=== PATIENT | male | born 1955 | race Caucasian/White ===

== ENCOUNTER 2017-08-14 12:23 | Inpatient (IN) ==
--- NOTE | 2017-08-14 12:34 | Emergency Department Note ---
Disposition Clinical Impression: Rhabdomyolysis, Elevated troponin I level, Altered mental state Disposition: Admitted As Inpatient Condition: Serious General Adult HPI - General Stated complaint: AMS Time Seen by Provider: 08/14/17 12:25 - Related Data Home Medications Medication Instructions Recorded Confirmed Nitroglycerin 0.4 mg SL Q5M PRN 09/03/16 08/14/17 Albuterol Sulfate [Proventil Hfa] 1 - 2 puff IH Q6H PRN 08/14/17 08/14/17 Amlodipine Besylate 10 mg PO DAILY 08/14/17 08/14/17 Cyclobenzaprine HCl 10 mg PO HS 08/14/17 08/14/17 Gabapentin [Neurontin] 600 mg PO TID 08/14/17 08/14/17 Isosorbide MONOnitrate (24 HR) 60 mg PO DAILY 08/14/17 08/14/17 [Imdur] Lisinopril/Hydrochlorothiazide 1 tab PO DAILY 08/14/17 08/14/17 [Zestoretic 20-12.5 mg Tablet] Metoprolol XL (24 HR) Succ [Toprol 100 mg PO DAILY 08/14/17 08/14/17 Xl] Oxybutynin Chloride [Ditropan Xl] 5 mg PO BID 08/14/17 08/14/17 Tamsulosin [Flomax] 0.4 mg PO DAILY 08/14/17 08/14/17 Previous Rx's Medication Instructions Recorded Atorvastatin [Lipitor] 80 mg PO HS #30 tablet 07/23/15 Clopidogrel [Plavix] 75 mg PO DAILY #30 tablet 07/23/15 Allergies Allergy/AdvReac Type Severity Reaction Status Date / Time No Known Allergies Allergy Verified 09/03/16 07:59 Past Medical History - Past Medical History Medical history: Reports: non-contributory, arthritis, coronary artery disease, diabetes, hyperlipidemia, hypertension, myocardial infarction, TIA Surgical history: Reports: no surgical history Psychiatric history: Reports: no psych history - Social History Smoking Status: Current every day smoker Smokeless Tobacco Status: No Alcohol use: Reports: occasionally Drug use: Reports: none Course Vital Signs Temperature 98.2 F 08/14/17 12:48 Pulse Rate 79 08/14/17 12:48 Respiratory Rate 18 08/14/17 12:48 Blood Pressure 149/80 08/14/17 12:48 O2 Sat by Pulse Oximetry 79 02/03/18 12:48 Temperature 98.2 F 08/14/17 12:48 Pulse Rate 79 08/14/17 12:48 Respiratory Rate 18 08/14/17 15:15 Blood Pressure 113/68 08/14/17 15:15 O2 Sat by Pulse Oximetry 79 08/14/17 12:48 Oxygen Delivery Oxygen Delivery Room Air Medical Decision Making - Lab Data Result diagrams: 08/14/17 13:09 08/14/17 13:09 Lab Results 08/14/17 08/14/17 08/14/17 Range/Units 12:37 13:09 13:09 WBC 13.0 H (4.3-11.1) K/mcL RBC 4.74 (4.19-5.50) M/mcL Hgb 13.6 (12.9-16.9) g/dL Hct 42.4 (37.5-50.1) % MCV 89.5 (83.0-100.0) fL MCH 28.7 (28.0-33.3) pg MCHC 32.1 (31.6-35.5) g/dL RDW 13.4 (11.5-14.5) % Plt Count 197 (140-400) K/mcL MPV 9.7 (9.4-12.4) fL Immature Gran % 0.4 (0-4) % Seg Neutrophils % 85.9 % Lymphocytes % 7.1 % Monocytes % 6.4 % Eosinophils % 0.1 % Basophils % 0.1 % Neutrophils # 11.2 H (1.6-8.9) K/mcL Lymphocytes # 0.9 (0.6-4.6) K/mcL Monocytes # 0.8 (0.0-1.3) K/mcL Eosinophils # 0.0 (0.0-0.6) K/mcL Basophils # 0.0 (0.0-0.2) K/mcL PT 11.1 (9.4-12.1) Seconds INR 1.0 APTT 27.1 (26.0-36.0) Seconds Sodium (136-145) mEq/L Potassium (3.5-5.1) mEq/L Chloride (98-107) mEq/L Carbon Dioxide (23-29) mEq/L BUN (8-23) mg/dL Creatinine (0.70-1.30) mg/dL Est GFR ( Amer) (> 60) Est GFR (Non-Af Amer) (> 60) BUN/Creatinine Ratio (6-26) Glucose (70-105) mg/dL POC Glucose 155 H (58-89) Calculated Osmolality (280-300) Calcium (8.6-10.3) mg/dL Total Bilirubin (0.3-1.0) mg/dL Direct Bilirubin (0.0-0.2) mg/dL Indirect Bilirubin (0.0-1.2) mg/dL AST (13-39) Units/L ALT (7-52) Units/L Alkaline Phosphatase (34-104) Units/L Ammonia (16-53) mcmol/L Creatine Kinase (30-223) Units/L Troponin I (< 0.04) ng/mL Serum Total Protein (6.4-8.9) g/dL Albumin (3.5-5.7) g/dL Globulin (2.4-3.5) g/dL Albumin/Globulin Ratio (1.1-2.2) TSH (0.340-5.600) mcIU/mL Urine Color (Yellow) Urine Clarity (Clear) Urine pH (5.0-8.0) pH Units Ur Specific [place] (1.010-1.025) Urine Protein (Neg-Trace) mg/dL Urine Glucose (UA) (Normal) mg/dL Urine Ketones (Negative) mg/dL Urine Blood (Negative) Urine Nitrite (Negative) Urine Bilirubin (Negative) Urine Urobilinogen (Normal) mg/dL Ur Leukocyte Esterase (Negative) Urine Microscopic RBC (0-3) per hpf Urine Microscopic WBC (0-3) per hpf Ur Squamous Epith Cells (None-Few) per lpf Amorphous Sediment (Few) Urine Bacteria (None-Few) per hpf Ur Culture Indicated? (NO) Urine Opiates Screen (Vudzgu=081) ng/mL Ur Barbiturates Screen (Aomggw=961) ng/mL Ur Phencyclidine Scrn (Cutoff=25) ng/mL Ur Amphetamines Screen (Olbwap=2788) ng/mL U Benzodiazepines Scrn (Rscflp=101) ng/mL Urine Cocaine Screen (Cutoff= 300) ng/mL U Marijuana (THC) Screen (Cutoff = 50) ng/mL Ethyl Alcohol (0-10) mg/dL 08/14/17 08/14/17 08/14/17 Range/Units 13:09 13:09 13:09 WBC (4.3-11.1) K/mcL RBC (4.19-5.50) M/mcL Hgb (12.9-16.9) g/dL Hct (37.5-50.1) % MCV (83.0-100.0) fL MCH (28.0-33.3) pg MCHC (31.6-35.5) g/dL RDW (11.5-14.5) % Plt Count (140-400) K/mcL MPV (9.4-12.4) fL Immature Gran % (0-4) % Seg Neutrophils % % Lymphocytes % % Monocytes % % Eosinophils % % Basophils % % Neutrophils # (1.6-8.9) K/mcL Lymphocytes # (0.6-4.6) K/mcL Monocytes # (0.0-1.3) K/mcL Eosinophils # (0.0-0.6) K/mcL Basophils # (0.0-0.2) K/mcL PT (9.4-12.1) Seconds INR APTT (26.0-36.0) Seconds Sodium 133 L (136-145) mEq/L Potassium 4.4 (3.5-5.1) mEq/L Chloride 98 (98-107) mEq/L Carbon Dioxide 26 (23-29) mEq/L BUN 30 H (8-23) mg/dL Creatinine 2.50 H (0.70-1.30) mg/dL Est GFR ( Amer) 32 L (> 60) Est GFR (Non-Af Amer) 26 L (> 60) BUN/Creatinine Ratio 12 (6-26) Glucose 112 H (70-105) mg/dL POC Glucose (58-89) Calculated Osmolality 283 (280-300) Calcium 9.0 (8.6-10.3) mg/dL Total Bilirubin 0.8 (0.3-1.0) mg/dL Direct Bilirubin 0.1 (0.0-0.2) mg/dL Indirect Bilirubin 0.7 (0.0-1.2) mg/dL AST 43 H (13-39) Units/L ALT 17 (7-52) Units/L Alkaline Phosphatase 48 (34-104) Units/L Ammonia 42 (16-53) mcmol/L Creatine Kinase 6238 H (30-223) Units/L Troponin I 0.09 H* (< 0.04) ng/mL Serum Total Protein 6.4 (6.4-8.9) g/dL Albumin 4.0 (3.5-5.7) g/dL Globulin 2.4 (2.4-3.5) g/dL Albumin/Globulin Ratio 1.7 (1.1-2.2) TSH 1.836 (0.340-5.600) mcIU/mL Urine Color (Yellow) Urine Clarity (Clear) Urine pH (5.0-8.0) pH Units Ur Specific [place] (1.010-1.025) Urine Protein (Neg-Trace) mg/dL Urine Glucose (UA) (Normal) mg/dL Urine Ketones (Negative) mg/dL Urine Blood (Negative) Urine Nitrite (Negative) Urine Bilirubin (Negative) Urine Urobilinogen (Normal) mg/dL Ur Leukocyte Esterase (Negative) Urine Microscopic RBC (0-3) per hpf Urine Microscopic WBC (0-3) per hpf Ur Squamous Epith Cells (None-Few) per lpf Amorphous Sediment (Few) Urine Bacteria (None-Few) per hpf Ur Culture Indicated? (NO) Urine Opiates Screen (Lgvbgm=363) ng/mL Ur Barbiturates Screen (Fonrri=399) ng/mL Ur Phencyclidine Scrn (Cutoff=25) ng/mL Ur Amphetamines Screen (Svmeqx=6526) ng/mL U Benzodiazepines Scrn (Rfazug=909) ng/mL Urine Cocaine Screen (Cutoff= 300) ng/mL U Marijuana (THC) Screen (Cutoff = 50) ng/mL Ethyl Alcohol < 10 (0-10) mg/dL 08/14/17 08/14/17 Range/Units 14:05 14:06 WBC (4.3-11.1) K/mcL RBC (4.19-5.50) M/mcL Hgb (12.9-16.9) g/dL Hct (37.5-50.1) % MCV (83.0-100.0) fL MCH (28.0-33.3) pg MCHC (31.6-35.5) g/dL RDW (11.5-14.5) % Plt Count (140-400) K/mcL MPV (9.4-12.4) fL Immature Gran % (0-4) % Seg Neutrophils % % Lymphocytes % % Monocytes % % Eosinophils % % Basophils % % Neutrophils # (1.6-8.9) K/mcL Lymphocytes # (0.6-4.6) K/mcL Monocytes # (0.0-1.3) K/mcL Eosinophils # (0.0-0.6) K/mcL Basophils # (0.0-0.2) K/mcL PT (9.4-12.1) Seconds INR APTT (26.0-36.0) Seconds Sodium (136-145) mEq/L Potassium (3.5-5.1) mEq/L Chloride (98-107) mEq/L Carbon Dioxide (23-29) mEq/L BUN (8-23) mg/dL Creatinine (0.70-1.30) mg/dL Est GFR ( Amer) (> 60) Est GFR (Non-Af Amer) (> 60) BUN/Creatinine Ratio (6-26) Glucose (70-105) mg/dL POC Glucose (58-89) Calculated Osmolality (280-300) Calcium (8.6-10.3) mg/dL Total Bilirubin (0.3-1.0) mg/dL Direct Bilirubin (0.0-0.2) mg/dL Indirect Bilirubin (0.0-1.2) mg/dL AST (13-39) Units/L ALT (7-52) Units/L Alkaline Phosphatase (34-104) Units/L Ammonia (16-53) mcmol/L Creatine Kinase (30-223) Units/L Troponin I (< 0.04) ng/mL Serum Total Protein (6.4-8.9) g/dL Albumin (3.5-5.7) g/dL Globulin (2.4-3.5) g/dL Albumin/Globulin Ratio (1.1-2.2) TSH (0.340-5.600) mcIU/mL Urine Color Yellow (Yellow) Urine Clarity Turbid A (Clear) Urine pH 5.0 (5.0-8.0) pH Units Ur Specific [place] > 1.030 H (1.010-1.025) Urine Protein 100 H (Neg-Trace) mg/dL Urine Glucose (UA) 250 H (Normal) mg/dL Urine Ketones Negative (Negative) mg/dL Urine Blood Large H (Negative) Urine Nitrite Negative (Negative) Urine Bilirubin Negative (Negative) Urine Urobilinogen Normal (Normal) mg/dL Ur Leukocyte Esterase Negative (Negative) Urine Microscopic RBC 0-3 (0-3) per hpf Urine Microscopic WBC 3-5 H (0-3) per hpf Ur Squamous Epith Cells Many H (None-Few) per lpf Amorphous Sediment Moderate H (Few) Urine Bacteria Many H (None-Few) per hpf Ur Culture Indicated? NO (NO) Urine Opiates Screen Positive H (Wmunve=530) ng/mL Ur Barbiturates Screen Negative (Ssxxbp=997) ng/mL Ur Phencyclidine Scrn Negative (Cutoff=25) ng/mL Ur Amphetamines Screen Negative (Kphxov=3832) ng/mL U Benzodiazepines Scrn Negative (Fwnnxm=019) ng/mL Urine Cocaine Screen Negative (Cutoff= 300) ng/mL U Marijuana (THC) Screen Positive H (Cutoff = 50) ng/mL Ethyl Alcohol (0-10) mg/dL Critical Care Time Critical Care Time: Yes Total Critical Care Time: 30 Attestation: The high probability of a clinically significant, sudden or life threatening deterioration of the [] system(s) required my full and direct attention, intervention and personal management. The aggregate critical care time was [] minutes. This time is in addition to time spent performing reported procedures but includes the following: [] Data Review and interpretation [] Patient assessment and monitoring of vital signs [] Documentation [] Medication orders and management Attestation Statement - Attestation Attestation: I examined this patient and my medical decision-making was reviewed with the Resident Physician. I agree with the documented findings, disposition and treatment plan as described except to the extent set forth below. [id number] time provided Patient arrives in the care of his family with increased somnolence. He is alert at the time of my initial exam. I evaluated this patient and discussed the plan of care with the resident physician Dr. Chao
[2017-08-14] MEDS ORDERED: 0.9 % Sodium Chloride 1,000 ML IVC ONE ×2 (12:36→14:42)
[2017-08-14 13:19] LABS: Basophils % 0.1 %; Eosinophils % 0.1 %; Hematocrit 42.4 % (37.5-50.1); Hemoglobin 13.6 g/dL (12.9-16.9); Immature Granulocytes % 0.4 % (0-4); Lymphocytes # 0.9 K/mcL (0.6-4.6); Lymphocytes % 7.1 %; Mean Corpuscular HGB Conc 32.1 g/dL (31.6-35.5); Mean Corpuscular Hemoglobin 28.7 pg (28.0-33.3); Mean Corpuscular Volume 89.5 fL (83.0-100.0); Mean Platelet Volume 9.7 fL (9.4-12.4); Monocytes # 0.8 K/mcL (0.0-1.3); Monocytes % 6.4 %; Neutrophils # 11.2 K/mcL (1.6-8.9); Platelet Count 197 K/mcL (140-400); Red Blood Count 4.74 M/mcL (4.19-5.50); Red Cell Distribution Width 13.4 % (11.5-14.5); Segmented Neutrophils % 85.9 %
[2017-08-14 13:33] LABS: Prothrombin Time 11.1 Seconds (9.4-12.1)
[2017-08-14 13:36] LABS: Activated Partial Thrombo Time 27.1 Seconds (26.0-36.0)
[2017-08-14 13:42] LABS: Ethanol < 10 mg/dL (0-10)
[2017-08-14] MEDS ORDERED: Aspirin 81 MG TAB.CHEW PO ONE (13:47)
--- NOTE | 2017-08-14 14:14 | Emergency Department Note ---
Disposition Clinical Impression: Elevated troponin I level Rhabdomyolysis Qualifiers: Rhabdomyolysis type: non-traumatic Qualified Code(s): M62.82 - Rhabdomyolysis Altered mental state Qualifiers: Altered mental status type: unspecified Qualified Code(s): R41.82 - Altered mental status, unspecified Disposition: Admitted As Inpatient Condition: Serious Referrals: John Pritchard MD [Primary Care Provider] - Forms: ED Satisfaction Letter Time of Disposition: 14:56 General Adult HPI - General Chief complaint: ED Neuro Symptoms/Deficit Stated complaint: AMS Time Seen by Provider: 08/14/17 12:25 Source: patient Limitations: no limitations Nursing Notes Reviewed: Yes Vital Signs Reviewed: Yes - History of Present Illness HPI Narrative: 62-year-old male history of htn, hyperlipidemia, CAD status post stents, presents complaining of altered mental status, his states that she woke him up at 9:30, and that he was sitting in the chair difficult to arouse when he woke up he seemed pale and clammy, patient denies any chest pain or any weakness, he denies shortness of breath or abdominal pain. Patient has no complaints at this time essentially, he appears very confused mostly history is obtained from his is at bedside. They say he does have a history of TIA no history of stroke is also had multiple recurrent pneumonias. His high blood pressure high cholesterol and takes isosorbide did not take his medication today. Onset (ago): hour(s) Location: head Pain Severity: moderate Pain Scale: 4 Quality: aching Improves with: nothing Worsens with: nothing Associated symptoms: Denies: confusion, chest pain, cough, diaphoresis, headaches, loss of appetite, nausea/vomiting - Related Data Home Medications Medication Instructions Recorded Confirmed Nitroglycerin 0.4 mg SL Q5M PRN 09/03/16 09/03/16 Previous Rx's Medication Instructions Recorded Aspirin 81 mg PO DAILY #30 tab.chew 07/23/15 Atorvastatin [Lipitor] 80 mg PO HS #30 tablet 07/23/15 Clopidogrel [Plavix] 75 mg PO DAILY #30 tablet 07/23/15 Isosorbide MONOnitrate (24 HR) 30 mg PO DAILY #30 tab.er.24h 07/23/15 [Imdur] Lisinopril [Zestril] 10 mg PO DAILY #30 tablet 07/23/15 Metoprolol XL (24 HR) Succ [Toprol 50 mg PO DAILY #30 tab.er.24h 07/23/15 Xl] Allergies Allergy/AdvReac Type Severity Reaction Status Date / Time No Known Allergies Allergy Verified 09/03/16 07:59 All systems ED: reviewed and negative except as stated. Review of Systems: As Per HPI Constitutional: Reports: weakness. Denies: fever, chills Eyes: Denies: eye pain ENT ED: Denies: ear pain Cardiovascular: Denies: chest pain Respiratory: Denies: cough Gastrointestinal: Denies: abdominal pain, nausea Genitourinary: Denies: urgency Musculoskeletal: Denies: back pain Integumentary: Denies: rash, abrasion Neurological: Reports: as per HPI, headache. Denies: weakness, numbness Psychiatric: Denies: anxiety Past Medical History - Past Medical History Attestation: Yes The following information was validated with the patient. Source: patient Medical history: Reports: non-contributory, arthritis, coronary artery disease, diabetes, hyperlipidemia, hypertension, myocardial infarction, TIA Surgical history: Reports: no surgical history Psychiatric history: Reports: no psych history - Social History Smoking Status: Current every day smoker Smokeless Tobacco Status: No Alcohol use: Reports: occasionally Drug use: Reports: none Physical Exam - General Limitations: no limitations General appearance: alert, in no apparent distress - Head Head exam: atraumatic - Eye Eye exam: Present: normal appearance - ENT ENT exam: normal exam, normal oropharynx - Neck Neck exam: Present: normal inspection, full ROM - Chest Chest inspection: Present: normal inspection - Respiratory Respiratory exam: Present: normal lung sounds bilaterally, respiratory distress - Cardiovascular Cardiovascular exam: Present: regular rate - Abdominal Exam Abdominal exam: Present: Non-Tender - Neurological Exam Neurological exam: Present: alert, CN II-XII intact. Absent: oriented X3 - Expanded Neurological Exam Patient oriented to: Present: person. Absent: place, time Motor strength - LUE: 5/5 Motor strength - RUE: 5/5 Motor strength - LLE: 5/5 Motor strength - RLE: 5/5 Coma Scale Eye Opening: Spontaneous Coma Scale Motor Response: Obeys Commands Coma Scale Verbal Response: Confused Coma Scale Total: 14 Course Course Narrative: 62-year-old with altered mental status, CT had basic lab work including troponin EKG CBC tox screen BMP troponin is EKG shows left ventricular hypertrophy with no acute ischemic changes from previous, DC is on the differential as well as stroke versus hypoglycemia although his Accu-Chek is 150 he did get better after getting some orange juice earlier today. - Reevaluation(s) Reevaluation #1: Evaluated the patient, he did have a fall at the bedside, weight on his buttocks as he was trying to sit and bedside commode and his urinal, he did not hit his head, this is witnessed by family members and staff they got back up to AP view of his pelvis was negative for acute fracture, patient's labwork was [place] for a troponin of 0.09, I did order him some aspirin after reviewing his CAT scan that showed no evidence ICH, his creatinine kinase is greater than 6000 , his creatinine is 2.5 with a GFR less than 30, he appears to have acute renal failure with rhabdomyolysis, positive for subjective his Ultram L state and at this time no indication for heparinization even though he does have elevated troponin, is not clearly presents in an semis the patient is shortness breath or chest pain plan will be for fluid rehydration admission the hospitalist, I did speak with Dr. Escalona his admission, I repeated an EKG that showed no acute ischemic changes however he does have inverted T waves and signs of LVH and his precordial lateral leads these are similar to previous EKGs from year ago. Time: 14:56 Vital Signs Temperature 98.2 F 08/14/17 12:48 Pulse Rate 79 08/14/17 12:48 Respiratory Rate 18 08/14/17 12:48 Blood Pressure 149/80 08/14/17 12:48 O2 Sat by Pulse Oximetry 79 08/14/17 12:48 Temperature 98.2 F 08/14/17 12:48 Pulse Rate 79 08/14/17 12:48 Respiratory Rate 18 08/14/17 12:48 Blood Pressure 149/80 08/14/17 12:48 O2 Sat by Pulse Oximetry 79 08/14/17 12:48 Oxygen Delivery Oxygen Delivery Room Air Medical Decision Making - Medical Records Medical records reviewed: Yes I reviewed the patient's medical records. - Lab Data Lab results reviewed: Yes I reviewed the patient's lab results. Result diagrams: 08/14/17 13:09 08/14/17 13:09 Lab Results 08/14/17 08/14/17 08/14/17 Range/Units 12:37 13:09 13:09 WBC 13.0 H (4.3-11.1) K/mcL RBC 4.74 (4.19-5.50) M/mcL Hgb 13.6 (12.9-16.9) g/dL Hct 42.4 (37.5-50.1) % MCV 89.5 (83.0-100.0) fL MCH 28.7 (28.0-33.3) pg MCHC 32.1 (31.6-35.5) g/dL RDW 13.4 (11.5-14.5) % Plt Count 197 (140-400) K/mcL MPV 9.7 (9.4-12.4) fL Immature Gran % 0.4 (0-4) % Seg Neutrophils % 85.9 % Lymphocytes % 7.1 % Monocytes % 6.4 % Eosinophils % 0.1 % Basophils % 0.1 % Neutrophils # 11.2 H (1.6-8.9) K/mcL Lymphocytes # 0.9 (0.6-4.6) K/mcL Monocytes # 0.8 (0.0-1.3) K/mcL Eosinophils # 0.0 (0.0-0.6) K/mcL Basophils # 0.0 (0.0-0.2) K/mcL PT 11.1 (9.4-12.1) Seconds INR 1.0 APTT 27.1 (26.0-36.0) Seconds Sodium (136-145) mEq/L Potassium (3.5-5.1) mEq/L Chloride (98-107) mEq/L Carbon Dioxide (23-29) mEq/L BUN (8-23) mg/dL Creatinine (0.70-1.30) mg/dL Est GFR ( Amer) (> 60) Est GFR (Non-Af Amer) (> 60) BUN/Creatinine Ratio (6-26) Glucose (70-105) mg/dL POC Glucose 155 H (58-89) Calculated Osmolality (280-300) Calcium (8.6-10.3) mg/dL Total Bilirubin (0.3-1.0) mg/dL Direct Bilirubin (0.0-0.2) mg/dL Indirect Bilirubin (0.0-1.2) mg/dL AST (13-39) Units/L ALT (7-52) Units/L Alkaline Phosphatase (34-104) Units/L Ammonia (16-53) mcmol/L Creatine Kinase (30-223) Units/L Troponin I (< 0.04) ng/mL Serum Total Protein (6.4-8.9) g/dL Albumin (3.5-5.7) g/dL Globulin (2.4-3.5) g/dL Albumin/Globulin Ratio (1.1-2.2) TSH (0.340-5.600) mcIU/mL Urine Color (Yellow) Urine Clarity (Clear) Urine pH (5.0-8.0) pH Units Ur Specific [place] (1.010-1.025) Urine Protein (Neg-Trace) mg/dL Urine Glucose (UA) (Normal) mg/dL Urine Ketones (Negative) mg/dL Urine Blood (Negative) Urine Nitrite (Negative) Urine Bilirubin (Negative) Urine Urobilinogen (Normal) mg/dL Ur Leukocyte Esterase (Negative) Urine Opiates Screen (Fqmlki=222) ng/mL Ur Barbiturates Screen (Eoganv=015) ng/mL Ur Phencyclidine Scrn (Cutoff=25) ng/mL Ur Amphetamines Screen (Filque=4874) ng/mL U Benzodiazepines Scrn (Iqwbif=368) ng/mL Urine Cocaine Screen (Cutoff= 300) ng/mL U Marijuana (THC) Screen (Cutoff = 50) ng/mL Ethyl Alcohol (0-10) mg/dL 08/14/17 08/14/17 08/14/17 Range/Units 13:09 13:09 13:09 WBC (4.3-11.1) K/mcL RBC (4.19-5.50) M/mcL Hgb (12.9-16.9) g/dL Hct (37.5-50.1) % MCV (83.0-100.0) fL MCH (28.0-33.3) pg MCHC (31.6-35.5) g/dL RDW (11.5-14.5) % Plt Count (140-400) K/mcL MPV (9.4-12.4) fL Immature Gran % (0-4) % Seg Neutrophils % % Lymphocytes % % Monocytes % % Eosinophils % % Basophils % % Neutrophils # (1.6-8.9) K/mcL Lymphocytes # (0.6-4.6) K/mcL Monocytes # (0.0-1.3) K/mcL Eosinophils # (0.0-0.6) K/mcL Basophils # (0.0-0.2) K/mcL PT (9.4-12.1) Seconds INR APTT (26.0-36.0) Seconds Sodium 133 L (136-145) mEq/L Potassium 4.4 (3.5-5.1) mEq/L Chloride 98 (98-107) mEq/L Carbon Dioxide 26 (23-29) mEq/L BUN 30 H (8-23) mg/dL Creatinine 2.50 H (0.70-1.30) mg/dL Est GFR ( Amer) 32 L (> 60) Est GFR (Non-Af Amer) 26 L (> 60) BUN/Creatinine Ratio 12 (6-26) Glucose 112 H (70-105) mg/dL POC Glucose (58-89) Calculated Osmolality 283 (280-300) Calcium 9.0 (8.6-10.3) mg/dL Total Bilirubin 0.8 (0.3-1.0) mg/dL Direct Bilirubin 0.1 (0.0-0.2) mg/dL Indirect Bilirubin 0.7 (0.0-1.2) mg/dL AST 43 H (13-39) Units/L ALT 17 (7-52) Units/L Alkaline Phosphatase 48 (34-104) Units/L Ammonia 42 (16-53) mcmol/L Creatine Kinase 6238 H (30-223) Units/L Troponin I 0.09 H* (< 0.04) ng/mL Serum Total Protein 6.4 (6.4-8.9) g/dL Albumin 4.0 (3.5-5.7) g/dL Globulin 2.4 (2.4-3.5) g/dL Albumin/Globulin Ratio 1.7 (1.1-2.2) TSH 1.836 (0.340-5.600) mcIU/mL Urine Color (Yellow) Urine Clarity (Clear) Urine pH (5.0-8.0) pH Units Ur Specific [place] (1.010-1.025) Urine Protein (Neg-Trace) mg/dL Urine Glucose (UA) (Normal) mg/dL Urine Ketones (Negative) mg/dL Urine Blood (Negative) Urine Nitrite (Negative) Urine Bilirubin (Negative) Urine Urobilinogen (Normal) mg/dL Ur Leukocyte Esterase (Negative) Urine Opiates Screen (Zsopnw=508) ng/mL Ur Barbiturates Screen (Ukfeyw=465) ng/mL Ur Phencyclidine Scrn (Cutoff=25) ng/mL Ur Amphetamines Screen (Zygpyj=8115) ng/mL U Benzodiazepines Scrn (Tsjloh=392) ng/mL Urine Cocaine Screen (Cutoff= 300) ng/mL U Marijuana (THC) Screen (Cutoff = 50) ng/mL Ethyl Alcohol < 10 (0-10) mg/dL 08/14/17 08/14/17 Range/Units 14:05 14:06 WBC (4.3-11.1) K/mcL RBC (4.19-5.50) M/mcL Hgb (12.9-16.9) g/dL Hct (37.5-50.1) % MCV (83.0-100.0) fL MCH (28.0-33.3) pg MCHC (31.6-35.5) g/dL RDW (11.5-14.5) % Plt Count (140-400) K/mcL MPV (9.4-12.4) fL Immature Gran % (0-4) % Seg Neutrophils % % Lymphocytes % % Monocytes % % Eosinophils % % Basophils % % Neutrophils # (1.6-8.9) K/mcL Lymphocytes # (0.6-4.6) K/mcL Monocytes # (0.0-1.3) K/mcL Eosinophils # (0.0-0.6) K/mcL Basophils # (0.0-0.2) K/mcL PT (9.4-12.1) Seconds INR APTT (26.0-36.0) Seconds Sodium (136-145) mEq/L Potassium (3.5-5.1) mEq/L Chloride (98-107) mEq/L Carbon Dioxide (23-29) mEq/L BUN (8-23) mg/dL Creatinine (0.70-1.30) mg/dL Est GFR ( Amer) (> 60) Est GFR (Non-Af Amer) (> 60) BUN/Creatinine Ratio (6-26) Glucose (70-105) mg/dL POC Glucose (58-89) Calculated Osmolality (280-300) Calcium (8.6-10.3) mg/dL Total Bilirubin (0.3-1.0) mg/dL Direct Bilirubin (0.0-0.2) mg/dL Indirect Bilirubin (0.0-1.2) mg/dL AST (13-39) Units/L ALT (7-52) Units/L Alkaline Phosphatase (34-104) Units/L Ammonia (16-53) mcmol/L Creatine Kinase (30-223) Units/L Troponin I (< 0.04) ng/mL Serum Total Protein (6.4-8.9) g/dL Albumin (3.5-5.7) g/dL Globulin (2.4-3.5) g/dL Albumin/Globulin Ratio (1.1-2.2) TSH (0.340-5.600) mcIU/mL Urine Color Yellow (Yellow) Urine Clarity Turbid A (Clear) Urine pH 5.0 (5.0-8.0) pH Units Ur Specific [place] > 1.030 H (1.010-1.025) Urine Protein 100 H (Neg-Trace) mg/dL Urine Glucose (UA) 250 H (Normal) mg/dL Urine Ketones Negative (Negative) mg/dL Urine Blood Large H (Negative) Urine Nitrite Negative (Negative) Urine Bilirubin Negative (Negative) Urine Urobilinogen Normal (Normal) mg/dL Ur Leukocyte Esterase Negative (Negative) Urine Opiates Screen Positive H (Nzmnoh=516) ng/mL Ur Barbiturates Screen Negative (Bgtchv=789) ng/mL Ur Phencyclidine Scrn Negative (Cutoff=25) ng/mL Ur Amphetamines Screen Negative (Mainso=9472) ng/mL U Benzodiazepines Scrn Negative (Uqsdce=916) ng/mL Urine Cocaine Screen Negative (Cutoff= 300) ng/mL U Marijuana (THC) Screen Positive H (Cutoff = 50) ng/mL Ethyl Alcohol (0-10) mg/dL - Radiology Data Radiology results reviewed: Yes I reviewed the patient's radiology results. Chest X-Ray 08/14/17 12:36 IMPRESSION: 1. Cardiomegaly. 2. Calcific atherosclerosis aorta. 3. Chronic pulmonary findings. No acute infiltrate. D/ / John Maloney / John Maloney Interpreting Provider: John Maloney Head CT 08/14/17 12:36 IMPRESSION: Chronic appearing parenchymal changes felt to be on the basis of microvascular ischemia and prior infarction. No cerebral edema is identified; however, if there are focal deficits an MRI should be considered. D/ / 08/14/2017 13:31:09 Aris uHston / bcarter Interpreting Provider: Aris Huston Pelvis X-Ray 08/14/17 12:53 IMPRESSION: No acute radiographic findings. D/ / Pankaj Cunningham MD / Pankaj Cunningham MD Interpreting Provider: Pankaj Cunningham MD - EKG Data EKG #1 EKG attestation: Yes I reviewed and interpreted this EKG. EKG shows normal: sinus rhythm Rate: normal Rhythm: NSR (79 bpm [place] 176 QRS 101 QTC 446 no acute asemic changes, LVH with inverted T waves in V4 V5 and V6 seen on previous EKG in May 2016) [place]/QRS: normal Voltage: c/w LVH (Repeat EKG at 1435 showed ventricular rate 60 APF 140 QRS 101 QTc 457 acute ischemic changes and inverted T waves in V3 through V6 consistent with LVH similar previous) Interpretation: no acute changes, nonspecific ST-T wave changes, other
[2017-08-14 14:23] LABS: Bilirubin,Urine Negative (Negative); Blood,Urine Large (Negative); Clarity,Urine Turbid (Clear); Color,Urine Yellow (Yellow); Glucose,Urine (UA) 250 mg/dL (Normal); Ketones,Urine Negative (Negative); Leukocyte Esterase,Urine Negative (Negative); Nitrite,Urine Negative (Negative); Protein,Urine 100 mg/dL (Neg-Trace); Specific Gravity,Urine > 1.030 (1.010-1.025); Urobilinogen,Urine Normal (Normal)
[2017-08-14 14:25] LABS: RBC,Urine 0-3 per hpf (0-3); Squamous Epithelial Cell,Urine Many per lpf (None-Few)
[2017-08-14 14:31] LABS: Amphetamine Screen,Urine Negative ng/mL (Cutoff=1000); Barbiturate Screen,Urine Negative ng/mL (Cutoff=200); Benzodiazepines Screen,Urine Negative ng/mL (Cutoff=200); Cannabinoid Screen,Urine Positive ng/mL (Cutoff = 50); Cocaine Screen,Urine Negative ng/mL (Cutoff= 300); Opiate Screen,Urine Positive ng/mL (Cutoff=300); Phencyclidine Screen,Urine Negative ng/mL (Cutoff=25)
[2017-08-14 14:38] LABS: Alanine Aminotransferase 17 Units/L (7-52); Albumin/Globulin Ratio 1.7 (1.1-2.2); Alkaline Phosphatase 48 Units/L (34-104); Aspartate Amino Transferase 43 Units/L (13-39); BUN/Creatinine Ratio 12 (6-26); Bilirubin,Direct 0.1 mg/dL (0.0-0.2); Bilirubin,Indirect 0.7 mg/dL (0.0-1.2); Bilirubin,Total 0.8 mg/dL (0.3-1.0); Blood Urea Nitrogen 30 mg/dL (8-23); Carbon Dioxide 26 mEq/L (23-29); Chloride 98 mEq/L (98-107); Globulin 2.4 g/dL (2.4-3.5); Glucose 112 mg/dL (70-105); Osmolality,Calculated 283 (280-300); Potassium 4.4 mEq/L (3.5-5.1); Sodium 133 mEq/L (136-145); Total Protein 6.4 g/dL (6.4-8.9); eGFR For African Americans 32 (> 60); eGFR For Non-African Americans 26 (> 60)
[2017-08-14 14:39] LABS: Creatine Kinase 6238 Units/L (30-223); Thyroid Stimulating Hormone 1.836 mcIU/mL (0.340-5.600)
[2017-08-14 14:57] LABS: Amorphous Sediment,Urine Moderate (Few)
[2017-08-14 14:59] LABS: Bacteria,Urine Many per hpf (None-Few)
[2017-08-14] MEDS ORDERED: Naloxone 0.4 MG/ML INJ IVP PRN (15:14)
[2017-08-14] MEDS ORDERED: 0.9 % Sodium Chloride 1,000 ML IVC SCH (15:15)
[2017-08-14] MEDS ORDERED: Nitroglycerin 0.4 MG TAB.SUBL SL PRN (15:16)
--- NOTE | 2017-08-14 15:32 | Internal Med History&Physical ---
Date of Encounter: 08/14/17 Time of Encounter: 15:03 Assessment and Plan (1) Altered mental state Current visit: Yes Status: Acute Of unclear etiology Tox screen positive for Opiates and marijuana will hold all sedative agents at this time (hold patient's home dose of Gabapentin, Cyclobenzaprine) no infectious etiology contributing to acute mental status change CT head findings consistent with prior history of CVA no focal neurological deficits noted will continue to closely monitor Qualifiers: Altered mental status type: unspecified Qualified Code(s): R41.82 - Altered mental status, unspecified (2) Acute renal failure Current visit: Yes Status: Acute Likely secondary to Rhabdomyolysis will continue IV fluids will closely monitor for signs of volume overload given history of mild LV diastolic dysfunction nephrology consultation requested with Dr. Kam will hold home dose of Lisinopril/HCTZ at this time continue to closely monitor Qualifiers: Acute renal failure type: unspecified Qualified Code(s): N17.9 - Acute kidney failure, unspecified (3) Rhabdomyolysis Current visit: Yes Status: Acute of unclear etiology pt reports of having a fall at home, however states he was able to get right back up without any difficulties will continue IV fluids at this time and continue to closely monitor CK level Qualifiers: Rhabdomyolysis type: non-traumatic Qualified Code(s): M62.82 - Rhabdomyolysis (4) Elevated troponin I level Current visit: Yes Status: Acute unlikely ACS given current renal impairment likely demand ischemia hx of CAD s/p [facility] in Jul 2016 no chest pain reported at this time will continue to monitor serial TNI (5) CHF (congestive heart failure) Current visit: Yes Status: Chronic no signs of CHF decompensation continue home meds will closely monitor for signs of volume overload Qualifiers: Congestive heart failure type: diastolic Congestive heart failure chronicity: chronic Qualified Code(s): I50.32 - Chronic diastolic (congestive ) heart failure (6) CAD (coronary artery disease) Current visit: No Status: Chronic no signs of angina present continue ASA,Plavix, Statin, BB Qualifiers: Coronary Disease-Associated Artery/Lesion type: unspecified vessel or lesion type [place] vs. transplanted heart: unspecified whether [place] or transplanted heart Associated angina: angina presence unspecified Qualified Code(s): I25.10 - Atherosclerotic heart disease of [place] coronary artery without angina pectoris (7) HTN (hypertension) Current visit: No Status: Chronic BP within acceptable range despite holding antihypertensives will continue to closely monitor holding Lisinopril/HCTZ given renal impairment, pt reports of not taking this medication prior to his hospitalization Qualifiers: Hypertension type: essential hypertension Qualified Code(s): I10 - Essential (primary) hypertension (8) DVT prophylaxis Current visit: No Status: Acute Heparin SQ Internal Medicine - H&P: HPI Chief complaint: change in mental status Admitted From: Home Plans for Post Hospital Care: Home History of present illness: Mr. Colby is a 62 year old male with PMH of CAD, CHF, HTN, tobacco abuse who is brought to the ER by his for evaluation of acute change in mental status. Patient is currently AAO x 2 (self, and place) and states he had a mechanical fall in his living room a couple of days back, landing on his back, denies any head trauma, or LOC. He states he had smoked marijuana yesterday and reports of using marijuana frequently and is an everyday smoker. He is able to communicate appropriately but is not able to recall the preceding events to his hospitalization.. I am unable to get in touch with his , due to which information is obtained from the medical records. Pt denies any discomfort at this time. Upon further evaluation in the ER, he was found to have elevated CK with Acute renal failure for which he is being admitted to hospitalist service. Pt had a fall in the ER, as he was trying to sit on the bedside commode. He accidentally fell on the ground. No head trauma was reported. Pt denies any pain or discomfort Past Med Surg Social Fam HX - Past Medical History Medical history: non-contributory, arthritis, coronary artery disease, hyperlipidemia, hypertension, myocardial infarction, TIA Psychiatric history: no psych history - Past Surgical History Surgical History: no surgical history - Social History Smoking Status: Current every day smoker Smokeless Tobacco Status: No Alcohol use: occasionally Drug use: none - Family History Mother Adopted: No Family Member Ethnicity: Non- Living Status: Still Living Hx Family Cardiac Disorders: No Hx Family Respiratory Disorders: No Hx Family Cancer: Yes Hx Family GI Disorders: No Hx Family Endocrine Disorder: No Hx Family Neuromuscular Disorders: No Hx Family Neurologic Disorders: No Hx Family HEENT Disorders: No Hx Family Autoimmune Disorders: No Internal Medicine - H&P: Meds Atorvastatin [Lipitor] 80 mg PO HS #30 tablet 07/23/15 [Rx] Clopidogrel [Plavix] 75 mg PO DAILY #30 tablet 07/23/15 [Rx] Nitroglycerin 0.4 mg SL Q5M PRN 09/03/16 [History] Albuterol Sulfate [Proventil Hfa] 1 - 2 puff IH Q6H PRN 08/14/17 [History] Amlodipine Besylate 10 mg PO DAILY 08/14/17 [History] Cyclobenzaprine HCl 10 mg PO HS 08/14/17 [History] Gabapentin [Neurontin] 600 mg PO TID 08/14/17 [History] Isosorbide MONOnitrate (24 HR) [Imdur] 60 mg PO DAILY 08/14/17 [History] Lisinopril/Hydrochlorothiazide [Zestoretic 20-12.5 mg Tablet] 1 tab PO DAILY 09/26 [History] Metoprolol XL (24 HR) Succ [Toprol Xl] 100 mg PO DAILY 08/14/17 [History] Oxybutynin Chloride [Ditropan Xl] 5 mg PO BID 08/14/17 [History] Tamsulosin [Flomax] 0.4 mg PO DAILY 08/14/17 [History] 3 Allergy/AdvReac Type Severity Reaction Status Date / Time No Known Allergies Allergy Verified 09/03/16 07:59 All Systems PM: A 10-system review of systems was performed and is negative for pertinent findings except as documented above in the HPI. - Constitutional Constitutional: as per HPI - Constitutional Vitals: Temp Pulse Resp BP Pulse Ox 98.2 F 79 18 113/68 79 08/14/17 12:48 08/14/17 12:48 08/14/17 15:15 08/14/17 15:15 08/14/17 12:48 General appearance: Present: disheveled, A&O X 2, no acute distress, obese - Head Head exam: Present: atraumatic, normocephalic - Eye Eye exam: Present: conjuntiva pink, sclera anicteric - Respiratory Respiratory exam: Present: CTAB. Absent: respiratory distress, wheezes - Cardiovascular Cardiovascular exam: Present: RRR, +S1, +S2. Absent: diastolic murmur, gallop, rubs, systolic murmur - GI/Abdominal GI/Abdominal exam: Present: normal bowel sounds, soft, no peritoneal signs. Absent: distended, tenderness - Extremities Exam Extremities exam: Present: warm, radial pulses palpable and symmetrical. Absent : calf tenderness, pedal edema - Neurological Exam Neurological exam: Present: alert, oriented X3 - Psychiatric Psychiatric exam: Present: normal affect, normal mood Internal Med - H&P Results - Labs CBC & Chem 7: 08/14/17 13:09 08/14/17 13:09
[2017-08-14] MEDS: 0.9 % Sodium Chloride 1,000 ML IVC SCH (16:21)
[2017-08-14] MEDS ORDERED: *HR* Heparin 5,000 UNIT/ML VIAL SQ SCH (18:00)
[2017-08-14] MEDS ORDERED: *HR* Heparin 5,000 UNIT/ML VIAL IVP PRN ×2 (20:19)
[2017-08-14] MEDS ORDERED: *HR* Heparin 5,000 UNIT/ML VIAL IVP ONE (20:19)
[2017-08-14 21:01] LABS: Hematocrit 40.6 % (37.5-50.1); Hemoglobin 13.1 g/dL (12.9-16.9); Mean Corpuscular HGB Conc 32.3 g/dL (31.6-35.5); Mean Corpuscular Hemoglobin 28.6 pg (28.0-33.3); Mean Corpuscular Volume 88.6 fL (83.0-100.0); Platelet Count 174 K/mcL (140-400); Red Blood Count 4.58 M/mcL (4.19-5.50); Red Cell Distribution Width 13.6 % (11.5-14.5)
[2017-08-14] MEDS: Heparin 25,000 UNIT/500 ML D5W 25,000 UNIT/500 ML BAG IVC SCH (21:02)
[2017-08-15 03:33] LABS: Basophils % 0.3 %; Eosinophils # 0.1 K/mcL (0.0-0.6); Eosinophils % 1.4 %; Hematocrit 42.6 % (37.5-50.1); Hemoglobin 13.7 g/dL (12.9-16.9); Immature Granulocytes % 0.4 % (0-4); Lymphocytes # 2.4 K/mcL (0.6-4.6); Lymphocytes % 24.3 %; Mean Corpuscular HGB Conc 32.2 g/dL (31.6-35.5); Mean Corpuscular Hemoglobin 28.7 pg (28.0-33.3); Mean Corpuscular Volume 89.1 fL (83.0-100.0); Mean Platelet Volume 9.9 fL (9.4-12.4); Monocytes # 0.7 K/mcL (0.0-1.3); Neutrophils # 6.6 K/mcL (1.6-8.9); Platelet Count 170 K/mcL (140-400); Red Blood Count 4.78 M/mcL (4.19-5.50); Red Cell Distribution Width 13.5 % (11.5-14.5); Segmented Neutrophils % 66.6 %
[2017-08-15 03:53] LABS: Hemoglobin A1C 5.8 %
[2017-08-15 03:54] LABS: Calcium 8.7 mg/dL (8.6-10.3); Chol/HDL Ratio 3.4 (0-4.9); Magnesium 2.3 mg/dL (1.6-2.6); Phosphorous 4.5 mg/dL (2.7-4.5); Potassium 3.9 mEq/L (3.5-5.1)
[2017-08-15] MEDS: Metoprolol XL (24 HR) Succ 50 MG TAB.ER.24H PO SCH (09:21)
[2017-08-15] MEDS: amLODIPine 5 MG TABLET PO SCH (09:21)
[2017-08-15] MEDS: Isosorbide MONOnitrate (24 HR) 60 MG TAB.ER.24H PO SCH (09:21)
--- NOTE | 2017-08-15 11:18 | Nephrology Consult Note ---
Date of Encounter: 08/15/17 Time of Encounter: 11:13 Assessment and Plan (1) Acute renal failure Current Visit: Yes Status: Acute MARIO that seems to be prerenal azotemia. Renal function improving with hydration. Will repeat urinalysis secondary to hematuria. Avoid nephrotoxins. Adjust medications for renal function. Baseline eGFR >60. Qualifiers: Acute renal failure type: unspecified Qualified Code(s): N17.9 - Acute kidney failure, unspecified (2) Altered mental state Current Visit: Yes Status: Acute Qualifiers: Altered mental status type: unspecified Qualified Code(s): R41.82 - Altered mental status, unspecified (3) Rhabdomyolysis Current Visit: Yes Status: Acute Rising CPK likely from his fall and possibly patient was lying down longer than he recalls. Continue hydration. Add bicarbonate to the fluid. Follow CPK. Discussed with Dr. Perez. Qualifiers: Rhabdomyolysis type: non-traumatic Qualified Code(s): M62.82 - Rhabdomyolysis (4) Elevated troponin I level Current Visit: Yes Status: Acute Per primary team. Cardiology consulted. (5) HTN (hypertension) Current Visit: No Status: Chronic Blood pressure controlled. Adjust medications as needed. Qualifiers: Qualified Code(s): I10 - Essential (primary) hypertension History of Present Illness - Reason for Consult Consult date: 08/15/17 Acute Kidney Injury - Chief Complaint MARIO - History of Present Illness Mr. Colby is a 62 yo man with a history of CAD who presents for the evaluation of altered mental status. The history is from review of the chart as the patient is a poor historian. He presented with altered mental status and what sounds like a mechanical fall. He does not recall the details that led to him being in the hospital. He has no new complaints. He specifically denies muscle aches or pains. He has a cough he states is not productive. He denies dysuria or hematuria. Past Med Surg Social Fam HX - Past Medical History Medical history: non-contributory, arthritis, coronary artery disease, hyperlipidemia, hypertension, myocardial infarction, TIA Psychiatric history: no psych history - Past Surgical History Surgical History: no surgical history - Social History Smoking Status: Current every day smoker Smokeless Tobacco Status: No Alcohol use: occasionally Drug use: none - Family History Father Living Status: Hx Family Cardiac Disorders: Yes Mother Adopted: No Family Member Ethnicity: Non- Living Status: Still Living Hx Family Cardiac Disorders: No Hx Family Respiratory Disorders: No Hx Family Cancer: Yes Hx Family GI Disorders: No Hx Family Endocrine Disorder: No Hx Family Neuromuscular Disorders: No Hx Family Neurologic Disorders: No Hx Family HEENT Disorders: No Hx Family Autoimmune Disorders: No Medications and Allergies Atorvastatin [Lipitor] 80 mg PO HS #30 tablet 07/23/15 [Rx] Clopidogrel [Plavix] 75 mg PO DAILY #30 tablet 07/23/15 [Rx] Nitroglycerin 0.4 mg SL Q5M PRN 09/03/16 [History] Albuterol Sulfate [Proventil Hfa] 1 - 2 puff IH Q6H PRN 08/14/17 [History] Amlodipine Besylate 10 mg PO DAILY 08/14/17 [History] Cyclobenzaprine HCl 10 mg PO HS 08/14/17 [History] Gabapentin [Neurontin] 600 mg PO TID 08/14/17 [History] Isosorbide MONOnitrate (24 HR) [Imdur] 60 mg PO DAILY 08/14/17 [History] Lisinopril/Hydrochlorothiazide [Zestoretic 20-12.5 mg Tablet] 1 tab PO DAILY 09/26 [History] Metoprolol XL (24 HR) Succ [Toprol Xl] 100 mg PO DAILY 08/14/17 [History] Oxybutynin Chloride [Ditropan Xl] 5 mg PO BID 08/14/17 [History] Tamsulosin [Flomax] 0.4 mg PO DAILY 08/14/17 [History] 3 Allergy/AdvReac Type Severity Reaction Status Date / Time No Known Allergies Allergy Verified 09/03/16 07:59 Review of Systems All Systems: reviewed and no additional remarkable complaints except as stated ( as documented in HPI.) Exam - Vital Signs Vital signs: Initial Vital Signs Temp Pulse Resp BP Pulse Ox 98.2 F 79 18 149/80 79 08/14/17 12:48 08/14/17 12:48 08/14/17 12:48 08/14/17 12:48 08/14/17 12:48 Vital Signs - Last 8 Hours Temp Pulse Resp BP Pulse Ox 08/15/17 10:49 97.7 F 68 12 138/70 93 08/15/17 07:39 98.1 F 79 14 113/77 98 08/15/17 05:00 97.7 F 63 18 113/77 98 Intake and Output 08/14/17 08/15/17 08/15/17 23:59 07:59 15:59 Intake Total 270 / 270 240 / 240 Output Total 300 / 300 300 / 300 200 / 200 Balance -300 / -300 -30 / -30 40 / 40 Intake: IV Fluids 150 / 150 Heparin 25,000 UNIT/500 ML D5W 150 / 150 25,000 unit In 500 ml @ 12 UNIT /KG/HR 20.208 mls/hr IVC .Q24H LYLA Rx#:[id number] Oral 120 / 120 240 / 240 Output: Urine 300 / 300 300 / 300 200 / 200 Other: Meal Breakfast Percent of Meal Consumed 100% # Voids 4 # Urine Diapers 1 Weight 89.2 kg Blood Glucose* 148 109 111 Patient Weight 08/15/17 23:59 Weight 89.2 kg - General Appearance General appearance: well-developed, well-nourished EENT: ATNC Neck: supple Respiratory: clear Cardiology: no edema, regular rate, regular rhythm Gastrointestinal: normoactive bowel sounds, no tenderness Integumentary: warm and dry Additional Comments: Alert Musculoskeletal: no cyanosis Psychiatric: mood/affect appropriate Results - Lab Results 08/15/17 03:20 08/15/17 03:20 Most recent lab results Calcium 8.7 mg/dL (8.6-10.3) 08/15/17 03:20 Phosphorus 4.5 mg/dL (2.7-4.5) 08/15/17 03:20 Magnesium 2.3 mg/dL (1.6-2.6) 08/15/17 03:20 Consult Discharge Plan - Plan Referrals: John Pritchard MD [Primary Care Provider] -
--- NOTE | 2017-08-15 11:35 | Internal Med Progress Note ---
Date of Encounter: 08/15/17 Time of Encounter: 11:20 - Assessment and plan (1) Altered mental state Current Visit: Yes Status: Acute Assessment and plan: Of unclear etiology likely secondary to polysubstance use (tox screen positive for marijuana and opiates) mental status back to baseline counseling provided against daily marijuana use, however patient refuses to quit and states he has been using marijuana all his life without any discomfort. Qualifiers: Altered mental status type: unspecified Qualified Code(s): R41.82 - Altered mental status, unspecified (2) Acute renal failure Current Visit: Yes Status: Acute Assessment and plan: Renal function improved from previous day Will d/c NS and start 1.5amp bicarb in 0.45NS at 150cc/hr nephrology evaluation appreciated noted to have worsening of CK due to which bicarb infusion is added will continue to closely monitor Qualifiers: Acute renal failure type: unspecified Qualified Code(s): N17.9 - Acute kidney failure, unspecified (3) Rhabdomyolysis Current Visit: Yes Status: Acute Assessment and plan: plan as above Qualifiers: Rhabdomyolysis type: non-traumatic Qualified Code(s): M62.82 - Rhabdomyolysis (4) Elevated troponin I level Current Visit: Yes Status: Acute Assessment and plan: noted to have worsening of TNI likely demand ischemia in the setting of acute renal failure pt has history of CAD clinically asymptomatic at this time will obtain 2D Echo started on heparin gtt overnight cardiology evaluation requested continue ASA, Plavix, statin, BB (5) CHF (congestive heart failure) Current Visit: Yes Status: Chronic Assessment and plan: no signs of acute decompensation continue home meds will closely monitor for signs of volume overload Qualifiers: Congestive heart failure type: diastolic Congestive heart failure chronicity: chronic Qualified Code(s): I50.32 - Chronic diastolic (congestive ) heart failure (6) CAD (coronary artery disease) Current Visit: No Status: Chronic Assessment and plan: no signs of angina present continue ASA, Plavix, Statin, BB Qualifiers: Coronary Disease-Associated Artery/Lesion type: unspecified vessel or lesion type [place] vs. transplanted heart: unspecified whether [place] or transplanted heart Associated angina: angina presence unspecified Qualified Code(s): I25.10 - Atherosclerotic heart disease of [place] coronary artery without angina pectoris (7) HTN (hypertension) Current Visit: No Status: Chronic Assessment and plan: BP within acceptable range despite holding lisinopril/hctz will continue to monitor Qualifiers: Hypertension type: essential hypertension Qualified Code(s): I10 - Essential (primary) hypertension (8) DVT prophylaxis Current Visit: No Status: Acute Assessment and plan: on heparin gtt - Subjective Interval history: Patient seen and examined at bedside. Mental status improved from previous day. Denies any discomfort and reports of having a fall prior to his hospitalization. Still does not recall the preceding events that prompted his visit to the hospital. Noted to have elevated TNI however pt has history of CAD, s/p LHC in Aug 2016 which reported moderate triple vessel disease. Pt's troponin elevation consistent with his prior readings. he is clinically asymptomatic and denies any chest discomfort. Pt started on heparin gtt overnight due to the TNI leak. Cardiology evaluation requested. - Constitutional Vitals: Temp Pulse Resp BP Pulse Ox 97.7 F 68 12 138/70 93 08/15/17 10:49 08/15/17 10:49 08/15/17 10:49 08/15/17 10:49 08/15/17 10:49 General appearance: Present: disheveled, A&O X 3, no acute distress, obese - Head Head exam: Present: atraumatic - Eye Eye exam: Present: conjuntiva pink, sclera anicteric - Respiratory Respiratory exam: Present: CTAB. Absent: accessory muscle use, rales, rhonchi, wheezes - Cardiovascular Cardiovascular exam: Present: RRR, +S1, +S2. Absent: diastolic murmur, gallop, rubs, systolic murmur - GI/Abdominal GI/Abdominal exam: Present: normal bowel sounds, soft, no peritoneal signs. Absent: distended, tenderness - Extremities Exam Extremities exam: Present: warm, radial pulses palpable and symmetrical. Absent : calf tenderness, cyanotic, pedal edema - Neurological Exam Neurological exam: Present: alert, oriented X3 - Psychiatric Psychiatric exam: Present: normal affect, normal mood Internal Medicine: Result - Labs CBC & Chem 7: 08/15/17 03:20 08/15/17 03:20 Labs: Short CBC 08/14/17 08/15/17 Range/Units 20:48 03:20 WBC 10.9 9.9 (4.3-11.1) K/mcL Hgb 13.1 13.7 (12.9-16.9) g/dL Hct 40.6 42.6 (37.5-50.1) % Plt Count 174 170 (140-400) K/mcL Neutrophils # 6.6 (1.6-8.9) K/mcL BMP 08/15/17 03:20 Sodium 136 Potassium 3.9 Chloride 103 Carbon Dioxide 28 BUN 31 H Creatinine 1.83 H Glucose 121 H Calcium 8.7 Cardiac Enzymes 08/14/17 08/15/17 Range/Units 19:16 00:59 Troponin I 0.19 H* 0.21 H* (< 0.04) ng/mL - ABG Interpretation ABG results: PT/INR, D-dimer PT 11.0 Seconds (9.4-12.1) 08/14/17 20:48 Consult Discharge Plan - Plan Referrals: John Pritchard MD [Primary Care Provider] -
[2017-08-15] MEDS: Sodium Bicarbonate 75 MEQ in 0.45 % Sodium Chloride 1,000 ML IVC SCH (17:34)
[2017-08-15 21:13] LABS: Bilirubin,Urine Negative (Negative); Blood,Urine Small (Negative); Clarity,Urine Clear (Clear); Color,Urine Yellow (Yellow); Glucose,Urine (UA) 250 mg/dL (Normal); Ketones,Urine Negative (Negative); Leukocyte Esterase,Urine Negative (Negative); Nitrite,Urine Negative (Negative); Protein,Urine Negative (Neg-Trace); Urobilinogen,Urine Normal (Normal)
[2017-08-15 21:15] LABS: Bacteria,Urine None Seen per hpf (None-Few); Hyaline Casts,Urine None Seen per lpf (None-Few); RBC,Urine 0-3 per hpf (0-3); Squamous Epithelial Cell,Urine Moderate per lpf (None-Few); WBC,Urine 0-3 per hpf (0-3)
[2017-08-15 21:21] LABS: Protein/Creatinine Ratio,Urine 0.16 mg/mg (0.00-0.20); Sodium, Urine 111.5 mEq/L
[2017-08-16] MEDS: Sodium Bicarbonate 75 MEQ in 0.45 % Sodium Chloride 1,000 ML IVC SCH ×4 (03:11→21:08)
[2017-08-16 03:54] LABS: Basophils # 0.1 K/mcL (0.0-0.2); Basophils % 0.8 %; Eosinophils # 0.1 K/mcL (0.0-0.6); Eosinophils % 1.7 %; Hematocrit 40.2 % (37.5-50.1); Hemoglobin 13.3 g/dL (12.9-16.9); Immature Granulocytes % 0.3 % (0-4); Lymphocytes # 2.4 K/mcL (0.6-4.6); Lymphocytes % 31.4 %; Mean Corpuscular HGB Conc 33.1 g/dL (31.6-35.5); Mean Corpuscular Hemoglobin 28.4 pg (28.0-33.3); Mean Corpuscular Volume 85.9 fL (83.0-100.0); Mean Platelet Volume 10.6 fL (9.4-12.4); Monocytes # 0.6 K/mcL (0.0-1.3); Monocytes % 7.7 %; Neutrophils # 4.5 K/mcL (1.6-8.9); Platelet Count 182 K/mcL (140-400); Red Blood Count 4.68 M/mcL (4.19-5.50); Red Cell Distribution Width 13.4 % (11.5-14.5); Segmented Neutrophils % 58.1 %
[2017-08-16 04:40] LABS: BUN/Creatinine Ratio 20 (6-26); Blood Urea Nitrogen 21 mg/dL (8-23); Carbon Dioxide 31 mEq/L (23-29); Chloride 102 mEq/L (98-107); Glucose 110 mg/dL (70-105); Magnesium 1.9 mg/dL (1.6-2.6); Osmolality,Calculated 290 (280-300); Phosphorous 2.5 mg/dL (2.7-4.5); Potassium 3.8 mEq/L (3.5-5.1); Sodium 138 mEq/L (136-145); eGFR For African Americans > 60 (> 60); eGFR For Non-African Americans > 60 (> 60)
[2017-08-16 05:07] LABS: Creatine Kinase 7971 Units/L (30-223)
[2017-08-16] MEDS: Metoprolol XL (24 HR) Succ 50 MG TAB.ER.24H PO SCH (09:06)
[2017-08-16] MEDS: amLODIPine 5 MG TABLET PO SCH (09:06)
[2017-08-16] MEDS: Isosorbide MONOnitrate (24 HR) 60 MG TAB.ER.24H PO SCH (09:06)
[2017-08-16] MEDS: Aspirin 81 MG TAB.CHEW PO SCH (09:07)
--- NOTE | 2017-08-16 10:04 | Internal Med Progress Note ---
Date of Encounter: 08/16/17 Time of Encounter: 09:16 - Assessment and plan (1) Altered mental state Current Visit: Yes Status: Resolved Assessment and plan: Of unclear etiology likely secondary to polysubstance use (tox screen positive for marijuana and opiates) mental status back to baseline counseling provided against daily marijuana use, however patient refuses to quit and states he has been using marijuana all his life without any discomfort. Pt is an every day smoker (tobacco abuse) smoking cessation counseling provided pt refused nicotine supplementation therapy Qualifiers: Altered mental status type: unspecified Qualified Code(s): R41.82 - Altered mental status, unspecified (2) Acute renal failure Current Visit: Yes Status: Resolved Assessment and plan: Renal function back to baseline CK level gradually decreasing will continue Bicarb infusion nephrology evaluation appreciated will continue to closely monitor Qualifiers: Acute renal failure type: unspecified Qualified Code(s): N17.9 - Acute kidney failure, unspecified (3) Rhabdomyolysis Current Visit: Yes Status: Acute Assessment and plan: plan as above Qualifiers: Rhabdomyolysis type: non-traumatic Qualified Code(s): M62.82 - Rhabdomyolysis (4) Elevated troponin I level Current Visit: Yes Status: Acute Assessment and plan: noted to have worsening of TNI likely demand ischemia in the setting of acute renal failure pt has history of CAD clinically asymptomatic at this time 2D Echo noted heparin gtt, will d/c as per cardiology evaluation cardiology evaluation requested continue ASA, Plavix, statin, BB (5) CHF (congestive heart failure) Current Visit: Yes Status: Chronic Assessment and plan: no signs of acute decompensation continue home meds will closely monitor for signs of volume overload Qualifiers: Congestive heart failure type: diastolic Congestive heart failure chronicity: chronic Qualified Code(s): I50.32 - Chronic diastolic (congestive ) heart failure (6) CAD (coronary artery disease) Current Visit: No Status: Chronic Assessment and plan: no signs of angina present continue ASA, Plavix, Statin, BB Qualifiers: Coronary Disease-Associated Artery/Lesion type: unspecified vessel or lesion type [place] vs. transplanted heart: unspecified whether [place] or transplanted heart Associated angina: angina presence unspecified Qualified Code(s): I25.10 - Atherosclerotic heart disease of [place] coronary artery without angina pectoris (7) HTN (hypertension) Current Visit: No Status: Chronic Assessment and plan: BP within acceptable range despite holding lisinopril/hctz will continue to monitor Qualifiers: Hypertension type: essential hypertension Qualified Code(s): I10 - Essential (primary) hypertension (8) DVT prophylaxis Current Visit: No Status: Acute Assessment and plan: on heparin gtt - Subjective Interval history: Patient seen and examined at bedside. Resting in bed and denies any discomfort. No overnight issues reported. CK levels gradually trending down, renal function back to baseline. Awaiting cardiology follow up. - Constitutional Vitals: Temp Pulse Resp BP Pulse Ox 97.8 F 81 16 138/82 94 08/16/17 07:28 08/16/17 07:28 08/16/17 07:28 08/16/17 07:28 08/16/17 07:28 General appearance: Present: disheveled, A&O X 3, no acute distress, obese - Head Head exam: Present: atraumatic, normocephalic - Eye Eye exam: Present: conjuntiva pink, sclera anicteric - Respiratory Respiratory exam: Present: CTAB. Absent: respiratory distress, wheezes - Cardiovascular Cardiovascular exam: Present: RRR, +S1, +S2. Absent: diastolic murmur, gallop, rubs, systolic murmur - GI/Abdominal GI/Abdominal exam: Present: normal bowel sounds, soft, no peritoneal signs. Absent: distended, tenderness - Extremities Exam Extremities exam: Present: warm, radial pulses palpable and symmetrical. Absent : calf tenderness - Neurological Exam Neurological exam: Present: alert, oriented X3 - Psychiatric Psychiatric exam: Present: normal affect, normal mood Internal Medicine: Result - Labs CBC & Chem 7: 08/16/17 02:37 08/16/17 02:37 Labs: Short CBC 08/16/17 Range/Units 02:37 WBC 7.7 (4.3-11.1) K/mcL Hgb 13.3 (12.9-16.9) g/dL Hct 40.2 (37.5-50.1) % Plt Count 182 (140-400) K/mcL Neutrophils # 4.5 (1.6-8.9) K/mcL BMP 08/16/17 02:37 Sodium 138 Potassium 3.8 Chloride 102 Carbon Dioxide 31 H BUN 21 Creatinine 1.03 Glucose 110 H Calcium 9.0 Urine 08/15/17 Range/Units 20:53 Urine Color Yellow (Yellow) Urine Clarity Clear (Clear) Urine pH 6.0 (5.0-8.0) pH Units Ur Specific [place] 1.020 (1.010-1.025) Urine Protein Negative (Neg-Trace) mg/dL Urine Glucose (UA) 250 H (Normal) mg/dL - ABG Interpretation ABG results: PT/INR, D-dimer PT 11.0 Seconds (9.4-12.1) 08/14/17 20:48 - Impressions Impressions Echocardiogram 08/15/17 11:26 Impressions: LVEF 55%. LV size and wall thickness not well obtained. Visually, there is increased LV wall thickness. Diastolic dysfunction with elevated filling pressures. Normal right ventricular structure and function. Mild tricuspid regurgitation. No pulmonary hypertension. Left Ventricular Wall Motion: Rest Echo Findings The mid anterior septal, mid inferior lateral, basal anterior septal and basal inferior lateral garrett were not visualized. All other wall segments showed normal motion. Findings: Study Quality * Technically challenging - not all windows are well visualized. ECG Findings * Normal sinus rhythm. Left Ventricle * LVEF 55%. * LV size and wall thickness not well obtained. Visually, there is increased LV wall thickness. * Diastolic dysfunction with elevated filling pressures. Right Ventricle * Normal right ventricular structure and function. Left Atrium * Normal left atrial size. Right Atrium * Normal right atrial size. Interatrial Septum * No evidence of PFO by color Doppler. Aortic Valve * Aortic valve not well visualized. * No aortic regurgitation. * No aortic stenosis. Mitral Valve * No mitral stenosis. * Normal mitral valve structure. * Mild mitral annular calcification * Trace mitral regurgitation. Tricuspid Valve * Normal tricuspid valve structure. * Estimated RA pressure is 3 mmHg. * Estimated RVSP is 30 mmHg. * No pulmonary hypertension. * Mild tricuspid regurgitation. Pulmonic Valve * No pulmonic regurgitation. * No pulmonic stenosis. * Pulmonic valve is not well visualized. Pulmonary Artery * Pulmonary artery not well visualized. Aorta * Not well visualized. Pericardium * There is no pericardial effusion present. IVC * The IVC is not well evaluated. Consult Discharge Plan - Plan Referrals: John Pritchard MD [Primary Care Provider] -
--- NOTE | 2017-08-16 10:14 | Cardiology Consult Note ---
Date of Encounter: 08/16/17 Time of Encounter: 09:00 Assessment and Plan (1) Elevated troponin Current Visit: Yes Status: Acute Troponin 0.09, 0.19, 0.21 in the setting of MARIO (SCr 2.5) and Rhabdomyolsis ( peak LL=[id number]), likely secondary to demand ischemia. Doubt ACS. Patient denies chest pain/discomfort, no significant ECG changes. Known hx of CAD, continue CV medications. Cardiac rehab not warranted. Follow-up in the outpatient setting as scheduled. No further cardiac testing warranted. (2) Rhabdomyolysis Current Visit: Yes Status: Acute Mgmt per primary team. Kidney function improving with IVF. Qualifiers: Rhabdomyolysis type: non-traumatic Qualified Code(s): M62.82 - Rhabdomyolysis (3) Altered mental state Current Visit: Yes Status: Acute Qualifiers: Altered mental status type: unspecified Qualified Code(s): R41.82 - Altered mental status, unspecified Discussion w patient/family: The assessment and plan as outlined above was discussed with the patient and/or family members who expressed understanding and agreement. All questions were answered. Thank you for involving us in the care of your patient. Please call with any questions. The patient was discussed and reviewed with Dr. Stubbs; changes to be made accordingly. History of Present Illness Consult date: 08/16/17 Requesting physician: Vania Perez Consult reason: Elevated troponin Chief complaint: AMS History of present illness: Mr. Colby is a 62 year old male with PMHx significant for HTN, CAD who presented to the ED with AMS per spouse report. Upon exam today, patient states he "just passed out" on recliner for most of the evening and all night. The next day, his brought him to the ED for altered mental status. [place] [id number], MARIO upon presentation. Cardiology consulted for elevated troponin. Prior CV testing: TTE 08/15/17: LVEF 55% LHC 09/03/16: moderate 3vCAD, FFR 0.89 mLCx, 0.83 OM2, non-dominant RCA 85% prox-mid RCA. Med mgmt recommended. Past Med Surg Social Fam HX - Past Medical History Attestation: Yes The following information was validated with the patient. Source: patient Medical history: non-contributory, arthritis, coronary artery disease, hyperlipidemia, hypertension, myocardial infarction, TIA Psychiatric history: no psych history - Past Surgical History Surgical History: no surgical history - Social History Smoking Status: Current every day smoker Smokeless Tobacco Status: No Alcohol use: occasionally Drug use: none - Family History Father Living Status: Hx Family Cardiac Disorders: Yes Mother Adopted: No Family Member Ethnicity: Non- Living Status: Still Living Hx Family Cardiac Disorders: No Hx Family Respiratory Disorders: No Hx Family Cancer: Yes Hx Family GI Disorders: No Hx Family Endocrine Disorder: No Hx Family Neuromuscular Disorders: No Hx Family Neurologic Disorders: No Hx Family HEENT Disorders: No Hx Family Autoimmune Disorders: No Medications and Allergies Atorvastatin [Lipitor] 80 mg PO HS #30 tablet 07/23/15 [Rx] Clopidogrel [Plavix] 75 mg PO DAILY #30 tablet 07/23/15 [Rx] Nitroglycerin 0.4 mg SL Q5M PRN 09/03/16 [History] Albuterol Sulfate [Proventil Hfa] 1 - 2 puff IH Q6H PRN 08/14/17 [History] Amlodipine Besylate 10 mg PO DAILY 08/14/17 [History] Cyclobenzaprine HCl 10 mg PO HS 08/14/17 [History] Gabapentin [Neurontin] 600 mg PO TID 08/14/17 [History] Isosorbide MONOnitrate (24 HR) [Imdur] 60 mg PO DAILY 08/14/17 [History] Lisinopril/Hydrochlorothiazide [Zestoretic 20-12.5 mg Tablet] 1 tab PO DAILY 09/26 [History] Metoprolol XL (24 HR) Succ [Toprol Xl] 100 mg PO DAILY 08/14/17 [History] Oxybutynin Chloride [Ditropan Xl] 5 mg PO BID 08/14/17 [History] Tamsulosin [Flomax] 0.4 mg PO DAILY 08/14/17 [History] 3 Allergy/AdvReac Type Severity Reaction Status Date / Time No Known Allergies Allergy Verified 09/03/16 07:59 All Systems Review: A 10-system review of systems was performed and is negative for pertinent findings except as documented above in the HPI. - Cardiovascular Cardiovascular: as per HPI Physical Examination Vital Signs, Last 4 Hours Temp Pulse Resp BP Pulse Ox 08/16/17 07:28 97.8 F 81 16 138/82 94 General: Conversant, No Apparent Distress HEENT: Atraumatic, Normocephaly, Mucus Membranes Moist Neck: No JVD, Normal carotid pulses Cardiac: Reg Rate and Rhythm, Normal S1 and S2, No Murmur Lungs: Normal Breath Sounds, No Wheeze, Rales, Rhonchi Neuro: Alert and responsive, No focal deficits noted Abdomen: Soft, Non-Tender Skin: No rashes noted on visualized skin Musculoskeletal: No Chest Wall Tenderness Extremities: No Clubbing, No Cyanosis, No Edema, Normal Pulses Results 08/16/17 02:37 08/16/17 02:37 Lab Results 08/15/17 08/15/17 08/16/17 12:30 19:33 02:37 WBC 7.7 Hgb 13.3 Hct 40.2 Plt Count 182 APTT 29.6 D 27.6 Sodium Potassium Chloride Carbon Dioxide BUN Creatinine Glucose Calcium Magnesium 08/16/17 08/16/17 02:37 04:06 WBC Hgb Hct Plt Count APTT 58.0 H D Sodium 138 Potassium 3.8 Chloride 102 Carbon Dioxide 31 H BUN 21 Creatinine 1.03 Glucose 110 H Calcium 9.0 Magnesium 1.9 Active Medications Albuterol Sulfate (Albuterol Inhaler) 1 puff IH Q6H PRN PRN Reason: Shortness Of Breath Stop: 02/13/18 15:17 Amlodipine Besylate (Norvasc) 10 mg PO DAILY [facility] Stop: 02/14/18 09:01 Last Admin: 08/16/17 09:06 Dose: 10 mg Aspirin (Aspirin) 81 mg PO DAILY [facility] Stop: 02/15/18 09:01 Last Admin: 08/16/17 09:07 Dose: 81 mg Atorvastatin Calcium (Lipitor) 80 mg PO HS [facility] Stop: 02/13/18 21:01 Last Admin: 08/15/17 19:58 Dose: 80 mg Clopidogrel Bisulfate (Plavix) 75 mg PO DAILY [facility] Stop: 02/13/18 15:31 Last Admin: 08/16/17 09:06 Dose: 75 mg Heparin Sodium (Porcine) (Heparin) 5,000 unit SQ Q12HCO [facility] Stop: 02/15/18 18:01 Sodium Bicarbonate 75 meq/ (Sodium Chloride) 1,075 mls @ 150 mls/hr IVC .Q7H10M [facility] Stop: 02/14/18 11:31 Last Admin: 08/16/17 05:11 Dose: Not Given Isosorbide Mononitrate (Imdur) 60 mg PO DAILY [facility] Stop: 02/14/18 09:01 Last Admin: 08/16/17 09:06 Dose: 60 mg Metoprolol Succinate (Toprol Xl) 100 mg PO DAILY [facility] Stop: 02/14/18 09:01 Last Admin: 08/16/17 09:06 Dose: 100 mg Naloxone HCl (Narcan) 0.4 mg IVP Q2MIN PRN PRN Reason: SEE COMMENTS Stop: 02/13/18 15:15 Nitroglycerin (Nitroglycerin) 0.4 mg SL Q5M PRN PRN Reason: Chest Pain Stop: 02/13/18 15:17 Oxybutynin Chloride (Ditropan) 5 mg PO BID [facility] Stop: 02/13/18 21:01 Last Admin: 08/16/17 09:06 Dose: 5 mg Tamsulosin HCl (Flomax) 0.4 mg PO DAILY [facility] PRN Reason: Protocol Stop: 02/14/18 09:01 Last Admin: 08/16/17 09:06 Dose: 0.4 mg - Imaging and Cardiology Echo: report reviewed Cardiac cath: report reviewed Other Results: 12 hour tele: avg HR=78. No significant event noted. - EKG Interpretation EKG results cardiology: personally reviewed Consult Discharge Plan - Plan Referrals: John Pritchard MD [Primary Care Provider] -
[2017-08-16] MEDS: Lisinopril-HCTZ 20-12.5mg TABLET PO SCH (17:55)
[2017-08-16] MEDS: *HR* Heparin 5,000 UNIT/ML VIAL SQ SCH (17:55)
[2017-08-16] MEDS: Heparin 25,000 UNIT/500 ML D5W 25,000 UNIT/500 ML BAG IVC SCH (19:11)
[2017-08-16] MEDS: 0.9 % Sodium Chloride 1,000 ML IVC SCH ×2 (19:12→20:04)
[2017-08-17 04:23] LABS: Basophils # 0.1 K/mcL (0.0-0.2); Basophils % 0.7 %; Eosinophils # 0.2 K/mcL (0.0-0.6); Eosinophils % 2.9 %; Hemoglobin 14.4 g/dL (12.9-16.9); Immature Granulocytes % 0.1 % (0-4); Lymphocytes # 2.3 K/mcL (0.6-4.6); Lymphocytes % 33.9 %; Mean Corpuscular HGB Conc 34.3 g/dL (31.6-35.5); Mean Corpuscular Volume 84.7 fL (83.0-100.0); Mean Platelet Volume 10.7 fL (9.4-12.4); Monocytes # 0.5 K/mcL (0.0-1.3); Monocytes % 7.2 %; Neutrophils # 3.8 K/mcL (1.6-8.9); Platelet Count 204 K/mcL (140-400); Red Blood Count 4.96 M/mcL (4.19-5.50); Red Cell Distribution Width 13.2 % (11.5-14.5); Segmented Neutrophils % 55.2 %
[2017-08-17 05:56] LABS: BUN/Creatinine Ratio 18 (6-26); Blood Urea Nitrogen 15 mg/dL (8-23); Calcium 9.3 mg/dL (8.6-10.3); Carbon Dioxide 30 mEq/L (23-29); Chloride 102 mEq/L (98-107); Creatine Kinase 4664 Units/L (30-223); Glucose 96 mg/dL (70-105); Magnesium 1.7 mg/dL (1.6-2.6); Osmolality,Calculated 285 (280-300); Phosphorous 3.5 mg/dL (2.7-4.5); Potassium 3.7 mEq/L (3.5-5.1); Sodium 137 mEq/L (136-145); eGFR For African Americans > 60 (> 60); eGFR For Non-African Americans > 60 (> 60)
[2017-08-17] MEDS: *HR* Heparin 5,000 UNIT/ML VIAL SQ SCH (06:18)
[2017-08-17] MEDS: amLODIPine 5 MG TABLET PO SCH (08:58)
[2017-08-17] MEDS: Isosorbide MONOnitrate (24 HR) 60 MG TAB.ER.24H PO SCH (08:58)
[2017-08-17] MEDS: Aspirin 81 MG TAB.CHEW PO SCH (08:58)
[2017-08-17] MEDS: Lisinopril-HCTZ 20-12.5mg TABLET PO SCH (08:59)
[2017-08-17] MEDS: Metoprolol XL (24 HR) Succ 50 MG TAB.ER.24H PO SCH (08:59)
--- NOTE | 2017-08-17 11:03 | Discharge Summary ---
Date of Encounter: 08/17/17 Time of Encounter: 10:35 - Discharge Diagnosis (1) Altered mental state Priority: Primary Status: Resolved Qualifiers: Altered mental status type: unspecified Qualified Code(s): R41.82 - Altered mental status, unspecified (2) Acute renal failure Priority: Primary Status: Resolved Qualifiers: Acute renal failure type: unspecified Qualified Code(s): N17.9 - Acute kidney failure, unspecified (3) Rhabdomyolysis Priority: Primary Status: Acute Qualifiers: Rhabdomyolysis type: non-traumatic Qualified Code(s): M62.82 - Rhabdomyolysis (4) Elevated troponin I level Priority: Secondary Status: Chronic (5) CHF (congestive heart failure) Priority: Secondary Status: Chronic Qualifiers: Congestive heart failure type: diastolic Congestive heart failure chronicity: chronic Qualified Code(s): I50.32 - Chronic diastolic (congestive ) heart failure (6) CAD (coronary artery disease) Priority: Secondary Status: Chronic Qualifiers: Coronary Disease-Associated Artery/Lesion type: unspecified vessel or lesion type [place] vs. transplanted heart: unspecified whether [place] or transplanted heart Associated angina: angina presence unspecified Qualified Code(s): I25.10 - Atherosclerotic heart disease of [place] coronary artery without angina pectoris (7) HTN (hypertension) Priority: Secondary Status: Chronic Qualifiers: Hypertension type: essential hypertension Qualified Code(s): I10 - Essential (primary) hypertension (8) DVT prophylaxis Priority: Secondary Status: Acute - Discharge Medications Home Medications: Atorvastatin [Lipitor] 80 mg PO HS #30 tablet 07/23/15 [Rx] Clopidogrel [Plavix] 75 mg PO DAILY #30 tablet 07/23/15 [Rx] Nitroglycerin 0.4 mg SL Q5M PRN 09/03/16 [History] Albuterol Sulfate [Proventil Hfa] 1 - 2 puff IH Q6H PRN 08/14/17 [History] Amlodipine Besylate 10 mg PO DAILY 08/14/17 [History] Cyclobenzaprine HCl 10 mg PO HS 08/14/17 [History] Gabapentin [Neurontin] 600 mg PO TID 08/14/17 [History] Isosorbide MONOnitrate (24 HR) [Imdur] 60 mg PO DAILY 08/14/17 [History] Lisinopril/Hydrochlorothiazide [Zestoretic 20-12.5 mg Tablet] 1 tab PO DAILY 09/26 [History] Metoprolol XL (24 HR) Succ [Toprol Xl] 100 mg PO DAILY 08/14/17 [History] Oxybutynin Chloride [Ditropan Xl] 5 mg PO BID 08/14/17 [History] Tamsulosin [Flomax] 0.4 mg PO DAILY 08/14/17 [History] Allergies/Adverse Reactions: 3 Allergy/AdvReac Type Severity Reaction Status Date / Time No Known Allergies Allergy Verified 09/03/16 07:59 Procedures/tests Complete & Pending: Procedures Performed prior 72 hours Category Date Time Status US retroperitoneal comp [US] Routine Exams 08/16/17 10:00 Completed EV echocardiogram Stat Y 08/15/17 11:26 Completed Date of admission: 08/14/17 15:26 Primary care physician: John Pritchard MD Consults: 08/15/17 11:14 Consult to Cardiology [CONS] Routine Comment: Consulting Provider: Cardiology Marline Reason for Consult: elevated trop Call Completed: No 08/16/17 15:05 Consult to Occupational Therapy [CONS] Routine Comment: Evaluate, develop and implement POC Reason for Consult: Weakness; fall at home Consult to Physical Therapy [CONS] Routine Comment: Evaluate, develop and implement POC Reason for Consult: Weakness; Fall at home 08/16/17 15:35 Consult to Retail Department Supervisor [CONS] Routine Reason for SW Consult: Substance abuse (postivie for opiates and marijuana) Discharging clinician: Vania Perez Anticipated date of discharge: 08/17/17 - Patient Status Disposition: Home, Self-Care Condition: Good Functional capacity at discharge: independent ambulation Overall status at discharge: patient is back to baseline - Ambulatory Orders Ambulatory Orders: Basic Metabolic Panel [CHEM] Time Frame: 1 Week, Facility: [facility], Location: Lab Creatine Kinase [CHEM] Time Frame: 1 Week, Facility: [facility], Location: Lab - Discharge Instructions Instructions: Heart Failure (DC), Acute Kidney Injury (DC), Chronic Hypertension (DC) Follow Up With: John Pritchard MD [Primary Care Provider] - 08/23/17 11:30 am Juan Stubbs MD [Partnered Physician] - 08/24/17 1:30 pm Additional Instructions: Please follow up with your primary care physician within five days after your discharge from the hospital. Please follow up with cardiology within one to two weeks after your discharge from the hospital. Please obtain prescribed lab work prior to your follow up with your primary care physician. Resume all your home medications as prescribed by your primary care physician Please increase your fluid intake (2L of water) daily until your follow up with your primary care physician. - Diet and Activity Activity: resume usual activities as tolerated Diet: low fat, low cholesterol, low salt diet Hospital course: Mr. Colby is a 62 year old male with PMH of CAD, CHF, HTN, tobacco abuse who was admitted for acute mental status change, acute renal failure, and rhabdomyolysis. Pt was noted to have positive tox screen for marijuana and opiates which likely contributed to his mental status change. He reported of having a fall prior to his hospitalization which contributed to the rhabdomyolyis causing acute renal injury. Pt was started on IV fluids and nephrology consultation was requested. Pt was started on bicarb infusion given worsening CK to which patient responded appropriately. He was also noted to have elevated TNI and cardiology evaluated the patient. No further cardiac work up was recommended given mild tni leak in the setting of acute renal failure and rhabdomyolysis. Pt's renal function and mental status returned to baseline. He is medically stable for discharge with outpatient follow up with PCP. - Time Spent with Patient Total time spent providing and/or coordinating discharge services: Less than 30 minutes - Constitutional Vitals: Temp Pulse Resp BP Pulse Ox 97.7 F 77 16 164/96 95 08/17/17 08:22 08/17/17 08:22 08/17/17 08:22 08/17/17 08:22 08/17/17 08:22 General appearance: Present: disheveled, A&O X 3, no acute distress, obese - Head Head exam: Present: atraumatic, normocephalic - Eye Eye exam: Present: conjuntiva pink, sclera anicteric - Respiratory Respiratory exam: Present: CTAB. Absent: accessory muscle use, rales, rhonchi, wheezes - Cardiovascular Cardiovascular exam: Present: RRR, +S1, +S2. Absent: diastolic murmur, gallop, rubs, systolic murmur - GI/Abdominal GI/Abdominal exam: Present: normal bowel sounds, soft, no peritoneal signs. Absent: distended, tenderness - Extremities Exam Extremities exam: Present: warm, radial pulses palpable and symmetrical. Absent : calf tenderness, pedal edema - Neurological Exam Neurological exam: Present: alert, oriented X3
--- NOTE | 2017-08-17 11:09 | Nephrology Progress Note ---
Date of Encounter: 08/17/17 Time of Encounter: 11:08 - Assessment and Plan (1) Acute renal failure Current Visit: Yes Status: Resolved Scr/GFR WNL Patient to f/u with PCP Nephrology signing off case. Thank you Qualifiers: Acute renal failure type: unspecified Qualified Code(s): N17.9 - Acute kidney failure, unspecified (2) Rhabdomyolysis Current Visit: Yes Status: Acute per primary team Qualifiers: Rhabdomyolysis type: non-traumatic Qualified Code(s): M62.82 - Rhabdomyolysis Subjective Principal diagnosis: MARIO, AMS, Rhabdomyolysis Interval history: Patient seen and examined. Sitting on edge of bed, states he thinks he is being discharged today Objective - Vital Signs Vital signs: Vital Signs Temp Pulse Resp BP Pulse Ox 08/17/17 08:22 97.7 F 77 16 164/96 95 08/17/17 05:41 98.6 F 60 19 153/67 94 08/17/17 05:40 98.6 F 60 19 153/67 94 08/16/17 18:33 99.0 F 68 16 172/91 92 08/16/17 15:39 97.4 F L 70 16 161/99 97 08/16/17 11:38 97.4 F L 72 16 144/78 94 Intake and Output 08/16/17 08/17/17 08/17/17 23:59 07:59 15:59 Intake Total 0 / 0 0 / 0 480 / 480 Output Total 0 / 0 0 / 0 0 / 0 Balance 0 / 0 0 / 0 480 / 480 Intake: Oral 0 / 0 0 / 0 480 / 480 Output: Urine 0 / 0 0 / 0 0 / 0 Other: Meal Breakfast Percent of Meal Consumed 100% - General Appearance General appearance: Present: well-developed, well-nourished EENT: Present: ATNC, mucous membranes moist, hearing intact, vision intact Neck: Present: supple Respiratory: Present: clear Cardiology: Present: no edema, regular rate, regular rhythm Gastrointestinal: Present: no tenderness, no guarding Integumentary: Present: warm and dry Psychiatric: Present: mood/affect appropriate, cooperative - Lab 08/17/17 03:05 08/17/17 03:05 Most recent lab results Calcium 9.3 mg/dL (8.6-10.3) 08/17/17 03:05 Phosphorus 3.5 mg/dL (2.7-4.5) 08/17/17 03:05 Magnesium 1.7 mg/dL (1.6-2.6) 08/17/17 03:05 Urine Creatinine 63 mg/dL 08/15/17 20:53 Urine Sodium 111.5 mEq/L 08/15/17 20:53 Urine Total Protein 10 mg/dL 08/15/17 20:53 Consult Discharge Plan - Plan Instructions: Heart Failure (DC), Acute Kidney Injury (DC), Chronic Hypertension (DC) Additional Instructions: Please follow up with your primary care physician within five days after your discharge from the hospital. Please follow up with cardiology within one to two weeks after your discharge from the hospital. Please obtain prescribed lab work prior to your follow up with your primary care physician. Resume all your home medications as prescribed by your primary care physician Please increase your fluid intake (2L of water) daily until your follow up with your primary care physician. Referrals: John Pritchard MD [Primary Care Provider] - 08/23/17 11:30 am Juan Stubbs MD [Partnered Physician] - 08/24/17 1:30 pm
[2017-08-17 11:31] VITALS: BP 150/85
--- NOTE | 2017-08-17 19:31 | Electrocardiograph Report ---
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
--- NOTE | 2017-08-17 19:41 | Electrocardiograph Report ---
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
== END 2017-08-17 13:02 | disposition home or self-care (01) | DRG 683 ==
LOC: EMEROO 12:23 → 2NENU 12:23
PROVIDERS: ADMIT Internal Medicine; ATTEND Internal Medicine

== ENCOUNTER 2018-02-10 15:16 | Inpatient (IN) ==
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
[2018-02-10 15:51] LABS: Basophils # 0.1 K/mcL (0.0-0.2); Basophils % 0.4 %; Eosinophils # 0.1 K/mcL (0.0-0.6); Eosinophils % 1.1 %; Hematocrit 50.3 % (37.5-50.1); Hemoglobin 17.4 g/dL (12.9-16.9); Immature Granulocytes % 0.3 % (0-4); Lymphocytes # 1.6 K/mcL (0.6-4.6); Lymphocytes % 12.4 %; Mean Corpuscular HGB Conc 34.6 g/dL (31.6-35.5); Mean Corpuscular Hemoglobin 30.3 pg (28.0-33.3); Mean Corpuscular Volume 87.6 fL (83.0-100.0); Mean Platelet Volume 10.2 fL (9.4-12.4); Monocytes # 0.6 K/mcL (0.0-1.3); Monocytes % 4.8 %; Neutrophils # 10.6 K/mcL (1.6-8.9); Platelet Count 255 K/mcL (140-400); Red Blood Count 5.74 M/mcL (4.19-5.50); Red Cell Distribution Width 12.7 % (11.5-14.5)
[2018-02-10 16:13] LABS: Alanine Aminotransferase 13 Units/L (7-52); Albumin 4.6 g/dL (3.5-5.7); Albumin/Globulin Ratio 1.7 (1.1-2.2); Alkaline Phosphatase 68 Units/L (34-104); Aspartate Amino Transferase 21 Units/L (13-39); BUN/Creatinine Ratio 13 (6-26); Bilirubin,Direct 0.1 mg/dL (0.0-0.2); Bilirubin,Indirect 0.4 mg/dL (0.0-1.2); Bilirubin,Total 0.5 mg/dL (0.3-1.0); Blood Urea Nitrogen 14 mg/dL (8-23); Calcium 9.8 mg/dL (8.6-10.3); Carbon Dioxide 27 mEq/L (23-29); Chloride 102 mEq/L (98-107); Ethanol < 10 mg/dL (Less than 10); Globulin 2.7 g/dL (2.4-3.5); Glucose 152 mg/dL (70-105); Osmolality,Calculated 285 (280-300); Potassium 3.7 mEq/L (3.5-5.1); Sodium 136 mEq/L (136-145); Total Protein 7.3 g/dL (6.4-8.9); eGFR For Non-African Americans > 60 (> 60)
[2018-02-10] MEDS ORDERED: *HR* Heparin 5,000 UNIT/ML VIAL IVP PRN (16:19)
[2018-02-10] MEDS ORDERED: Aspirin 81 MG TAB.CHEW PO ONE (16:20)
[2018-02-10 16:29] LABS: Bilirubin,Urine Negative (Negative); Blood,Urine Trace (Negative); Clarity,Urine Cloudy (Clear); Color,Urine Yellow (Yellow); Glucose,Urine (UA) 250 mg/dL (Normal); Ketones,Urine Negative (Negative); Leukocyte Esterase,Urine Negative (Negative); Nitrite,Urine Negative (Negative); Protein,Urine >=300 mg/dL (Neg-Trace); Specific Gravity,Urine 1.012 (1.010-1.025); Urobilinogen,Urine Normal (Normal)
[2018-02-10 16:31] LABS: Bacteria,Urine None Seen per hpf (None-Few); RBC,Urine 0-3 per hpf (0-3); Squamous Epithelial Cell,Urine Many per lpf (None-Few); WBC,Urine 15-30 per hpf (0-3)
[2018-02-10 16:40] LABS: Heparin anti-factor XA UFH 0.04 IU/mL (0.30-0.70); INR 1.1; Prothrombin Time 12.1 Seconds (9.4-12.1)
[2018-02-10 16:55] LABS: Amphetamine Screen,Urine Negative ng/mL (Cutoff=1000); Barbiturate Screen,Urine Negative ng/mL (Cutoff=200); Benzodiazepines Screen,Urine Negative ng/mL (Cutoff=200); Cannabinoid Screen,Urine Negative ng/mL (Cutoff = 50); Cocaine Screen,Urine Negative ng/mL (Cutoff= 300); Opiate Screen,Urine Positive ng/mL (Cutoff=300); Phencyclidine Screen,Urine Negative ng/mL (Cutoff=25)
[2018-02-10 17:00] LABS: Activated Partial Thrombo Time 31.9 Seconds (26.0-36.0)
[2018-02-10] MEDS: *HR* Heparin 5,000 UNIT/ML VIAL IVP ONE ×2 (17:14→17:27)
[2018-02-10] MEDS: Heparin 25,000 UNIT/500 ML D5W 25,000 UNIT/500 ML BAG IVC SCH ×2 (17:17→17:27)
[2018-02-10] MEDS ORDERED: Lisinopril-HCTZ 20-12.5mg TABLET PO SCH (20:45)
[2018-02-10] MEDS ORDERED: traMADol 50 MG TABLET PO PRN (21:29)
[2018-02-10] MEDS ORDERED: Naloxone 0.4 MG/ML INJ IVP PRN (21:29)
[2018-02-10] MEDS ORDERED: Acetaminophen 325 MG TABLET PO PRN (21:29)
[2018-02-10] MEDS ORDERED: 0.9 % Sodium Chloride 1,000 ML IVC SCH (21:30)
[2018-02-10] MEDS ORDERED: Nitroglycerin 0.4 MG TAB.SUBL SL PRN (21:31)
--- NOTE | 2018-02-10 21:33 | Internal Med History&Physical ---
<Dion Randhawa - Last Filed: 02/10/18 22:08> Date of Encounter: 02/10/18 Time of Encounter: 21:33 Internal Medicine - H&P: HPI Chief complaint: lightheaded Admitted From: Emergency Dept Plans for Post Hospital Care: Home History of present illness: Mr. Colby is a 62 year old male with past medical history of CAD with stents placed in August, hyperlipidemia, TIA, diabetes who presented to the emergency department with a complaint of lightheadedness starting this morning. Patient states that he was driving when he began to feel sudden onset lightheadedness that has been constant ever since. He has experienced this in the past when he had a previous TIA and states it is also similar to when he received his stents back in August. He denies any associated symptoms of nausea, vomiting, weakness, new onset numbness or tingling but he does admit to residual deficits in his right upper extremity. Denies any recent illness, chest pain, shortness of breath outside at baseline, changes to bowel movements. No exacerbating or relieving factors including movement, rising from a seated position. He states his appetite has been good the last couple days and he has been eating and drinking well. In the emergency department, vital signs are significant for a pulse of 110 and a blood pressure 185/105. He is tolerating 94% oxygen on 2 L. Laboratory results were significant for a mild hemoconcentration with H/H of 17.4/50.3, WBC of 13.1. Troponin was also elevated at 0.40 with a baseline level appearing to be around 0.1-0.2. EKG was obtained and showed ST depressions in V2 V4 after which a right-sided EKG was obtained and showed no ST elevations. T -wave inversions were also noted however these were also present on previous EKG in August. CT head was also obtained and showed no acute process. Chest x-ray showed no acute process. He was started on heparin drip and will be admitted for further evaluation. Past medical history as above Denies past surgical history except for orthopedic Social history significant for current one half pack per day smoker since teenager, denies alcohol use, denies drug use. Former marijuana use Family history: Patient denies Previous cardiac workup includes - echocardiogram on 08/15/17 showing ejection fraction of 55%, cardiomyopathy, diastolic dysfunction with elevated filling pressures, increased left ventricular wall thickness. - Left heart catheterization on 09/03/16 shows moderate 3 vessel coronary artery disease with ejection fraction 65% - Pharmacologic stress test on 08/28/16 was nondiagnostic due to baseline ST changes, gated EF of 36% as well as a small mild intensely fixed perfusion Defect in the inferior segments. Past Med Surg Social Fam HX - Past Medical History Medical history: non-contributory, arthritis, coronary artery disease, hyperlipidemia, hypertension, myocardial infarction, TIA Psychiatric history: no psych history - Past Surgical History Surgical History: no surgical history Additional surgical history: stents, LEFT ANKLE SURGERY, - Social History Smoking Status: Current every day smoker Smokeless Tobacco Status: No Alcohol use: occasionally Drug use: none - Family History Father Living Status: Hx Family Cardiac Disorders: Yes Mother Adopted: No Family Member Ethnicity: Non- Living Status: Still Living Hx Family Cardiac Disorders: No Hx Family Respiratory Disorders: No Hx Family Cancer: Yes Hx Family GI Disorders: No Hx Family Endocrine Disorder: No Hx Family Neuromuscular Disorders: No Hx Family Neurologic Disorders: No Hx Family HEENT Disorders: No Hx Family Autoimmune Disorders: No Internal Medicine - H&P: Meds Atorvastatin [Lipitor] 80 mg PO HS #30 tablet 07/23/15 [Rx] Clopidogrel [Plavix] 75 mg PO DAILY #30 tablet 07/23/15 [Rx] Nitroglycerin 0.4 mg SL Q5M PRN 09/03/16 [History] Albuterol Sulfate [Proventil Hfa] 1 - 2 puff IH Q6H PRN 08/14/17 [History] Gabapentin [Neurontin] 600 mg PO TID 08/14/17 [History] Isosorbide MONOnitrate (24 HR) [Imdur] 60 mg PO DAILY 08/14/17 [History] Lisinopril/Hydrochlorothiazide [Zestoretic 20-12.5 mg Tablet] 1 tab PO DAILY 09/26 [History] Oxybutynin Chloride [Ditropan Xl] 5 mg PO BID 08/14/17 [History] Tamsulosin [Flomax] 0.4 mg PO DAILY 08/14/17 [History] 3 Allergy/AdvReac Type Severity Reaction Status Date / Time No Known Allergies Allergy Verified 02/10/18 17:37 All Systems PM: A 10-system review of systems was performed and is negative for pertinent findings except as documented above in the HPI. - Constitutional Constitutional: no chills, no fatigue, no fever(s), no lethargy, no weakness - EENT Eyes: no blurry vision - Cardiovascular Cardiovascular ROS IM: dyspnea on exertion, lightheadedness, no chest pain, no diaphoresis, no dyspnea, no edema, no palpitations, no syncope - Respiratory Respiratory: dyspnea on exertion, no cough, no dyspnea - Gastrointestinal Gastrointestinal: no abdominal pain, no constipation, no diarrhea, no hematemesis, no hematochezia, no loose stools, no nausea, no vomiting - Genitourinary Genitourinary ROS male: no dysuria - Musculoskeletal Musculoskeletal ROS IM: numbness (baseline. ), no tingling - Neurological Neurological ROS: headache(s), numbness (baseline), no abnormal gait, no abnormal speech, no confusion, no disequilibrium, no dizziness, no memory loss, no paresthesias, no tingling, no vertigo - Constitutional Vitals: Temp Pulse Resp BP Pulse Ox 97.4 F L 97 16 187/115 92 02/10/18 15:28 02/10/18 20:18 02/10/18 20:19 02/10/18 20:19 02/10/18 20:18 Exam: Gen.: Vitals noted. No acute distress. AAOx3. Resting comfortably in bed HEENT: PERRL/EOMI, oropharynx clear, Normocephalic, atraumatic, MMM Cardiac: RRR, no murmur, +S1/S2 Pulmonary: Diffuse wheezes present, equal chest expansion. Abdomen: soft, nontender, BS noted, no guarding, no rebound. Mildly distended MSK: ROM intact, no joint swelling noted. Muscle strength 5/5 diffusely Extremities: no BLE edema, nontender calf, no cyanosis. Clubbing present Neuro: A&Ox3, moves all extremities, cranial nerves II through XII intact grossly, reports decreased sensation in right upper extremity consistent with baseline Psych: Appropriate mood and behavior Internal Med - H&P Results - Labs CBC & Chem 7: 02/10/18 15:40 02/10/18 15:40 - Assessment and plan (1) Lightheadedness Current Visit: Yes Status: Acute Assessment and plan: - Patient reports lightheadedness since this morning which has been constant and unchanged - Possible etiologies include cardiac given elevated troponin of 0.[address] depressions in precordial leads - Also reports feeling similar with previous stroke however CT head performed emergency department is negative. No neurologic signs or symptoms - Alternatively, also consider dehydration as patient is noticeably hemoconcentrated and may be vasovagal - Troponin elevated at 0.40, baseline 0.1-0.2. EKG changes as previously - Heparin gtt started in ED - Vitals show elevated BP at 185/105, patient reports not having his medications this evening. - Previous Echo in 08/15/2017 shows EF 55% with diastolic dysfunciton and elevated filling pressures. Hx of abnormal stress Plan - Repeat echocardiogram - Continue heparin gtt, start ASA 81mg, statin, BB - Lipid panel in AM - Gentle IV fluids - Repeat EKG this evening. - Trend troponins - Continue home BP meds and start BB - Will consult cardiology, appreciate recommendations (2) NSTEMI (non-ST elevated myocardial infarction) Current Visit: Yes Status: Suspected Assessment and plan: - Suspected NSTEMI as above for lightheadedness (3) CAD (coronary artery disease) Current Visit: Yes Status: Chronic Assessment and plan: - History of CAD with reported stents placed in august per patient, however catheterization notes states only moderate three vessel disease - On plavix for TIA, will start ASA and statin - As above for NSTEMI Qualifiers: Coronary Disease-Associated Artery/Lesion type: [place] artery [place] vs. transplanted heart: [place] heart Associated angina: without angina Qualified Code(s): I25.10 - Atherosclerotic heart disease of [place] coronary artery without angina pectoris (4) HTN (hypertension) Current Visit: Yes Status: Chronic Assessment and plan: BP elevated on admission at 185/105 pt reports not taking medications today Will resume home antihypertensive start metoprolol 25 mg BID tomorrow, single dose of 5 mg IV tonight Qualifiers: Hypertension type: essential hypertension Qualified Code(s): I10 - Essential (primary) hypertension (5) HLD (hyperlipidemia) Current Visit: Yes Status: Chronic Assessment and plan: start statin, lipid panel in AM Qualifiers: Hyperlipidemia type: unspecified Qualified Code(s): E78.5 - Hyperlipidemia , unspecified (6) Diabetes mellitus Current Visit: Yes Status: Chronic Assessment and plan: Patient reports DM2 with moderately well controlled BS in high 100s denies hypoglycemic events in recent events BS of 152 on presentation Will start SSI, a1c in AM Qualifiers: Diabetes mellitus type: type 2 Diabetes mellitus lobsterman insulin use: without lobsterman use Diabetes mellitus complication status: with unspecified complications Qualified Code(s): E11.8 - Type 2 diabetes mellitus with unspecified complications (7) Elevated troponin I level Current Visit: Yes Status: Chronic Assessment and plan: as above for NSTEMI (8) Tobacco abuse Current Visit: Yes Status: Chronic Assessment and plan: Patient does unfortunately continue to smoke one half pack per day. We did discuss the potential harms of continuing to smoke and encouraged him to quit. He states that he is not interested at this time. We will give nicotine patch (9) DVT prophylaxis Current Visit: Yes Status: Acute Assessment and plan: on heparin gtt for suspected NSTEMI as above - Time Spent With Patient Total time spent is greater than 50% in coordination of care (as documented) at patient's floor/unit and/or counseling patient: <Rosalinda Skaggs - Last Filed: 02/10/18 23:12> Date of Encounter: 02/10/18 Internal Medicine - H&P: HPI History of present illness: Mr. Colby is a 62 year old male All Systems PM: A 10-system review of systems was performed and is negative for pertinent findings except as documented above in the HPI. - Constitutional Vitals: Temp Pulse Resp BP Pulse Ox 97.8 F 92 18 180/113 92 02/10/18 22:30 02/10/18 22:30 02/10/18 22:30 02/10/18 22:30 02/10/18 22:30 Internal Med - H&P Results - Labs CBC & Chem 7: 02/10/18 15:40 02/10/18 15:40 - Attending Attestation Patient was seen and examined by me. He is a 62-year-old gentleman with a history remarkable for coronary artery disease and cerebrovascular disease who presents with the complaint of feeling fatigued and unwell while driving almost passing out and feeling lightheaded for which reason EMS was called on his behalf by the police. On exam he is in no acute distress, vitals remarkable for uncontrolled hypertension work remarkable for troponin of 0.4. It is noted that he has previously always had positive troponins although this is a little bit higher than his usual. EKG is concerning for some ischemic changes which in comparison to previous studies appears unchanged. Given the acute incident and the slight elevation in troponin and EKG as well as his prior medical history it would be prudent to keep him on telemetry for ongoing observation, trend his troponins and check a repeat echocardiogram as well as obtain cardiology consultation for further evaluation. Of note in spite of his medical history he continues to smoke half a pack of cigarettes a day and he was counseled extensively on this. We will start beta blockade today to control his heart rate in the setting of possible ischemic demand. Oral antihypertensives can be resumed. We will maintain aspirin and heparin for anticoagulation in the interim as we continue to observe the trend of his troponins and monitor his clinical status. Repeat EKGs indicated. Rest of management per resident's note. - Time Spent With Patient Total time spent is greater than 50% in coordination of care (as documented) at patient's floor/unit and/or counseling patient:
[2018-02-10] MEDS ORDERED: D5% in Water 1,000 ML IVC PRN (21:35)
[2018-02-10] MEDS ORDERED: *HR* Dextrose 50 % in Water (Syg) 50 ML SYRINGE IVP PRN (21:35)
[2018-02-10] MEDS ORDERED: Dextrose Gel 15 GM/37.5 ML TUBE PO PRN ×2 (21:35)
[2018-02-10] MEDS ORDERED: Albuterol 2.5 MG/3 ML NEBULIZER IH PRN (21:41)
[2018-02-10] MEDS ORDERED: *HR* Metoprolol 5 MG/5 ML VIAL IVP ONE ×2 (21:43→22:01)
[2018-02-11] MEDS: *HR* Heparin 5,000 UNIT/ML VIAL IVP PRN ×2 (00:58→10:01)
--- NOTE | 2018-02-11 01:22 | Event Note ---
Date of Encounter: 02/11/18 Time of Encounter: 01:22 I received critical report that the patients troponin level has increased to 20 , from 0.4. The patient was seen and examined in bed. He is lying in bed watching TV and has no complaints of chest pain or dyspnea. He is not diaphoretic. No recurrences of lightheadedness. His vital signs are remarkable for elevated BP. His repeat EKG continues to show ST-segment depressions and T- wave inversions in the lateral leads. We have 3 here during admission and 1 from August to compare with. Veterinary Technician on-call Dr Batres was contacted and informed of the situation who recommended continuation of heparin drip, ensuring he remains pain free and will be evaluated in the morning.
[2018-02-11 07:32] LABS: Estimated Average Glucose 140 mg/dl; Hemoglobin A1C 6.5 %
[2018-02-11 07:33] LABS: Basophils % 0.4 %; Eosinophils # 0.3 K/mcL (0.0-0.6); Eosinophils % 2.9 %; Hematocrit 46.8 % (37.5-50.1); Hemoglobin 15.7 g/dL (12.9-16.9); Immature Granulocytes % 0.2 % (0-4); Lymphocytes # 2.7 K/mcL (0.6-4.6); Lymphocytes % 29.6 %; Mean Corpuscular HGB Conc 33.5 g/dL (31.6-35.5); Mean Corpuscular Volume 89.3 fL (83.0-100.0); Mean Platelet Volume 11.1 fL (9.4-12.4); Monocytes # 0.8 K/mcL (0.0-1.3); Neutrophils # 5.3 K/mcL (1.6-8.9); Platelet Count 223 K/mcL (140-400); Red Blood Count 5.24 M/mcL (4.19-5.50); Red Cell Distribution Width 12.6 % (11.5-14.5); Segmented Neutrophils % 57.9 %
[2018-02-11 07:51] LABS: BUN/Creatinine Ratio 16 (6-26); Blood Urea Nitrogen 16 mg/dL (8-23); Calcium 9.2 mg/dL (8.6-10.3); Carbon Dioxide 26 mEq/L (23-29); Chloride 103 mEq/L (98-107); Chol/HDL Ratio 3.3 (0-4.9); Cholesterol 143 mg/dL (< 200); Glucose 114 mg/dL (70-105); HDL Cholesterol 44 mg/dL (40-59); LDL Cholesterol,Calculated 67 mg/dL (0-99); Magnesium 1.8 mg/dL (1.6-2.6); Osmolality,Calculated 284 (280-300); Potassium 3.7 mEq/L (3.5-5.1); Sodium 136 mEq/L (136-145); Triglycerides 159 mg/dL (< 150); eGFR For Non-African Americans > 60 (> 60)
--- NOTE | 2018-02-11 08:35 | Pre-Sedation Evaluation ---
Pre-sedation evaluation - Pre-sedation checklist Date of procedure: 02/11/18 Procedure: LEFT HEART CATH Recent Vitals: Last Vital Signs Temp 97.9 F 02/11/18 06:59 Pulse 80 02/11/18 06:59 Resp 18 02/11/18 06:59 BP 156/80 02/11/18 06:59 Pulse Ox 94 02/11/18 06:59 H&P (including ROS) documented in medical record: Yes Previous reaction to sedatives/anesthetics: No Dietary Status: NPO after Midnight Dentition: No loose teeth or bridges ASA Classification *see protocol: CLASS II-Mild systemic disease Plan of Care: Pt appropriate candidate for procedure/moderate/conscious sedation , Risks/benefits of procedure/sedation discussed w/ patient/family Cardiac Registry (Cardio Only) - Functional Capacity Functional Capacity: >=4 METS with symptoms - Clincal Frailty Scale Clinical Frailty Scale: Managing Well
[2018-02-11] MEDS: Lisinopril-HCTZ 20-12.5mg TABLET PO SCH (08:52)
[2018-02-11] MEDS: Gabapentin 300 MG CAPSULE PO SCH ×3 (08:52→20:34)
[2018-02-11] MEDS: Insulin LISPRO 300 UNITS/3 ML VIAL SQ SCH ×3 (08:52→16:46)
[2018-02-11] MEDS: Isosorbide MONOnitrate (24 HR) 30 MG TAB.ER.24H PO SCH (08:52)
[2018-02-11] MEDS: Nicotine 7 MG PATCH.TD24 TD SCH (08:53)
--- NOTE | 2018-02-11 08:59 | Cardiology Consult Note ---
<DreWeston José Miguel - Last Filed: 02/11/18 08:49> Date of Encounter: 02/11/18 Time of Encounter: 08:15 Assessment and Plan (1) NSTEMI (non-ST elevated myocardial infarction) Current Visit: Yes Status: Acute Pt presented yesterday with c/o lightheadedness -he pulled over because he couldn't continue driving - had constant lightheadedness but denies passing out, spinning surroundings, ringing in the head, numbness/tingling, chest pain or SOB. -he notes some blurry vision associated with the lightheadedness but that has since resolved -he states that this was similar to the symptoms he experienced when he had a TIA -the patient denies any pain associated with the lightheadedness, he denies any head trauma -the patient states that he "doesn't really remember the event" and that the coppersmith apprentice told him that when the pt was pulled over that the pt "didn't really know who he was or where he was" -the pt denies a hx of seizures At baseline the pt's EKG has T wave inversion -EKG 1 showed T wave inversion and ST depression (ischemia vs left heart strain ) and LVH -EKG 2 showed T wave inversion and ST depression (ischemia vs left heart strain ) and LVH; no ST elevation -troponins were ordered and trended 0.4 ----> 20.71 ----> 14.57 -the patient was started on a heparin drip as per protocol -CT head was normal, CXR showed no acute cardiopulmonary process Previous cardiac workup is as follows: -echocardiogram on 08/15/17 showing ejection fraction of 55%, cardiomyopathy, diastolic dysfunction with elevated filling pressures, increased left ventricular wall thickness. -Left heart catheterization on 09/03/16 shows moderate 3 vessel coronary artery disease with ejection fraction 65% -Pharmacologic stress test on 08/28/16 was nondiagnostic due to baseline ST changes, gated EF of 36% as well as a small mild intensely fixed perfusion Defect in the inferior segments. Plan: -currently on Heparin drip as per ACS protocol -Nitroglycerin 0.4mg PO q5min prn chest pain -Acetominophen 650mg PO q6hr prn pain -Home meds - Plavix 75mg PO, Metroprolol 25mg PO BID, Lipitor 80mg PO daily --- > continue home meds -add ASA 81mg PO daily starting today -ECHO pending -carotid US pending -currently NPO -pt has a NATASHA score of 5, type 1 (demand ischemia) vs type 2 heart (coronary aa atherosclerosis plaque rupture) disease -spoke with Dr Stubbs for [facility], attending agrees that pt would benefit from early intervention (2) Lightheadedness Current Visit: Yes Status: Resolved Has resolved. -most likely secondary to ACS -see plan as per above (3) CAD (coronary artery disease) Current Visit: No Status: Chronic Pt has a PMH of CAD -multiple risk factors, including DM/HTN/HDL/obesity -early family hx of early heart disease, father had DC in his 40's Plan: -plan as per above -continue Lopressor, Lipitor, Plavix -add aspirin -continue heparin drip as per protocol -continue Nitroglycerin 0.4mg SL q5min prn pain -[facility] today with Dr. Stubbs Qualifiers: Coronary Disease-Associated Artery/Lesion type: [place] artery [place] vs. transplanted heart: [place] heart Associated angina: without angina Qualified Code(s): I25.10 - Atherosclerotic heart disease of [place] coronary artery without angina pectoris (4) HTN (hypertension) Current Visit: No Status: Chronic Pt has a hx of HTN -poorly controlled -pt is noncompliant -on Lopressor 25mg BID and Lisinopril/HCTZ 25mg PO BID last VS reading has BP of 156/80; BP max was in ER at 191/105 Plan: -continue home meds Qualifiers: Hypertension type: essential hypertension Qualified Code(s): I10 - Essential (primary) hypertension (5) HLD (hyperlipidemia) Current Visit: No Status: Chronic Pt has a hx of HDL -on Lipitor 80mg PO daily Plan: -continue Lipitor -encourage heart healthy low fat, low cholesterol diet Qualifiers: Hyperlipidemia type: unspecified Qualified Code(s): E78.5 - Hyperlipidemia , unspecified (6) Tobacco abuse Current Visit: No Status: Chronic Encourage cessation. -Pt endorses smoking 1 PPD for >45yrs Plan -currently on NRT -Nicotine patches as per primary -may consider Burpriopion Discussion w patient/family: The assessment and plan as outlined above was discussed with the patient and/or family members who expressed understanding and agreement. All questions were answered. Thank you for involving us in the care of your patient. Please call with any questions. History of Present Illness Consult date: 02/10/18 Requesting physician: Rosalinda Skaggs Consult reason: Elevated troponin, ST depression, lightheadedness Chief complaint: "lightheadedness" History of present illness: Mr. Colby is a 62 year old male with a PMH of CAD s/p stents in August with Dr. Stubbs, HTN, HDL, TIA, DM. He presented to the ER yesterday with c/o lightheadedness that started yesterday. He states he was driving and had to tub puller because he didn't think he could keep driving. He said it was constant lightheadedness but denies passing out, spinning surroundings, ringing in the head, numbness/tingling, chest pain or SOB. -he notes some blurry vision associated with the lightheadedness but that has since resolved -he states that this was similar to the symptoms he experienced when he had a TIA -the patient denies any pain associated with the lightheadedness, he denies any head trauma -the patient states that he "doesn't really remember the event" and that the coppersmith apprentice told him that when the pt was pulled over that the pt "didn't really know who he was or where he was" -the pt denies a hx of seizures Currently the patient states he has no chest pain, SOB, or palpiltations. He denies any swelling in the extremities, N/V/D. The pt is able to lay flat when he is in bed and denies needing extra pillows. -while in the emergency room yesterday he had a pulse max of 110 and a BP max of 191/105 -he had a WBC count of 13.1. Hemoglobin 17.4, Hct 50.3 most likely 2* to hemoconcentration At baseline the pt's EKG has T wave inversion -EKG 1 showed T wave inversion and ST depression (ischemia vs left heart strain ) and LVH -EKG 2 showed T wave inversion and ST depression (ischemia vs left heart strain ) and LVH; no ST elevation -troponins were ordered and trended 0.4 ----> 20.71 ----> 14.57 -the patient was started on a heparin drip as per protocol -CT head was normal, CXR showed no acute cardiopulmonary process Previous cardiac workup is as follows: -echocardiogram on 08/15/17 showing ejection fraction of 55%, cardiomyopathy, diastolic dysfunction with elevated filling pressures, increased left ventricular wall thickness. -Left heart catheterization on 09/03/16 shows moderate 3 vessel coronary artery disease with ejection fraction 65% -Pharmacologic stress test on 08/28/16 was nondiagnostic due to baseline ST changes, gated EF of 36% as well as a small mild intensely fixed perfusion Defect in the inferior segments. Fluids - none Electrolytes - all within normal limits Nutrition - currently NPO DVT prophylaxis - on heparin GI prophylaxis - currently NPO Past Med Surg Social Fam HX - Past Medical History Medical history: non-contributory, arthritis, coronary artery disease, hyperlipidemia, hypertension, myocardial infarction, TIA Psychiatric history: no psych history - Past Surgical History Surgical History: no surgical history Additional surgical history: stents, LEFT ANKLE SURGERY, - Social History Smoking Status: Current every day smoker Smokeless Tobacco Status: No Alcohol use: occasionally Drug use: none - Family History Father History Unknown: Yes Living Status: Hx Family Cardiac Disorders: Yes Mother History Unknown: Yes Adopted: No Family Member Ethnicity: Non- Living Status: Still Living Hx Family Cardiac Disorders: No Hx Family Respiratory Disorders: No Hx Family Cancer: Yes Hx Family GI Disorders: No Hx Family Endocrine Disorder: No Hx Family Neuromuscular Disorders: No Hx Family Neurologic Disorders: No Hx Family HEENT Disorders: No Hx Family Autoimmune Disorders: No Medications and Allergies Atorvastatin [Lipitor] 80 mg PO HS #30 tablet 07/23/15 [Rx] Clopidogrel [Plavix] 75 mg PO DAILY #30 tablet 07/23/15 [Rx] Nitroglycerin 0.4 mg SL Q5M PRN 09/03/16 [History] Albuterol Sulfate [Proventil Hfa] 1 - 2 puff IH Q6H PRN 08/14/17 [History] Gabapentin [Neurontin] 600 mg PO TID 08/14/17 [History] Isosorbide MONOnitrate (24 HR) [Imdur] 60 mg PO DAILY 08/14/17 [History] Lisinopril/Hydrochlorothiazide [Zestoretic 20-12.5 mg Tablet] 1 tab PO DAILY 09/26 [History] Oxybutynin Chloride [Ditropan Xl] 5 mg PO BID 08/14/17 [History] Tamsulosin [Flomax] 0.4 mg PO DAILY 08/14/17 [History] 3 Allergy/AdvReac Type Severity Reaction Status Date / Time No Known Allergies Allergy Verified 02/10/18 17:37 All Systems Review: The remainder of the systems were reviewed and are negative - Constitutional Constitutional: no chills, no fatigue, no fever(s) - EENT Eyes: blurred vision - Cardiovascular Cardiovascular: no chest pain with exertion, no leg edema, no orthopnea, no palpitations, no paroxysmal nocturnal dyspnea - Respiratory Respiratory: no cough, no dyspnea, no wheezing - Gastrointestinal Gastrointestinal: no abdominal pain - Genitourinary Genitourinary: no dysuria, no hematuria - Musculoskeletal Musculoskeletal: no muscle weakness - Neurological Neurological: focal weakness, no numbness, no tingling Physical Examination Vital Signs, Last 4 Hours Temp Pulse Resp BP Pulse Ox 02/11/18 06:59 97.9 F 80 18 156/80 94 General: Conversant, No Apparent Distress HEENT: Atraumatic Neck: No JVD Cardiac: Reg Rate and Rhythm, Normal S1 and S2, No Murmur Lungs: Normal Breath Sounds, No Wheeze, Rales, Rhonchi Neuro: Alert and responsive Abdomen: Soft, Non-Tender Skin: No rashes noted on visualized skin Musculoskeletal: No Chest Wall Tenderness Results 02/11/18 06:26 02/11/18 06:26 Lab Results 02/11/18 02/11/18 02/11/18 06:26 06:26 06:26 WBC 9.1 Hgb 15.7 D Hct 46.8 Plt Count 223 Sodium 136 Potassium 3.7 Chloride 103 Carbon Dioxide 26 BUN 16 Creatinine 0.98 Glucose 114 H Calcium 9.2 Magnesium 1.8 Troponin I 14.57 H* Consult Discharge Plan - Plan Referrals: John Pritchard MD [Primary Care Provider] - <Luigi Chappell - Last Filed: 02/11/18 10:13> Date of Encounter: 02/11/18 - Attending Attestation I examined this patient and my medical decision-making was reviewed with the Resident Physician. I agree with the documented findings, disposition and treatment plan as described except to the extent set forth below. Found confused along the road. Pt. does not recollect the event, denies chest pain. Found to have elevated troponin and EKG changes. Would recommend left heart cath due to NSTEMI, he agrees. Assessment and Plan Discussion w patient/family: The assessment and plan as outlined above was discussed with the patient and/or family members who expressed understanding and agreement. All questions were answered. Thank you for involving us in the care of your patient. Please call with any questions. History of Present Illness History of present illness: Mr. Colby is a 62 year old male All Systems Review: The remainder of the systems were reviewed and are negative Physical Examination Vital Signs, Last 4 Hours Temp Pulse Resp BP Pulse Ox 02/11/18 06:59 97.9 F 80 18 156/80 94 Results 02/11/18 06:26 02/11/18 06:26 Lab Results 02/11/18 02/11/18 02/11/18 06:26 06:26 06:26 WBC 9.1 Hgb 15.7 D Hct 46.8 Plt Count 223 Sodium 136 Potassium 3.7 Chloride 103 Carbon Dioxide 26 BUN 16 Creatinine 0.98 Glucose 114 H Calcium 9.2 Magnesium 1.8 Troponin I 14.57 H*
[2018-02-11] MEDS: Aspirin 81 MG TAB.CHEW PO SCH (09:59)
--- NOTE | 2018-02-11 10:20 | Internal Med Progress Note ---
Hospitalist Progress Note - Encounter Date of Encounter: 02/11/18 Time of Encounter: 10:19 - Subjective Interval History: 62-year-old male with tobacco abuse and known coronary artery disease with prior WAS admitted and being managed for an STEMI. Patient seen and examined at the bedside with no chest pain or shortness of breath. He reports diaphoresis and lightheadedness have resolved. Peak troponin was 20. He's currently on heparin infusion and awaiting cardiology review at my time of evaluation. - Exam Vitals: Temp Pulse Resp BP Pulse Ox 97.9 F 80 18 156/80 94 02/11/18 06:59 02/11/18 06:59 02/11/18 06:59 02/11/18 06:59 02/11/18 06:59 Exam: Vitals: VSS General: Laying comfortably in bed not in any form of distress. Skin: Warm and supple. No rash. HEENT: Moist oral mucosa, not pale and anicteric Neck: Normal inspection Chest: Clear to auscultation bilaterally Heart: Normal S1 & S2; regular rate and rhythm No rubs or murmurs. No JVD Abdomen: Soft and nontender. Bowel sounds present in all quadrants. Extremities: No edema. Neurological: Ambulatory, normal gait, no focal deficits. - Assessment and Plan (1) NSTEMI (non-ST elevated myocardial infarction) Current Visit: Yes Status: Acute Assessment and Plan: Patient presented with lightheadedness and diaphoresis. Associated EKG changes inferolateral leads Peak trop 20 No active chest pain Continue heaprin drip Continue ASA, Plavix, BB, Lisinopril, Imdur, prn nitro Follow ECHO, Follow carotid USS Cardio eval (2) CAD (coronary artery disease) Current Visit: Yes Status: Chronic Assessment and Plan: As above (3) HTN (hypertension) Current Visit: Yes Status: Chronic Assessment and Plan: continue current meds (4) HLD (hyperlipidemia) Current Visit: Yes Status: Chronic Assessment and Plan: Lipid panel noted, continue statin (5) DVT prophylaxis Current Visit: Yes Status: Acute Assessment and Plan: on heparin gtt for NSTEMI (6) Diabetes mellitus Current Visit: Yes Status: Chronic Assessment and Plan: Controlled, A1C 6.5 Continue current regimen (7) Lightheadedness Current Visit: Yes Status: Resolved Assessment and Plan: Due to NSTEMI, mgt as in NSTEMI (8) Tobacco abuse Current Visit: Yes Status: Chronic Assessment and Plan: Encouraged cessation - Time Spent with Patient Total time spent is greater than 50% in coordination of care (as documented) at patient's floor/unit and/or counseling patient: Plan of Care Discussed with: patient Internal Medicine: Result - Labs CBC & Chem 7: 02/11/18 06:26 02/11/18 06:26 Labs: Short CBC 02/11/18 Range/Units 06:26 WBC 9.1 (4.3-11.1) K/mcL Hgb 15.7 D (12.9-16.9) g/dL Hct 46.8 (37.5-50.1) % Plt Count 223 (140-400) K/mcL Neutrophils # 5.3 (1.6-8.9) K/mcL BMP 02/11/18 06:26 Sodium 136 Potassium 3.7 Chloride 103 Carbon Dioxide 26 BUN 16 Creatinine 0.98 Glucose 114 H Calcium 9.2 Cardiac Enzymes 02/11/18 Range/Units 06:26 Troponin I 14.57 H* (< 0.04) ng/mL - ABG Interpretation ABG results: PT/INR, D-dimer PT 12.1 Seconds (9.4-12.1) 02/10/18 15:40 Consult Discharge Plan - Plan Referrals: John Pritchard MD [Primary Care Provider] - (2) CAD (coronary artery disease) Qualifiers: Coronary Disease-Associated Artery/Lesion type: [place] artery [place] vs. transplanted heart: [place] heart Associated angina: without angina Qualified Code(s): I25.10 - Atherosclerotic heart disease of [place] coronary artery without angina pectoris (3) HTN (hypertension) Qualifiers: Hypertension type: essential hypertension Qualified Code(s): I10 - Essential (primary) hypertension (4) HLD (hyperlipidemia) Qualifiers: Hyperlipidemia type: unspecified Qualified Code(s): E78.5 - Hyperlipidemia, unspecified (6) Diabetes mellitus Qualifiers: Diabetes mellitus type: type 2 Diabetes mellitus detention insulin use: without assistant terminal manager use Diabetes mellitus complication status: with unspecified complications Qualified Code(s): E11.8 - Type 2 diabetes mellitus with unspecified complications
[2018-02-11] MEDS ORDERED: Heparin 1,000 UNITS/500 mL 500 ML ONE (12:23)
[2018-02-11] MEDS ORDERED: ISOVUE-370 200 ML INFUS..BTL IV ONE (12:23)
[2018-02-11] MEDS ORDERED: 0.9 % Sodium Chloride 1,000 ML ONE ×2 (12:23→12:33)
[2018-02-11] MEDS ORDERED: *HR* Heparin 10,000 UNIT/10 ML VIAL ONE (12:23)
[2018-02-11] MEDS ORDERED: Nitroglycerin 1,000 MCG/10 ML VIAL IV ONE (12:24)
[2018-02-11] MEDS ORDERED: Verapamil 5 MG/2 ML VIAL ONE (12:32)
--- NOTE | 2018-02-11 12:44 | Electrocardiograph Report ---
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
--- NOTE | 2018-02-11 12:44 | Electrocardiograph Report ---
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
--- NOTE | 2018-02-11 12:50 | Electrocardiograph Report ---
[address] [place], [place] [address] Test Date: 2018-02-11 Pat Name: Melvin Colby Department: 112 Room: 2A43 Gender: M Review Manager: : 1955 Requested By: Efren Skaggs Order Number: [id number] Reading MD: Juan Stubbs Measurements Intervals [place] Rate: 89 P: 60 [place]: 152 QRS: 39 QRSD: 101 T: 204 QT: 384 QTc: 430 Interpretive Statements SINUS RHYTHM LEFT ATRIAL ENLARGEMENT Left ventricular hypertrophy WITH STRAIN Electronically Signed On 02-11-2018 12:47:55 EDT by Juan Stubbs
[2018-02-11] MEDS ORDERED: *HR* FentaNYL (PF) 100 MCG/2 ML VIAL ONE (12:59)
[2018-02-11] MEDS ORDERED: *HR* Midazolam HCl 2 MG/2 ML VIAL ONE (12:59)
--- NOTE | 2018-02-11 13:58 | Invasive Diagnostic Lab Proc ---
Name: CaseMelvin Date of Study: 02/11/2018 Date: 1955 Ht: 66.1in Medical Record#: [id number] Age: 62 Wt: 200.18lb Gender: Male BSA: 2. Order #: [id number] BMI: 32.17 Physicians Procedure Physician: Juan Stubbs MD, [facility] Referring MD: Referring MD: Staff Name Position Time In KarenMich najera RN Scrub 12:59 PM Aline Sainz RT (R) Monitor 12:59 PM Summer Roberts RT (R) Scrub 12:59 PM Indications Indication Non-Stemi Procedures Performed Procedure L HRT ARTERY/VENTRICLE ANGIO PRQ CARD CHAPARRO STENT W/ANGIO 1 VSL Pre-Procedure Checklist Informed consent is complete signed and on chart. H&P is on chart. ID band is on and ID verified with patient. Patient NPO for procedure The procedure was described for the patient and questions were answered. ECG is on chart. Plan of Care Patient will tolerate the procedure without complications. Adequate level of comfort will be maintained. Hemodynamics will remain stable Patient will recover from procedure without complications. Respiratory function will be maintained. Cardiac rhythm will remain stable. Patient temperature will be maintained. Patient and/or family have verbalized understanding of the procedure. Patient Education Chief Complaint/Reason for Test: Cardiac Cath Developmental Category: Adult (18-64 years) Developmentally Appropriate for Age: Yes Learning Barriers: None Education Needs: Procedure Education Method: Verbal Information Taught: Cardiac Cath Educational Evaluation: Able to repeat information Intravenous Access Time IV Size Location DC'd Fluid/Drip Rate Units RN 0.9NaCl Allergies No Known Allergies Vital Signs Time BP (mmHg) HR (bpm) O2 Sat. RR (bpm) LOC 01:01 PM / % 5 = Fully awake and oriented or at pre-proc level 12:57 PM 161 / 88 69 96 % 15 01:01 PM 158 / 83 67 96 % 18 01:07 PM 128 / 75 81 90 % 20 01:11 PM 145 / 66 64 96 % 26 01:16 PM 130 / 66 73 93 % 15 01:21 PM 121 / 60 70 95 % 14 01:26 PM 132 / 67 72 94 % 15 01:31 PM 130 / 67 71 93 % 21 Procedural Medications Time Medication Dose Units Method Given By 01:00 PM Oxygen 2 L/min nasal cannula Aline Sainz RT (R) 01:01 PM Versed 2 mg Intravenous Mich Jones RN 01:01 PM Fentanyl 50 mcg Intravenous Mich Jones RN 01:10 PM Lidocaine 2% 0.5 ml Subcutaneous Juan Stubbs MD, [facility] 01:12 PM Heparin 4000 units Nitroglycerin 200 mcg Verapamil 2.5 mg Intraarterial Juan Stubbs MD, [facility] 01:30 PM Nitroglycerin 200 mcg Intracoronary Juan Stubbs MD 01:43 PM Plavix 300 mg Orally Mich Jones RN ASA Classification: CLASS II- Mild systemic disease (i.e. well-controlled diabetes, hypertension, asthma, cigarette smoking) Jennifer Score Preprocedure Postprocedure Activity 2- Moves 4 extremities sustained head lift Activity Circulation 2- SBP +/= 20 points of pre-anesthetic level Circulation Consciousness 2- Awake and alert oriented x 3 Consciousness O2 Saturation 2- Able to maintain O2 satruation of 92% on room air O2 Saturation Respiratory 2- Able to deep breathe and cough well Respiratory Total Score 10 Total Score Contrast Agent: Isovue Diagnostic Contrast: 139 ml Total Contrast: 139 ml Fluoro Dose: 41 mGy Activated Clotting Time Time Seconds to Clot 01:25 PM 303 Procedure Log Time Note Enter By 12:55 PM CathStat 12:55 PM Vitals capture started with the following parameters, Patient=Adult, Interval=5 min, Initial Iayfmxlm=260 mmHg, Deflation Rate=3 mmHg, Cuff placed on Right Arm 12:57 PM HR=69 bpm, CBLG=992/88 mmhg, SpO2=96.0 %, Resp=15 B/min, EtCO2=31 mmHg, Comment=NSR 12:59 PM Case Start 12:59 PM Pt arrived to labor exped[employer] 1 at 12:59 [place] 12:59 PM Mich Jones RN Position: Scrub Time in: 12:59 [place] 12:59 PM Aline Sainz RT (R) Position: Monitor Time in: 12:59 [place] 01:00 PM Summer Roberts RT (R) Position: Scrub Time in: 12:59 [place] 01:00 PM Patient charges- Angio tray pack, Navilyst 3mm J, Pulse Oximetry and ACIST tubing and transducer [place] 01:00 PM IV Supplies used: J loop Angio Cath. dspellman 01:00 PM Physician arrived 13:00 PM Meet and lisa completed PM Sign in performed according to hospital policy. Procedure start 13:00 PM ASA Class CLASS II- Mild systemic disease (i.e. well-controlled diabetes, hypertension, asthma, cigarette smoking) PM Hair removed from procedure site in procedure lab using clippers. Right wrist, right groin prepped with Chloraprep by Aline Sainz RT (R), then patient was draped. Skin intact. PM Time: 13:00 Oxygen on at 2 L/min per nasal cannula by Aline Sainz RT (R) PM Time: : Versed 2 mg Intravenous Given by Mich Jones RN PM Time: 13: Fentanyl 50 mcg Intravenous Given by Mich Jones RN PM Time: 13:01 Patient comfortable and pain free: Yes Time: 13:LOC: 5 = Fully awake and oriented or at pre-proc level PM Clinical Presentation: Non-STEMI : PM HR=67 bpm, SJXZ=312/83 mmhg, SpO2=96.0 %, Resp=18 B/min, EtCO2=37 mmHg, Comment=NSR :07 PM HR=81 bpm, JYZT=978/75 mmhg, SpO2=90.0 %, Resp=20 B/min, EtCO2=27 mmHg, Comment=NSR :08 PM Recorded ECG: HR=70 Condition=Condition 1 :08 PM Pressure channel 1 zeroed. 01:10 PM Time out performed according to hospital policy Time: 13:10 0.5 ml Lidocaine 2% to right radial Subcutaneous Given by Juan Stubbs MD, [facility] :11 PM HR=64 bpm, TBHF=163/66 mmhg, SpO2=96.0 %, Resp=26 B/min, EtCO2=37 mmHg, Comment=NSR 01:12 PM Access obtained by percutaneous puncture. 6Fr 10cm Terumo Warbranch sheath placed in right Radial artery. [id number] dspellman 01:12 PM Time: 13:12 Patient given 4,000 units Heparin, 200 mcg Nitroglycerin, and 2.5 mg Verapamil Intraarterial by Juan Stubbs MD, [facility]. This is given to reduce risk of vessel spasm and thrombosis. dspellman 01:13 PM 5Fr TIG catheter inserted over the wire [facility] dspellman 01:13 PM 0.035 260cm Navilyst 3mmJ wire [id number] dspellman 01:14 PM LCA angiography performed in multiple views. dspellman 01:16 PM HR=73 bpm, YAJE=557/66 mmhg, SpO2=93.0 %, Resp=15 B/min, EtCO2=28 mmHg, Comment=NSR 01:17 PM Catheter removed dspellman 01:17 PM Lesion found in Proximal LAD. Pre Stenosis: 50 Pre NATASHA Flow: 3: Complete and Brisk Flow/Perfusion dspellman 01:18 PM Lesion found in Proximal Circumflex. Pre Stenosis: 60 Pre NATASHA Flow: 3: Complete and Brisk Flow/Perfusion dspellman 01:18 PM Lesion found in 1st Marginal. Pre Stenosis: 90 Pre NATASHA Flow: 3: Complete and Brisk Flow/Perfusion dspellman 01:18 PM Lesion found in Mid RCA. Pre Stenosis: 85 Pre NATASHA Flow: 3: Complete and Brisk Flow/Perfusion dspellman 01:19 PM Coronary Dominance: Left dspellman 01:19 PM 5Fr Pigtail catheter inserted over the wire [facility] dspellman 01:19 PM Catheter selectively placed in left ventricle dspellman 01:19 PM Pressure channel 1 zero failed. 01:19 PM Pressure channel 1 zero failed. 01:20 PM Pressure channel 1 zero failed. 01:20 PM Pressure channel 1 zeroed. 01:20 PM Recorded Pressure: LV, HR=79, Condition=Condition 1 (Left Ventricle) LV 121/13/18 01:20 PM Recorded Pressure: LV, Ao, HR=69, Condition=Condition 1 (Left Ventricle) LV 136/21/43, (Aorta) Ao 117/56/88 01:21 PM Bolus angiogram of left Ventricle complete: 10 ml/sec for a total of 25 mls dspellman 01:21 PM Catheter removed dspellman 01:21 PM PCI Status Urgent dspellman 01:21 PM HR=70 bpm, AZJR=458/60 mmhg, SpO2=95.0 %, Resp=14 B/min, EtCO2=32 mmHg, Comment=NSR 01:22 PM PCI lesion in 1st Marginal. dspellman :22 PM 6Fr RBL 3.5 Convey guide catheter was used to cannulate the PCI vessel successfully. reused? No dspellman :22 PM .014 [place] 190cm guide wire across target lesion- successful. reused? No dspellman :22 PM ACT drawn dspellman :24 PM Recorded Pressure: Ao, HR=72, Condition=Condition 1 (Aorta) Ao 117/80/96 01:25 PM Recorded Pressure: Ao, HR=68, Condition=Condition 1 (Aorta) Ao 125/81/99 01:25 PM 2.0 mm x 15 mm Emerge Monorail balloon across target lesion- successful. reused? No dspellman : PM At 13:25 the ACT was 303 seconds. dspellman : PM Balloon inflated @ 8 bert for 16 seconds dspellman : PM HR=72 bpm, GIGU=094/67 mmhg, SpO2=94.0 %, Resp=15 B/min, EtCO2=41 mmHg, Comment=NSR 01:27 PM Balloon catheter removed intact. dspellman :27 PM Recorded Pressure: Ao, HR=75, Condition=Condition 1 (Aorta) Ao 128/86/104 01:28 PM 2.25mm x 20mm Synergy drug-eluting stent across target lesion- successful Lot #[id number] dspellman :29 PM Stent deployed @ 11 bert for 15 seconds dspellman :31 PM Time: 13:30 Nitroglycerin 200 mcg Intracoronary Given by Juan Stubbs MD dspellman :31 PM HR=71 bpm, DHRR=095/67 mmhg, SpO2=93.0 %, Resp=21 B/min 01:33 PM Lesion found in Left PDA. Pre Stenosis: 50 Pre NATASHA Flow: 3: Complete and Brisk Flow/Perfusion dspellman :33 PM Lesion found in Distal LAD. Pre Stenosis: 60 Pre NATASHA Flow: 3: Complete and Brisk Flow/Perfusion dspellman :33 PM Stent delivery system removed intact. dspellman :33 PM Guide wire removed intact. dspellman :33 PM Guide catheter removed intact. dspellman :33 PM Procedure completed at 13:33 02/11/2018 dspellman 01:35 PM Did you address NATASHA flow and Dominance? Yes dspellman 01:35 PM Sign out completed: Radiation Dose 596.5 mGy, 40.92 Gy/cm2 Fluoro Time: 4.3 Isovue 370 - 200ml contrast 139 ml given by Juan Stubbs MD, [facility]. Complications: NoneCardiac Rehab Consult needed: YesConfirmed administered medications: Yes ell 01:35 PM Isovue 370 - 200ml,1 Bottle(s) used. dspell 01:36 PM Arterial sheath pulled, Vasc Band closure device used and was Successful S/N. dspell 01:36 PM 10 ml air in Vasc Band. dspell 01:36 PM Estimated Blood Loss: less than 20cc dspell 01:36 PM Post ECG NSR dspell 01:36 PM [ Start or Stop Vital ] 01:36 PM Post Blood Pressure 130/67 dspellman 01:37 PM 13:36 Post Pulses Rt Radial 2+ dspellman 01:37 PM Information taught Cardiac Cath, PCI, and Vasc Band dspellman 01:38 PM Education needs Procedure, Plan of Care, and Responsibilities of Patient in Care dspell 01:39 PM Learning barriers :None dspellman 01:40 PM Education Methods Verbal dspellman 01:40 PM Education evaluation Able to repeat information dspellman 01:40 PM Site status No bleeding/hematoma - Rt Wrist as reported by Summer Roberts RT (R) at 13:40 dspellman 01:40 PM Report given to [place] Pt taken to 2A Room #43. 13:40 dspellman 01:40 PM Delay to floor No dspellman 01:40 PM Patient out of room: 13:40 dspellman 01:41 PM Family placed in no family available. dspellman 01:41 PM Complications: None dspellman 01:43 PM Time: 13:43 Plavix 300 mg Orally Given by Mich Jones RN dspellnicola Complications Complication None None Hemodynamics Pressures Site Systolic/A Wave Diastolic/V Wave Mean LV 121 13 18 LV 136 21 43 AO 117 56 88 AO 117 80 96 AO 125 81 99 AO 128 86 104 Post Procedure Information Blood Pressure: 130/67 mmHg Rhythm: NSR Post procedural instructions were given Closure Device Time Device Success/Fail 02/11/2018 1:41:00 PM MynxGrip Successful Site Checks Time Location Status Staff Sheath In? Note 01:40 PM Rt Wrist No bleeding/hematoma Summer Roberts RT (R) Pulses Time Site Pre-Procedure Post-Procedure Note 1:36:00 PM Rt Radial 2+ 2+ Updated by RT Akin (R) on 02/11/2018 1:50:07 PM Aline Sainz RT electronically signed on 02/11/2018 1:53:18 PM with status of Final
[2018-02-11] MEDS ORDERED: Insulin LISPRO 300 UNITS/3 ML VIAL SQ SCH (21:00)
[2018-02-12 04:51] LABS: Basophils % 0.5 %; Eosinophils # 0.3 K/mcL (0.0-0.6); Eosinophils % 3.6 %; Hematocrit 44.9 % (37.5-50.1); Hemoglobin 14.9 g/dL (12.9-16.9); Immature Granulocytes % 0.2 % (0-4); Lymphocytes # 2.5 K/mcL (0.6-4.6); Lymphocytes % 29.6 %; Mean Corpuscular HGB Conc 33.2 g/dL (31.6-35.5); Mean Corpuscular Hemoglobin 29.3 pg (28.0-33.3); Mean Corpuscular Volume 88.2 fL (83.0-100.0); Mean Platelet Volume 10.2 fL (9.4-12.4); Monocytes # 0.6 K/mcL (0.0-1.3); Monocytes % 6.7 %; Platelet Count 232 K/mcL (140-400); Red Blood Count 5.09 M/mcL (4.19-5.50); Segmented Neutrophils % 59.4 %
[2018-02-12 05:05] LABS: BUN/Creatinine Ratio 15 (6-26); Blood Urea Nitrogen 19 mg/dL (8-23); Calcium 9.5 mg/dL (8.6-10.3); Carbon Dioxide 29 mEq/L (23-29); Chloride 100 mEq/L (98-107); Glucose 107 mg/dL (70-105); Osmolality,Calculated 281 (280-300); Potassium 4.4 mEq/L (3.5-5.1); Sodium 134 mEq/L (136-145); eGFR For Non-African Americans 58 (> 60)
[2018-02-12 07:09] VITALS: BP 166/91
[2018-02-12] MEDS: Insulin LISPRO 300 UNITS/3 ML VIAL SQ SCH (07:29)
[2018-02-12] MEDS: Gabapentin 300 MG CAPSULE PO SCH (08:41)
[2018-02-12] MEDS: Isosorbide MONOnitrate (24 HR) 30 MG TAB.ER.24H PO SCH (08:41)
[2018-02-12] MEDS: Lisinopril-HCTZ 20-12.5mg TABLET PO SCH (08:41)
[2018-02-12] MEDS: Aspirin 81 MG TAB.CHEW PO SCH (08:42)
[2018-02-12] MEDS: Nicotine 7 MG PATCH.TD24 TD SCH (08:42)
--- NOTE | 2018-02-12 11:21 | Cardiology Progress Note ---
Date of Encounter: 02/12/18 Time of Encounter: 11:19 Assessment and Plan (1) NSTEMI (non-ST elevated myocardial infarction) Current Visit: Yes Status: Acute Presented with atypical symptms. Troponin up to 20.71 At baseline the pt's EKG has T wave inversion -EKG showed T wave inversion and ST depression (ischemia vs left heart strain) and LVH Previous cardiac workup is as follows: -echocardiogram on 08/15/17 showing ejection fraction of 55%, cardiomyopathy, diastolic dysfunction with elevated filling pressures, increased left ventricular wall thickness. -Left heart catheterization on 09/03/16 shows moderate 3 vessel coronary artery disease with ejection fraction 65% -Pharmacologic stress test on 08/28/16 was nondiagnostic due to baseline ST changes, gated EF of 36% as well as a small mild intensely fixed perfusion Defect in the inferior segments. S/p LHC with PCI to the OM 02/11/18. TTE shows EF 50% no significant valvular disease. There was no complication from the procedure. Denies recurrent chest pain. No complications from right radial access site. Importance of DAPT with asa and plavix uninterrupted for minimum of one year discussed and he voiced understanding. Continue statin and BB. Activity restrictions reviewed as stated above. Cardiac rehab ordered. Cardiology will sign off. Out-pt f/u will be coordinated by [facility]. (2) CAD (coronary artery disease) Current Visit: Yes Status: Chronic H/o CAD s/p PCI. Continue medical management as described above. Qualifiers: Coronary Disease-Associated Artery/Lesion type: [place] artery [place] vs. transplanted heart: [place] heart Associated angina: without angina Qualified Code(s): I25.10 - Atherosclerotic heart disease of [place] coronary artery without angina pectoris (3) HTN (hypertension) Current Visit: Yes Status: Chronic Poorly controlled HTN. Add lisinopril. Continue lopressor. Low sodium diet. Qualifiers: Hypertension type: essential hypertension Qualified Code(s): I10 - Essential (primary) hypertension Discussion w patient/family: The assessment and plan as outlined above was discussed with the patient and/or family members who expressed understanding and agreement. All questions were answered. Thank you for involving us in the care of your patient. Please call with any questions. Subjective Principal diagnosis: NSTEMI Interval history: Mr. Colby is s/p PCI. Denies chest pain or SOB. Ambulating in hallways on my encounter. Oriented x3 but appears mildly confused. Activity restrictions reviewed. States that he cannot follow them because he has to much work to do. He was strongly recommended to follow restrictions. Objective General: Conversant, No Apparent Distress HEENT: Atraumatic, Normocephaly, Mucus Membranes Moist Neck: No JVD, Normal carotid pulses Cardiac: Reg Rate and Rhythm, Normal S1 and S2, No Murmur Lungs: Normal Breath Sounds, No Wheeze, Rales, Rhonchi Neuro: Alert and responsive, No focal deficits noted Abdomen: Soft, Non-Tender Skin: No rashes noted on visualized skin Musculoskeletal: No Chest Wall Tenderness Extremities: No Clubbing, No Cyanosis, No Edema, Normal Pulses, Other (Right radial access site without hematoma. ) Results 02/12/18 04:22 02/12/18 04:22 Lab Results 02/12/18 02/12/18 04:22 04:22 WBC 8.4 Hgb 14.9 Hct 44.9 Plt Count 232 Sodium 134 L Potassium 4.4 Chloride 100 Carbon Dioxide 29 BUN 19 Creatinine 1.27 Glucose 107 H Calcium 9.5 - Imaging and Cardiology Echo: report reviewed Cardiac cath: report reviewed - EKG Interpretation EKG results cardiology: personally reviewed Consult Discharge Plan - Plan Instructions: Myocardial Infarction (DC), Heart Failure (DC) Referrals: John Pritchard MD [Primary Care Provider] -
--- NOTE | 2018-02-12 11:24 | Discharge Summary ---
- NOTES TO OUTPATIENT PROVIDER Notes to Outpatient Provider: Admitted for NSTEMI, s/p LHC with PCi. Compliance with dual antiplatelet therapy reinforced and tobacco cessation reinforced. Follow-up with primary care physician and cardiology. Patient prescribed ASA and BB, other home medication were continued Orders not resulted at time of discharge: Pending orders 02/11/18 12:37 CL Cardiac Catheterization [CL] Routine Date of Encounter: 02/12/18 Time of Encounter: 11:24 - Discharge Diagnosis (1) NSTEMI (non-ST elevated myocardial infarction) Priority: Primary Status: Acute (2) CAD (coronary artery disease) Priority: Secondary Status: Chronic Qualifiers: Coronary Disease-Associated Artery/Lesion type: [place] artery [place] vs. transplanted heart: [place] heart Associated angina: without angina Qualified Code(s): I25.10 - Atherosclerotic heart disease of [place] coronary artery without angina pectoris (3) HTN (hypertension) Priority: Secondary Status: Chronic Qualifiers: Hypertension type: essential hypertension Qualified Code(s): I10 - Essential (primary) hypertension (4) HLD (hyperlipidemia) Priority: Secondary Status: Chronic Qualifiers: Hyperlipidemia type: unspecified Qualified Code(s): E78.5 - Hyperlipidemia , unspecified (5) DVT prophylaxis Priority: Primary Status: Acute (6) Diabetes mellitus Priority: Secondary Status: Chronic Qualifiers: Diabetes mellitus type: type 2 Diabetes mellitus [employer] insulin use: without senior living use Diabetes mellitus complication status: with unspecified complications Qualified Code(s): E11.8 - Type 2 diabetes mellitus with unspecified complications (7) Lightheadedness Priority: Primary Status: Resolved (8) Tobacco abuse Priority: Secondary Status: Chronic Hospital course: Mr. Colby is a 62 year old male with tobacco abuse, CAD, HTN, Diet-controlled DM, HLD, who presented with lightheadedness and was found to have NSTEMI with peak troponi of [address] segment depression and TWI. He was chest pain free and had no other symptoms Lightheadedness resolved promptly with some IVF hydration CBC, Chem unremarkable, Lipids uncontrolled, A1C 6.5 ECHO was unremarkable, Carotid USS with non-stenotic plaques. He was started on heparin drip, ASA, Plavix, BB, and his home meds Cardiology was consulted and performed a LHC with placement of PCI to the OM 02/11. TTE shows EF 50% no significant valvular disease. There was no complication from the procedure He was seen this mrn at the nursing station, dressed and ready to go home Educated about addition of ASA and BB to his home meds, educated about compliance with DAPT an follow up with Cardio and PCP. 3 mins spent on tobacco cessation counselling Discharge discussed with: patient, nurse Time spent discussing smoking cessation with patient: 3 to 10 minutes - Time Spent with Patient Total time spent providing and/or coordinating discharge services: Less than 30 minutes - Discharge Medications Prescriptions: Aspirin Enteric Coated [Aspirin EC] 81 mg PO DAILY #30 tablet. Metoprolol [Lopressor] 25 mg PO BID #60 tablet Home Medications: Atorvastatin [Lipitor] 80 mg PO HS #30 tablet 07/23/15 [Rx] Clopidogrel [Plavix] 75 mg PO DAILY #30 tablet 07/23/15 [Rx] Nitroglycerin 0.4 mg SL Q5M PRN 09/03/16 [History] Albuterol Sulfate [Proventil Hfa] 1 - 2 puff IH Q6H PRN 08/14/17 [History] Gabapentin [Neurontin] 600 mg PO TID 08/14/17 [History] Isosorbide MONOnitrate (24 HR) [Imdur] 60 mg PO DAILY 08/14/17 [History] Lisinopril/Hydrochlorothiazide [Zestoretic 20-12.5 mg Tablet] 1 tab PO DAILY 09/26 [History] Oxybutynin Chloride [Ditropan Xl] 5 mg PO BID 08/14/17 [History] Tamsulosin [Flomax] 0.4 mg PO DAILY 08/14/17 [History] Aspirin Enteric Coated [Aspirin EC] 81 mg PO DAILY #30 tablet. 02/12/18 [Rx] Metoprolol [Lopressor] 25 mg PO BID #60 tablet 02/12/18 [Rx] Allergies/Adverse Reactions: 3 Allergy/AdvReac Type Severity Reaction Status Date / Time No Known Allergies Allergy Verified 02/10/18 17:37 Date of admission: 02/11/18 02:20 Primary care physician: John Pritchard MD Discharging clinician: Zain Cormier Anticipated date of discharge: 02/12/18 - Constitutional Vitals: Temp Pulse Resp BP Pulse Ox 97.5 F L 74 18 166/91 95 02/12/18 07:08 02/12/18 07:08 02/12/18 07:08 02/12/18 07:08 02/12/18 07:08 Vitals: VSS General:Ambulatory around the nursing station Skin: Warm and supple. No rash. HEENT: Moist oral mucosa, not pale and anicteric Neck: Normal inspection Chest: Clear to auscultation bilaterally Heart: Normal S1 & S2; regular rate and rhythm No rubs or murmurs. No JVD Abdomen: Soft and nontender. Bowel sounds present in all quadrants. Extremities: No edema. Neurological: Ambulatory, normal gait, no focal deficits. - Patient Status Disposition: Home, Self-Care Condition: Good Functional capacity at discharge: independent ambulation Overall status at discharge: patient is back to baseline - Discharge Instructions Instructions: Myocardial Infarction (DC), Heart Failure (DC) Follow Up With: John Pritchard MD [Primary Care Provider] - - Diet and Activity Activity: resume usual activities as tolerated Diet: diabetic diet, low fat, low cholesterol, low salt diet
== END 2018-02-12 11:27 | disposition home or self-care (01) | DRG 247 ==
LOC: EMEROO 15:16 → 2ANU 15:16 → SUATTDRO 02-11 02:20
PROVIDERS: ADMIT Internal Medicine; ATTEND Internal Medicine

== ENCOUNTER 2018-03-29 09:58 | Inpatient (IN) ==
[2018-03-29 10:20] LABS: Bilirubin,Urine Negative (Negative); Blood,Urine Negative (Negative); Clarity,Urine Clear (Clear); Color,Urine Yellow (Yellow); Glucose,Urine (UA) Normal (Normal); Ketones,Urine Negative (Negative); Leukocyte Esterase,Urine Negative (Negative); Nitrite,Urine Negative (Negative); Protein,Urine Negative (Neg-Trace); Specific Gravity,Urine 1.012 (1.010-1.025); Urobilinogen,Urine Normal (Normal)
[2018-03-29] MEDS ORDERED: Ipratropium/Albuterol Neb 3 ML IH ONE (10:26)
[2018-03-29] MEDS ORDERED: methylPREDNISolone 125 MG/2 ML VIAL IVP ONE (10:26)
--- NOTE | 2018-03-29 10:31 | Emergency Department Note ---
Disposition Clinical Impression: Non-STEMI (non-ST elevated myocardial infarction) Disposition: Admitted As Inpatient Condition: Good Forms: ED Satisfaction Letter General Adult HPI - General Chief complaint: ED Weakness Stated complaint: Weakness Time Seen by Provider: 03/29/18 10:02 Source: patient, EMS Mode of arrival: EMS Limitations: no limitations Nursing Notes Reviewed: Yes Vital Signs Reviewed: Yes - History of Present Illness HPI Narrative: Patient brought in by EMS from home for family's concern for increased weakness , confusion, falls. Family is not at bedside and EMS states that family will is not planning on coming to the emergency department. Last time patient had similar symptoms he was "septic". Elevated kidney and liver enzymes. Patient required antibiotics. Patient denies all complaints at this time. Patient will receive further workup in regards to possible sepsis source as well as CT of his head secondary to falls, antiplatelet therapy, confusion and slurred speech. On further reevaluation of the patient. It does appear that he has had stents were recently placed. He is not complaining of any specific chest pain but he is complaining of a generalized weakness. Patient states that he feels like his legs give out from under him. Patient states that he falls to the ground on his knees. Patient states he has been able to walk since. Has no focal tenderness or no abrasions and no obvious trauma to his knees. He states that he does not believe he has hit his head however she does have slurred speech that worsens depending on how long talk with the patient. He will still receive the head CT that was originally ordered. Patient has a history of COPD and is not on oxygen. He has diffuse wheezing throughout. Worse in the anterior lung rudd. He has inhalers at home but says he only uses them when he needs them. He has not been using them recently worse since his stents have been placed. A VBG and a BMP have been ordered. He does have EKG changes consistent with ST depressions throughout the precordial leads and further T- wave inversions. The only new T-wave inversions in V3. There is no significant pitting edema to the lower extremities. Patient has not had any fevers or chills. - Related Data Home Medications Medication Instructions Recorded Confirmed Nitroglycerin 0.4 mg SL Q5M PRN 09/03/16 02/10/18 Albuterol Sulfate [Proventil Hfa] 1 - 2 puff IH Q6H PRN 08/14/17 02/10/18 Gabapentin [Neurontin] 600 mg PO TID 08/14/17 02/10/18 Isosorbide MONOnitrate (24 HR) 60 mg PO DAILY 08/14/17 02/10/18 [Imdur] Lisinopril/Hydrochlorothiazide 1 tab PO DAILY 08/14/17 02/10/18 [Zestoretic 20-12.5 mg Tablet] Oxybutynin Chloride [Ditropan Xl] 5 mg PO BID 08/14/17 02/10/18 Tamsulosin [Flomax] 0.4 mg PO DAILY 08/14/17 02/10/18 Previous Rx's Medication Instructions Recorded Atorvastatin [Lipitor] 80 mg PO HS #30 tablet 07/23/15 Clopidogrel [Plavix] 75 mg PO DAILY #30 tablet 07/23/15 Aspirin Enteric Coated [Aspirin EC] 81 mg PO DAILY #30 tablet. 02/12/18 Metoprolol [Lopressor] 25 mg PO BID #60 tablet 02/12/18 Allergies Allergy/AdvReac Type Severity Reaction Status Date / Time No Known Allergies Allergy Verified 02/10/18 17:37 Review of Systems: CONSTITUTIONAL: Generalized weakness and fatigue No weight loss, fever HEENT: Eyes: No visual changes. Ears, Nose, Throat: No hearing loss, difficulty talking or unable to swallow. SKIN: No rash or itching. CARDIOVASCULAR: No chest pain, chest pressure or chest discomfort. No palpitations or edema. RESPIRATORY: No shortness of breath, cough or sputum. GASTROINTESTINAL: No anorexia, nausea, vomiting or diarrhea. No abdominal pain or blood. GENITOURINARY: No burning on urination or hematuria. NEUROLOGICAL: Confusion and frequent falls, generalized weakness No headache, dizziness, syncope, paralysis, ataxia, numbness or tingling in the extremities. No change in bowel or bladder control. MUSCULOSKELETAL: No muscle pain, back pain, joint pain or stiffness. Past Medical History - Past Medical History Medical history: Reports: non-contributory, arthritis, coronary artery disease, hyperlipidemia, hypertension, myocardial infarction, TIA Surgical history: Reports: no surgical history Psychiatric history: Reports: no psych history - Social History Smoking Status: Current every day smoker Smokeless Tobacco Status: No Alcohol use: Reports: occasionally Drug use: Reports: none Physical Exam General: Patient appears mildly sleepy and does have slurring of speech depending on the length of the conversation Head: Normocephalic Atraumatic Eyes: PERRL, EOMI ENT: Airway patent, no stridor Neck: supple, no meningismus Chest: Diffuse wheezing throughout worse in the anterior lung rudd. Cardiac: Regular rate and rhythm, no murmurs, rubs or gallops Abdomen: soft, nontender, nondistended; no guarding, rebound, or tenderness to percussion Musculoskeletal: Calves symmetric, nontender, no significant edema Skin: No rash, normal skin tone Neuro: Alert and Oriented to person, place, and time; No focal deficit, CN 2-12 symmetric and intact Course - Reevaluation(s) Reevaluation #1: 3 do nebs and 125 of IV Solu-Medrol ordered. Reevaluation #2: Notified of abnormal troponin. Patient did have elevated troponin when he left the hospital proximally a month ago. He does have some depressions throughout the precordial leads as well as new T-wave inversion in V3. I did discuss with the patient his medications and he states that he does not take his medications every day. He states that he is unsure how often he takes his aspirin and Plavix but he states that he takes too many pills to take them all every day Previous an STEMI Presented with syncope and collapse. No chest pain An STEMI with troponin of 20. Left heart catheter with PCI of the OM on 02/11/18. . - Consultations Consultation #1: Discussed with cardiology. Will place patient on heparin drip. They have been consulted from the emergency department. Consultation #2: Discussed with hospitalist. Patient accepted for admission. Vital Signs Temperature 98.2 F 03/29/18 10:15 Pulse Rate 65 03/29/18 10:15 Respiratory Rate 18 03/29/18 10:15 Blood Pressure 129/83 03/29/18 10:15 O2 Sat by Pulse Oximetry 98 03/29/18 10:15 Temperature 98.2 F 03/29/18 10:15 Pulse Rate 68 03/29/18 13:06 Respiratory Rate 18 03/29/18 13:06 Blood Pressure 131/63 03/29/18 13:06 O2 Sat by Pulse Oximetry 97 03/29/18 13:06 Oxygen Delivery Oxygen Delivery Room Air Medical Decision Making - Medical Records Medical records reviewed: Yes I reviewed the patient's medical records. - Lab Data Lab results reviewed: Yes I reviewed the patient's lab results. Result diagrams: 03/29/18 10:56 03/29/18 10:56 Lab Results 03/29/18 03/29/18 03/29/18 Range/Units 10:12 10:56 10:56 WBC 6.2 (4.3-11.1) K/mcL RBC 4.94 (4.19-5.50) M/mcL Hgb 14.5 (12.9-16.9) g/dL Hct 43.9 (37.5-50.1) % MCV 88.9 (83.0-100.0) fL MCH 29.4 (28.0-33.3) pg MCHC 33.0 (31.6-35.5) g/dL RDW 12.6 (11.5-14.5) % Plt Count 209 (140-400) K/mcL MPV 10.1 (9.4-12.4) fL Immature Gran % 0.2 (0-4) % Seg Neutrophils % 54.2 % Lymphocytes % 31.0 % Monocytes % 6.3 % Eosinophils % 7.7 % Basophils % 0.6 % Neutrophils # 3.4 (1.6-8.9) K/mcL Lymphocytes # 1.9 (0.6-4.6) K/mcL Monocytes # 0.4 (0.0-1.3) K/mcL Eosinophils # 0.5 (0.0-0.6) K/mcL Basophils # 0.0 (0.0-0.2) K/mcL PT 11.6 (9.4-12.1) Seconds INR 1.0 Heparin Anti-Xa, Unfract (0.30-0.70) IU/mL VBG pH (7.32-7.42) pH Units VBG pCO2 (41-51) mmHg VBG pO2 (25-50) mmHg VBG HCO3 (21-27) mEq/L Sodium (136-145) mEq/L Potassium (3.5-5.1) mEq/L Chloride (98-107) mEq/L Carbon Dioxide (23-29) mEq/L BUN (8-23) mg/dL Creatinine (0.70-1.30) mg/dL Est GFR ( Amer) (> 60) Est GFR (Non-Af Amer) (> 60) BUN/Creatinine Ratio (6-26) Glucose (70-105) mg/dL Calculated Osmolality (280-300) Lactic Acid (0.5-2.2) mmol/L Calcium (8.6-10.3) mg/dL Magnesium (1.6-2.6) mg/dL Total Bilirubin (0.3-1.0) mg/dL Direct Bilirubin (0.0-0.2) mg/dL Indirect Bilirubin (0.0-1.2) mg/dL AST (13-39) Units/L ALT (7-52) Units/L Alkaline Phosphatase (34-104) Units/L Troponin I (< 0.04) ng/mL B-Natriuretic Peptide (Less than 100) pg/mL Serum Total Protein (6.4-8.9) g/dL Albumin (3.5-5.7) g/dL Globulin (2.4-3.5) g/dL Albumin/Globulin Ratio (1.1-2.2) Urine Color Yellow (Yellow) Urine Clarity Clear (Clear) Urine pH 6.0 (5.0-8.0) pH Units Ur Specific [place] 1.012 (1.010-1.025) Urine Protein Negative (Neg-Trace) mg/dL Urine Glucose (UA) Normal (Normal) mg/dL Urine Ketones Negative (Negative) mg/dL Urine Blood Negative (Negative) Urine Nitrite Negative (Negative) Urine Bilirubin Negative (Negative) Urine Urobilinogen Normal (Normal) mg/dL Ur Leukocyte Esterase Negative (Negative) Ur Culture Indicated? NO (NO) 03/29/18 03/29/18 03/29/18 Range/Units 10:56 10:56 10:56 WBC (4.3-11.1) K/mcL RBC (4.19-5.50) M/mcL Hgb (12.9-16.9) g/dL Hct (37.5-50.1) % MCV (83.0-100.0) fL MCH (28.0-33.3) pg MCHC (31.6-35.5) g/dL RDW (11.5-14.5) % Plt Count (140-400) K/mcL MPV (9.4-12.4) fL Immature Gran % (0-4) % Seg Neutrophils % % Lymphocytes % % Monocytes % % Eosinophils % % Basophils % % Neutrophils # (1.6-8.9) K/mcL Lymphocytes # (0.6-4.6) K/mcL Monocytes # (0.0-1.3) K/mcL Eosinophils # (0.0-0.6) K/mcL Basophils # (0.0-0.2) K/mcL PT (9.4-12.1) Seconds INR Heparin Anti-Xa, Unfract (0.30-0.70) IU/mL VBG pH (7.32-7.42) pH Units VBG pCO2 (41-51) mmHg VBG pO2 (25-50) mmHg VBG HCO3 (21-27) mEq/L Sodium 137 (136-145) mEq/L Potassium 4.0 (3.5-5.1) mEq/L Chloride 104 (98-107) mEq/L Carbon Dioxide 32 H (23-29) mEq/L BUN 18 (8-23) mg/dL Creatinine 0.91 (0.70-1.30) mg/dL Est GFR ( Amer) > 60 (> 60) Est GFR (Non-Af Amer) > 60 (> 60) BUN/Creatinine Ratio 20 (6-26) Glucose 120 H (70-105) mg/dL Calculated Osmolality 287 (280-300) Lactic Acid 1.2 (0.5-2.2) mmol/L Calcium 9.5 (8.6-10.3) mg/dL Magnesium 1.9 (1.6-2.6) mg/dL Total Bilirubin 0.5 (0.3-1.0) mg/dL Direct Bilirubin 0.1 (0.0-0.2) mg/dL Indirect Bilirubin 0.4 (0.0-1.2) mg/dL AST 13 (13-39) Units/L ALT 12 (7-52) Units/L Alkaline Phosphatase 65 (34-104) Units/L Troponin I 0.11 H* (< 0.04) ng/mL B-Natriuretic Peptide 287 H (Less than 100) pg/mL Serum Total Protein 6.8 (6.4-8.9) g/dL Albumin 4.1 (3.5-5.7) g/dL Globulin 2.7 (2.4-3.5) g/dL Albumin/Globulin Ratio 1.5 (1.1-2.2) Urine Color (Yellow) Urine Clarity (Clear) Urine pH (5.0-8.0) pH Units Ur Specific [place] (1.010-1.025) Urine Protein (Neg-Trace) mg/dL Urine Glucose (UA) (Normal) mg/dL Urine Ketones (Negative) mg/dL Urine Blood (Negative) Urine Nitrite (Negative) Urine Bilirubin (Negative) Urine Urobilinogen (Normal) mg/dL Ur Leukocyte Esterase (Negative) Ur Culture Indicated? (NO) 03/29/18 03/29/18 Range/Units 11:13 13:22 WBC (4.3-11.1) K/mcL RBC (4.19-5.50) M/mcL Hgb (12.9-16.9) g/dL Hct (37.5-50.1) % MCV (83.0-100.0) fL MCH (28.0-33.3) pg MCHC (31.6-35.5) g/dL RDW (11.5-14.5) % Plt Count (140-400) K/mcL MPV (9.4-12.4) fL Immature Gran % (0-4) % Seg Neutrophils % % Lymphocytes % % Monocytes % % Eosinophils % % Basophils % % Neutrophils # (1.6-8.9) K/mcL Lymphocytes # (0.6-4.6) K/mcL Monocytes # (0.0-1.3) K/mcL Eosinophils # (0.0-0.6) K/mcL Basophils # (0.0-0.2) K/mcL PT (9.4-12.1) Seconds INR Heparin Anti-Xa, Unfract 0.95 H (0.30-0.70) IU/mL VBG pH 7.29 L (7.32-7.42) pH Units VBG pCO2 66 H (41-51) mmHg VBG pO2 41 (25-50) mmHg VBG HCO3 31 H (21-27) mEq/L Sodium (136-145) mEq/L Potassium (3.5-5.1) mEq/L Chloride (98-107) mEq/L Carbon Dioxide (23-29) mEq/L BUN (8-23) mg/dL Creatinine (0.70-1.30) mg/dL Est GFR ( Amer) (> 60) Est GFR (Non-Af Amer) (> 60) BUN/Creatinine Ratio (6-26) Glucose (70-105) mg/dL Calculated Osmolality (280-300) Lactic Acid (0.5-2.2) mmol/L Calcium (8.6-10.3) mg/dL Magnesium (1.6-2.6) mg/dL Total Bilirubin (0.3-1.0) mg/dL Direct Bilirubin (0.0-0.2) mg/dL Indirect Bilirubin (0.0-1.2) mg/dL AST (13-39) Units/L ALT (7-52) Units/L Alkaline Phosphatase (34-104) Units/L Troponin I (< 0.04) ng/mL B-Natriuretic Peptide (Less than 100) pg/mL Serum Total Protein (6.4-8.9) g/dL Albumin (3.5-5.7) g/dL Globulin (2.4-3.5) g/dL Albumin/Globulin Ratio (1.1-2.2) Urine Color (Yellow) Urine Clarity (Clear) Urine pH (5.0-8.0) pH Units Ur Specific [place] (1.010-1.025) Urine Protein (Neg-Trace) mg/dL Urine Glucose (UA) (Normal) mg/dL Urine Ketones (Negative) mg/dL Urine Blood (Negative) Urine Nitrite (Negative) Urine Bilirubin (Negative) Urine Urobilinogen (Normal) mg/dL Ur Leukocyte Esterase (Negative) Ur Culture Indicated? (NO) - Radiology Data Radiology results reviewed: Yes I reviewed the patient's radiology results. - EKG Data EKG #1 EKG attestation: Yes I reviewed and interpreted this EKG. EKG results narrative: Patient's EKG shows sinus rhythm with heart of 70. MA 191. QRS 117. QTC 484. Patient has no significant ST elevations. Patient does have significant T- wave inversions throughout the precordial leads V3 through V6. Significant change in overall morphology as well as depth. Patient has mild depressions throughout the lateral leads including V3 through V6. Patient has T-wave inversions in 1 and aVL consistent with previous EKG of 02/11/18.
[2018-03-29 11:11] LABS: Basophils % 0.6 %; Eosinophils # 0.5 K/mcL (0.0-0.6); Eosinophils % 7.7 %; Hematocrit 43.9 % (37.5-50.1); Hemoglobin 14.5 g/dL (12.9-16.9); Immature Granulocytes % 0.2 % (0-4); Lymphocytes # 1.9 K/mcL (0.6-4.6); Mean Corpuscular Hemoglobin 29.4 pg (28.0-33.3); Mean Corpuscular Volume 88.9 fL (83.0-100.0); Mean Platelet Volume 10.1 fL (9.4-12.4); Monocytes # 0.4 K/mcL (0.0-1.3); Monocytes % 6.3 %; Neutrophils # 3.4 K/mcL (1.6-8.9); Platelet Count 209 K/mcL (140-400); Red Blood Count 4.94 M/mcL (4.19-5.50); Red Cell Distribution Width 12.6 % (11.5-14.5); Segmented Neutrophils % 54.2 %
[2018-03-29 11:16] LABS: VBG HCO3 31 mEq/L (21-27); VBG PCO2 66 mmHg (41-51); VBG PH 7.29 pH Units (7.32-7.42); VBG PO2 41 mmHg (25-50)
[2018-03-29 11:16] LABS: Prothrombin Time 11.6 Seconds (9.4-12.1)
[2018-03-29 11:36] LABS: Alanine Aminotransferase 12 Units/L (7-52); Albumin 4.1 g/dL (3.5-5.7); Albumin/Globulin Ratio 1.5 (1.1-2.2); Alkaline Phosphatase 65 Units/L (34-104); Aspartate Amino Transferase 13 Units/L (13-39); BUN/Creatinine Ratio 20 (6-26); Bilirubin,Direct 0.1 mg/dL (0.0-0.2); Bilirubin,Indirect 0.4 mg/dL (0.0-1.2); Bilirubin,Total 0.5 mg/dL (0.3-1.0); Blood Urea Nitrogen 18 mg/dL (8-23); Calcium 9.5 mg/dL (8.6-10.3); Carbon Dioxide 32 mEq/L (23-29); Chloride 104 mEq/L (98-107); Globulin 2.7 g/dL (2.4-3.5); Glucose 120 mg/dL (70-105); Magnesium 1.9 mg/dL (1.6-2.6); Osmolality,Calculated 287 (280-300); Sodium 137 mEq/L (136-145); Total Protein 6.8 g/dL (6.4-8.9); eGFR For Non-African Americans > 60 (> 60)
[2018-03-29 11:41] LABS: Troponin I 0.11 ng/mL (< 0.04)
[2018-03-29] MEDS ORDERED: *HR* Heparin 5,000 UNIT/ML VIAL IVP ONE (12:17)
[2018-03-29] MEDS ORDERED: *HR* Heparin 5,000 UNIT/ML VIAL IVP PRN ×2 (12:17)
[2018-03-29] MEDS: Heparin 25,000 UNIT/500 ML D5W 25,000 UNIT/500 ML BAG IVC SCH (13:01)
--- NOTE | 2018-03-29 13:05 | Electrocardiograph Report ---
[facility] Test Date: 2018-03-29 Pat Name: Melvin Colby Department: [id number] Room: Gender: M Briquetter Operator: : [id number] Requested By: [id number] Order Number: [id number] Reading MD: Bruce Alex Measurements Intervals [place] Rate: 70 P: 73 [place]: 191 QRS: 41 QRSD: 117 T: 166 QT: 448 QTc: 484 Interpretive Statements Sinus rhythm Incomplete left bundle branch block Probable LVH with secondary repol [email or web address] Borderline prolonged QT interval Electronically Signed On 03-29-2018 13:03:55 EDT by Bruce Alex
[2018-03-29] MEDS ORDERED: Aspirin 325 MG TABLET PO SCH (13:30)
[2018-03-29] MEDS ORDERED: Naloxone 0.4 MG/ML INJ IVP PRN (15:50)
[2018-03-29] MEDS ORDERED: Acetaminophen 325 MG TABLET PO PRN (15:50)
[2018-03-29] MEDS ORDERED: Nitroglycerin 0.4 MG TAB.SUBL SL PRN (15:50)
--- NOTE | 2018-03-29 15:50 | Internal Med History&Physical ---
Date of Encounter: 03/29/18 Time of Encounter: 15:48 Internal Medicine - H&P: HPI Chief complaint: Generalized weakness Admitted From: Emergency Dept Plans for Post Hospital Care: Home History of present illness: Mr. Colby is a 62 year old male patient with history of coronary artery disease status post recent PCI and drug-eluting stent, diabetes, hypertension who presented to the ER with complaints of generalized weakness since last night. He reports that he fell at home. Denies any head injury. He denies any chest pain or palpitations. No shortness of breath. No nausea or vomiting. Patient lives with his daughter and girlfriend. It is unclear if he has been compliant with history of antiplatelet therapy regimen. He states that the only medication he takes is lisinopril. He denies taking any medications for his diabetes. No fevers or chills reported. No cough. In the ER initially he was noted to have bilateral diffuse wheezing which improved after receiving bronchodilator nebs. Past Med Surg Social Fam HX - Past Medical History Attestation: Yes The following information was validated with the patient. Source: patient, old records reviewed Medical history: non-contributory, arthritis, coronary artery disease, hyperlipidemia, hypertension, myocardial infarction, TIA Psychiatric history: no psych history - Past Surgical History Surgical History: no surgical history Additional surgical history: stents, LEFT ANKLE SURGERY, - Social History Smoking Status: Current every day smoker Smokeless Tobacco Status: No Alcohol use: occasionally Drug use: none - Family History Father Living Status: Hx Family Cardiac Disorders: Yes Mother Adopted: No Family Member Ethnicity: Non- Living Status: Still Living Hx Family Cardiac Disorders: No Hx Family Respiratory Disorders: No Hx Family Cancer: Yes Hx Family GI Disorders: No Hx Family Endocrine Disorder: No Hx Family Neuromuscular Disorders: No Hx Family Neurologic Disorders: No Hx Family HEENT Disorders: No Hx Family Autoimmune Disorders: No Internal Medicine - H&P: Meds Clopidogrel [Plavix] 75 mg PO DAILY #30 tablet 07/23/15 [Rx] Nitroglycerin 0.4 mg SL Q5M PRN 09/03/16 [History] Albuterol Sulfate [Proventil Hfa] 2 puff IH Q4H PRN 08/14/17 [History] Gabapentin [Neurontin] 600 mg PO TID 08/14/17 [History] Lisinopril/Hydrochlorothiazide [Zestoretic 20-12.5 mg Tablet] 1 tab PO DAILY 09/26 [History] Tamsulosin [Flomax] 0.4 mg PO DAILY 08/14/17 [History] Aspirin Enteric Coated [Aspirin EC] 81 mg PO DAILY #30 tablet. 02/12/18 [Rx] Amlodipine Besylate 10 mg PO DAILY 03/29/18 [History] Atorvastatin Calcium [Lipitor] 80 mg PO HS 03/29/18 [History] Cyclobenzaprine [Flexeril] 10 mg PO HS 03/29/18 [History] Isosorbide MONOnitrate (24 HR) [Imdur] 60 mg PO DAILY 03/29/18 [History] Metoprolol Succinate [Toprol Xl] 100 mg PO DAILY 03/29/18 [History] Oxybutynin [Ditropan] 5 mg PO BID 03/29/18 [History] 3 Allergy/AdvReac Type Severity Reaction Status Date / Time No Known Allergies Allergy Verified 03/29/18 14:06 All Systems PM: A 10-system review of systems was performed and is negative for pertinent findings except as documented above in the HPI. - Constitutional Constitutional: weakness, no chills, no fever(s), no night sweats - Cardiovascular Cardiovascular ROS IM: no chest pain, no diaphoresis, no dyspnea, no lightheadedness, no palpitations, no syncope - Respiratory Respiratory: no cough, no dyspnea, no wheezing, no excessive phlegm production - Gastrointestinal Gastrointestinal: no abdominal pain, no diarrhea, no hematemesis, no hematochezia, no melena, no nausea, no vomiting - Musculoskeletal Musculoskeletal ROS IM: no numbness, no tingling - Integumentary Integumentary IM: no rash, no unusual bruising - Neurological Neurological ROS: no confusion, no convulsions, no focal weakness, no numbness, no tingling, no tremor(s) - Hematologic/Lymphatic Hematologic/Lymphatic: no easy bruising - Constitutional Vitals: Temp Pulse Resp BP Pulse Ox 98.2 F 68 18 131/63 97 03/29/18 10:15 03/29/18 13:06 03/29/18 13:06 03/29/18 13:06 03/29/18 13:06 General appearance: Present: cooperative, A&O X 3, pleasant, answers questions appropriately Exam: . - Neck Neck exam general surgery: Present: supple, trachea midline. Absent: lymphadenopathy - Respiratory Respiratory exam: Present: CTAB. Absent: accessory muscle use, rales, rhonchi, wheezes - Cardiovascular Cardiovascular exam: Present: RRR, +S1, +S2. Absent: diastolic murmur, gallop, rubs, systolic murmur - GI/Abdominal GI/Abdominal exam: Present: normal bowel sounds, soft, no peritoneal signs. Absent: distended, tenderness - Extremities Exam Extremities exam: Present: warm, radial pulses palpable and symmetrical. Absent : calf tenderness, cyanotic, pedal edema - Neurological Exam Neurological exam: Present: alert, oriented X3, no focal deficits. Absent: facial droop, speech deficit - Skin Skin exam: Present: dry, intact Internal Med - H&P Results - Labs CBC & Chem 7: 03/29/18 10:56 03/29/18 10:56 Labs: Short CBC 03/29/18 Range/Units 10:56 WBC 6.2 (4.3-11.1) K/mcL Hgb 14.5 (12.9-16.9) g/dL Hct 43.9 (37.5-50.1) % Plt Count 209 (140-400) K/mcL Neutrophils # 3.4 (1.6-8.9) K/mcL BMP 03/29/18 10:56 Sodium 137 Potassium 4.0 Chloride 104 Carbon Dioxide 32 H BUN 18 Creatinine 0.91 Glucose 120 H Calcium 9.5 Cardiac Enzymes 03/29/18 Range/Units 10:56 Troponin I 0.11 H* (< 0.04) ng/mL Liver Function 03/29/18 Range/Units 10:56 Total Bilirubin 0.5 (0.3-1.0) mg/dL Direct Bilirubin 0.1 (0.0-0.2) mg/dL AST 13 (13-39) Units/L ALT 12 (7-52) Units/L Alkaline Phosphatase 65 (34-104) Units/L Albumin 4.1 (3.5-5.7) g/dL Urine 03/29/18 Range/Units 10:12 Urine Color Yellow (Yellow) Urine Clarity Clear (Clear) Urine pH 6.0 (5.0-8.0) pH Units Ur Specific [place] 1.012 (1.010-1.025) Urine Protein Negative (Neg-Trace) mg/dL Urine Glucose (UA) Normal (Normal) mg/dL - ABG Interpretation ABG results: 03/29/18 11:13 VBG pH 7.29 L VBG pCO2 66 H VBG pO2 41 VBG HCO3 31 H - EKG Data -: EKG Interpreted by Myself EKG shows normal: sinus rhythm - EKG Data EKG comments: 03/29/18 16:33 With incomplete left bundle branch block. Possible ST depression in anterior leads. - Impressions ITS Impressions Chest X-Ray 03/29/18 10:04 IMPRESSION: No acute cardiopulmonary disease D/ / Dion Jang MD / Dion Jang MD Interpreting Provider: Dion Jang MD Head CT 03/29/18 10:06 IMPRESSION: No acute intracranial abnormality. No appreciable interval change compared with 02/10/2018 CT brain. Remote lacunar strokes are noted right and left caudate lobes and right and left thalamus. D/ / John Maloney / John Maloney Interpreting Provider: John Maloney - Assessment and plan (1) NSTEMI (non-ST elevated myocardial infarction) Current Visit: Yes Status: Suspected Assessment and plan: Patient presented with generalized weakness and troponin elevation. Cardiology consult. Started on IV heparin. We will follow cardiology recommendations. Patient had left heart catheterization in February of this year which showed stenosis of proximal OM 2 which was successfully stented with drug-eluting stent. Patient had moderate residual atherosclerotic coronary artery disease. He was discharged on aspirin and Plavix at that time. Compliance not reliable. Concern for restenosis or progression of CAD. Continue aspirin and Plavix. High risk for complications. (2) CAD (coronary artery disease) Current Visit: Yes Status: Chronic Assessment and plan: Continue aspirin, Plavix , statin and beta ibeth. Qualifiers: Coronary Disease-Associated Artery/Lesion type: cheesh[place] artery [place] vs. transplanted heart: cheesh-na heart Associated angina: without angina Qualified Code(s): I25.10 - Atherosclerotic heart disease of cheesh-na coronary artery without angina pectoris (3) Diabetes mellitus Current Visit: Yes Status: Chronic Assessment and plan: Will place patient on sliding scale insulin. Monitor blood sugars closely. Qualifiers: Diabetes mellitus type: type 2 Diabetes mellitus manager intermediate insulin use: without manager intermediate use Diabetes mellitus complication status: with circulatory complication Diabetes mellitus complication detail: with other circulatory complications Qualified Code(s): E11.59 - Type 2 diabetes mellitus with other circulatory complications (4) HTN (hypertension) Current Visit: Yes Status: Chronic Assessment and plan: Continue home medications including beta ibeth and Imdur. Monitor blood pressure. Qualifiers: Qualified Code(s): I10 - Essential (primary) hypertension (5) COPD (chronic obstructive pulmonary disease) Current Visit: Yes Status: Chronic Assessment and plan: Patient reported to have wheezing on initial arrival here. His lungs sound much better now. We will continue treatment for COPD with bronchodilators, steroids. Qualifiers: COPD type: COPD with acute exacerbation Qualified Code(s): J44.1 - Chronic obstructive pulmonary disease with (acute) exacerbation (6) DVT prophylaxis Current Visit: Yes Status: Acute Assessment and plan: Patient is on IV heparin. - Time Spent With Patient Total time spent is greater than 50% in coordination of care (as documented) at patient's floor/unit and/or counseling patient:
[2018-03-29] MEDS ORDERED: methylPREDNISolone 125 MG/2 ML VIAL IVP SCH (16:00)
[2018-03-29] MEDS ORDERED: Ipratropium/Albuterol Neb 3 ML ONE (16:16)
[2018-03-29] MEDS: Ipratropium/Albuterol Neb 3 ML IH SCH ×3 (16:18→23:50)
[2018-03-29] MEDS ORDERED: *HR* Dextrose 50 % in Water (Syg) 50 ML SYRINGE IVP PRN (17:08)
[2018-03-29] MEDS ORDERED: Dextrose Gel 15 GM/37.5 ML TUBE PO PRN ×2 (17:08)
[2018-03-29] MEDS ORDERED: D5% in Water 1,000 ML IVC PRN (17:08)
[2018-03-29] MEDS ORDERED: Insulin LISPRO 300 UNITS/3 ML VIAL SQ ONE ×2 (18:02→20:57)
[2018-03-29] MEDS: Gabapentin 300 MG CAPSULE PO SCH (21:05)
[2018-03-29] MEDS: Insulin LISPRO 300 UNITS/3 ML VIAL SQ SCH (21:14)
[2018-03-30 01:58] LABS: Basophils % 0.1 %; Hematocrit 40.1 % (37.5-50.1); Hemoglobin 13.6 g/dL (12.9-16.9); Immature Granulocytes % 0.5 % (0-4); Lymphocytes # 0.8 K/mcL (0.6-4.6); Lymphocytes % 7.6 %; Mean Corpuscular HGB Conc 33.9 g/dL (31.6-35.5); Mean Corpuscular Hemoglobin 28.6 pg (28.0-33.3); Mean Corpuscular Volume 84.4 fL (83.0-100.0); Mean Platelet Volume 10.3 fL (9.4-12.4); Monocytes # 0.1 K/mcL (0.0-1.3); Monocytes % 0.7 %; Platelet Count 222 K/mcL (140-400); Red Blood Count 4.75 M/mcL (4.19-5.50); Red Cell Distribution Width 12.6 % (11.5-14.5); Segmented Neutrophils % 91.1 %
[2018-03-30 02:11] LABS: BUN/Creatinine Ratio 19 (6-26); Blood Urea Nitrogen 21 mg/dL (8-23); Calcium 9.5 mg/dL (8.6-10.3); Carbon Dioxide 24 mEq/L (23-29); Chloride 103 mEq/L (98-107); Chol/HDL Ratio 2.8 (0-4.9); Cholesterol 136 mg/dL (< 200); Glucose 236 mg/dL (70-105); HDL Cholesterol 49 mg/dL (40-59); LDL Cholesterol,Calculated 73 mg/dL (0-99); Osmolality,Calculated 291 (280-300); Potassium 3.7 mEq/L (3.5-5.1); Sodium 135 mEq/L (136-145); Triglycerides 69 mg/dL (< 150); eGFR For Non-African Americans > 60 (> 60)
[2018-03-30] MEDS: Ipratropium/Albuterol Neb 3 ML IH SCH ×6 (03:46→22:58)
[2018-03-30] MEDS: Insulin LISPRO 300 UNITS/3 ML VIAL SQ SCH ×4 (08:25→20:33)
[2018-03-30] MEDS: Gabapentin 300 MG CAPSULE PO SCH ×3 (08:30→20:32)
[2018-03-30] MEDS: Aspirin Enteric Coated 81 MG Tablet PO SCH (08:30)
[2018-03-30] MEDS: Lisinopril-HCTZ 20-12.5mg TABLET PO SCH (08:30)
[2018-03-30] MEDS: Metoprolol XL (24 HR) Succ 50 MG TAB.ER.24H PO SCH (08:30)
[2018-03-30] MEDS: amLODIPine 5 MG TABLET PO SCH (08:30)
[2018-03-30] MEDS: predniSONE 20 MG TABLET PO SCH (08:34)
[2018-03-30] MEDS ORDERED: Isosorbide MONOnitrate (24 HR) 60 MG TAB.ER.24H PO SCH (09:00)
--- NOTE | 2018-03-30 11:56 | Cardiology Consult Note ---
<KamaljitYudy J - Last Filed: 03/30/18 12:03> Date of Encounter: 03/30/18 Time of Encounter: 08:30 Assessment and Plan (1) Fall Current Visit: Yes Status: Acute Per cardiology: -Reports fall while getting out of bed, ?orthostatic hypotension. -Denies LOC. -Reports has not been eating or drinking well. -Encouraged to stay well hydrated, change positions slowly. Qualifiers: Encounter type: initial encounter Qualified Code(s): W19.XXXA - Unspecified fall, initial encounter (2) Elevated troponin I level Current Visit: No Status: Acute Per cardiology: -Recent NSTEMI, s/p LHC and PCI. -Troponins 0.11, 0.1, 0.09, flat and adynamic. -Denies chest pain. -New T wave inversion noted in V3, otherwise similar appearing ECG from previous. -TTE 02/2018 with LVEF 50%, no segmental wall motion abnormalities noted. -On heparin drip, asa, plavix, BB, statin. Admitted to missing some doses of ASA , plavix. -Discussed and reviewed with , will plan for stress test in am. WIll hold imdur for stress. -Educated patient at length regarding dual anti-platelet therapy uninterrupted for at least one year, patient states understanding. (3) CAD (coronary artery disease) Current Visit: Yes Status: Chronic Per cardiology: -Known CAD s/o [facility] 02/2018 with 50% proximal LAD, 50-60% mid LAD, 60% distal LAD , 60% proximal circumflex, 90% OM1, 50% left PDA, 85% mid RCA non-dominant, unchanged from previous [facility]. -Admits to missing doses of asa, plavix. -Plan for stress in am. Qualifiers: Coronary Disease-Associated Artery/Lesion type: [place] artery [place] vs. transplanted heart: [place] heart Associated angina: without angina Qualified Code(s): I25.10 - Atherosclerotic heart disease of [place] coronary artery without angina pectoris Discussion w patient/family: The assessment and plan as outlined above was discussed with the patient who expressed understanding and agreement. All questions were answered. Thank you for involving us in the care of your patient. Please call with any questions. Discussed and reviewed with . History of Present Illness Consult date: 03/29/18 Requesting physician: Richard Mendez Consult reason: elevated troponin Chief complaint: weakness, fall History of present illness: Mr. Colby is a 62 year old male with a relevant past medical history of DM, HTN, CAD s/p recent PCI who presented to [facility] with complaints of weakness, fall. Patient reports was getting out of bed, when he stood up, he fell. Denies loss of consciousness. Patient denies chest pain. Denies shortness of breath. Reports fatigue. Patient does admit to missing some doses of asa, plavix. Patient is unsure how many doses he has missed. Past Med Surg Social Fam HX - Past Medical History Attestation: Yes The following information was validated with the patient. Source: patient, old records reviewed Medical history: non-contributory, arthritis, coronary artery disease, hyperlipidemia, hypertension, myocardial infarction, TIA Psychiatric history: no psych history - Past Surgical History Surgical History: no surgical history Additional surgical history: stents, LEFT ANKLE SURGERY, - Social History Smoking Status: Current every day smoker Smokeless Tobacco Status: No Alcohol use: occasionally Drug use: none - Family History Father Adopted: No Family Member Ethnicity: Non- Living Status: Hx Family Cardiac Disorders: Yes (Father) Hx Family Respiratory Disorders: No Hx Family Cancer: No Hx Family GI Disorders: Yes (Father) Hx Family Neuromuscular Disorders: No Mother Adopted: No Family Member Ethnicity: Non- Living Status: Still Living Hx Family Cardiac Disorders: No Hx Family Respiratory Disorders: No Hx Family Cancer: Yes Hx Family GI Disorders: No Hx Family Endocrine Disorder: No Hx Family Neuromuscular Disorders: No Hx Family Neurologic Disorders: No Hx Family HEENT Disorders: No Hx Family Autoimmune Disorders: No Medications and Allergies Clopidogrel [Plavix] 75 mg PO DAILY #30 tablet 07/23/15 [Rx] Nitroglycerin 0.4 mg SL Q5M PRN 09/03/16 [History] Albuterol Sulfate [Proventil Hfa] 2 puff IH Q4H PRN 08/14/17 [History] Gabapentin [Neurontin] 600 mg PO TID 08/14/17 [History] Lisinopril/Hydrochlorothiazide [Zestoretic 20-12.5 mg Tablet] 1 tab PO DAILY 09/26 [History] Tamsulosin [Flomax] 0.4 mg PO DAILY 08/14/17 [History] Aspirin Enteric Coated [Aspirin EC] 81 mg PO DAILY #30 tablet. 02/12/18 [Rx] Amlodipine Besylate 10 mg PO DAILY 03/29/18 [History] Atorvastatin Calcium [Lipitor] 80 mg PO HS 03/29/18 [History] Cyclobenzaprine [Flexeril] 10 mg PO HS 03/29/18 [History] Isosorbide MONOnitrate (24 HR) [Imdur] 60 mg PO DAILY 03/29/18 [History] Metoprolol Succinate [Toprol Xl] 100 mg PO DAILY 03/29/18 [History] Oxybutynin [Ditropan] 5 mg PO BID 03/29/18 [History] 3 Allergy/AdvReac Type Severity Reaction Status Date / Time No Known Allergies Allergy Verified 03/29/18 14:06 All Systems Review: The remainder of the systems were reviewed and are negative - Constitutional Constitutional: frequent falls, weakness - Cardiovascular Cardiovascular: as per HPI Physical Examination Vital Signs, Last 4 Hours Temp Pulse Resp BP Pulse Ox 03/30/18 11:09 16 91 03/30/18 11:05 97.9 F 74 15 109/69 93 General: Conversant, No Apparent Distress HEENT: Atraumatic, Normocephaly, Mucus Membranes Moist Neck: No JVD, Normal carotid pulses Cardiac: Reg Rate and Rhythm, Normal S1 and S2, No Murmur Lungs: Normal Breath Sounds, No Wheeze, Rales, Rhonchi Neuro: Alert and responsive, No focal deficits noted Abdomen: Soft, Non-Tender Skin: No rashes noted on visualized skin Musculoskeletal: No Chest Wall Tenderness Extremities: No Clubbing, No Cyanosis, No Edema, Normal Pulses Results 03/30/18 01:31 03/30/18 01:31 Lab Results Impressions Head CT 03/29/18 10:06 IMPRESSION: No acute intracranial abnormality. No appreciable interval change compared with 02/10/2018 CT brain. Remote lacunar strokes are noted right and left caudate lobes and right and left thalamus. D/ / oJhn Maloney / John Maloney Interpreting Provider: John Maloney Active Medications Acetaminophen (Tylenol) 650 mg PO Q6HR PRN PRN Reason: Mild Pain/Fever Stop: 09/28/18 15:51 Albuterol Sulfate (Albuterol Inhaler) 2 puff IH Q4H PRN PRN Reason: Shortness Of Breath Stop: 09/28/18 15:51 Albuterol/Ipratropium (Duoneb) 3 ml IH [id number] LYLA PRN Reason: Protocol Stop: 09/28/18 16:01 Last Admin: 03/30/18 11:09 Dose: 3 ml Amlodipine Besylate (Norvasc) 10 mg PO DAILY [facility] Stop: 09/29/18 09:01 Last Admin: 03/30/18 08:30 Dose: 10 mg Aspirin (Aspirin Ec) 81 mg PO DAILY [facility] Stop: 09/29/18 09:01 Last Admin: 03/30/18 08:30 Dose: 81 mg Atorvastatin Calcium (Lipitor) 80 mg PO HS [facility] Stop: 09/28/18 21:01 Last Admin: 03/29/18 21:06 Dose: 80 mg Clopidogrel Bisulfate (Plavix) 75 mg PO DAILY [facility] Stop: 09/29/18 09:01 Last Admin: 03/30/18 08:30 Dose: 75 mg Cyclobenzaprine HCl (Flexeril) 10 mg PO HS [facility] Stop: 09/28/18 21:01 Last Admin: 03/29/18 21:05 Dose: 10 mg Dextrose/Water (Dextrose 50% (Syg)) 25 ml IVP AD PRN PRN Reason: Hypoglycemia Stop: 09/28/18 17:09 Gabapentin (Neurontin) 600 mg PO TID [facility] Stop: 09/28/18 21:01 Last Admin: 03/30/18 08:30 Dose: 600 mg Glucagon (Glucagen) 1 mg IM ONCE PRN PRN Reason: Hypoglycemia Stop: 09/28/18 17:09 Glucose (Gluctose) 15 gm PO ONCE PRN PRN Reason: Hypoglycemia Stop: 09/28/18 17:09 Glucose (Gluctose) 30 gm PO ONCE PRN PRN Reason: Hypoglycemia Stop: 09/28/18 17:09 Lisinopril/HCTZ (Prinzide 20-12.5) 1 each PO DAILY [facility] Stop: 09/29/18 09:01 Last Admin: 03/30/18 08:30 Dose: 1 each Heparin Sodium (Porcine) (Heparin) 4,000 unit IVP Q6HR PRN PRN Reason: SEE COMMENTS Stop: 09/28/18 12:18 Heparin Sodium (Porcine) (Heparin) 2,000 unit IVP Q6H PRN PRN Reason: SEE COMMENTS Stop: 09/28/18 12:18 Heparin Sodium/Dextrose (Heparin 25,000 Unit/500 Ml D5w) 25,000 unit in 500 mls @ 20.344 mls/hr IVC .Q24H LYLA; 11.5 UNIT/KG/HR PRN Reason: Protocol Stop: 09/28/18 12:31 Last Titration: 03/30/18 02:33 Dose: 11.5 unit/kg/hr, 20.344 mls/hr Dextrose (Dextrose 5%) 1,000 mls @ 100 mls/hr IVC .Q10H PRN PRN Reason: HYPOGLYCEMIA Stop: 09/28/18 17:09 Insulin Human Lispro (Humalog) 0 units SQ HS [facility] PRN Reason: Protocol Stop: 09/28/18 21:01 Last Admin: 03/29/18 21:14 Dose: 4 units Insulin Human Lispro (Humalog) 0 units SQ TIDAC [facility]LA PRN Reason: Protocol Stop: 09/29/18 07:31 Last Admin: 03/30/18 11:32 Dose: Not Given Isosorbide Mononitrate (Imdur) 60 mg PO DAILY [facility] Stop: 09/29/18 09:01 Last Admin: 03/30/18 08:30 Dose: 60 mg Metoprolol Succinate (Toprol Xl) 100 mg PO DAILY [facility] Stop: 09/29/18 09:01 Last Admin: 03/30/18 08:30 Dose: 100 mg Naloxone HCl (Narcan) 0.4 mg IVP Q2MIN PRN PRN Reason: SEE COMMENTS Stop: 09/28/18 15:51 Nitroglycerin (Nitroglycerin) 0.4 mg SL Q5M PRN PRN Reason: Chest Pain Stop: 09/28/18 15:51 Oxybutynin Chloride (Ditropan) 5 mg PO BID [facility] PRN Reason: Protocol Stop: 09/28/18 21:01 Last Admin: 03/30/18 08:30 Dose: 5 mg Prednisone (Prednisone) 40 mg PO DAILY [facility] Stop: 09/29/18 09:01 Last Admin: 03/30/18 08:34 Dose: 40 mg Tamsulosin HCl (Flomax) 0.4 mg PO DAILY [facility] PRN Reason: Protocol Stop: 09/29/18 09:01 Last Admin: 03/30/18 08:30 Dose: 0.4 mg Laboratory Tests 03/29/18 03/29/18 03/29/18 10:56 16:51 22:12 Hgb Creatinine Troponin I 0.11 H* 0.10 H* 0.09 H* 03/30/18 03/30/18 01:31 01:31 Hgb 13.6 Creatinine 1.11 Troponin I - Imaging and Cardiology Chest Xray: report reviewed Stress Test: pending Echo: report reviewed Cardiac cath: report reviewed - EKG Interpretation EKG results cardiology: personally reviewed (ECG with SR, HR 70. Diffuse T wave inversions.), other (Telemetry reviewed with average HR previous 12 hours noted to be 85, SR. PVCS and PACs noted.) Consult Discharge Plan - Plan Referrals: John Pritchard MD [Primary Care Provider] - <Coral A - Last Filed: 03/30/18 17:40> Date of Encounter: 03/30/18 - Attending Attestation I interviewed and examined the patient independently at the bedside and agree with the cardiology [employer]'s documentation Assessment and Plan Discussion w patient/family: The assessment and plan as outlined above was discussed with the patient and/or family members who expressed understanding and agreement. All questions were answered. Thank you for involving us in the care of your patient. Please call with any questions. History of Present Illness History of present illness: Mr. Colby is a 62 year old male All Systems Review: The remainder of the systems were reviewed and are negative Physical Examination Vital Signs, Last 4 Hours Temp Pulse Resp BP Pulse Ox 03/30/18 15:52 16 95 03/30/18 15:43 97.9 F 70 15 111/64 94 Results 03/30/18 01:31 03/30/18 01:31 Lab Results 03/29/18 03/30/18 03/30/18 22:12 01:31 01:31 WBC 11.0 D Hgb 13.6 Hct 40.1 Plt Count 222 Sodium 135 L Potassium 3.7 Chloride 103 Carbon Dioxide 24 BUN 21 Creatinine 1.11 Glucose 236 H Calcium 9.5 Troponin I 0.09 H*
[2018-03-30] MEDS: Heparin 25,000 UNIT/500 ML D5W 25,000 UNIT/500 ML BAG IVC SCH (14:21)
--- NOTE | 2018-03-30 14:52 | Internal Med Progress Note ---
Hospitalist Progress Note - Encounter Date of Encounter: 03/30/18 Time of Encounter: 14:52 - Subjective Interval History: Patient feels somewhat better today. Denies any chest pain. No palpitations. No shortness of breath at this time. - Exam Vitals: Temp Pulse Resp BP Pulse Ox 97.9 F 74 16 109/69 91 03/30/18 11:05 03/30/18 11:05 03/30/18 11:09 03/30/18 11:05 03/30/18 11:09 Exam: General: Patient is alert, no acute distress, oriented x 3 Respiratory: Mild bilateral wheezing Cardiovascular: Regular rate and rhythm. s1 and s2 normal No clicks, rubs, gallops, or murmurs. No pedal edema Abdomen: Abdomen is soft, nontender. Bowel sounds are present Musculoskeletal: Spontaneously moving all extremities Skin: warm, dry, intact. Neuro: Alert oriented x 3 normal cranial nerves, no focal deficits - Assessment and Plan (1) NSTEMI (non-ST elevated myocardial infarction) Current Visit: Yes Status: Suspected Assessment and Plan: Patient has been evaluated by cardiology. Recommended stress test in the morning. On IV heparin. Troponins have trended down. Moderate risk for complications. (2) CAD (coronary artery disease) Current Visit: Yes Status: Chronic Assessment and Plan: Continue aspirin, Plavix, statin and beta ibeth. (3) Diabetes mellitus Current Visit: Yes Status: Chronic Assessment and Plan: Well-controlled. Continue current insulin regimen (4) HTN (hypertension) Current Visit: Yes Status: Chronic Assessment and Plan: Blood pressure is well controlled at this time. (5) COPD (chronic obstructive pulmonary disease) Current Visit: Yes Status: Chronic Assessment and Plan: Patient is doing better today. Will continue bronchodilators. Continue steroids. (6) DVT prophylaxis Current Visit: Yes Status: Acute Assessment and Plan: On IV heparin - Time Spent with Patient Total time spent is greater than 50% in coordination of care (as documented) at patient's floor/unit and/or counseling patient: Internal Medicine: Result - Labs CBC & Chem 7: 03/30/18 01:31 03/30/18 01:31 Labs: Short CBC 03/30/18 Range/Units 01:31 WBC 11.0 D (4.3-11.1) K/mcL Hgb 13.6 (12.9-16.9) g/dL Hct 40.1 (37.5-50.1) % Plt Count 222 (140-400) K/mcL Neutrophils # 10.0 H (1.6-8.9) K/mcL BMP 03/30/18 01:31 Sodium 135 L Potassium 3.7 Chloride 103 Carbon Dioxide 24 BUN 21 Creatinine 1.11 Glucose 236 H Calcium 9.5 Cardiac Enzymes 03/29/18 03/29/18 Range/Units 16:51 22:12 Troponin I 0.10 H* 0.09 H* (< 0.04) ng/mL - ABG Interpretation ABG results: PT/INR, D-dimer PT 11.6 Seconds (9.4-12.1) 03/29/18 10:56 Consult Discharge Plan - Plan Referrals: John Pritchard MD [Primary Care Provider] - (2) CAD (coronary artery disease) Qualifiers: Coronary Disease-Associated Artery/Lesion type: [place] artery [place] vs. transplanted heart: [place] heart Associated angina: without angina Qualified Code(s): I25.10 - Atherosclerotic heart disease of [place] coronary artery without angina pectoris (3) Diabetes mellitus Qualifiers: Diabetes mellitus type: type 2 Diabetes mellitus penitentiary insulin use: without road cleaner use Diabetes mellitus complication status: with circulatory complication Diabetes mellitus complication detail: with other circulatory complications Qualified Code(s): E11.59 - Type 2 diabetes mellitus with other circulatory complications (4) HTN (hypertension) Qualifiers: Hypertension type: essential hypertension Qualified Code(s): I10 - Essential (primary) hypertension (5) COPD (chronic obstructive pulmonary disease) Qualifiers: COPD type: COPD with acute exacerbation Qualified Code(s): J44.1 - Chronic obstructive pulmonary disease with (acute) exacerbation
[2018-03-31] MEDS: Ipratropium/Albuterol Neb 3 ML IH SCH ×6 (03:40→23:19)
[2018-03-31] MEDS ORDERED: Regadenoson 0.4 MG/5 ML SYRINGE IVP ONE (05:50)
--- NOTE | 2018-03-31 10:29 | Cardiology Progress Note ---
Date of Encounter: 03/31/18 Time of Encounter: 10:30 Assessment and Plan (1) Elevated troponin I level Current Visit: No Status: Acute Per cardiology: -Recent NSTEMI, s/p LHC and PCI. -Troponins 0.11, 0.1, 0.09, flat and adynamic. -Denies chest pain. -New T wave inversion noted in V3, otherwise similar appearing ECG from previous. -TTE 02/2018 with LVEF 50%, no segmental wall motion abnormalities noted. -On heparin drip, asa, plavix, BB, statin. Admitted to missing some doses of ASA , plavix. Stress test results pending today. Currently chest pain-free. (2) CAD (coronary artery disease) Current Visit: Yes Status: Chronic Per cardiology: -Known CAD s/o [facility] 02/2018 with 50% proximal LAD, 50-60% mid LAD, 60% distal LAD , 60% proximal circumflex, 90% OM1, 50% left PDA, 85% mid RCA non-dominant, unchanged from previous [facility]. -Admits to missing doses of asa, plavix. Qualifiers: Coronary Disease-Associated Artery/Lesion type: [place] artery [place] vs. transplanted heart: [place] heart Associated angina: without angina Qualified Code(s): I25.10 - Atherosclerotic heart disease of [place] coronary artery without angina pectoris Discussion w patient/family: The assessment and plan as outlined above was discussed with the patient who expressed understanding and agreement. All questions were answered. Thank you for involving us in the care of your patient. Please call with any questions. Subjective Principal diagnosis: Elevated Trop Interval history: Patient denies any chest pain, shortness of breath, palpitations. Anxious about going home today. Objective Vital Signs, Last 4 Hours Temp Pulse Resp BP Pulse Ox 03/31/18 09:36 97.7 F 66 16 147/88 97 General: Conversant, No Apparent Distress HEENT: Atraumatic, Normocephaly, Mucus Membranes Moist Neck: No JVD, Normal carotid pulses Cardiac: Reg Rate and Rhythm, Normal S1 and S2, No Murmur Lungs: Normal Breath Sounds, No Wheeze, Rales, Rhonchi Neuro: Alert and responsive, No focal deficits noted Abdomen: Soft, Non-Tender Skin: No rashes noted on visualized skin Musculoskeletal: No Chest Wall Tenderness Extremities: No Clubbing, No Cyanosis, No Edema, Normal Pulses Results 03/30/18 01:31 03/30/18 01:31 Laboratory Tests 03/29/18 03/29/18 03/29/18 10:56 10:56 16:51 INR 1.0 Creatinine Est GFR (Non-Af Amer) Troponin I 0.11 H* 0.10 H* LDL Cholesterol, Calc 03/29/18 03/30/18 22:12 01:31 INR Creatinine 1.11 Est GFR (Non-Af Amer) > 60 Troponin I 0.09 H* LDL Cholesterol, Calc 73 ITS Impressions Chest X-Ray 03/29/18 10:04 IMPRESSION: No acute cardiopulmonary disease D/ / Dion Jang MD / Dion Jang MD Interpreting Provider: Dion Jang MD Head CT 03/29/18 10:06 IMPRESSION: No acute intracranial abnormality. No appreciable interval change compared with 02/10/2018 CT brain. Remote lacunar strokes are noted right and left caudate lobes and right and left thalamus. D/ / John Maloney / John Maloney Interpreting Provider: John Maloney Active Medications Acetaminophen (Tylenol) 650 mg PO Q6HR PRN PRN Reason: Mild Pain/Fever Stop: 09/28/18 15:51 Albuterol Sulfate (Albuterol Inhaler) 2 puff IH Q4H PRN PRN Reason: Shortness Of Breath Stop: 09/28/18 15:51 Albuterol/Ipratropium (Duoneb) 3 ml IH Q0GXARM [facility]LA PRN Reason: Protocol Stop: 09/28/18 16:01 Last Admin: 03/31/18 07:41 Dose: Not Given Amlodipine Besylate (Norvasc) 10 mg PO DAILY [facility] Stop: 09/29/18 09:01 Last Admin: 03/30/18 08:30 Dose: 10 mg Aspirin (Aspirin Ec) 81 mg PO DAILY [facility] Stop: 09/29/18 09:01 Last Admin: 03/30/18 08:30 Dose: 81 mg Atorvastatin Calcium (Lipitor) 80 mg PO HS [facility] Stop: 09/28/18 21:01 Last Admin: 03/30/18 20:32 Dose: 80 mg Clopidogrel Bisulfate (Plavix) 75 mg PO DAILY [facility] Stop: 09/29/18 09:01 Last Admin: 03/30/18 08:30 Dose: 75 mg Cyclobenzaprine HCl (Flexeril) 10 mg PO HS [facility] Stop: 09/28/18 21:01 Last Admin: 03/30/18 20:32 Dose: 10 mg Dextrose/Water (Dextrose 50% (Syg)) 25 ml IVP AD PRN PRN Reason: Hypoglycemia Stop: 09/28/18 17:09 Gabapentin (Neurontin) 600 mg PO TID [facility] Stop: 09/28/18 21:01 Last Admin: 03/30/18 20:32 Dose: 600 mg Glucagon (Glucagen) 1 mg IM ONCE PRN PRN Reason: Hypoglycemia Stop: 09/28/18 17:09 Glucose (Gluctose) 15 gm PO ONCE PRN PRN Reason: Hypoglycemia Stop: 09/28/18 17:09 Glucose (Gluctose) 30 gm PO ONCE PRN PRN Reason: Hypoglycemia Stop: 09/28/18 17:09 Lisinopril/HCTZ (Prinzide 20-12.5) 1 each PO DAILY [facility] Stop: 09/29/18 09:01 Last Admin: 03/30/18 08:30 Dose: 1 each Heparin Sodium (Porcine) (Heparin) 4,000 unit IVP Q6HR PRN PRN Reason: SEE COMMENTS Stop: 09/28/18 12:18 Heparin Sodium (Porcine) (Heparin) 2,000 unit IVP Q6H PRN PRN Reason: SEE COMMENTS Stop: 09/28/18 12:18 Heparin Sodium/Dextrose (Heparin 25,000 Unit/500 Ml D5w) 25,000 unit in 500 mls @ 20.344 mls/hr IVC .Q24H LYLA; 11.5 UNIT/KG/HR PRN Reason: Protocol Stop: 09/28/18 12:31 Last Admin: 03/30/18 14:21 Dose: 11.5 unit/kg/hr, 20.344 mls/hr Dextrose (Dextrose 5%) 1,000 mls @ 100 mls/hr IVC .Q10H PRN PRN Reason: HYPOGLYCEMIA Stop: 09/28/18 17:09 Insulin Human Lispro (Humalog) 0 units SQ HS [facility] PRN Reason: Protocol Stop: 09/28/18 21:01 Last Admin: 03/30/18 20:33 Dose: 2 units Insulin Human Lispro (Humalog) 0 units SQ TIDAC [facility] PRN Reason: Protocol Stop: 09/29/18 07:31 Last Admin: 03/30/18 17:19 Dose: 4 units Isosorbide Mononitrate (Imdur) 60 mg PO DAILY [facility] Stop: 09/29/18 09:01 Last Admin: 03/30/18 08:30 Dose: 60 mg Metoprolol Succinate (Toprol Xl) 100 mg PO DAILY [facility] Stop: 09/29/18 09:01 Last Admin: 03/30/18 08:30 Dose: 100 mg Naloxone HCl (Narcan) 0.4 mg IVP Q2MIN PRN PRN Reason: SEE COMMENTS Stop: 09/28/18 15:51 Nitroglycerin (Nitroglycerin) 0.4 mg SL Q5M PRN PRN Reason: Chest Pain Stop: 09/28/18 15:51 Oxybutynin Chloride (Ditropan) 5 mg PO BID [facility] PRN Reason: Protocol Stop: 09/28/18 21:01 Last Admin: 03/30/18 20:32 Dose: 5 mg Prednisone (Prednisone) 40 mg PO DAILY [facility] Stop: 09/29/18 09:01 Last Admin: 03/30/18 08:34 Dose: 40 mg Tamsulosin HCl (Flomax) 0.4 mg PO DAILY [facility] PRN Reason: Protocol Stop: 09/29/18 09:01 Last Admin: 03/30/18 08:30 Dose: 0.4 mg - Imaging and Cardiology Stress Test: pending Echo: report reviewed Cardiac cath: report reviewed Consult Discharge Plan - Plan Referrals: John Pritchard MD [Primary Care Provider] -
[2018-03-31] MEDS: Aspirin Enteric Coated 81 MG Tablet PO SCH (11:11)
[2018-03-31] MEDS: amLODIPine 5 MG TABLET PO SCH (11:12)
[2018-03-31] MEDS: Gabapentin 300 MG CAPSULE PO SCH ×3 (11:12→20:37)
--- NOTE | 2018-03-31 11:12 | Internal Med Progress Note ---
Hospitalist Progress Note - Encounter Date of Encounter: 03/31/18 Time of Encounter: 11:10 - Subjective Interval History: patient is sitting up in his chair. Denies any chest pain at this time. Underwent stress test this morning. No complications from procedure. Did not have chest pain during the procedure. Denies any shortness of breath. Does continue to complain of generalized weakness. - Exam Vitals: Temp Pulse Resp BP Pulse Ox 97.7 F 66 16 147/88 97 03/31/18 09:36 03/31/18 09:36 03/31/18 09:36 03/31/18 09:36 03/31/18 09:36 Exam: General: Patient is alert, no acute distress, oriented x 3 Respiratory: Normal breath sounds bilaterally Cardiovascular: Regular rate and rhythm. s1 and s2 normal No clicks, rubs, gallops, or murmurs. No pedal edema Abdomen: Abdomen is soft, nontender. Bowel sounds are present Musculoskeletal: Spontaneously moving all extremities Skin: warm, dry, intact. Neuro: Alert oriented x 3 normal cranial nerves, no focal deficits - Assessment and Plan (1) NSTEMI (non-ST elevated myocardial infarction) Current Visit: Yes Status: Suspected Assessment and Plan: Troponins have trended down. Patient has been on heparin for 48 hours. On IV heparin drip. Follow cardiology recommendations based on stress test results. (2) CAD (coronary artery disease) Current Visit: Yes Status: Chronic Assessment and Plan: Continue aspirin and Plavix and Lipitor (3) Diabetes mellitus Current Visit: Yes Status: Chronic Assessment and Plan: Blood sugar is 108 this morning. We will continue to monitor and adjust insulin regimen accordingly. (4) HTN (hypertension) Current Visit: Yes Status: Chronic Assessment and Plan: Blood pressure elevated this morning. Likely because he did not receive his beta ibeth due to stress test ordered. We will give medications now and monitor blood pressure. (5) COPD (chronic obstructive pulmonary disease) Current Visit: Yes Status: Chronic Assessment and Plan: Continue bronchodilators. Taper steroids. (6) DVT prophylaxis Current Visit: Yes Status: Acute Assessment and Plan: ON heparin at this time - Time Spent with Patient Total time spent is greater than 50% in coordination of care (as documented) at patient's floor/unit and/or counseling patient: Internal Medicine: Result - Labs CBC & Chem 7: 03/30/18 01:31 03/30/18 01:31 - ABG Interpretation ABG results: PT/INR, D-dimer PT 11.6 Seconds (9.4-12.1) 03/29/18 10:56 Consult Discharge Plan - Plan Referrals: John Pritchard MD [Primary Care Provider] - (2) CAD (coronary artery disease) Qualifiers: Coronary Disease-Associated Artery/Lesion type: [place] artery [place] vs. 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
[2018-03-31] MEDS: Metoprolol XL (24 HR) Succ 50 MG TAB.ER.24H PO SCH (11:13)
[2018-03-31] MEDS: Lisinopril-HCTZ 20-12.5mg TABLET PO SCH (11:13)
[2018-03-31] MEDS: predniSONE 20 MG TABLET PO SCH (11:13)
[2018-03-31] MEDS: Insulin LISPRO 300 UNITS/3 ML VIAL SQ SCH ×5 (11:17→22:01)
--- NOTE | 2018-03-31 11:39 | Event Note ---
Date of Encounter: 03/31/18 Time of Encounter: 11:40 - Cardiology Event Note Stress test results reviewed and discussed with Dr. Quan. Previous cath film reviewed with Dr. Stubbs, recs for [facility] to eval circ territory. Patient agreeable. Catheterization later today. Discussed with primary service.
--- NOTE | 2018-03-31 16:20 | Pre-Sedation Evaluation ---
Pre-sedation evaluation - Pre-sedation checklist Date of procedure: 03/31/18 Procedure: LEFT HEART CATHETERIZATION Recent Vitals: Last Vital Signs Temp 97.6 F 03/31/18 14:32 Pulse 77 03/31/18 14:32 Resp 14 03/31/18 14:32 BP 128/99 03/31/18 14:32 Pulse Ox 93 03/31/18 14:32 H&P (including ROS) documented in medical record: Yes Previous reaction to sedatives/anesthetics: No Dietary Status: NPO 6 hours prior to procedure Dentition: poor dentition ASA Classification *see protocol: CLASS II-Mild systemic disease Plan of Care: Pt appropriate candidate for procedure/moderate/conscious sedation , Risks/benefits of procedure/sedation discussed w/ patient/family Cardiac Registry (Cardio Only) - Functional Capacity Functional Capacity: >=4 METS with symptoms - Clincal Frailty Scale Clinical Frailty Scale: Managing Well
[2018-03-31] MEDS ORDERED: 0.9 % Sodium Chloride 1,000 ML ONE ×2 (16:33→16:45)
[2018-03-31] MEDS ORDERED: Verapamil 5 MG/2 ML VIAL ONE (16:33)
[2018-03-31] MEDS ORDERED: Nitroglycerin 1,000 MCG/10 ML VIAL IV ONE (16:33)
[2018-03-31] MEDS ORDERED: *HR* Heparin 10,000 UNIT/10 ML VIAL ONE (16:33)
[2018-03-31] MEDS ORDERED: Heparin 1,000 UNITS/500 mL 500 ML ONE (16:33)
[2018-03-31] MEDS ORDERED: ISOVUE-370 200 ML INFUS..BTL IV ONE (16:33)
[2018-03-31] MEDS ORDERED: *HR* Midazolam HCl 2 MG/2 ML VIAL ONE (16:44)
[2018-03-31] MEDS ORDERED: *HR* FentaNYL (PF) 100 MCG/2 ML VIAL ONE (16:45)
--- NOTE | 2018-03-31 17:32 | Invasive Diagnostic Lab Proc ---
Name: CaseMelvin Date of Study: 03/31/2018 Date: 1955 Ht: 66.1in Medical Record#: [id number] Age: 62 Wt: 182.98lb Gender: Male BSA: 1.93 Order #: [id number] BMI: 29.41 Physicians Procedure Physician: Juan Stubbs MD, [facility] Referring MD: Referring MD: Staff Name Position Time In [facility], Estella RT (R) Scrub 04:55 PM Mando Whiteside RN Book Trimmer 04:55 PM Estella Haynes RT (R) Monitor 04:55 PM Jenifer Barbosa RN 04:56 PM Mich Jones RN Book Trimmer 05:21 PM Indications Indication Non-Stemi Procedures Performed Procedure L HRT ARTERY/VENTRICLE ANGIO Pre-Procedure Checklist Informed consent is complete signed and on chart. H&P is on chart. ID band is on and ID verified with patient. Patient NPO for procedure The procedure was described for the patient and questions were answered. Blood Pressure: 145/75 ECG is on chart. Rhythm: NSR Plan of Care Patient will tolerate the procedure without complications. Adequate level of comfort will be maintained. Hemodynamics will remain stable Patient will recover from procedure without complications. Respiratory function will be maintained. Cardiac rhythm will remain stable. Patient temperature will be maintained. Patient and/or family have verbalized understanding of the procedure. Patient Education Chief Complaint/Reason for Test: Cardiac Cath Developmental Category: Adult (18-64 years) Developmentally Appropriate for Age: Yes Learning Barriers: None Education Needs: Procedure Education Method: Verbal Information Taught: Cardiac Cath Educational Evaluation: Able to repeat information Intravenous Access Time IV Size Location DC'd Fluid/Drip Rate Units RN 04:51 PM 20g 1 1/4" Patent On Arrival Rt Hand 0.9NaCl 25 ml/hr Mando Whiteside RN Allergies No Known Allergies Vital Signs Time BP (mmHg) HR (bpm) O2 Sat. RR (bpm) LOC 04:52 PM 145 / 75 72 96 % 14 5 = Fully awake and oriented or at pre-proc level 04:59 PM / % 5 = Fully awake and oriented or at pre-proc level 04:49 PM 171 / 83 68 96 % 16 04:54 PM 166 / 84 86 100 % 17 04:58 PM 164 / 89 73 97 % 19 05:03 PM 160 / 90 71 100 % 17 05:09 PM 162 / 87 76 99 % 16 05:14 PM 116 / 61 75 92 % 16 Procedural Medications Time Medication Dose Units Method Given By 04:58 PM Oxygen 2 L/min nasal cannula Mando Whiteside RN 04:58 PM Versed 2 mg Intravenous Mando Whiteside RN 04:58 PM Fentanyl 50 mcg Intravenous Mando Whiteside RN 05:00 PM Lidocaine 2% 0.5 ml Subcutaneous Juan Stubbs MD, FACC 05:03 PM Lidocaine 2% 5 ml Subcutaneous Juan Stubbs MD, [facility] ASA Classification: CLASS II- Mild systemic disease (i.e. well-controlled diabetes, hypertension, asthma, cigarette smoking) Jennifer Score Preprocedure Postprocedure Activity 2- Moves 4 extremities sustained head lift Activity 2- Moves 4 extremities sustained head lift Circulation 2- SBP +/= 20 points of pre-anesthetic level Circulation 2- SBP +/= 20 points of pre-anesthetic level Consciousness 2- Awake and alert oriented x 3 Consciousness 2- Awake and alert oriented x 3 O2 Saturation 2- Able to maintain O2 satruation of 92% on room air O2 Saturation 2- Able to maintain O2 satruation of 92% on room air Respiratory 2- Able to deep breathe and cough well Respiratory 2- Able to deep breathe and cough well Total Score 10 Total Score 10 Contrast Agent: Isovue Diagnostic Contrast: 58 ml Total Contrast: 58 ml Fluoro Dose: 2096 mGy Procedure Log Time Note Enter By 04:48 PM CathStat 04:48 PM Vitals capture started with the following parameters, Patient=Adult, Interval=5 min, Initial Pxdbjhxj=705 mmHg, Deflation Rate=5 mmHg, Cuff placed on Right Arm 04:49 PM HR=68 bpm, XCZE=332/83 mmhg, SpO2=96.0 %, Resp=16 B/min, EtCO2=35 mmHg, Comment=SR 04:54 PM HR=86 bpm, NNHN=463/84 mmhg, QrO2=264.0 %, Resp=17 B/min, EtCO2=36 mmHg, Comment=SR 04:55 PM Pt arrived to medical laboratory technical officer 2 at 16:55 tsites 04:55 PM Physician arrived 16:55 tsites 04:55 PM Meet and greet completed tsites 04:55 PM Sign in performed according to hospital policy. tsites 04:55 PM Procedure start 16:55 tsites 04:55 PM Estella Dodd RT (R) Position: Scrub Time in: 16:55 tsites 04:55 PM Mando Whiteside RN Position: Book Trimmer Time in: 16:55 tsites 04:55 PM Estella Haynes RT (R) Position: Monitor Time in: 16:55 tsites 04:56 PM Patient charges- Angio tray pack, Navilyst 3mm J, Pulse Oximetry and ACIST tubing and transducer tsites 04:56 PM Case Delayed No tsites 04:56 PM Hair removed from procedure site in procedure lab using clippers. Right wrist and Right groin prepped with Chloraprep by Jenifer Barbosa RN, then patient was draped. Skin intact. tsites 04:56 PM Jenifer Barbosa RN Position: Time in: 16:56 tsites 04:58 PM Recorded ECG: HR=74 Condition=Condition 1 04:58 PM ASA Class CLASS II- Mild systemic disease (i.e. well-controlled diabetes, hypertension, asthma, cigarette smoking) tsites 04:58 PM Time: 16:58 Oxygen on at 2 L/min per nasal cannula by Mando Whiteside RN tsites 04:58 PM Time: 16:58 Versed 2 mg Intravenous Given by Mando Whiteside RN tsites 04:58 PM Time: 16:58 Fentanyl 50 mcg Intravenous Given by Mando Whiteside RN tsites 04:58 PM HR=73 bpm, CETL=799/89 mmhg, SpO2=97.0 %, Resp=19 B/min, EtCO2=35 mmHg, Comment=SR 04:59 PM Time: 16:58 Patient comfortable and pain free: Yes tsites :59 PM Time: 16:59LOC: 5 = Fully awake and oriented or at pre-proc level tsites 04:59 PM Clinical Presentation: Non-STEMI tsites 04:59 PM Pressure channel 1 zero failed. 04:59 PM Pressure channel 1 zeroed. 05:00 PM Time out performed according to hospital policy tsites 05:00 PM Time: 17:00 0.5 ml Lidocaine 2% to right radial Subcutaneous Given by Juan Stubbs MD, [facility] tsites 05:03 PM Unsuccessful access attempt # 1 into the right Radial artery. Manual pressure applied to achieve hemostasis.. twilson 05:03 PM Time: 17:03 5 ml Lidocaine 2% to right groin Subcutaneous Given by Juan Stubbs MD, [facility] twilson 05:03 PM HR=71 bpm, WOFP=435/90 mmhg, HnJ1=408.0 %, Resp=17 B/min 05:04 PM Access obtained by percutaneous puncture. 6Fr 10cm Terumo Glidesheath sheath placed in right Femoral artery. [id number] twilson 05:05 PM 5Fr FL 4 catheter inserted over the wire DNC twilson 05:06 PM Wire removed twilson 05:06 PM LCA angiography performed in multiple views. twilson 05:06 PM Recorded Pressure: Ao, HR=73, Condition=Condition 1 (Aorta) Ao 136/90/111 05:06 PM Recorded Pressure: Ao, HR=67, Condition=Condition 1 (Aorta) Ao 130/81/103 05:07 PM Wire reinserted. twilson 05:07 PM Catheter removed twilson 05:07 PM 5Fr FR 4 catheter inserted over the wire DN twilson 05:08 PM Wire removed twilson 05:08 PM Coronary Dominance: Left twilson 05:09 PM Lesion found in Proximal RCA. Pre Stenosis: 85 Pre NATASHA Flow: twilson 05:09 PM HR=76 bpm, BQSH=328/87 mmhg, SpO2=99.0 %, Resp=16 B/min, Comment=SR 05:09 PM Right Coronary, Right Posterior Descending Arteries with Right Posterolateral and Acute Marginal branches with 85 % stenosis. If graft is supplying this area, 0 % stenosis twilson 05:09 PM Inflation device was opened. twilson 05:09 PM Wire reinserted. twilson 05:10 PM Patient stated he stopped taking his plavix last week due to "laziness". twilson 05:10 PM Recorded Pressure: LV, HR=79, Condition=Condition 1 (Left Ventricle) LV 149/16/32 05:11 PM Recorded Pressure: LV, Ao, HR=81, Condition=Condition 1 (Left Ventricle) LV 155/22/56, (Aorta) Ao 151/72/105 05:11 PM 5Fr Pigtail catheter inserted over the wire DN twilson 05:11 PM Catheter selectively placed in left ventricle twilson 05:11 PM Wire removed twilson 05:11 PM Bolus angiogram of left Ventricle complete: 10 ml/sec for a total of 30 mls twilson 05:11 PM Wire reinserted. twilson 05:11 PM Wire and catheter removed. twilson 05:12 PM Bolus angiogram of right Femoral complete: 4 ml/sec for a total of 7 mls twilson 05:12 PM Procedure completed at 17:12 03/31/2018 twilson 05:12 PM Did you address NATASHA flow and Dominance? Yes twilson 05:13 PM Sign out completed: Radiation Dose 177.96 mGy, 2095.96 cGy/cm2 Fluoro Time: 1.1 Isovue 370 - 200ml contrast 58 ml given by Juan Stubbs MD, [facility]. Complications: NoneCardiac Rehab Consult needed: NoConfirmed administered medications: Yes twilson 05:13 PM Isovue 370 - 200ml,1 Bottle(s) used. twilson 05:13 PM Arterial sheath pulled, Mynx closure device used and was Successful [id number] S/N. twilson 05:13 PM Estimated Blood Loss: minimal twilson 05:14 PM HR=75 bpm, VWEE=408/61 mmhg, SpO2=92.0 %, Resp=16 B/min 05:16 PM Site status No bleeding/hematoma - Rt Wrist as reported by Sites, Estella RT (R) at 17:16 twilson 05:16 PM Opsite applied twilson 05:16 PM No family present at this time. twilson 05:17 PM Post Blood Pressure 116/61 twilson 05:17 PM 17:17 Post Pulses Bilateral DP & PT 2+ twilson 05:17 PM 17:17 Post Pulses Bilateral radial 2+ twilson 05:17 PM Information taught Cardiac Cath and Mynx twilson 05:18 PM Education needs Procedure, Plan of Care, and Responsibilities of Patient in Care twilson 05:18 PM Learning barriers :None twilson 05:18 PM Education Methods Verbal twilson 05:18 PM Education evaluation Able to repeat information twilson 05:18 PM Site status No bleeding/hematoma - Rt Groin as reported by Sites, Estella RT (R) at 17:18 twilson 05:18 PM Opsite applied twilson 05:18 PM Delay to floor No twilson 05:18 PM Lesion found in Proximal Circumflex. Pre Stenosis: 70 Pre NATASHA Flow: twilson 05:19 PM Circumflex, Obtuse Marginal, Left Posterior Descending, and Left Posterolateral Coronary Arteries with 70 % stenosis. If graft is supplying this area, 0 % stenosis twilson 05:22 PM Report given to RN Pt taken to 2NE Room #17. 17:22 twilson 05:22 PM Patient out of room: 17:22 twilson Complications Complication None Hemodynamics Pressures Site Systolic/A Wave Diastolic/V Wave Mean AO 136 90 111 AO 130 81 103 LV 149 16 32 LV 155 22 56 AO 151 72 105 Post Procedure Information Blood Pressure: 116/61 mmHg Post procedural instructions were given Closure Device Time Device Success/Fail 03/31/2018 5:17:00 PM MynxGrip Successful Site Checks Time Location Status Staff Sheath In? Note 05:16 PM Rt Wrist No bleeding/hematoma Sites, Estella RT (R) 05:18 PM Rt Groin No bleeding/hematoma Sites, Estella RT (R) Pulses Time Site Pre-Procedure Post-Procedure Note 03/31/2018 4:52:00 PM Bilateral DP & PT 2+ 03/31/2018 4:52:00 PM Bilateral radial 2+ 5:17:00 PM Bilateral DP & PT 2+ 5:17:00 PM Bilateral radial 2+ Updated by Estella Dodd RT (R) on 03/31/2018 5:24:06 PM Estella Dodd RT electronically signed on 03/31/2018 5:25:09 PM with status of Final
[2018-03-31] MEDS ORDERED: Insulin DETEMIR 100 UNIT/ML X5UNITS SQ SCH (21:00)
[2018-04-01] MEDS: Ipratropium/Albuterol Neb 3 ML IH SCH ×3 (03:35→11:34)
[2018-04-01 07:40] VITALS: BP 158/92
[2018-04-01] MEDS: Insulin LISPRO 300 UNITS/3 ML VIAL SQ SCH ×2 (08:00→12:08)
--- NOTE | 2018-04-01 08:28 | Cardiology Progress Note ---
Date of Encounter: 04/01/18 Time of Encounter: 08:30 Assessment and Plan (1) Elevated troponin I level Current Visit: No Status: Acute Per cardiology: -Recent NSTEMI, s/p LHC and PCI. -Troponins 0.11, 0.1, 0.09, flat and adynamic. -Denies chest pain. -New T wave inversion noted in V3, otherwise similar appearing ECG from previous. -TTE 02/2018 with LVEF 50%, no segmental wall motion abnormalities noted. -On heparin drip, asa, plavix, BB, statin. Admitted to missing some doses of ASA , plavix. (2) CAD (coronary artery disease) Current Visit: Yes Status: Chronic Per cardiology: -Known CAD s/o C 02/2018 with 50% proximal LAD, 50-60% mid LAD, 60% distal LAD , 60% proximal circumflex, 90% OM1, 50% left PDA, 85% mid RCA non-dominant, unchanged from previous [facility]. -Admits to missing doses of asa, plavix. -Abnormal stress test yesterday. Underwent repeat left heart catheterization: Lesion Findings/Interventions * Left Main Coronary Artery The LMCA is angiographically free of \disease. * Left Anterior Descending The LAD has 50% proximal and mid stenosis. The 1st Diagonal is angiographically free of disease. * Circumflex There is a 70% stenosis in the Proximal Circumflex. 100% inferior subbranch of OM - previously stented (patient noncompliant with DAPT due to laziness? per patient) * Right Coronary Artery - nondominant There is a 85% stenosis in the Proximal RCA, same as last 2 [facility]. The RCA is small in size. Chest pain-free. Postprocedure education provided. Medication compliance reinforced. Cardiology will sign off, reconsult as needed, follow-up arranged. Qualifiers: Coronary Disease-Associated Artery/Lesion type: [place] artery [place] vs. transplanted heart: [place] heart Associated angina: without angina Qualified Code(s): I25.10 - Atherosclerotic heart disease of [place] coronary artery without angina pectoris Discussion w patient/family: The assessment and plan as outlined above was discussed with the patient who expressed understanding and agreement. All questions were answered. Thank you for involving us in the care of your patient. Please call with any questions. Subjective Principal diagnosis: Elevated Trop Interval history: Patient denies any chest pain, shortness of breath, palpitations. Denies any concerns from his right groin or right wrist site. Objective Vital Signs, Last 4 Hours Temp Pulse Resp BP Pulse Ox 04/01/18 07:48 16 94 04/01/18 07:37 98.1 F 66 17 158/92 92 04/01/18 05:05 97.7 F 64 17 154/66 99 18 04:50 97.7 F 64 16 154/66 99 General: Conversant, No Apparent Distress HEENT: Atraumatic, Normocephaly, Mucus Membranes Moist Neck: No JVD, Normal carotid pulses Cardiac: Reg Rate and Rhythm, Normal S1 and S2, No Murmur Lungs: Normal Breath Sounds, No Wheeze, Rales, Rhonchi Neuro: Alert and responsive, No focal deficits noted Abdomen: Soft, Non-Tender Skin: No rashes noted on visualized skin, Other (Right wrist site dry and intact , no hematoma, no bleeding, right radial pulse 2+ palpable, right site dry and intact, no hematoma, no bleeding, no ecchymosis, right PT and DP pulses 1+ palpable) Musculoskeletal: No Chest Wall Tenderness Extremities: No Clubbing, No Cyanosis, No Edema, Normal Pulses Results 03/30/18 01:31 03/30/18 01:31 Active Medications Acetaminophen (Tylenol) 650 mg PO Q6HR PRN PRN Reason: Mild Pain/Fever Stop: 09/28/18 15:51 Albuterol Sulfate (Albuterol Inhaler) 2 puff IH Q4H PRN PRN Reason: Shortness Of Breath Stop: 09/28/18 15:51 Albuterol/Ipratropium (Duoneb) 3 ml IH [id number] [facility] PRN Reason: Protocol Stop: 09/28/18 16:01 Last Admin: 04/01/18 07:48 Dose: 3 ml Amlodipine Besylate (Norvasc) 10 mg PO DAILY [facility] Stop: 09/29/18 09:01 Last Admin: 03/31/18 11:12 Dose: 10 mg Aspirin (Aspirin Ec) 81 mg PO DAILY [facility] Stop: 09/29/18 09:01 Last Admin: 03/31/18 11:11 Dose: 81 mg Atorvastatin Calcium (Lipitor) 80 mg PO HS [facility] Stop: 09/28/18 21:01 Last Admin: 03/31/18 20:37 Dose: 80 mg Clopidogrel Bisulfate (Plavix) 75 mg PO DAILY [facility] Stop: 09/29/18 09:01 Last Admin: 03/31/18 11:13 Dose: 75 mg Cyclobenzaprine HCl (Flexeril) 10 mg PO HS [facility] Stop: 09/28/18 21:01 Last Admin: 03/31/18 20:37 Dose: 10 mg Dextrose/Water (Dextrose 50% (Syg)) 25 ml IVP AD PRN PRN Reason: Hypoglycemia Stop: 09/28/18 17:09 Gabapentin (Neurontin) 600 mg PO TID [facility] Stop: 09/28/18 21:01 Last Admin: 03/31/18 20:37 Dose: 600 mg Glucagon (Glucagen) 1 mg IM ONCE PRN PRN Reason: Hypoglycemia Stop: 09/28/18 17:09 Glucose (Gluctose) 15 gm PO ONCE PRN PRN Reason: Hypoglycemia Stop: 09/28/18 17:09 Glucose (Gluctose) 30 gm PO ONCE PRN PRN Reason: Hypoglycemia Stop: 09/28/18 17:09 Lisinopril/HCTZ (Prinzide 20-12.5) 1 each PO DAILY [facility] Stop: 09/29/18 09:01 Last Admin: 03/31/18 11:13 Dose: 1 each Heparin Sodium (Porcine) (Heparin) 4,000 unit IVP Q6HR PRN PRN Reason: SEE COMMENTS Stop: 09/28/18 12:18 Heparin Sodium (Porcine) (Heparin) 2,000 unit IVP Q6H PRN PRN Reason: SEE COMMENTS Stop: 09/28/18 12:18 Dextrose (Dextrose 5%) 1,000 mls @ 100 mls/hr IVC .Q10H PRN PRN Reason: HYPOGLYCEMIA Stop: 09/28/18 17:09 Insulin Detemir (Levemir) 10 unit SQ HS [facility] Stop: 09/30/18 21:01 Last Admin: 03/31/18 21:24 Dose: 10 unit Insulin Human Lispro (Humalog) 0 units SQ HS [facility] PRN Reason: Protocol Stop: 09/28/18 21:01 Last Admin: 03/31/18 22:01 Dose: 3 units Insulin Human Lispro (Humalog) 0 units SQ TIDAC [facility] PRN Reason: Protocol Stop: 09/29/18 07:31 Last Admin: 03/31/18 17:46 Dose: 2 units Isosorbide Mononitrate (Imdur) 60 mg PO DAILY [facility] Stop: 09/29/18 09:01 Last Admin: 03/30/18 08:30 Dose: 60 mg Metoprolol Succinate (Toprol Xl) 100 mg PO DAILY [facility] Stop: 09/29/18 09:01 Last Admin: 03/31/18 11:13 Dose: 100 mg Naloxone HCl (Narcan) 0.4 mg IVP Q2MIN PRN PRN Reason: SEE COMMENTS Stop: 09/28/18 15:51 Nitroglycerin (Nitroglycerin) 0.4 mg SL Q5M PRN PRN Reason: Chest Pain Stop: 09/28/18 15:51 Oxybutynin Chloride (Ditropan) 5 mg PO BID [facility] PRN Reason: Protocol Stop: 09/28/18 21:01 Last Admin: 03/31/18 20:37 Dose: 5 mg Prednisone (Prednisone) 40 mg PO DAILY [facility] Stop: 09/29/18 09:01 Last Admin: 03/31/18 11:13 Dose: 40 mg Tamsulosin HCl (Flomax) 0.4 mg PO DAILY [facility] PRN Reason: Protocol Stop: 09/29/18 09:01 Last Admin: 03/31/18 11:12 Dose: 0.4 mg - Imaging and Cardiology Cardiac cath: report reviewed Consult Discharge Plan - Plan Additional Instructions: You have and appointment with [facility] WEDNESDAY ( @ 2:30pm) to begin outpatient physical therapy. Referrals: John Pritchard MD [Primary Care Provider] -
[2018-04-01] MEDS: amLODIPine 5 MG TABLET PO SCH (08:55)
[2018-04-01] MEDS: Lisinopril-HCTZ 20-12.5mg TABLET PO SCH (08:55)
[2018-04-01] MEDS: Metoprolol XL (24 HR) Succ 50 MG TAB.ER.24H PO SCH (08:55)
[2018-04-01] MEDS: predniSONE 20 MG TABLET PO SCH (08:55)
[2018-04-01] MEDS: Gabapentin 300 MG CAPSULE PO SCH ×2 (08:55→14:09)
[2018-04-01] MEDS: Aspirin Enteric Coated 81 MG Tablet PO SCH (08:55)
--- NOTE | 2018-04-01 10:35 | Discharge Summary ---
- NOTES TO OUTPATIENT PROVIDER Notes to Outpatient Provider: Patient hospitalized here with generalized weakness. Had troponin elevation and was treated for non-ST elevation PR with intravenous heparin. Cardiology was consulted and they recommended a cardiac stress test which was abnormal. Patient then underwent left heart catheterization which showed 70% stenosis in the proximal circumflex and had 100 % inferior subbranch of OM which was previously stented. Patient also had stable 85% stenosis of proximal RCA. Recommended medical management due to noncompliance with dual antiplatelet therapy regimen. He will follow up with cardiology after discharge and may have proximal circumflex stented if he shows compliance with dual antiplatelet therapy. He was recommended skilled rehabilitation placement but he refused and will be discharged home with outpatient physical therapy. Orders not resulted at time of discharge: Pending orders 03/31/18 06:00 NM ciaran perf SPECT multi [NM] Routine Date of Encounter: 04/01/18 Time of Encounter: 10:32 - Discharge Diagnosis (1) NSTEMI (non-ST elevated myocardial infarction) Priority: Primary Status: Acute (2) CAD (coronary artery disease) Priority: Secondary Status: Chronic Qualifiers: Coronary Disease-Associated Artery/Lesion type: [place] artery [place] vs. 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 home use Diabetes mellitus complication status: with circulatory complication Diabetes mellitus complication detail: with other circulatory complications Qualified Code(s): E11.59 - Type 2 diabetes mellitus with other circulatory complications (4) HTN (hypertension) Priority: Secondary Status: Chronic Qualifiers: Hypertension type: essential hypertension Qualified Code(s): I10 - Essential (primary) hypertension (5) COPD (chronic obstructive pulmonary disease) Priority: Secondary Status: Chronic Qualifiers: COPD type: COPD with acute exacerbation Qualified Code(s): J44.1 - Chronic obstructive pulmonary disease with (acute) exacerbation (6) DVT prophylaxis Priority: Secondary Status: Acute (7) Congestive heart failure (CHF) Priority: Secondary Status: Chronic Qualifiers: Heart failure type: diastolic Heart failure chronicity: chronic Qualified Code(s): I50.32 - Chronic diastolic (congestive) heart failure Hospital course: Mr. Case is a 62 year old male Patient with history of coronary artery disease with recent stents who was hospitalized here with generalized weakness. Had troponin elevation and was treated for non-ST elevation PR with intravenous heparin. Cardiology was consulted and they recommended a cardiac stress test which was abnormal. Patient then underwent left heart catheterization which showed 70% stenosis in the proximal circumflex and had 100% inferior subbranch of OM which was previously stented. Patient also had stable 85% stenosis of proximal RCA. Recommended medical management due to noncompliance with dual antiplatelet therapy regimen. He will follow up with cardiology after discharge and may have proximal circumflex stented if he shows compliance with dual antiplatelet therapy. He was recommended skilled rehabilitation placement but he refused and will be discharged home with outpatient physical therapy. Discharge discussed with: patient, nurse - Time Spent with Patient Total time spent providing and/or coordinating discharge services: Greater than 30 minutes (40 min) - Discharge Medications Prescriptions: predniSONE [PredniSONE] 10 mg PO DAILY 8 Days tablet Home Medications: Clopidogrel [Plavix] 75 mg PO DAILY #30 tablet 07/23/15 [Rx] Nitroglycerin 0.4 mg SL Q5M PRN 09/03/16 [History] Albuterol Sulfate [Proventil Hfa] 2 puff IH Q4H PRN 08/14/17 [History] Gabapentin [Neurontin] 600 mg PO TID 08/14/17 [History] Lisinopril/Hydrochlorothiazide [Zestoretic 20-12.5 mg Tablet] 1 tab PO DAILY 09/26 [History] Tamsulosin [Flomax] 0.4 mg PO DAILY 08/14/17 [History] Aspirin Enteric Coated [Aspirin EC] 81 mg PO DAILY #30 tablet. 02/12/18 [Rx] Amlodipine Besylate 10 mg PO DAILY 03/29/18 [History] Atorvastatin Calcium [Lipitor] 80 mg PO HS 03/29/18 [History] Cyclobenzaprine [Flexeril] 10 mg PO HS 03/29/18 [History] Isosorbide MONOnitrate (24 HR) [Imdur] 60 mg PO DAILY 03/29/18 [History] Metoprolol Succinate [Toprol Xl] 100 mg PO DAILY 03/29/18 [History] Oxybutynin [Ditropan] 5 mg PO BID 03/29/18 [History] predniSONE [PredniSONE] 10 mg PO DAILY 8 Days tablet 04/01/18 [Rx] Allergies/Adverse Reactions: 3 Allergy/AdvReac Type Severity Reaction Status Date / Time No Known Allergies Allergy Verified 03/29/18 14:06 Date of admission: 03/29/18 16:03 Primary care physician: John Pritchard MD Consults: 03/30/18 12:06 Consult to Cardiac Rehabilitation-Phase1 [CONS] Routine Comment: Reason for Consult: elevated troponin Call Completed: No 03/30/18 13:45 Consult to Physical Therapy [CONS] Routine Comment: Evaluate, develop and implement POC Reason for Consult: Weakness and fall at home Does patient have active BEDREST order?: No Is patient medically & hemodynamically stable?: Yes 03/31/18 08:56 Consult to Mobile Unit Assistant [CONS] Routine Reason for SW Consult: PT rec SNF; Jair knows Discharging clinician: Milton Denton Anticipated date of discharge: 04/01/18 - Constitutional Vitals: Temp Pulse Resp BP Pulse Ox 98.1 F 66 16 158/92 94 04/01/18 07:37 04/01/18 07:37 04/01/18 07:48 04/01/18 07:37 04/01/18 07:48 General appearance: Present: cooperative, A&O X 3, pleasant, answers questions appropriately Exam: General: Patient is alert, no acute distress, oriented x 3 Respiratory: Mild bilateral wheezing Cardiovascular: Regular rate and rhythm. s1 and s2 normal No clicks, rubs, gallops, or murmurs. No pedal edema Abdomen: Abdomen is soft, nontender. Bowel sounds are present Musculoskeletal: Spontaneously moving all extremities Skin: warm, dry, intact. Neuro: Alert oriented x 3 normal cranial nerves, no focal deficits - Patient Status Disposition: Home, Self-Care Condition: Good Functional capacity at discharge: independent ambulation Overall status at discharge: patient is back to baseline - Ambulatory Orders Ambulatory Orders: Consult to Physical Therapy [CONS] Time Frame: 2 Days, Facility: [facility], Location: Rehab Services - Discharge Instructions Instructions: Myocardial Infarction (DC), Diabetes Mellitus Type 2 in Adults ( DC), Chronic Obstructive Pulmonary Disease (DC), Chronic Hypertension (DC) Follow Up With: John Pritchard MD [Primary Care Provider] - 04/05/18 10:30 am Additional Instructions: You have and appointment with [facility] WEDNES[facility] ( @ 2:30pm) to begin outpatient physical therapy. - Diet and Activity Activity: increase activity as tolerated Diet: diabetic diet, low fat, low cholesterol, low salt diet
[2018-04-01] MEDS ORDERED: Isosorbide MONOnitrate (24 HR) 60 MG TAB.ER.24H PO SCH (13:30)
== END 2018-04-01 14:55 | disposition home or self-care (01) | DRG 281 ==
LOC: 2NENU 09:58 → EMEROOARM 09:58 → SUATTDRO 16:03 → 2NENU 16:12
PROVIDERS: ADMIT Internal Medicine; ATTEND Internal Medicine

== ENCOUNTER 2018-04-05 12:34 | Inpatient (IN) ==
[2018-04-05] MEDS ORDERED: 0.9 % Sodium Chloride 1,000 ML IVC ONE (12:50)
--- NOTE | 2018-04-05 13:09 | Emergency Department Note ---
Disposition Clinical Impression: Weakness, Elevated troponin, Acute electrocardiogram changes Disposition: Admitted As Inpatient Condition: Good Referrals: John Pritchard MD [Primary Care Provider] - Forms: ED Satisfaction Letter Time of Disposition: 15:08 General Adult HPI - General Chief complaint: ED Altered Mental Status Stated complaint: confusion, slurred speech Time Seen by Provider: 04/05/18 12:49 Source: EMS Limitations: altered mental status Nursing Notes Reviewed: Yes Vital Signs Reviewed: Yes - History of Present Illness HPI Narrative: No patient presenting to emergency by EMS for possible slurred speech. They picked the patient up at the primary care's office. Patient was recently admitted here to [facility] for an and STEMI. He did have a cardiac catheter. He ended up having a positive stress test after not being compliant with his Plavix aspirin regimen. Ended up receiving another cardiac catheter at that time. Did have a 100% occlusion distal to the stent. Patient denies any chest pain at this time. He does report some slurred speech and generalized weakness ever since the last catheterization. States this is been going on for several days. No new symptoms today. Has been having an increase in his falls recently. Denies striking his head. States that he "fell on his ass." Pain Scale: 0 - Related Data Home Medications Medication Instructions Recorded Confirmed Nitroglycerin 0.4 mg SL Q5M PRN 09/03/16 03/29/18 Albuterol Sulfate [Proventil Hfa] 2 puff IH Q4H PRN 08/14/17 03/29/18 Gabapentin [Neurontin] 600 mg PO TID 08/14/17 03/29/18 Lisinopril/Hydrochlorothiazide 1 tab PO DAILY 08/14/17 03/29/18 [Zestoretic 20-12.5 mg Tablet] Tamsulosin [Flomax] 0.4 mg PO DAILY 08/14/17 03/29/18 Amlodipine Besylate 10 mg PO DAILY 03/29/18 03/29/18 Atorvastatin Calcium [Lipitor] 80 mg PO HS 03/29/18 03/29/18 Cyclobenzaprine [Flexeril] 10 mg PO HS 03/29/18 03/29/18 Isosorbide MONOnitrate (24 HR) 60 mg PO DAILY 03/29/18 03/29/18 [Imdur] Metoprolol Succinate [Toprol Xl] 100 mg PO DAILY 03/29/18 03/29/18 Oxybutynin [Ditropan] 5 mg PO BID 03/29/18 03/29/18 Previous Rx's Medication Instructions Recorded Clopidogrel [Plavix] 75 mg PO DAILY #30 tablet 07/23/15 Aspirin Enteric Coated [Aspirin EC] 81 mg PO DAILY #30 tablet. 02/12/18 predniSONE [PredniSONE] 10 mg PO DAILY 8 Days tablet 04/01/18 Allergies Allergy/AdvReac Type Severity Reaction Status Date / Time No Known Allergies Allergy Verified 04/05/18 14:34 All systems ED: reviewed and negative except as stated. Review of Systems: As Per HPI Constitutional: Denies: fever, chills Cardiovascular: Denies: chest pain, syncope Respiratory: Denies: cough, dyspnea Gastrointestinal: Denies: abdominal pain, nausea, vomiting, diarrhea Genitourinary: Denies: urgency, dysuria, frequency, hematuria Musculoskeletal: Denies: back pain Neurological: Reports: weakness, abnormal gait (Falling frequently secondary to increase in weakness). Denies: headache Past Medical History - Past Medical History Attestation: Yes The following information was validated with the patient. Source: patient Medical history: Reports: non-contributory, arthritis, coronary artery disease, hyperlipidemia, hypertension, myocardial infarction, TIA Surgical history: Reports: no surgical history Psychiatric history: Reports: no psych history - Social History Smoking Status: Current every day smoker Smokeless Tobacco Status: No Alcohol use: Reports: occasionally Drug use: Reports: none Physical Exam - General Limitations: altered mental status General appearance: alert, in no apparent distress - Head Head exam: atraumatic, normocephalic, normal inspection - Eye Eye exam: Present: normal appearance, PERRL, EOMI. Absent: scleral icterus - ENT ENT exam: normal exam, normal oropharynx, mucous membranes moist - Neck Neck exam: Present: normal inspection, full ROM, trachea midline - Chest Chest inspection: Present: normal inspection, symmetric chest wall rise - Respiratory Respiratory exam: Present: normal lung sounds bilaterally. Absent: respiratory distress, accessory muscle use - Cardiovascular Cardiovascular exam: Present: regular rate, normal rhythm, normal heart sounds - Abdominal Exam Abdominal exam: Present: soft, Non-Tender. Absent: tenderness, distention, guarding, rebound, rigidity, organomegaly, Zafar's sign, Rovsing's sign, tenderness at McBurney's Point - Extremities Exam Extremities exam: Present: normal inspection, full ROM, normal capillary refill. Absent: tenderness, pedal edema - Back Exam Back exam: Present: normal inspection, full ROM. Absent: tenderness - Neurological Exam Neurological exam: Present: alert, oriented X3 - Psychiatric Psychiatric exam: Present: normal affect, normal mood - Skin Skin exam: Present: warm, dry, intact, normal color. Absent: rash Course Course Narrative: Male patient complaining of generalized weakness since his last stent as well as some slurred speech. Patient has no lateralizing deficits. Has an NIH of 0 on my exam. Mentating appropriately. On EKG he did have ST segment elevation in only lead 3. He also had some T-wave inversions in lead V45 and 6. A posterior EKG was done which still showed depressions and inversion in lead V 70 8V9. The patient is denying any chest pain. Lab work did show an elevated troponin at 0.08. We did discuss this patient with the inside sales advertising executive. He was agreeable with the EKG looks as it did prior however the ST elevation in lead 3 was new. We did discuss the elevated troponin which appears to be trending down from the previous time he was here. We will admit patient to the hospital at this time. He is agreeable with this. - Consultations Consultation #1: Dr Holly nurse called back. Dr Chappell is currently in the laboratory technical specialist. They are requesting the 12 lead to be faxed. We will attempt this at this time. Time: 13:18 Consultation #2: Dr Hickman Time: 15:14 Vital Signs Temperature 98.3 F 04/05/18 12:38 Pulse Rate 62 04/05/18 12:38 Respiratory Rate 20 04/05/18 12:38 Blood Pressure 110/73 04/05/18 12:38 O2 Sat by Pulse Oximetry 97 04/05/18 12:38 Temperature 98.3 F 04/05/18 12:38 Pulse Rate 61 04/05/18 14:04 Respiratory Rate 20 04/05/18 12:38 Blood Pressure 124/64 04/05/18 14:04 O2 Sat by Pulse Oximetry 97 04/05/18 12:38 Oxygen Delivery Oxygen Delivery Room Air Medical Decision Making - Medical Records Medical records reviewed: Yes I reviewed the patient's medical records. - Lab Data Lab results reviewed: Yes I reviewed the patient's lab results. Result diagrams: 04/05/18 13:26 04/05/18 13:26 Lab Results 04/05/18 04/05/18 04/05/18 Range/Units 13:05 13:05 13:26 WBC 11.5 H (4.3-11.1) K/mcL RBC 5.05 (4.19-5.50) M/mcL Hgb 15.1 D (12.9-16.9) g/dL Hct 43.7 (37.5-50.1) % MCV 86.5 (83.0-100.0) fL MCH 29.9 (28.0-33.3) pg MCHC 34.6 (31.6-35.5) g/dL RDW 13.1 (11.5-14.5) % Plt Count 252 (140-400) K/mcL MPV 10.1 (9.4-12.4) fL Immature Gran % 0.3 (0-4) % Seg Neutrophils % 76.6 % Lymphocytes % 17.0 % Monocytes % 3.7 % Eosinophils % 2.2 % Basophils % 0.2 % Neutrophils # 8.8 (1.6-8.9) K/mcL Lymphocytes # 2.0 (0.6-4.6) K/mcL Monocytes # 0.4 (0.0-1.3) K/mcL Eosinophils # 0.3 (0.0-0.6) K/mcL Basophils # 0.0 (0.0-0.2) K/mcL PT (9.4-12.1) Seconds INR APTT (26.0-36.0) Seconds Sodium (136-145) mEq/L Potassium (3.5-5.1) mEq/L Chloride (98-107) mEq/L Carbon Dioxide (23-29) mEq/L BUN (8-23) mg/dL Creatinine (0.70-1.30) mg/dL Est GFR ( Amer) (> 60) Est GFR (Non-Af Amer) (> 60) BUN/Creatinine Ratio (6-26) Glucose (70-105) mg/dL Calculated Osmolality (280-300) Calcium (8.6-10.3) mg/dL Total Bilirubin (0.3-1.0) mg/dL Direct Bilirubin (0.0-0.2) mg/dL Indirect Bilirubin (0.0-1.2) mg/dL AST (13-39) Units/L ALT (7-52) Units/L Alkaline Phosphatase (34-104) Units/L Ammonia (16-53) mcmol/L Creatine Kinase (30-223) Units/L Troponin I (< 0.04) ng/mL Serum Total Protein (6.4-8.9) g/dL Albumin (3.5-5.7) g/dL Globulin (2.4-3.5) g/dL Albumin/Globulin Ratio (1.1-2.2) TSH (0.340-5.600) mcIU/mL Urine Color Yellow (Yellow) Urine Clarity Clear (Clear) Urine pH 6.0 (5.0-8.0) pH Units Ur Specific [place] 1.019 (1.010-1.025) Urine Protein Negative (Neg-Trace) mg/dL Urine Glucose (UA) >=1000 H (Normal) mg/dL Urine Ketones Negative (Negative) mg/dL Urine Blood Negative (Negative) Urine Nitrite Negative (Negative) Urine Bilirubin Negative (Negative) Urine Urobilinogen Normal (Normal) mg/dL Ur Leukocyte Esterase Negative (Negative) Ur Culture Indicated? NO (NO) Urine Opiates Screen Negative (Nnzkya=160) ng/mL Ur Barbiturates Screen Negative (Rdsglb=134) ng/mL Ur Phencyclidine Scrn Negative (Cutoff=25) ng/mL Ur Amphetamines Screen Negative (Beixfe=5314) ng/mL U Benzodiazepines Scrn Negative (Ssvmkf=464) ng/mL Urine Cocaine Screen Negative (Cutoff= 300) ng/mL U Marijuana (THC) Screen Negative (Cutoff = 50) ng/mL Ur Drug Screen Interp See Below Ethyl Alcohol (Less than 10) mg/dL Blood Type Antibody Screen 04/05/18 04/05/18 04/05/18 Range/Units 13:26 13:26 13:26 WBC (4.3-11.1) K/mcL RBC (4.19-5.50) M/mcL Hgb (12.9-16.9) g/dL Hct (37.5-50.1) % MCV (83.0-100.0) fL MCH (28.0-33.3) pg MCHC (31.6-35.5) g/dL RDW (11.5-14.5) % Plt Count (140-400) K/mcL MPV (9.4-12.4) fL Immature Gran % (0-4) % Seg Neutrophils % % Lymphocytes % % Monocytes % % Eosinophils % % Basophils % % Neutrophils # (1.6-8.9) K/mcL Lymphocytes # (0.6-4.6) K/mcL Monocytes # (0.0-1.3) K/mcL Eosinophils # (0.0-0.6) K/mcL Basophils # (0.0-0.2) K/mcL PT 11.9 (9.4-12.1) Seconds INR 1.1 APTT 28.6 (26.0-36.0) Seconds Sodium 135 L (136-145) mEq/L Potassium 4.1 (3.5-5.1) mEq/L Chloride 96 L (98-107) mEq/L Carbon Dioxide 33 H (23-29) mEq/L BUN 23 (8-23) mg/dL Creatinine 1.18 (0.70-1.30) mg/dL Est GFR ( Amer) > 60 (> 60) Est GFR (Non-Af Amer) > 60 (> 60) BUN/Creatinine Ratio 19 (6-26) Glucose 186 H (70-105) mg/dL Calculated Osmolality 289 (280-300) Calcium 9.9 (8.6-10.3) mg/dL Total Bilirubin 0.6 (0.3-1.0) mg/dL Direct Bilirubin 0.2 (0.0-0.2) mg/dL Indirect Bilirubin 0.4 (0.0-1.2) mg/dL AST 12 L (13-39) Units/L ALT 14 (7-52) Units/L Alkaline Phosphatase 61 (34-104) Units/L Ammonia 28 (16-53) mcmol/L Creatine Kinase 55 (30-223) Units/L Troponin I 0.08 H* (< 0.04) ng/mL Serum Total Protein 6.6 (6.4-8.9) g/dL Albumin 4.0 (3.5-5.7) g/dL Globulin 2.6 (2.4-3.5) g/dL Albumin/Globulin Ratio 1.5 (1.1-2.2) TSH 1.835 (0.340-5.600) mcIU/mL Urine Color (Yellow) Urine Clarity (Clear) Urine pH (5.0-8.0) pH Units Ur Specific [place] (1.010-1.025) Urine Protein (Neg-Trace) mg/dL Urine Glucose (UA) (Normal) mg/dL Urine Ketones (Negative) mg/dL Urine Blood (Negative) Urine Nitrite (Negative) Urine Bilirubin (Negative) Urine Urobilinogen (Normal) mg/dL Ur Leukocyte Esterase (Negative) Ur Culture Indicated? (NO) Urine Opiates Screen (Zrjkwx=123) ng/mL Ur Barbiturates Screen (Zldmjn=873) ng/mL Ur Phencyclidine Scrn (Cutoff=25) ng/mL Ur Amphetamines Screen (Zqpzrc=5188) ng/mL U Benzodiazepines Scrn (Ptegok=295) ng/mL Urine Cocaine Screen (Cutoff= 300) ng/mL U Marijuana (THC) Screen (Cutoff = 50) ng/mL Ur Drug Screen Interp Ethyl Alcohol < 10 (Less than 10) mg/dL Blood Type Antibody Screen 04/05/18 Range/Units 13:26 WBC (4.3-11.1) K/mcL RBC (4.19-5.50) M/mcL Hgb (12.9-16.9) g/dL Hct (37.5-50.1) % MCV (83.0-100.0) fL MCH (28.0-33.3) pg MCHC (31.6-35.5) g/dL RDW (11.5-14.5) % Plt Count (140-400) K/mcL MPV (9.4-12.4) fL Immature Gran % (0-4) % Seg Neutrophils % % Lymphocytes % % Monocytes % % Eosinophils % % Basophils % % Neutrophils # (1.6-8.9) K/mcL Lymphocytes # (0.6-4.6) K/mcL Monocytes # (0.0-1.3) K/mcL Eosinophils # (0.0-0.6) K/mcL Basophils # (0.0-0.2) K/mcL PT (9.4-12.1) Seconds INR APTT (26.0-36.0) Seconds Sodium (136-145) mEq/L Potassium (3.5-5.1) mEq/L Chloride (98-107) mEq/L Carbon Dioxide (23-29) mEq/L BUN (8-23) mg/dL Creatinine (0.70-1.30) mg/dL Est GFR ( Amer) (> 60) Est GFR (Non-Af Amer) (> 60) BUN/Creatinine Ratio (6-26) Glucose (70-105) mg/dL Calculated Osmolality (280-300) Calcium (8.6-10.3) mg/dL Total Bilirubin (0.3-1.0) mg/dL Direct Bilirubin (0.0-0.2) mg/dL Indirect Bilirubin (0.0-1.2) mg/dL AST (13-39) Units/L ALT (7-52) Units/L Alkaline Phosphatase (34-104) Units/L Ammonia (16-53) mcmol/L Creatine Kinase (30-223) Units/L Troponin I (< 0.04) ng/mL Serum Total Protein (6.4-8.9) g/dL Albumin (3.5-5.7) g/dL Globulin (2.4-3.5) g/dL Albumin/Globulin Ratio (1.1-2.2) TSH (0.340-5.600) mcIU/mL Urine Color (Yellow) Urine Clarity (Clear) Urine pH (5.0-8.0) pH Units Ur Specific [place] (1.010-1.025) Urine Protein (Neg-Trace) mg/dL Urine Glucose (UA) (Normal) mg/dL Urine Ketones (Negative) mg/dL Urine Blood (Negative) Urine Nitrite (Negative) Urine Bilirubin (Negative) Urine Urobilinogen (Normal) mg/dL Ur Leukocyte Esterase (Negative) Ur Culture Indicated? (NO) Urine Opiates Screen (Cldaae=688) ng/mL Ur Barbiturates Screen (Fpaaex=581) ng/mL Ur Phencyclidine Scrn (Cutoff=25) ng/mL Ur Amphetamines Screen (Zklpla=3585) ng/mL U Benzodiazepines Scrn (Tadawc=393) ng/mL Urine Cocaine Screen (Cutoff= 300) ng/mL U Marijuana (THC) Screen (Cutoff = 50) ng/mL Ur Drug Screen Interp Ethyl Alcohol (Less than 10) mg/dL Blood Type A NEGATIVE Antibody Screen NEGATIVE - Radiology Data Radiology results reviewed: Yes I reviewed the patient's radiology results. Chest X-Ray 04/05/18 12:50 IMPRESSION: No significant change in the chest from recent prior imaging. Slight blunting of the collect costophrenic sulcus may represent a trace pleural effusion. D/ / Stefan Hensley MD / Stefan Hensley MD Interpreting Provider: Stefan Hensley MD Head CT 04/05/18 12:50 IMPRESSION: No acute intracranial abnormality. 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 Stable small old lacunar infarcts in the left central derrick, left head of caudate nucleus, bilateral basal ganglia and bilateral thalami Mild parenchymal volume loss. Moderate chronic microvascular disease. D/ / Haseeb Joseph MD / Haseeb Joseph MD Interpreting Provider: Haseeb Joseph MD - EKG Data EKG #1 EKG attestation: Yes I reviewed and interpreted this EKG. EKG results narrative: Normal sinus rhythm at a rate of 64. SD interval is 135. QRS duration is 110. QT is 423. QTC is 437. Patient does have T-wave inversions grossly throughout the EKG. These were on previous EKG. However he has a new ST elevation in lead only 3. We did do a posterior EKG which showed the same findings. He also has deep Q waves in lead 3. Previous EKG was 03/29/2018. This is EKG that did not show the ST elevation in lead 3 but did show the T- wave inversions and ST segment in leads V4 V5 and V6. NIH Stroke Scale - Level of Consciousness LOC: Alert - LOC Questions LOC Questions: Answers both correctly - LOC Commands LOC Commands: Performs both correctly - Best Gaze Best Gaze: Normal - Visual Visual: No visual loss - Facial Palsy Facial Palsy: Normal - Motor Arms Motor Arm-Left: No drift for 10 seconds Motor Arm-Right: No drift for 10 seconds - Motor Legs Motor Leg-Left: No drift for 5 seconds Motor Leg-Right: No drift for 5 seconds - Limb Ataxia Limb Ataxia: Absent of affected limb too weak to perform exam - Sensory Sensory: Normal - Best Language Best Language: No aphasia - Dysarthria Dysarthria: Normal - Extinction and Inattention Extinction and Inattention: Normal - NIHSS Total Score NIHSS Total Score: 0
[2018-04-05 13:20] LABS: Bilirubin,Urine Negative (Negative); Blood,Urine Negative (Negative); Clarity,Urine Clear (Clear); Color,Urine Yellow (Yellow); Glucose,Urine (UA) >=1000 mg/dL (Normal); Ketones,Urine Negative (Negative); Leukocyte Esterase,Urine Negative (Negative); Nitrite,Urine Negative (Negative); Protein,Urine Negative (Neg-Trace); Specific Gravity,Urine 1.019 (1.010-1.025); Urobilinogen,Urine Normal (Normal)
--- NOTE | 2018-04-05 13:27 | Emergency Department Note ---
Disposition Clinical Impression: Weakness Disposition: Admitted As Inpatient Referrals: John Pritchard MD [Primary Care Provider] - Forms: ED Satisfaction Letter General Adult HPI - General Chief complaint: ED Altered Mental Status Stated complaint: confusion, slurred speech Time Seen by Provider: 04/05/18 12:49 Source: EMS Limitations: altered mental status - History of Present Illness Pain Scale: 0 - Related Data Home Medications Medication Instructions Recorded Confirmed Nitroglycerin 0.4 mg SL Q5M PRN 09/03/16 04/05/18 Albuterol Sulfate [Proventil Hfa] 2 puff IH Q4H PRN 08/14/17 04/05/18 Gabapentin [Neurontin] 600 mg PO TID 08/14/17 04/05/18 Lisinopril/Hydrochlorothiazide 1 tab PO DAILY 08/14/17 04/05/18 [Zestoretic 20-12.5 mg Tablet] Tamsulosin [Flomax] 0.4 mg PO DAILY 08/14/17 04/05/18 Amlodipine Besylate 10 mg PO DAILY 03/29/18 04/05/18 Atorvastatin Calcium [Lipitor] 80 mg PO HS 03/29/18 04/05/18 Cyclobenzaprine [Flexeril] 10 mg PO HS 03/29/18 04/05/18 Isosorbide MONOnitrate (24 HR) 60 mg PO DAILY 03/29/18 04/05/18 [Imdur] Metoprolol Succinate [Toprol Xl] 100 mg PO DAILY 03/29/18 04/05/18 Oxybutynin [Ditropan] 5 mg PO BID 03/29/18 04/05/18 Previous Rx's Medication Instructions Recorded Clopidogrel [Plavix] 75 mg PO DAILY #30 tablet 07/23/15 Aspirin Enteric Coated [Aspirin EC] 81 mg PO DAILY #30 tablet. 02/12/18 predniSONE [PredniSONE] 10 mg PO DAILY 8 Days tablet 04/01/18 Allergies Allergy/AdvReac Type Severity Reaction Status Date / Time No Known Allergies Allergy Verified 04/05/18 14:34 Past Medical History - Past Medical History Medical history: Reports: non-contributory, arthritis, coronary artery disease, hyperlipidemia, hypertension, myocardial infarction, TIA Surgical history: Reports: no surgical history Psychiatric history: Reports: no psych history - Social History Smoking Status: Current every day smoker Smokeless Tobacco Status: No Alcohol use: Reports: occasionally Drug use: Reports: none Physical Exam - General Limitations: altered mental status General appearance: alert, in no apparent distress Course - Consultations Consultation #1: rediscussed case wiih Dr. Guerrero after the troponin results and because they are trending down and he is relatively confidant that this is not his primary cause for his syncope episodes and falls, and is more than happy to consult if hospitlait would like. Otherwise likely we will need to clearly from a neuro standpoint and will admit to medicine. Time: 14:45 Vital Signs Temperature 98.3 F 04/05/18 12:38 Pulse Rate 62 04/05/18 12:38 Respiratory Rate 20 04/05/18 12:38 Blood Pressure 110/73 04/05/18 12:38 O2 Sat by Pulse Oximetry 97 04/05/18 12:38 Temperature 98.3 F 04/05/18 12:38 Pulse Rate 61 04/05/18 14:04 Respiratory Rate 20 04/05/18 12:38 Blood Pressure 124/64 04/05/18 14:04 O2 Sat by Pulse Oximetry 97 04/05/18 12:38 Oxygen Delivery Oxygen Delivery Room Air Medical Decision Making - Lab Data Result diagrams: 04/05/18 13:26 04/05/18 13:26 Lab Results 04/05/18 04/05/18 04/05/18 Range/Units 13:05 13:05 13:26 WBC 11.5 H (4.3-11.1) K/mcL RBC 5.05 (4.19-5.50) M/mcL Hgb 15.1 D (12.9-16.9) g/dL Hct 43.7 (37.5-50.1) % MCV 86.5 (83.0-100.0) fL MCH 29.9 (28.0-33.3) pg MCHC 34.6 (31.6-35.5) g/dL RDW 13.1 (11.5-14.5) % Plt Count 252 (140-400) K/mcL MPV 10.1 (9.4-12.4) fL Immature Gran % 0.3 (0-4) % Seg Neutrophils % 76.6 % Lymphocytes % 17.0 % Monocytes % 3.7 % Eosinophils % 2.2 % Basophils % 0.2 % Neutrophils # 8.8 (1.6-8.9) K/mcL Lymphocytes # 2.0 (0.6-4.6) K/mcL Monocytes # 0.4 (0.0-1.3) K/mcL Eosinophils # 0.3 (0.0-0.6) K/mcL Basophils # 0.0 (0.0-0.2) K/mcL PT (9.4-12.1) Seconds INR APTT (26.0-36.0) Seconds Sodium (136-145) mEq/L Potassium (3.5-5.1) mEq/L Chloride (98-107) mEq/L Carbon Dioxide (23-29) mEq/L BUN (8-23) mg/dL Creatinine (0.70-1.30) mg/dL Est GFR ( Amer) (> 60) Est GFR (Non-Af Amer) (> 60) BUN/Creatinine Ratio (6-26) Glucose (70-105) mg/dL Calculated Osmolality (280-300) Calcium (8.6-10.3) mg/dL Total Bilirubin (0.3-1.0) mg/dL Direct Bilirubin (0.0-0.2) mg/dL Indirect Bilirubin (0.0-1.2) mg/dL AST (13-39) Units/L ALT (7-52) Units/L Alkaline Phosphatase (34-104) Units/L Ammonia (16-53) mcmol/L Creatine Kinase (30-223) Units/L Troponin I (< 0.04) ng/mL Serum Total Protein (6.4-8.9) g/dL Albumin (3.5-5.7) g/dL Globulin (2.4-3.5) g/dL Albumin/Globulin Ratio (1.1-2.2) TSH (0.340-5.600) mcIU/mL Urine Color Yellow (Yellow) Urine Clarity Clear (Clear) Urine pH 6.0 (5.0-8.0) pH Units Ur Specific Gipsy 1.019 (1.010-1.025) Urine Protein Negative (Neg-Trace) mg/dL Urine Glucose (UA) >=1000 H (Normal) mg/dL Urine Ketones Negative (Negative) mg/dL Urine Blood Negative (Negative) Urine Nitrite Negative (Negative) Urine Bilirubin Negative (Negative) Urine Urobilinogen Normal (Normal) mg/dL Ur Leukocyte Esterase Negative (Negative) Ur Culture Indicated? NO (NO) Urine Opiates Screen Negative (Zlxjci=239) ng/mL Ur Barbiturates Screen Negative (Dxdtay=874) ng/mL Ur Phencyclidine Scrn Negative (Cutoff=25) ng/mL Ur Amphetamines Screen Negative (Ouwrup=4220) ng/mL U Benzodiazepines Scrn Negative (Caxctp=246) ng/mL Urine Cocaine Screen Negative (Cutoff= 300) ng/mL U Marijuana (THC) Screen Negative (Cutoff = 50) ng/mL Ur Drug Screen Interp See Below Ethyl Alcohol (Less than 10) mg/dL Blood Type Antibody Screen 04/05/18 04/05/18 04/05/18 Range/Units 13:26 13:26 13:26 WBC (4.3-11.1) K/mcL RBC (4.19-5.50) M/mcL Hgb (12.9-16.9) g/dL Hct (37.5-50.1) % MCV (83.0-100.0) fL MCH (28.0-33.3) pg MCHC (31.6-35.5) g/dL RDW (11.5-14.5) % Plt Count (140-400) K/mcL MPV (9.4-12.4) fL Immature Gran % (0-4) % Seg Neutrophils % % Lymphocytes % % Monocytes % % Eosinophils % % Basophils % % Neutrophils # (1.6-8.9) K/mcL Lymphocytes # (0.6-4.6) K/mcL Monocytes # (0.0-1.3) K/mcL Eosinophils # (0.0-0.6) K/mcL Basophils # (0.0-0.2) K/mcL PT 11.9 (9.4-12.1) Seconds INR 1.1 APTT 28.6 (26.0-36.0) Seconds Sodium 135 L (136-145) mEq/L Potassium 4.1 (3.5-5.1) mEq/L Chloride 96 L (98-107) mEq/L Carbon Dioxide 33 H (23-29) mEq/L BUN 23 (8-23) mg/dL Creatinine 1.18 (0.70-1.30) mg/dL Est GFR ( Amer) > 60 (> 60) Est GFR (Non-Af Amer) > 60 (> 60) BUN/Creatinine Ratio 19 (6-26) Glucose 186 H (70-105) mg/dL Calculated Osmolality 289 (280-300) Calcium 9.9 (8.6-10.3) mg/dL Total Bilirubin 0.6 (0.3-1.0) mg/dL Direct Bilirubin 0.2 (0.0-0.2) mg/dL Indirect Bilirubin 0.4 (0.0-1.2) mg/dL AST 12 L (13-39) Units/L ALT 14 (7-52) Units/L Alkaline Phosphatase 61 (34-104) Units/L Ammonia 28 (16-53) mcmol/L Creatine Kinase 55 (30-223) Units/L Troponin I 0.08 H* (< 0.04) ng/mL Serum Total Protein 6.6 (6.4-8.9) g/dL Albumin 4.0 (3.5-5.7) g/dL Globulin 2.6 (2.4-3.5) g/dL Albumin/Globulin Ratio 1.5 (1.1-2.2) TSH 1.835 (0.340-5.600) mcIU/mL Urine Color (Yellow) Urine Clarity (Clear) Urine pH (5.0-8.0) pH Units Ur Specific Gipsy (1.010-1.025) Urine Protein (Neg-Trace) mg/dL Urine Glucose (UA) (Normal) mg/dL Urine Ketones (Negative) mg/dL Urine Blood (Negative) Urine Nitrite (Negative) Urine Bilirubin (Negative) Urine Urobilinogen (Normal) mg/dL Ur Leukocyte Esterase (Negative) Ur Culture Indicated? (NO) Urine Opiates Screen (Lzmjkz=878) ng/mL Ur Barbiturates Screen (Ftgoyv=276) ng/mL Ur Phencyclidine Scrn (Cutoff=25) ng/mL Ur Amphetamines Screen (Vwiuai=6988) ng/mL U Benzodiazepines Scrn (Jnzkfm=218) ng/mL Urine Cocaine Screen (Cutoff= 300) ng/mL U Marijuana (THC) Screen (Cutoff = 50) ng/mL Ur Drug Screen Interp Ethyl Alcohol < 10 (Less than 10) mg/dL Blood Type Antibody Screen 09/25/18 Range/Units 13:26 WBC (4.3-11.1) K/mcL RBC (4.19-5.50) M/mcL Hgb (12.9-16.9) g/dL Hct (37.5-50.1) % MCV (83.0-100.0) fL MCH (28.0-33.3) pg MCHC (31.6-35.5) g/dL RDW (11.5-14.5) % Plt Count (140-400) K/mcL MPV (9.4-12.4) fL Immature Gran % (0-4) % Seg Neutrophils % % Lymphocytes % % Monocytes % % Eosinophils % % Basophils % % Neutrophils # (1.6-8.9) K/mcL Lymphocytes # (0.6-4.6) K/mcL Monocytes # (0.0-1.3) K/mcL Eosinophils # (0.0-0.6) K/mcL Basophils # (0.0-0.2) K/mcL PT (9.4-12.1) Seconds INR APTT (26.0-36.0) Seconds Sodium (136-145) mEq/L Potassium (3.5-5.1) mEq/L Chloride (98-107) mEq/L Carbon Dioxide (23-29) mEq/L BUN (8-23) mg/dL Creatinine (0.70-1.30) mg/dL Est GFR ( Amer) (> 60) Est GFR (Non-Af Amer) (> 60) BUN/Creatinine Ratio (6-26) Glucose (70-105) mg/dL Calculated Osmolality (280-300) Calcium (8.6-10.3) mg/dL Total Bilirubin (0.3-1.0) mg/dL Direct Bilirubin (0.0-0.2) mg/dL Indirect Bilirubin (0.0-1.2) mg/dL AST (13-39) Units/L ALT (7-52) Units/L Alkaline Phosphatase (34-104) Units/L Ammonia (16-53) mcmol/L Creatine Kinase (30-223) Units/L Troponin I (< 0.04) ng/mL Serum Total Protein (6.4-8.9) g/dL Albumin (3.5-5.7) g/dL Globulin (2.4-3.5) g/dL Albumin/Globulin Ratio (1.1-2.2) TSH (0.340-5.600) mcIU/mL Urine Color (Yellow) Urine Clarity (Clear) Urine pH (5.0-8.0) pH Units Ur Specific Gipsy (1.010-1.025) Urine Protein (Neg-Trace) mg/dL Urine Glucose (UA) (Normal) mg/dL Urine Ketones (Negative) mg/dL Urine Blood (Negative) Urine Nitrite (Negative) Urine Bilirubin (Negative) Urine Urobilinogen (Normal) mg/dL Ur Leukocyte Esterase (Negative) Ur Culture Indicated? (NO) Urine Opiates Screen (Uastmj=028) ng/mL Ur Barbiturates Screen (Zzfzxe=315) ng/mL Ur Phencyclidine Scrn (Cutoff=25) ng/mL Ur Amphetamines Screen (Diwqpx=6017) ng/mL U Benzodiazepines Scrn (Wofqpt=324) ng/mL Urine Cocaine Screen (Cutoff= 300) ng/mL U Marijuana (THC) Screen (Cutoff = 50) ng/mL Ur Drug Screen Interp Ethyl Alcohol (Less than 10) mg/dL Blood Type A NEGATIVE Antibody Screen NEGATIVE Attestation Statement - Attestation Attestation: I examined this patient and my medical decision-making was reviewed with the Resident Physician. I agree with the documented findings, disposition and treatment plan as described except to the extent set forth below. 62 year old male presents to the ED with complaints of AMS and frequent falls with recent cardiac catherizatinon and stent placement about 2-3 days ago which required re-stenting. Jose states that he was being evlauted at his PCP and started feel increaslingly worse and had some slurred speech wich has been happening intermittently over the past 2-3 days since his catherizatino. Patient has some concerning EKG with ST elevation in lead 3 that is minor but changed from previois EKG and seems as though the deep t wave inversions were present in previous EKGs. 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 Jose is resting at beside and his neuro defecits have completely resolved. Jose will be admitted to medicine for weakness, AMS and a possible TIA r/o CVA workup. HCT is negative at this time and we will continue manage and admit ot medicine
[2018-04-05 13:29] LABS: Amphetamine Screen,Urine Negative ng/mL (Cutoff=1000); Barbiturate Screen,Urine Negative ng/mL (Cutoff=200); Benzodiazepines Screen,Urine Negative ng/mL (Cutoff=200); Cannabinoid Screen,Urine Negative ng/mL (Cutoff = 50); Cocaine Screen,Urine Negative ng/mL (Cutoff= 300); Opiate Screen,Urine Negative ng/mL (Cutoff=300); Phencyclidine Screen,Urine Negative ng/mL (Cutoff=25)
[2018-04-05 13:44] LABS: Basophils % 0.2 %; Eosinophils # 0.3 K/mcL (0.0-0.6); Eosinophils % 2.2 %; Hematocrit 43.7 % (37.5-50.1); Hemoglobin 15.1 g/dL (12.9-16.9); Immature Granulocytes % 0.3 % (0-4); Mean Corpuscular HGB Conc 34.6 g/dL (31.6-35.5); Mean Corpuscular Hemoglobin 29.9 pg (28.0-33.3); Mean Corpuscular Volume 86.5 fL (83.0-100.0); Mean Platelet Volume 10.1 fL (9.4-12.4); Monocytes # 0.4 K/mcL (0.0-1.3); Monocytes % 3.7 %; Neutrophils # 8.8 K/mcL (1.6-8.9); Platelet Count 252 K/mcL (140-400); Red Blood Count 5.05 M/mcL (4.19-5.50); Red Cell Distribution Width 13.1 % (11.5-14.5); Segmented Neutrophils % 76.6 %
[2018-04-05 13:49] LABS: INR 1.1; Prothrombin Time 11.9 Seconds (9.4-12.1)
[2018-04-05 13:52] LABS: Activated Partial Thrombo Time 28.6 Seconds (26.0-36.0)
[2018-04-05 14:06] LABS: Alanine Aminotransferase 14 Units/L (7-52); Albumin/Globulin Ratio 1.5 (1.1-2.2); Alkaline Phosphatase 61 Units/L (34-104); Aspartate Amino Transferase 12 Units/L (13-39); BUN/Creatinine Ratio 19 (6-26); Bilirubin,Direct 0.2 mg/dL (0.0-0.2); Bilirubin,Indirect 0.4 mg/dL (0.0-1.2); Bilirubin,Total 0.6 mg/dL (0.3-1.0); Blood Urea Nitrogen 23 mg/dL (8-23); Calcium 9.9 mg/dL (8.6-10.3); Carbon Dioxide 33 mEq/L (23-29); Chloride 96 mEq/L (98-107); Creatine Kinase 55 Units/L (30-223); Ethanol < 10 mg/dL (Less than 10); Globulin 2.6 g/dL (2.4-3.5); Glucose 186 mg/dL (70-105); Osmolality,Calculated 289 (280-300); Potassium 4.1 mEq/L (3.5-5.1); Sodium 135 mEq/L (136-145); Total Protein 6.6 g/dL (6.4-8.9); eGFR For Non-African Americans > 60 (> 60)
[2018-04-05 14:10] LABS: Troponin I 0.08 ng/mL (< 0.04)
[2018-04-05 14:17] LABS: Thyroid Stimulating Hormone 1.835 mcIU/mL (0.340-5.600)
[2018-04-05] MEDS ORDERED: Aspirin 325 MG TABLET PO ONE (14:31)
[2018-04-05] MEDS ORDERED: Naloxone 0.4 MG/ML INJ IVP PRN (16:12)
[2018-04-05] MEDS ORDERED: Acetaminophen 325 MG TABLET PO PRN (16:12)
[2018-04-05] MEDS ORDERED: Nitroglycerin 0.4 MG TAB.SUBL SL PRN (16:16)
--- NOTE | 2018-04-05 17:42 | Internal Med History&Physical ---
<Dion Randhawa - Last Filed: 04/05/18 17:34> Date of Encounter: 04/05/18 Time of Encounter: 04:30 Internal Medicine - H&P: HPI Chief complaint: weakness, slurred speech Admitted From: Emergency Dept Plans for Post Hospital Care: Home History of present illness: Mr. Colby is a 62 year old male with past medical history of CAD, hyperlipidemia , hypertension, TIA, diabetes who presented to emergency department with complaint of slurred speech and weakness 1 week. Notably patient is not a reliable historian and does seem to confuse timelines. Of note, he was recently admitted to this facility February [id number] and was evaluated for a NSTEMI undergoing cardiac catheterization with 1 drug-eluting stent placed to the obtuse marginal artery. Patient was again admitted on 03/29/18 for complaints of weakness and again underwent cardiac catheterization and was found to have a 100% stenosis of previously states that that artery. At that time he did admit to medication noncompliance of his aspirin and Plavix and medical management was pursued. Since that discharge, patient states he has been compliant with all his medications however he has not felt the same since that admission. He states that symptoms have been present since discharge and his lightheadedness is worsened with rising from a seated position. He also states that he has had some right lower extremity weakness however denies any symptoms of numbness, tingling, fevers, chills, chest pain, shortness of breath. He is not having any nausea, vomiting, changes in urination or bowel movements. He states he was at his primary care provider's office this afternoon and was told presented to the ER due to his symptoms of lightheadedness. He denies any vertigo. He was also told that he was slurring his speech for the last 2 days however he states that this symptom is now resolved as has his right lower extremity weakness. In the emergency room, vital signs were unremarkable. Laboratory results were significant for mild WBC elevation of 11.5, glucose of 186, baseline sodium of 135, elevated troponin of 0.08. Of note, his troponin on last admission peaked at 20. Urinary drug screen and urinalysis were both unremarkable except for glucosurea. Head CT was obtained on presentation showed no acute intracranial abnormality but did show tiny old infarctions in the left cerebellar hemisphere as well as stable old lacunar infarcts in the left central derrick, caudate nucleus , basal ganglia. Chest x-ray was also obtained and showed slight blunting of the costophrenic sulcus presenting trace pleural effusion, was unremarkable. EKG was also obtained which showed ST depressions in leads V4-V6 which were present upon last admission. He was also noted to have consistent ST elevation isolated in lead 3. Cardiology was consulted from the emergency department and stated that it is believed that his symptoms were not cardiac in nature and his mild troponin elevation is likely continuing to downtrend from previous admission, however they are agreeable to consult on this admission. Past medical history as above Past surgical history includes orthopedic Social history includes chronic one half pack per day smoker, denies alcohol use for the past 2 years, denies drug use Family history significant for high blood pressure Past Med Surg Social Fam HX - Past Medical History Medical history: non-contributory, arthritis, coronary artery disease, hyperlipidemia, hypertension, myocardial infarction, TIA Psychiatric history: no psych history - Past Surgical History Surgical History: no surgical history Additional surgical history: stents, LEFT ANKLE SURGERY, - Social History Smoking Status: Current every day smoker Smokeless Tobacco Status: No Alcohol use: occasionally Drug use: none - Family History Father Adopted: No Family Member Ethnicity: Non- Living Status: Hx Family Cardiac Disorders: Yes (Father) Hx Family Respiratory Disorders: No Hx Family Cancer: No Hx Family GI Disorders: Yes (Father) Hx Family Neuromuscular Disorders: No Mother Adopted: No Family Member Ethnicity: Non- Living Status: Still Living Hx Family Cardiac Disorders: No Hx Family Respiratory Disorders: No Hx Family Cancer: Yes Hx Family GI Disorders: No Hx Family Endocrine Disorder: No Hx Family Neuromuscular Disorders: No Hx Family Neurologic Disorders: No Hx Family HEENT Disorders: No Hx Family Autoimmune Disorders: No Internal Medicine - H&P: Meds Clopidogrel [Plavix] 75 mg PO DAILY #30 tablet 07/23/15 [Rx] Nitroglycerin 0.4 mg SL Q5M PRN 09/03/16 [History] Albuterol Sulfate [Proventil Hfa] 2 puff IH Q4H PRN 08/14/17 [History] Gabapentin [Neurontin] 600 mg PO TID 08/14/17 [History] Lisinopril/Hydrochlorothiazide [Zestoretic 20-12.5 mg Tablet] 1 tab PO DAILY 09/26 [History] Tamsulosin [Flomax] 0.4 mg PO DAILY 08/14/17 [History] Aspirin Enteric Coated [Aspirin EC] 81 mg PO DAILY #30 tablet. 02/12/18 [Rx] Amlodipine Besylate 10 mg PO DAILY 03/29/18 [History] Atorvastatin Calcium [Lipitor] 80 mg PO HS 03/29/18 [History] Cyclobenzaprine [Flexeril] 10 mg PO HS 03/29/18 [History] Isosorbide MONOnitrate (24 HR) [Imdur] 60 mg PO DAILY 03/29/18 [History] Metoprolol Succinate [Toprol Xl] 100 mg PO DAILY 03/29/18 [History] Oxybutynin [Ditropan] 5 mg PO BID 03/29/18 [History] predniSONE [PredniSONE] 10 mg PO DAILY 8 Days tablet 04/01/18 [Rx] 3 Allergy/AdvReac Type Severity Reaction Status Date / Time No Known Allergies Allergy Verified 04/05/18 14:34 All Systems PM: A 10-system review of systems was performed and is negative for pertinent findings except as documented above in the HPI. Review of systems: - Constitutional: Admits to weakness Denies fevers, chills, weight loss, generalized fatigue - EENT: Denies vision changes/blurriness, tinnitus, auditory changes, rhinorrhea , congestion, sore throat, odynaphagia - CVS: Denies chest pain, palpitations, HADDAD, orthopnea, edema, PND, - Pulm: Admits to cough, nonproductive. Denies SOB, sputum, hematemesis, wheezing - GI: Denies abdominal pain, anorexia, nausea, vomiting, diarrhea, constipation , melena - : Denies dysuria, increased frequency, urgency, hematuria, - Skin: Denies rashes, ulcers, color changes, - Neuro: Admits to slurred speech, right lower extremity weakness which have resolved. Denies MCCRARY, paresthesias, focal deficits, ataxia, - Constitutional Vitals: Temp Pulse Resp BP Pulse Ox 98.3 F 61 20 124/64 97 04/05/18 12:38 04/05/18 14:04 04/05/18 12:38 04/05/18 14:04 04/05/18 12:38 Exam: Gen.: Vitals noted. No acute distress. AAOx3. Resting comfortably in bed HEENT: PERRL/EOMI, oropharynx clear, Normocephalic, atraumatic, MMM Cardiac: RRR, no murmur, +S1/S2 Pulmonary: Mildly decreased breath sounds in bilateral bases, otherwise CTA bilaterally, no wheezes, rales or rhonchi, equal chest expansion Abdomen: soft, nontender, BS noted, no guarding, no rebound. MSK: ROM intact, no joint swelling noted. Muscle strength 5/5 throughout Extremities: no BLE edema, nontender calf, no cyanosis or clubbing Neuro: A&Ox3, moves all extremities, no focal deficits. Cranial nerves II through XII grossly intact Skin: Multiple telangectasias on his on back, mild rash on back of neck. Psych: Appropriate mood and behavior Internal Med - H&P Results - Labs CBC & Chem 7: 04/05/18 13:26 04/05/18 13:26 Labs: Short CBC 04/05/18 Range/Units 13:26 WBC 11.5 H (4.3-11.1) K/mcL Hgb 15.1 D (12.9-16.9) g/dL Hct 43.7 (37.5-50.1) % Plt Count 252 (140-400) K/mcL Neutrophils # 8.8 (1.6-8.9) K/mcL BMP 04/05/18 13:26 Sodium 135 L Potassium 4.1 Chloride 96 L Carbon Dioxide 33 H BUN 23 Creatinine 1.18 Glucose 186 H Calcium 9.9 Cardiac Enzymes 04/05/18 Range/Units 13:26 Troponin I 0.08 H* (< 0.04) ng/mL Liver Function 04/05/18 Range/Units 13:26 Total Bilirubin 0.6 (0.3-1.0) mg/dL Direct Bilirubin 0.2 (0.0-0.2) mg/dL AST 12 L (13-39) Units/L ALT 14 (7-52) Units/L Alkaline Phosphatase 61 (34-104) Units/L Albumin 4.0 (3.5-5.7) g/dL Urine 04/05/18 Range/Units 13:05 Urine Color Yellow (Yellow) Urine Clarity Clear (Clear) Urine pH 6.0 (5.0-8.0) pH Units Ur Specific [place] 1.019 (1.010-1.025) Urine Protein Negative (Neg-Trace) mg/dL Urine Glucose (UA) >=1000 H (Normal) mg/dL - Impressions ITS Impressions Chest X-Ray 04/05/18 12:50 IMPRESSION: No significant change in the chest from recent prior imaging. Slight blunting of the collect costophrenic sulcus may represent a trace pleural effusion. D/ / Stefan Hensley MD / Stefan Hensley MD Interpreting Provider: Stefan Hensley MD Head CT 04/05/18 12:50 IMPRESSION: No acute intracranial abnormality. 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 Stable small old lacunar infarcts in the left central derrick, left head of caudate nucleus, bilateral basal ganglia and bilateral thalami Mild parenchymal volume loss. Moderate chronic microvascular disease. D/ / Haseeb Joseph MD / Haseeb Joseph MD Interpreting Provider: Haseeb Joseph MD - Assessment and plan (1) Weakness Current Visit: Yes Status: Acute Assessment and plan: - Patient reports acute on chronic weakness present since discharge on last admission - Also admits to slurring of speech and right lower extremity focal weakness which is since resolved - He is out of the window for thrombolytics - CT head obtained emergency department was negative for acute infarct however did show small chronic microinfarcts - Suspect that this is possibly deconditioning versus less likely TIA versus dehydration in nature. Lower suspicion for cardiac etiology at this time however would appreciate further cardiology input given EKG changes and troponin elevation. - Patient was recommended to go to rehabilitation facility on discharge at last visit however he did refuse - Labs and imaging studies thus far unremarkable except for as below Plan - We will obtain MRI of the head to rule out TIA/CVA - Consult cardiology as below for possible cardiac etiology - We will consult physical and occupational therapy - Continue aspirin, Plavix, statin - Obtain orthostatic blood pressures (2) CAD (coronary artery disease) Current Visit: Yes Status: Chronic Assessment and plan: - History of significant coronary artery disease with most recent cardiac workup including left heart catheterization on 03/31/18 with findings of 100% occluded obtuse marginal artery. At that time it was decided that medical management would be pursued. Ejection fraction noted to be 50%. Recommendations at that time including medical management, risk factor modification, it was also noted that if he can demonstrate medical compliance, return for PCI of left proximal circumflex artery. Patient reports compliance however previously noted less than 2 weeks ago he was noncompliant - Troponin mildly elevated at 0.08 with previous readings as high as 20 - Cardiology was consult emergency department and believes that this is not likely related to his symptoms - EKG changes noted in history of present illness - Of note, patient is experiencing no chest pain or shortness of breath - He also did have a recent echocardiogram, carotid ultrasound within the last month which were both unremarkable, we will not repeat at this time Plan - Continue home aspirin, statin, Plavix, beta ibeth - Trend troponins - Consult to cardiology has been placed, appreciate recommendations - Suspect that etiology of symptoms is more likely neurologic in nature, will rule out as above. Qualifiers: Coronary Disease-Associated Artery/Lesion type: [place] artery [place] vs. transplanted heart: [place] heart Associated angina: without angina Qualified Code(s): I25.10 - Atherosclerotic heart disease of [place] coronary artery without angina pectoris (3) HTN (hypertension) Current Visit: Yes Status: Chronic Assessment and plan: Well-controlled at this time with most recent reading of 124/64 We will continue home medications Qualifiers: Hypertension type: essential hypertension Qualified Code(s): I10 - Essential (primary) hypertension (4) HLD (hyperlipidemia) Current Visit: Yes Status: Chronic Assessment and plan: Continue home statin, high intensity Qualifiers: Hyperlipidemia type: unspecified Qualified Code(s): E78.5 - Hyperlipidemia , unspecified (5) Diabetes mellitus Current Visit: Yes Status: Chronic Assessment and plan: - Newly diagnosed diabetes, not on home diabetic medications - A1c of 6.5% on 02/10/18 - Currently diet controlled at home however he is also noted to be on prednisone as outpatient, of uncertain etiology - We will continue monitor and start insulin as necessary Qualifiers: Diabetes mellitus type: type 2 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 use: without [place] [facility] use Diabetes mellitus complication status: with circulatory complication Diabetes mellitus complication detail: with other circulatory complications Qualified Code(s): E11.59 - Type 2 diabetes mellitus with other circulatory complications (6) Elevated troponin Current Visit: Yes Status: Acute Assessment and plan: Troponin elevated at 0.08 as above We will continue to trend Less likely suspicion for acute coronary symptom at this time, will not start anticoagulation (7) Tobacco abuse Current Visit: Yes Status: Chronic Assessment and plan: Patient continues to smoke one half pack per day He was counseled on cessation, unwilling to quit at this time (8) COPD (chronic obstructive pulmonary disease) Current Visit: Yes Status: Chronic Assessment and plan: Does not appear to be in acute exacerbation No home oxygen requirement, tolerating room air Continue home breathing treatments Qualifiers: COPD type: COPD with acute exacerbation Qualified Code(s): J44.1 - Chronic obstructive pulmonary disease with (acute) exacerbation (9) DVT prophylaxis Current Visit: Yes Status: Acute Assessment and plan: Heparin 5000 units every 12 hours (10) Acute electrocardiogram changes Current Visit: Yes Status: Acute Assessment and plan: As stated in history of present illness - ST elevation noted in lead 3 - Right-sided leads were obtained for ST depressions in lateral leads and EKG was communicated to cardiology in emergency department - We will continue to monitor and trend troponins - Appreciate cardiology input - Time Spent With Patient Total time spent is greater than 50% in coordination of care (as documented) at patient's floor/unit and/or counseling patient: <Rowan Ulloa - Last Filed: 04/05/18 18:19> Date of Encounter: 04/05/18 Internal Medicine - H&P: HPI History of present illness: Mr. Colby is a 62 year old male All Systems PM: A 10-system review of systems was performed and is negative for pertinent findings except as documented above in the HPI. - Constitutional Vitals: Temp Pulse Resp BP Pulse Ox 98.3 F 61 20 124/64 97 04/05/18 12:38 04/05/18 14:04 04/05/18 12:38 04/05/18 14:04 04/05/18 12:38 Internal Med - H&P Results - Labs CBC & Chem 7: 04/05/18 13:26 04/05/18 13:26 Labs: Short CBC 04/05/18 Range/Units 13:26 WBC 11.5 H (4.3-11.1) K/mcL Hgb 15.1 D (12.9-16.9) g/dL Hct 43.7 (37.5-50.1) % Plt Count 252 (140-400) K/mcL Neutrophils # 8.8 (1.6-8.9) K/mcL BMP 04/05/18 13:26 Sodium 135 L Potassium 4.1 Chloride 96 L Carbon Dioxide 33 H BUN 23 Creatinine 1.18 Glucose 186 H Calcium 9.9 Cardiac Enzymes 04/05/18 Range/Units 13:26 Troponin I 0.08 H* (< 0.04) ng/mL Liver Function 04/05/18 Range/Units 13:26 Total Bilirubin 0.6 (0.3-1.0) mg/dL Direct Bilirubin 0.2 (0.0-0.2) mg/dL AST 12 L (13-39) Units/L ALT 14 (7-52) Units/L Alkaline Phosphatase 61 (34-104) Units/L Albumin 4.0 (3.5-5.7) g/dL Urine 04/05/18 Range/Units 13:05 Urine Color Yellow (Yellow) Urine Clarity Clear (Clear) Urine pH 6.0 (5.0-8.0) pH Units Ur Specific [place] 1.019 (1.010-1.025) Urine Protein Negative (Neg-Trace) mg/dL Urine Glucose (UA) >=1000 H (Normal) mg/dL - Impressions ITS Impressions Chest X-Ray 04/05/18 12:50 IMPRESSION: No significant change in the chest from recent prior imaging. Slight blunting of the collect costophrenic sulcus may represent a trace pleural effusion. D/ / Stefan Hensley MD / Stefan Hensley MD Interpreting Provider: Stefan Hensley MD Head CT 04/05/18 12:50 IMPRESSION: No acute intracranial abnormality. 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 Stable small old lacunar infarcts in the left central derrick, left head of caudate nucleus, bilateral basal ganglia and bilateral thalami Mild parenchymal volume loss. Moderate chronic microvascular disease. D/ / Haseeb Joseph MD / Haseeb Joseph MD Interpreting Provider: Haseeb Joseph MD - Assessment and plan (1) CAD (coronary artery disease) Current Visit: Yes Status: Chronic Qualifiers: Coronary Disease-Associated Artery/Lesion type: [place] artery [place] vs. transplanted heart: [place] heart Associated angina: without angina Qualified Code(s): I25.10 - Atherosclerotic heart disease of [place] coronary artery without angina pectoris (2) HTN (hypertension) Current Visit: Yes Status: Chronic Qualifiers: Hypertension type: essential hypertension Qualified Code(s): I10 - Essential (primary) hypertension (3) HLD (hyperlipidemia) Current Visit: Yes Status: Chronic Qualifiers: Hyperlipidemia type: unspecified Qualified Code(s): E78.5 - Hyperlipidemia , unspecified (4) DVT prophylaxis Current Visit: Yes Status: Acute (5) Diabetes mellitus Current Visit: Yes Status: Chronic Qualifiers: Diabetes mellitus type: type 2 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 use: without [place] use Diabetes mellitus complication status: with circulatory complication Diabetes mellitus complication detail: with other circulatory complications Qualified Code(s): E11.59 - Type 2 diabetes mellitus with other circulatory complications (6) Elevated troponin Current Visit: Yes Status: Acute (7) Tobacco abuse Current Visit: Yes Status: Chronic (8) COPD (chronic obstructive pulmonary disease) Current Visit: Yes Status: Chronic Qualifiers: COPD type: COPD with acute exacerbation Qualified Code(s): J44.1 - Chronic obstructive pulmonary disease with (acute) exacerbation (9) Weakness Current Visit: Yes Status: Acute (10) Acute electrocardiogram changes Current Visit: Yes Status: Acute - Time Spent With Patient Total time spent is greater than 50% in coordination of care (as documented) at patient's floor/unit and/or counseling patient: - Attending Attestation I have seen and examined this pt independently. I have discussed with resident physician Dr. Randhawa regarding the management plan. Agree with the documentation.
[2018-04-05] MEDS: *HR* Heparin 5,000 UNIT/ML VIAL SQ SCH (22:05)
[2018-04-05] MEDS: Gabapentin 300 MG CAPSULE PO SCH (22:40)
[2018-04-06 02:00] LABS: Basophils % 0.2 %; Eosinophils # 0.5 K/mcL (0.0-0.6); Eosinophils % 4.4 %; Hematocrit 43.1 % (37.5-50.1); Hemoglobin 14.8 g/dL (12.9-16.9); Immature Granulocytes % 0.4 % (0-4); Lymphocytes # 3.5 K/mcL (0.6-4.6); Lymphocytes % 32.5 %; Mean Corpuscular HGB Conc 34.3 g/dL (31.6-35.5); Mean Corpuscular Hemoglobin 29.4 pg (28.0-33.3); Mean Corpuscular Volume 85.7 fL (83.0-100.0); Monocytes # 0.6 K/mcL (0.0-1.3); Monocytes % 5.3 %; Neutrophils # 6.2 K/mcL (1.6-8.9); Platelet Count 243 K/mcL (140-400); Red Blood Count 5.03 M/mcL (4.19-5.50); Red Cell Distribution Width 13.1 % (11.5-14.5); Segmented Neutrophils % 57.2 %
[2018-04-06 02:19] LABS: BUN/Creatinine Ratio 23 (6-26); Blood Urea Nitrogen 23 mg/dL (8-23); Calcium 9.5 mg/dL (8.6-10.3); Carbon Dioxide 25 mEq/L (23-29); Chloride 103 mEq/L (98-107); Chol/HDL Ratio 2.8 (0-4.9); Cholesterol 116 mg/dL (< 200); Glucose 115 mg/dL (70-105); HDL Cholesterol 42 mg/dL (40-59); LDL Cholesterol,Calculated 49 mg/dL (0-99); Magnesium 1.9 mg/dL (1.6-2.6); Osmolality,Calculated 287 (280-300); Potassium 3.8 mEq/L (3.5-5.1); Sodium 136 mEq/L (136-145); Triglycerides 125 mg/dL (< 150); eGFR For Non-African Americans > 60 (> 60)
[2018-04-06] MEDS: *HR* Heparin 5,000 UNIT/ML VIAL SQ SCH ×2 (04:35→21:54)
[2018-04-06] MEDS: Isosorbide MONOnitrate (24 HR) 60 MG TAB.ER.24H PO SCH (08:23)
[2018-04-06] MEDS: Gabapentin 300 MG CAPSULE PO SCH ×3 (08:23→21:54)
[2018-04-06] MEDS: Aspirin Enteric Coated 81 MG Tablet PO SCH (08:23)
[2018-04-06] MEDS: Metoprolol XL (24 HR) Succ 50 MG TAB.ER.24H PO SCH (08:24)
[2018-04-06] MEDS ORDERED: amLODIPine 5 MG TABLET PO SCH (09:00)
--- NOTE | 2018-04-06 12:09 | Cardiology Consult Note ---
Date of Encounter: 04/06/18 Time of Encounter: 12:06 Assessment and Plan (1) Elevated troponin Current Visit: Yes Status: Acute Consulted for elevated troponin--0.08, 0.09, 0.09 in setting of acute CVA-- demand ischemia, nondiagnostic for ACS. ECG with incomplete LBBB and T wave inversions improved compared to previous. Known CAD with occluded OM on [facility] 03/31/18 with hx of noncompliance. Medical management was recommended. No repeat ischemic evaluation is warranted at this time and is contraindicated in setting of acute CVA. Anticipate sign off once seen and evaluated by Dr. Guerrero. (2) CAD (coronary artery disease) Current Visit: Yes Status: Chronic [facility] 03/31/18: There is severe coronary artery disease. The left ventricle is normal and has normal contractility EF 50%. DAPT noncompliance. Occluded OM stent Recommendations were ptimal medical therapy of patient's disease. Aggressive risk factor modification. If can demonstrate medical compliance, return for PCI of proximal LCx. Given acute CVA, recommend continued medical management--ASA, Plavix, Statin, BB , Imdur. Qualifiers: Coronary Disease-Associated Artery/Lesion type: [place] artery [place] vs. transplanted heart: [place] heart Associated angina: without angina Qualified Code(s): I25.10 - Atherosclerotic heart disease of [place] coronary artery without angina pectoris (3) Acute cerebral infarction Current Visit: No Status: Acute Brain MRI shows Small acute infarction in the left central derrick. Small old infarctions in the left cerebellar hemisphere. Scattered small old lacunar infarcts. A few scattered tiny susceptibility artifacts, likely related to small old petechial hemorrhage versus multiple small cavernomas or mild amyloid angiopathy, grossly stable. Mild parenchymal volume loss. Moderate chronic microvascular disease. Management per primary team/neurology. Discussion w patient/family: The assessment and plan as outlined above was discussed with the patient and/or family members who expressed understanding and agreement. All questions were answered. Thank you for involving us in the care of your patient. Please call with any questions. I will discuss all the above with Dr. Guerrero and make changes as necessary. History of Present Illness Consult date: 04/06/18 Requesting physician: Rowan Ulloa Consult reason: Elevated troponin Chief complaint: weakness, slurred speech History of present illness: Mr. Colby is a 62 year old male with a relevant past medical history of DM, HTN, CAD s/p PCI to OM 02/2017 who presented to [facility] with complaints of weakness and slurred speech over the past week. He denies chest pain. Reports chronic dyspnea. Pt was recently hospitalized earlier this month for weakness. He admitted to missing doses of his DAPT and underwent a stress test which was abnormal, then underwent LHC that showed occluded OM--medical management recommended. Troponins 0.08, 0.09, 0.09. EKG similar/improved compared to last admission. Incomplete LBBB. Brain MRI shows Small acute infarction in the left central derrick. Small old infarctions in the left cerebellar hemisphere. Scattered small old lacunar infarcts. A few scattered tiny susceptibility artifacts, likely related to small old petechial hemorrhage versus multiple small cavernomas or mild amyloid angiopathy, grossly stable. Mild parenchymal volume loss. Moderate chronic microvascular disease. Prior CV testing: C 03/31/18: There is severe coronary artery disease. The left ventricle is normal and has normal contractility EF 50%. DAPT noncompliance. Occluded OM stent Recommendations:Optimal medical therapy of patient's disease. Aggressive risk factor modification. If can demonstrate medical compliance, return for PCI of proximal LCx. Stress test 03/31/18: Moderate sized moderate intensity reversible perfusion defect at mid to basal inferolateral wall with hypokinesia suggests ischemia of moderate size (SDS=6). Fixed perfusion defect at inferior and inferolateral wall suggests prior infarction. LVEF 50%. TTE 02/11/18: LVEF 50%. Increased LV wall thickness not well measured. Indeterminate diastolic function. Normal right ventricular structure and function. No significant valvular dysfunction. No pulmonary hypertension. Past Med Surg Social Fam HX - Past Medical History Medical history: non-contributory, arthritis, coronary artery disease, hyperlipidemia, hypertension, myocardial infarction, TIA Psychiatric history: no psych history - Past Surgical History Surgical History: no surgical history Additional surgical history: stents, LEFT ANKLE SURGERY, - Social History Smoking Status: Current every day smoker Smokeless Tobacco Status: No Alcohol use: occasionally Drug use: none - Family History Father Adopted: No Family Member Ethnicity: Non- Living Status: Hx Family Cardiac Disorders: Yes (Father) Hx Family Respiratory Disorders: No Hx Family Cancer: No Hx Family GI Disorders: Yes (Father) Hx Family Neuromuscular Disorders: No Mother Adopted: No Family Member Ethnicity: Non- Living Status: Still Living Hx Family Cardiac Disorders: No Hx Family Respiratory Disorders: No Hx Family Cancer: Yes Hx Family GI Disorders: No Hx Family Endocrine Disorder: No Hx Family Neuromuscular Disorders: No Hx Family Neurologic Disorders: No Hx Family HEENT Disorders: No Hx Family Autoimmune Disorders: No Medications and Allergies Clopidogrel [Plavix] 75 mg PO DAILY #30 tablet 07/23/15 [Rx] Nitroglycerin 0.4 mg SL Q5M PRN 09/03/16 [History] Albuterol Sulfate [Proventil Hfa] 2 puff IH Q4H PRN 08/14/17 [History] Gabapentin [Neurontin] 600 mg PO TID 08/14/17 [History] Lisinopril/Hydrochlorothiazide [Zestoretic 20-12.5 mg Tablet] 1 tab PO DAILY 09/26 [History] Tamsulosin [Flomax] 0.4 mg PO DAILY 08/14/17 [History] Aspirin Enteric Coated [Aspirin EC] 81 mg PO DAILY #30 tablet. 02/12/18 [Rx] Amlodipine Besylate 10 mg PO DAILY 03/29/18 [History] Atorvastatin Calcium [Lipitor] 80 mg PO HS 03/29/18 [History] Cyclobenzaprine [Flexeril] 10 mg PO HS 03/29/18 [History] Isosorbide MONOnitrate (24 HR) [Imdur] 60 mg PO DAILY 03/29/18 [History] Metoprolol Succinate [Toprol Xl] 100 mg PO DAILY 03/29/18 [History] Oxybutynin [Ditropan] 5 mg PO BID 03/29/18 [History] predniSONE [PredniSONE] 10 mg PO DAILY 8 Days tablet 04/01/18 [Rx] 3 Allergy/AdvReac Type Severity Reaction Status Date / Time No Known Allergies Allergy Verified 04/05/18 14:34 All Systems Review: The remainder of the systems were reviewed and are negative - Constitutional Constitutional: weakness - Cardiovascular Cardiovascular: as per HPI Physical Examination Vital Signs, Last 4 Hours Temp Pulse Resp BP Pulse Ox 04/06/18 11:40 97.9 F 58 20 138/76 96 04/06/18 10:25 98.7 F 62 16 136/79 04/06/18 08:11 98.2 F 66 19 136/79 97 Vital Signs Temp Pulse Resp BP Pulse Ox 04/06/18 11:40 97.9 F 58 20 138/76 96 04/06/18 10:25 98.7 F 62 16 136/79 04/06/18 08:11 98.2 F 66 19 136/79 97 04/06/18 04:00 98.3 F 63 22 131/74 92 04/06/18 00:22 98.3 F 61 20 148/100 93 04/05/18 21:02 98.0 F 67 22 155/100 95 04/05/18 14:04 61 124/64 04/05/18 12:38 98.3 F 62 20 110/73 97 Intake and Output 04/05/18 04/06/18 04/06/18 23:59 07:59 15:59 Intake Total 0 / 0 60 / 60 480 / 480 Output Total 650 / 650 Balance 0 / 0 -590 / -590 480 / 480 Intake: Oral 0 / 0 60 / 60 480 / 480 Output: Urine 650 / 650 Other: Meal Breakfast Percent of Meal Consumed 100% # Voids 1 1 Weight 88.32 kg 88.32 kg Blood Glucose* 140 135 Patient Weight 04/06/18 23:59 Weight 88.32 kg General: Conversant, No Apparent Distress HEENT: Atraumatic, Normocephaly, Mucus Membranes Moist Neck: No JVD, Normal carotid pulses Cardiac: Reg Rate and Rhythm, Normal S1 and S2, No Murmur Lungs: Normal Breath Sounds, No Wheeze, Rales, Rhonchi Neuro: Alert and responsive, No focal deficits noted Abdomen: Soft, Non-Tender Skin: No rashes noted on visualized skin Musculoskeletal: No Chest Wall Tenderness Extremities: No Clubbing, No Cyanosis, No Edema, Normal Pulses Results 04/06/18 01:27 04/06/18 01:27 Lab Results 04/05/18 04/06/18 04/06/18 19:41 01:27 01:27 WBC 10.9 Hgb 14.8 Hct 43.1 Plt Count 243 Sodium Potassium Chloride Carbon Dioxide BUN Creatinine Glucose Calcium Magnesium Troponin I 0.09 H* 0.09 H* 04/06/18 01:27 WBC Hgb Hct Plt Count Sodium 136 Potassium 3.8 Chloride 103 Carbon Dioxide 25 BUN 23 Creatinine 0.99 Glucose 115 H Calcium 9.5 Magnesium 1.9 Troponin I Short CBC 0904/06/18 04/06/18 Range/Units 01:27 01:27 01:27 WBC 10.9 (4.3-11.1) K/mcL RBC 5.03 (4.19-5.50) M/mcL Hgb 14.8 (12.9-16.9) g/dL Hct 43.1 (37.5-50.1) % MCV 85.7 (83.0-100.0) fL MCH 29.4 (28.0-33.3) pg MCHC 34.3 (31.6-35.5) g/dL RDW 13.1 (11.5-14.5) % Plt Count 243 (140-400) K/mcL MPV 10.0 (9.4-12.4) fL Immature Gran % 0.4 (0-4) % Seg Neutrophils % 57.2 % Lymphocytes % 32.5 % Monocytes % 5.3 % Eosinophils % 4.4 % Basophils % 0.2 % Neutrophils # 6.2 (1.6-8.9) K/mcL Lymphocytes # 3.5 (0.6-4.6) K/mcL Monocytes # 0.6 (0.0-1.3) K/mcL Eosinophils # 0.5 (0.0-0.6) K/mcL Basophils # 0.0 (0.0-0.2) K/mcL PT (9.4-12.1) Seconds INR APTT (26.0-36.0) Seconds Sodium 136 (136-145) mEq/L Potassium 3.8 (3.5-5.1) mEq/L Chloride 103 (98-107) mEq/L Carbon Dioxide 25 (23-29) mEq/L BUN 23 (8-23) mg/dL Creatinine 0.99 (0.70-1.30) mg/dL Est GFR ( Amer) > 60 (> 60) Est GFR (Non-Af Amer) > 60 (> 60) BUN/Creatinine Ratio 23 (6-26) Glucose 115 H (70-105) mg/dL POC Glucose (70-99) mg/dL Calculated Osmolality 287 (280-300) Calcium 9.5 (8.6-10.3) mg/dL Magnesium 1.9 (1.6-2.6) mg/dL Total Bilirubin (0.3-1.0) mg/dL Direct Bilirubin (0.0-0.2) mg/dL Indirect Bilirubin (0.0-1.2) mg/dL AST (13-39) Units/L ALT (7-52) Units/L Alkaline Phosphatase (34-104) Units/L Ammonia (16-53) mcmol/L Creatine Kinase (30-223) Units/L Troponin I 0.09 H* (< 0.04) ng/mL Serum Total Protein (6.4-8.9) g/dL Albumin (3.5-5.7) g/dL Globulin (2.4-3.5) g/dL Albumin/Globulin Ratio (1.1-2.2) Triglycerides 125 (< 150) mg/dL Cholesterol 116 (< 200) mg/dL LDL Cholesterol, Calc 49 (0-99) mg/dL VLDL Cholesterol, Calc 25 (< 31) mg/dL HDL Cholesterol 42 (40-59) mg/dL Cholesterol/HDL Ratio 2.8 (0-4.9) TSH (0.340-5.600) mcIU/mL Urine Color (Yellow) Urine Clarity (Clear) Urine pH (5.0-8.0) pH Units Ur Specific [place] (1.010-1.025) Urine Protein (Neg-Trace) mg/dL Urine Glucose (UA) (Normal) mg/dL Urine Ketones (Negative) mg/dL Urine Blood (Negative) Urine Nitrite (Negative) Urine Bilirubin (Negative) Urine Urobilinogen (Normal) mg/dL Ur Leukocyte Esterase (Negative) Ur Culture Indicated? (NO) Urine Opiates Screen (Apwxsl=520) ng/mL Ur Barbiturates Screen (Hgqmfa=403) ng/mL Ur Phencyclidine Scrn (Cutoff=25) ng/mL Ur Amphetamines Screen (Vpvlql=5184) ng/mL U Benzodiazepines Scrn (Jrhadz=071) ng/mL Urine Cocaine Screen (Cutoff= 300) ng/mL U Marijuana (THC) Screen (Cutoff = 50) ng/mL Ur Drug Screen Interp Ethyl Alcohol (Less than 10) mg/dL 04/05/18 04/05/18 04/05/18 Range/Units 19:41 13:26 13:26 WBC (4.3-11.1) K/mcL RBC (4.19-5.50) M/mcL Hgb (12.9-16.9) g/dL Hct (37.5-50.1) % MCV (83.0-100.0) fL MCH (28.0-33.3) pg MCHC (31.6-35.5) g/dL RDW (11.5-14.5) % Plt Count (140-400) K/mcL MPV (9.4-12.4) fL Immature Gran % (0-4) % Seg Neutrophils % % Lymphocytes % % Monocytes % % Eosinophils % % Basophils % % Neutrophils # (1.6-8.9) K/mcL Lymphocytes # (0.6-4.6) K/mcL Monocytes # (0.0-1.3) K/mcL Eosinophils # (0.0-0.6) K/mcL Basophils # (0.0-0.2) K/mcL PT (9.4-12.1) Seconds INR APTT (26.0-36.0) Seconds Sodium 135 L (136-145) mEq/L Potassium 4.1 (3.5-5.1) mEq/L Chloride 96 L (98-107) mEq/L Carbon Dioxide 33 H (23-29) mEq/L BUN 23 (8-23) mg/dL Creatinine 1.18 (0.70-1.30) mg/dL Est GFR ( Amer) > 60 (> 60) Est GFR (Non-Af Amer) > 60 (> 60) BUN/Creatinine Ratio 19 (6-26) Glucose 186 H (70-105) mg/dL POC Glucose (70-99) mg/dL Calculated Osmolality 289 (280-300) Calcium 9.9 (8.6-10.3) mg/dL Magnesium (1.6-2.6) mg/dL Total Bilirubin 0.6 (0.3-1.0) mg/dL Direct Bilirubin 0.2 (0.0-0.2) mg/dL Indirect Bilirubin 0.4 (0.0-1.2) mg/dL AST 12 L (13-39) Units/L ALT 14 (7-52) Units/L Alkaline Phosphatase 61 (34-104) Units/L Ammonia 28 (16-53) mcmol/L Creatine Kinase 55 (30-223) Units/L Troponin I 0.09 H* 0.08 H* (< 0.04) ng/mL Serum Total Protein 6.6 (6.4-8.9) g/dL Albumin 4.0 (3.5-5.7) g/dL Globulin 2.6 (2.4-3.5) g/dL Albumin/Globulin Ratio 1.5 (1.1-2.2) Triglycerides (< 150) mg/dL Cholesterol (< 200) mg/dL LDL Cholesterol, Calc (0-99) mg/dL VLDL Cholesterol, Calc (< 31) mg/dL HDL Cholesterol (40-59) mg/dL Cholesterol/HDL Ratio (0-4.9) TSH 1.835 (0.340-5.600) mcIU/mL Urine Color (Yellow) Urine Clarity (Clear) Urine pH (5.0-8.0) pH Units Ur Specific [place] (1.010-1.025) Urine Protein (Neg-Trace) mg/dL Urine Glucose (UA) (Normal) mg/dL Urine Ketones (Negative) mg/dL Urine Blood (Negative) Urine Nitrite (Negative) Urine Bilirubin (Negative) Urine Urobilinogen (Normal) mg/dL Ur Leukocyte Esterase (Negative) Ur Culture Indicated? (NO) Urine Opiates Screen (Jirjwr=070) ng/mL Ur Barbiturates Screen (Smuyqh=368) ng/mL Ur Phencyclidine Scrn (Cutoff=25) ng/mL Ur Amphetamines Screen (Uiuyzv=8686) ng/mL U Benzodiazepines Scrn (Ukfavd=961) ng/mL Urine Cocaine Screen (Cutoff= 300) ng/mL U Marijuana (THC) Screen (Cutoff = 50) ng/mL Ur Drug Screen Interp Ethyl Alcohol < 10 (Less than 10) mg/dL 04/05/18 04/05/18 04/05/18 Range/Units 13:26 13:26 13:05 WBC 11.5 H (4.3-11.1) K/mcL RBC 5.05 (4.19-5.50) M/mcL Hgb 15.1 D (12.9-16.9) g/dL Hct 43.7 (37.5-50.1) % MCV 86.5 (83.0-100.0) fL MCH 29.9 (28.0-33.3) pg MCHC 34.6 (31.6-35.5) g/dL RDW 13.1 (11.5-14.5) % Plt Count 252 (140-400) K/mcL MPV 10.1 (9.4-12.4) fL Immature Gran % 0.3 (0-4) % Seg Neutrophils % 76.6 % Lymphocytes % 17.0 % Monocytes % 3.7 % Eosinophils % 2.2 % Basophils % 0.2 % Neutrophils # 8.8 (1.6-8.9) K/mcL Lymphocytes # 2.0 (0.6-4.6) K/mcL Monocytes # 0.4 (0.0-1.3) K/mcL Eosinophils # 0.3 (0.0-0.6) K/mcL Basophils # 0.0 (0.0-0.2) K/mcL PT 11.9 (9.4-12.1) Seconds INR 1.1 APTT 28.6 (26.0-36.0) Seconds Sodium (136-145) mEq/L Potassium (3.5-5.1) mEq/L Chloride (98-107) mEq/L Carbon Dioxide (23-29) mEq/L BUN (8-23) mg/dL Creatinine (0.70-1.30) mg/dL Est GFR ( Amer) (> 60) Est GFR (Non-Af Amer) (> 60) BUN/Creatinine Ratio (6-26) Glucose (70-105) mg/dL POC Glucose (70-99) mg/dL Calculated Osmolality (280-300) Calcium (8.6-10.3) mg/dL Magnesium (1.6-2.6) mg/dL Total Bilirubin (0.3-1.0) mg/dL Direct Bilirubin (0.0-0.2) mg/dL Indirect Bilirubin (0.0-1.2) mg/dL AST (13-39) Units/L ALT (7-52) Units/L Alkaline Phosphatase (34-104) Units/L Ammonia (16-53) mcmol/L Creatine Kinase (30-223) Units/L Troponin I (< 0.04) ng/mL Serum Total Protein (6.4-8.9) g/dL Albumin (3.5-5.7) g/dL Globulin (2.4-3.5) g/dL Albumin/Globulin Ratio (1.1-2.2) Triglycerides (< 150) mg/dL Cholesterol (< 200) mg/dL LDL Cholesterol, Calc (0-99) mg/dL VLDL Cholesterol, Calc (< 31) mg/dL HDL Cholesterol (40-59) mg/dL Cholesterol/HDL Ratio (0-4.9) TSH (0.340-5.600) mcIU/mL Urine Color (Yellow) Urine Clarity (Clear) Urine pH (5.0-8.0) pH Units Ur Specific [place] (1.010-1.025) Urine Protein (Neg-Trace) mg/dL Urine Glucose (UA) (Normal) mg/dL Urine Ketones (Negative) mg/dL Urine Blood (Negative) Urine Nitrite (Negative) Urine Bilirubin (Negative) Urine Urobilinogen (Normal) mg/dL Ur Leukocyte Esterase (Negative) Ur Culture Indicated? (NO) Urine Opiates Screen Negative (Wzfzth=343) ng/mL Ur Barbiturates Screen Negative (Pruuwl=335) ng/mL Ur Phencyclidine Scrn Negative (Cutoff=25) ng/mL Ur Amphetamines Screen Negative (Hntigf=0204) ng/mL U Benzodiazepines Scrn Negative (Mccdiv=390) ng/mL Urine Cocaine Screen Negative (Cutoff= 300) ng/mL U Marijuana (THC) Screen Negative (Cutoff = 50) ng/mL Ur Drug Screen Interp See Below Ethyl Alcohol (Less than 10) mg/dL 04/05/18 04/05/18 Range/Units 13:05 12:37 WBC (4.3-11.1) K/mcL RBC (4.19-5.50) M/mcL Hgb (12.9-16.9) g/dL Hct (37.5-50.1) % MCV (83.0-100.0) fL MCH (28.0-33.3) pg MCHC (31.6-35.5) g/dL RDW (11.5-14.5) % Plt Count (140-400) K/mcL MPV (9.4-12.4) fL Immature Gran % (0-4) % Seg Neutrophils % % Lymphocytes % % Monocytes % % Eosinophils % % Basophils % % Neutrophils # (1.6-8.9) K/mcL Lymphocytes # (0.6-4.6) K/mcL Monocytes # (0.0-1.3) K/mcL Eosinophils # (0.0-0.6) K/mcL Basophils # (0.0-0.2) K/mcL PT (9.4-12.1) Seconds INR APTT (26.0-36.0) Seconds Sodium (136-145) mEq/L Potassium (3.5-5.1) mEq/L Chloride (98-107) mEq/L Carbon Dioxide (23-29) mEq/L BUN (8-23) mg/dL Creatinine (0.70-1.30) mg/dL Est GFR ( Amer) (> 60) Est GFR (Non-Af Amer) (> 60) BUN/Creatinine Ratio (6-26) Glucose (70-105) mg/dL POC Glucose 192 H (70-99) mg/dL Calculated Osmolality (280-300) Calcium (8.6-10.3) mg/dL Magnesium (1.6-2.6) mg/dL Total Bilirubin (0.3-1.0) mg/dL Direct Bilirubin (0.0-0.2) mg/dL Indirect Bilirubin (0.0-1.2) mg/dL AST (13-39) Units/L ALT (7-52) Units/L Alkaline Phosphatase (34-104) Units/L Ammonia (16-53) mcmol/L Creatine Kinase (30-223) Units/L Troponin I (< 0.04) ng/mL Serum Total Protein (6.4-8.9) g/dL Albumin (3.5-5.7) g/dL Globulin (2.4-3.5) g/dL Albumin/Globulin Ratio (1.1-2.2) Triglycerides (< 150) mg/dL Cholesterol (< 200) mg/dL LDL Cholesterol, Calc (0-99) mg/dL VLDL Cholesterol, Calc (< 31) mg/dL HDL Cholesterol (40-59) mg/dL Cholesterol/HDL Ratio (0-4.9) TSH (0.340-5.600) mcIU/mL Urine Color Yellow (Yellow) Urine Clarity Clear (Clear) Urine pH 6.0 (5.0-8.0) pH Units Ur Specific [place] 1.019 (1.010-1.025) Urine Protein Negative (Neg-Trace) mg/dL Urine Glucose (UA) >=1000 H (Normal) mg/dL Urine Ketones Negative (Negative) mg/dL Urine Blood Negative (Negative) Urine Nitrite Negative (Negative) Urine Bilirubin Negative (Negative) Urine Urobilinogen Normal (Normal) mg/dL Ur Leukocyte Esterase Negative (Negative) Ur Culture Indicated? NO (NO) Urine Opiates Screen (Lggkvq=983) ng/mL Ur Barbiturates Screen (Vkqswi=099) ng/mL Ur Phencyclidine Scrn (Cutoff=25) ng/mL Ur Amphetamines Screen (Shpzny=4997) ng/mL U Benzodiazepines Scrn (Rwsnni=635) ng/mL Urine Cocaine Screen (Cutoff= 300) ng/mL U Marijuana (THC) Screen (Cutoff = 50) ng/mL Ur Drug Screen Interp Ethyl Alcohol (Less than 10) mg/dL BMP 04/06/18 04/05/18 Range/Units 01:27 13:26 Sodium 136 135 L (136-145) mEq/L Potassium 3.8 4.1 (3.5-5.1) mEq/L Chloride 103 96 L (98-107) mEq/L Carbon Dioxide 25 33 H (23-29) mEq/L BUN 23 23 (8-23) mg/dL Creatinine 0.99 1.18 (0.70-1.30) mg/dL Glucose 115 H 186 H (70-105) mg/dL Calcium 9.5 9.9 (8.6-10.3) mg/dL Cardiac Enzymes 04/06/18 04/05/18 04/05/18 Range/Units 01:27 19:41 13:26 Troponin I 0.09 H* 0.09 H* 0.08 H* (< 0.04) ng/mL Liver Function 04/05/18 Range/Units 13:26 Total Bilirubin 0.6 (0.3-1.0) mg/dL Direct Bilirubin 0.2 (0.0-0.2) mg/dL AST 12 L (13-39) Units/L ALT 14 (7-52) Units/L Alkaline Phosphatase 61 (34-104) Units/L Albumin 4.0 (3.5-5.7) g/dL Urine 04/05/18 Range/Units 13:05 Urine Color Yellow (Yellow) Urine Clarity Clear (Clear) Urine pH 6.0 (5.0-8.0) pH Units Ur Specific [place] 1.019 (1.010-1.025) Urine Protein Negative (Neg-Trace) mg/dL Urine Glucose (UA) >=1000 H (Normal) mg/dL Impressions Chest X-Ray 04/05/18 12:50 IMPRESSION: No significant change in the chest from recent prior imaging. Slight blunting of the collect costophrenic sulcus may represent a trace pleural effusion. D/ / Stefan Hensley MD / Stefan Hensley MD Interpreting Provider: Stefan Hensley MD Head CT 04/05/18 12:50 IMPRESSION: No acute intracranial abnormality. 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 Stable small old lacunar infarcts in the left central derrick, left head of caudate nucleus, bilateral basal ganglia and bilateral thalami Mild parenchymal volume loss. Moderate chronic microvascular disease. D/ / Haseeb Joseph MD / Haseeb Joseph MD Interpreting Provider: Haseeb Joseph MD Brain MRI 04/05/18 17:30 IMPRESSION: Small acute infarction in the left central derrick. Small old infarctions in the left cerebellar hemisphere. Scattered small old lacunar infarcts. A few scattered tiny susceptibility artifacts, likely related to small old petechial hemorrhage versus multiple small cavernomas or mild amyloid angiopathy, grossly stable. Mild parenchymal volume loss. Moderate chronic microvascular disease. D/ / Haseeb Joseph MD / Haseeb Joseph MD Interpreting Provider: Haseeb Joseph MD Active Medications Acetaminophen (Tylenol) 650 mg PO Q6HR PRN PRN Reason: Mild Pain/Fever Stop: 10/05/18 16:13 Albuterol Sulfate (Albuterol Inhaler) 2 puff IH Q4H PRN PRN Reason: Shortness Of Breath Stop: 10/05/18 16:17 Amlodipine Besylate (Norvasc) 10 mg PO DAILY LYLA Stop: 10/06/18 09:01 Last Admin: 04/06/18 08:24 Dose: 10 mg Aspirin (Aspirin Ec) 81 mg PO DAILY [facility] Stop: 10/06/18 09:01 Last Admin: 04/06/18 08:23 Dose: 81 mg Atorvastatin Calcium (Lipitor) 80 mg PO HS [facility] Stop: 10/05/18 21:01 Last Admin: 04/05/18 22:40 Dose: 80 mg Clopidogrel Bisulfate (Plavix) 75 mg PO DAILY [facility] Stop: 10/06/18 09:01 Last Admin: 04/06/18 08:24 Dose: 75 mg Cyclobenzaprine HCl (Flexeril) 10 mg PO HS [facility] Stop: 10/05/18 21:01 Last Admin: 04/05/18 22:40 Dose: 10 mg Gabapentin (Neurontin) 600 mg PO TID [facility] Stop: 10/05/18 21:01 Last Admin: 04/06/18 08:23 Dose: 600 mg Heparin Sodium (Porcine) (Heparin) 5,000 unit SQ Q12HCO [facility] Stop: 10/05/18 18:01 Last Admin: 04/06/18 04:35 Dose: 5,000 unit Isosorbide Mononitrate (Imdur) 60 mg PO DAILY [facility] Stop: 10/06/18 09:01 Last Admin: 04/06/18 08:23 Dose: 60 mg Metoprolol Succinate (Toprol Xl) 100 mg PO DAILY [facility] Stop: 10/06/18 09:01 Last Admin: 04/06/18 08:24 Dose: 100 mg Naloxone HCl (Narcan) 0.4 mg IVP Q2MIN PRN PRN Reason: SEE COMMENTS Stop: 10/05/18 16:13 Nitroglycerin (Nitroglycerin) 0.4 mg SL Q5M PRN PRN Reason: Chest Pain Stop: 10/05/18 16:17 Tamsulosin HCl (Flomax) 0.4 mg PO DAILY [facility] PRN Reason: Protocol Stop: 10/06/18 09:01 Last Admin: 04/06/18 08:23 Dose: 0.4 mg - Imaging and Cardiology Stress Test: report reviewed Echo: report reviewed Cardiac cath: report reviewed - EKG Interpretation EKG results cardiology: personally reviewed, other (12 hr tele AVG HR 63, SR) Consult Discharge Plan - Plan Referrals: John Pritchard MD [Primary Care Provider] -
--- NOTE | 2018-04-06 14:01 | Internal Med Progress Note ---
Hospitalist Progress Note - Encounter Date of Encounter: 04/06/18 Time of Encounter: 09:00 - Subjective Interval History: pt denies dizzines, slurred speech, numbness. States his right leg weakness has improved. Denies chest pain or SOB. Tolerate diet well, no choking/cough/ difficult swallowing. - Exam Vitals: Temp Pulse Resp BP Pulse Ox 97.9 F 58 20 138/76 96 04/06/18 11:40 04/06/18 11:40 04/06/18 11:40 04/06/18 11:40 04/06/18 11:40 Exam: Gen.: Vitals noted. No acute distress. AAOx3. Resting comfortably in bed HEENT: PERRL/EOMI, oropharynx clear, Normocephalic, atraumatic, MMM Cardiac: RRR, no murmur, +S1/S2 Pulmonary: Mildly decreased breath sounds in bilateral bases, otherwise CTA bilaterally, no wheezes, rales or rhonchi, equal chest expansion Abdomen: soft, nontender, BS noted, no guarding, no rebound. MSK: ROM intact, no joint swelling noted. Muscle strength 5/5 throughout Extremities: no BLE edema, nontender calf, no cyanosis or clubbing Neuro: A&Ox3, moves all extremities, no focal deficits. Cranial nerves II through XII grossly intact Skin: Multiple telangectasias on his on back, mild rash on back of neck. Psych: Appropriate mood and behavior - Assessment and Plan (1) CAD (coronary artery disease) Current Visit: Yes Status: Chronic Assessment and Plan: - History of significant coronary artery disease with most recent cardiac workup including left heart catheterization on 03/31/18 with findings of 100% occluded obtuse marginal artery. At that time it was decided that medical management would be pursued. Ejection fraction noted to be 50%. Recommendations at that time including medical management, risk factor modification, it was also noted that if he can demonstrate medical compliance, return for PCI of left proximal circumflex artery. Cardio consult appreciated, no further cardio workup. Plan - Continue home aspirin, statin, Plavix, beta ibeth (2) HTN (hypertension) Current Visit: Yes Status: Chronic Assessment and Plan: Well-controlled at this time with most recent reading of 124/64 We will continue home medications (3) HLD (hyperlipidemia) Current Visit: Yes Status: Chronic Assessment and Plan: Continue home statin, high intensity (4) DVT prophylaxis Current Visit: Yes Status: Acute Assessment and Plan: Heparin 5000 units every 12 hours (5) Diabetes mellitus Current Visit: Yes Status: Chronic Assessment and Plan: - Newly diagnosed diabetes, not on home diabetic medications - A1c of 6.5% on 02/10/18 - Currently diet controlled at home however he is also noted to be on prednisone as outpatient, which was prescribed on last discharge on 04/01/18 - We will continue monitor and start insulin as necessary (6) Elevated troponin Current Visit: Yes Status: Acute Assessment and Plan: Cardio consult saw pt, no further cardio workup. (7) Tobacco abuse Current Visit: Yes Status: Chronic Assessment and Plan: Patient continues to smoke one half pack per day He was counseled on cessation, unwilling to quit at this time (8) COPD (chronic obstructive pulmonary disease) Current Visit: Yes Status: Chronic Assessment and Plan: Does not appear to be in acute exacerbation No home oxygen requirement, tolerating room air Continue home breathing treatments D/C prednisone as no wheezing at this point. (9) Weakness Current Visit: Yes Status: Acute Assessment and Plan: - Patient reports acute on chronic weakness present since discharge on last admission - Also admits to slurring of speech and right lower extremity focal weakness which is since resolved - He is out of the window for thrombolytics - CT head obtained emergency department was negative for acute infarct however did show small chronic microinfarcts - Suspect that this is possibly deconditioning versus less likely TIA versus dehydration in nature. Lower suspicion for cardiac etiology at this time however would appreciate further cardiology input given EKG changes and troponin elevation. - Patient was recommended to go to rehabilitation facility on discharge at last visit however he did refuse - Labs and imaging studies thus far unremarkable except for as below Plan - MRI shows small acute infarct. - Out off tPA window, minimal symptoms - On ASA/Plavix and statin for CAD now, also good for CVA secondary prevention. - Recent duplex carotid and echo in Feb, unremarkable. - PT/OT evaluation, plan to D/C soon per PT/OT recommendation. (10) Acute electrocardiogram changes Current Visit: Yes Status: Acute Assessment and Plan: Cardio consult saw pt, no further workup needed. (11) Acute CVA (cerebrovascular accident) Current Visit: Yes Status: Acute Assessment and Plan: Management as above. - Time Spent with Patient Total time spent is greater than 50% in coordination of care (as documented) at patient's floor/unit and/or counseling patient: 30 min 25 - 35 minutes Plan of Care Discussed with: patient Internal Medicine: Result - Labs CBC & Chem 7: 04/06/18 01:27 04/06/18 01:27 Labs: Short CBC 04/06/18 Range/Units 01:27 WBC 10.9 (4.3-11.1) K/mcL Hgb 14.8 (12.9-16.9) g/dL Hct 43.1 (37.5-50.1) % Plt Count 243 (140-400) K/mcL Neutrophils # 6.2 (1.6-8.9) K/mcL BMP 04/06/18 01:27 Sodium 136 Potassium 3.8 Chloride 103 Carbon Dioxide 25 BUN 23 Creatinine 0.99 Glucose 115 H Calcium 9.5 Cardiac Enzymes 04/05/18 04/06/18 Range/Units 19:41 01:27 Troponin I 0.09 H* 0.09 H* (< 0.04) ng/mL - ABG Interpretation ABG results: PT/INR, D-dimer PT 11.9 Seconds (9.4-12.1) 04/05/18 13:26 Consult Discharge Plan - Plan Referrals: John Pritchard MD [Primary Care Provider] - (1) CAD (coronary artery disease) Qualifiers: Coronary Disease-Associated Artery/Lesion type: [place] artery [place] vs. transplanted heart: [place] heart Associated angina: without angina Qualified Code(s): I25.10 - Atherosclerotic heart disease of [place] coronary artery without angina pectoris (2) HTN (hypertension) Qualifiers: Hypertension type: essential hypertension Qualified Code(s): I10 - Essential (primary) hypertension (3) HLD (hyperlipidemia) Qualifiers: Hyperlipidemia type: unspecified Qualified Code(s): E78.5 - Hyperlipidemia, unspecified (5) Diabetes mellitus Qualifiers: Diabetes mellitus type: type 2 Diabetes mellitus correction insulin use: without correction use Diabetes mellitus complication status: with circulatory complication Diabetes mellitus complication detail: with other circulatory complications Qualified Code(s): E11.59 - Type 2 diabetes mellitus with other circulatory complications (8) COPD (chronic obstructive pulmonary disease) Qualifiers: COPD type: COPD with acute exacerbation Qualified Code(s): J44.1 - Chronic obstructive pulmonary disease with (acute) exacerbation
[2018-04-07] MEDS: *HR* Heparin 5,000 UNIT/ML VIAL SQ SCH (06:45)
[2018-04-07 08:14] LABS: Basophils # 0.1 K/mcL (0.0-0.2); Basophils % 0.6 %; Eosinophils # 0.6 K/mcL (0.0-0.6); Eosinophils % 6.3 %; Hematocrit 46.6 % (37.5-50.1); Hemoglobin 15.3 g/dL (12.9-16.9); Immature Granulocytes % 0.6 % (0-4); Lymphocytes # 3.3 K/mcL (0.6-4.6); Lymphocytes % 32.8 %; Mean Corpuscular HGB Conc 32.8 g/dL (31.6-35.5); Mean Corpuscular Hemoglobin 28.8 pg (28.0-33.3); Mean Corpuscular Volume 87.6 fL (83.0-100.0); Mean Platelet Volume 9.8 fL (9.4-12.4); Monocytes # 0.5 K/mcL (0.0-1.3); Monocytes % 5.2 %; Neutrophils # 5.4 K/mcL (1.6-8.9); Platelet Count 260 K/mcL (140-400); Red Blood Count 5.32 M/mcL (4.19-5.50); Red Cell Distribution Width 13.4 % (11.5-14.5); Segmented Neutrophils % 54.5 %
--- NOTE | 2018-04-07 08:24 | Internal Med Progress Note ---
<Carlos Corea A - Last Filed: 04/07/18 12:52> Hospitalist Progress Note - Encounter Date of Encounter: 04/07/18 Time of Encounter: 08:21 - Subjective Interval History: pt seen and examined. Sitting at edge of bed eating breakfast. No complaints. NAD. Denies any weakness in LE, problems swallowing, problems speaking. ROS: denies changes in vision or hearing, headaches, cp, sob, abdominal pain, n/v/d. - Exam Vitals: Temp Pulse Resp BP Pulse Ox 98.1 F 62 19 141/79 94 04/07/18 07:38 04/07/18 07:38 04/07/18 07:38 04/07/18 07:38 04/07/18 07:38 Exam: Gen.: No acute distress. AAOx3. HEENT: PERRL/EOMI, Normocephalic Cardiac: RRR, no murmur, +S1/S2 Pulmonary: Mildly decreased breath sounds in bilateral bases, otherwise CTA bilaterally, no wheezes, rales or rhonchi, equal chest expansion Abdomen: soft, nontender, no guarding, no rebound. MSK: ROM intact, no joint swelling noted. Muscle strength 5/5 throughout Extremities: no BLE edema, no cyanosis or clubbing Neuro: moves all extremities, no focal deficits. Psych: Appropriate mood and behavior - Assessment and Plan (1) Acute CVA (cerebrovascular accident) Current Visit: Yes Status: Acute Assessment and Plan: Complaints of RLE weakness on admission Initial workup, including CT negative Hx of medication noncompliance encouraged med compliance to prevent future episodes Carotid US and Echo done earlier this month, WNL MRI found small acute infarction in the left central derrick in addition to chronic changes Continue aspirin, Plavix, statin PT/OT (2) Weakness Current Visit: Yes Status: Acute Assessment and Plan: see above (3) CAD (coronary artery disease) Current Visit: Yes Status: Chronic Assessment and Plan: Known CAD with occluded OM on [facility] 03/31/18 Pt has hx of noncompliance of DAPT no current complaints of chest pain elevated trops on admission (0.08/0.09/0.09), trended without spike Cardio consulted... Recommend continue current cardiac therapy, including aspirin, Plavix, statin, beta ibeth, and Imdur therapy, risk factor modification, but no further diagnostic testing at this time. (4) HTN (hypertension) Current Visit: Yes Status: Chronic Assessment and Plan: continue home meds BP 141/79 this morning (5) Tobacco abuse Current Visit: Yes Status: Chronic Assessment and Plan: current 1/2 ppd smoker educated on the benefits of smoking cessation pt unwilling to quit at this time (6) Elevated troponin Current Visit: Yes Status: Acute Assessment and Plan: see above (7) HLD (hyperlipidemia) Current Visit: Yes Status: Chronic Assessment and Plan: on high intensity statin (8) Diabetes mellitus Current Visit: Yes Status: Chronic Assessment and Plan: A1c of 6.5% on 02/10/18 currently diet controlled recent steroid use will continue to monitor (9) COPD (chronic obstructive pulmonary disease) Current Visit: Yes Status: Chronic Assessment and Plan: Tolerating room at air this time decreased breath sounds b/l, but no wheezes to auscultation continue home breathing treatments not in acute exacerbation duoneb Q4 PRN while admitted (10) DVT prophylaxis Current Visit: Yes Status: Acute Assessment and Plan: Heparin 5000 units every 12 hours - Time Spent with Patient Total time spent is greater than 50% in coordination of care (as documented) at patient's floor/unit and/or counseling patient: Internal Medicine: Result - Labs CBC & Chem 7: 04/07/18 08:00 04/07/18 08:58 - ABG Interpretation ABG results: PT/INR, D-dimer PT 11.9 Seconds (9.4-12.1) 04/05/18 13:26 Consult Discharge Plan - Plan Referrals: John Pritchard MD [Primary Care Provider] - <Rowan Ulloa - Last Filed: 04/07/18 13:15> Hospitalist Progress Note - Encounter Date of Encounter: 04/07/18 - Exam Vitals: Temp Pulse Resp BP Pulse Ox 97.8 F 64 17 124/67 96 04/07/18 11:00 04/07/18 11:00 04/07/18 11:00 04/07/18 11:00 04/07/18 11:00 - Assessment and Plan (1) CAD (coronary artery disease) Current Visit: Yes Status: Chronic (2) HTN (hypertension) Current Visit: Yes Status: Chronic (3) HLD (hyperlipidemia) Current Visit: Yes Status: Chronic (4) DVT prophylaxis Current Visit: Yes Status: Acute (5) Diabetes mellitus Current Visit: Yes Status: Chronic (6) Elevated troponin Current Visit: Yes Status: Acute (7) Tobacco abuse Current Visit: Yes Status: Chronic (8) COPD (chronic obstructive pulmonary disease) Current Visit: Yes Status: Chronic (9) Weakness Current Visit: Yes Status: Acute (10) Acute electrocardiogram changes Current Visit: Yes Status: Acute (11) Acute CVA (cerebrovascular accident) Current Visit: Yes Status: Acute - Time Spent with Patient Total time spent is greater than 50% in coordination of care (as documented) at patient's floor/unit and/or counseling patient: Internal Medicine: Result - Labs CBC & Chem 7: 04/07/18 08:00 04/07/18 08:58 Labs: Short CBC 04/07/18 Range/Units 08:00 WBC 10.0 (4.3-11.1) K/mcL Hgb 15.3 (12.9-16.9) g/dL Hct 46.6 (37.5-50.1) % Plt Count 260 (140-400) K/mcL Neutrophils # 5.4 (1.6-8.9) K/mcL BMP 04/07/18 08:58 Sodium 134 L Potassium 4.5 Chloride 98 Carbon Dioxide 31 H BUN 20 Creatinine 0.94 Glucose 174 H Calcium 9.6 - ABG Interpretation ABG results: PT/INR, D-dimer PT 11.9 Seconds (9.4-12.1) 04/05/18 13:26 - Attending Attestation I have seen and examined this pt independently. I have discussed with resident physician Dr Randhawa and medical student regarding the management plan. Agree with the documentation. <Carlos Corea - Last Filed: 04/07/18 12:52> (3) CAD (coronary artery disease) Qualifiers: Coronary Disease-Associated Artery/Lesion type: [place] artery [place] vs. transplanted heart: [place] heart Associated angina: without angina Qualified Code(s): I25.10 - Atherosclerotic heart disease of [place] coronary artery without angina pectoris (4) HTN (hypertension) Qualifiers: Hypertension type: essential hypertension Qualified Code(s): I10 - Essential (primary) hypertension (7) HLD (hyperlipidemia) Qualifiers: Hyperlipidemia type: unspecified Qualified Code(s): E78.5 - Hyperlipidemia, unspecified (8) Diabetes mellitus Qualifiers: Diabetes mellitus type: type 2 Diabetes mellitus detention insulin use: without technician preventative medicine use Diabetes mellitus complication status: with circulatory complication Diabetes mellitus complication detail: with other circulatory complications Qualified Code(s): E11.59 - Type 2 diabetes mellitus with other circulatory complications (9) COPD (chronic obstructive pulmonary disease) Qualifiers: COPD type: COPD with acute exacerbation Qualified Code(s): J44.1 - Chronic obstructive pulmonary disease with (acute) exacerbation <Rowan Ulloa - Last Filed: 04/07/18 13:15> (1) CAD (coronary artery disease) Qualifiers: Coronary Disease-Associated Artery/Lesion type: [place] artery [place] vs. transplanted heart: [place] heart Associated angina: without angina Qualified Code(s): I25.10 - Atherosclerotic heart disease of [place] coronary artery without angina pectoris (2) HTN (hypertension) Qualifiers: Hypertension type: essential hypertension Qualified Code(s): I10 - Essential (primary) hypertension (3) HLD (hyperlipidemia) Qualifiers: Hyperlipidemia type: unspecified Qualified Code(s): E78.5 - Hyperlipidemia, unspecified (5) Diabetes mellitus Qualifiers: Diabetes mellitus type: type 2 Diabetes mellitus detention insulin use: without technician preventative medicine use Diabetes mellitus complication status: with circulatory complication Diabetes mellitus complication detail: with other circulatory complications Qualified Code(s): E11.59 - Type 2 diabetes mellitus with other circulatory complications (8) COPD (chronic obstructive pulmonary disease) Qualifiers: COPD type: COPD with acute exacerbation Qualified Code(s): J44.1 - Chronic obstructive pulmonary disease with (acute) exacerbation
[2018-04-07] MEDS: Gabapentin 300 MG CAPSULE PO SCH (08:44)
[2018-04-07] MEDS: Metoprolol XL (24 HR) Succ 50 MG TAB.ER.24H PO SCH (08:45)
[2018-04-07] MEDS: Aspirin Enteric Coated 81 MG Tablet PO SCH (08:45)
[2018-04-07] MEDS: Isosorbide MONOnitrate (24 HR) 60 MG TAB.ER.24H PO SCH (08:45)
[2018-04-07 09:29] LABS: BUN/Creatinine Ratio 21 (6-26); Blood Urea Nitrogen 20 mg/dL (8-23); Calcium 9.6 mg/dL (8.6-10.3); Carbon Dioxide 31 mEq/L (23-29); Chloride 98 mEq/L (98-107); Glucose 174 mg/dL (70-105); Osmolality,Calculated 285 (280-300); Potassium 4.5 mEq/L (3.5-5.1); Sodium 134 mEq/L (136-145); eGFR For Non-African Americans > 60 (> 60)
[2018-04-07] MEDS ORDERED: Ipratropium/Albuterol Neb 3 ML IH PRN (10:49)
[2018-04-07] MEDS: Ipratropium/Albuterol Neb 3 ML IH SCH ×2 (15:41→19:35)
[2018-04-07 16:18] VITALS: BP 133/78
--- NOTE | 2018-04-07 17:14 | Discharge Summary ---
<Dion Randhawa - Last Filed: 04/07/18 17:12> - NOTES TO OUTPATIENT PROVIDER Notes to Outpatient Provider: Patient presented with slurred speech, RLE weakness which has resolved. CT shows acute infarct. Transferred to [facility] for rehab. Date of Encounter: 04/07/18 Time of Encounter: 09:00 - Discharge Diagnosis (1) CAD (coronary artery disease) Priority: Secondary Status: Chronic Assessment and Plan: - History of significant coronary artery disease with most recent cardiac workup including left heart catheterization on 03/31/18 with findings of 100% occluded obtuse marginal artery. At that time it was decided that medical management would be pursued. Ejection fraction noted to be 50%. Recommendations at that time including medical management, risk factor modification, it was also noted that if he can demonstrate medical compliance, return for PCI of left proximal circumflex artery. Cardio consult appreciated, no further cardio workup. Plan - Continue home aspirin, statin, Plavix, beta ibeth Qualifiers: Coronary Disease-Associated Artery/Lesion type: [place] artery [place] vs. transplanted heart: [place] heart Associated angina: without angina Qualified Code(s): I25.10 - Atherosclerotic heart disease of [place] coronary artery without angina pectoris (2) HTN (hypertension) Priority: Secondary Status: Chronic Assessment and Plan: Well-controlled at this time with most recent reading of 124/64 We will continue home medications Qualifiers: Hypertension type: essential hypertension Qualified Code(s): I10 - Essential (primary) hypertension (3) HLD (hyperlipidemia) Priority: Secondary Status: Chronic Assessment and Plan: Continue home statin, high intensity Qualifiers: Hyperlipidemia type: unspecified Qualified Code(s): E78.5 - Hyperlipidemia , unspecified (4) DVT prophylaxis Priority: Secondary Status: Acute Assessment and Plan: Heparin 5000 units every 12 hours (5) Diabetes mellitus Priority: Secondary Status: Chronic Assessment and Plan: - Newly diagnosed diabetes, not on home diabetic medications - A1c of 6.5% on 02/10/18 - Currently diet controlled at home however he is also noted to be on prednisone as outpatient, which was prescribed on last discharge on 04/01/18 - We will continue monitor and start insulin as necessary Qualifiers: Diabetes mellitus type: type 2 Diabetes mellitus termite helper insulin use: without termite helper use Diabetes mellitus complication status: with circulatory complication Diabetes mellitus complication detail: with other circulatory complications Qualified Code(s): E11.59 - Type 2 diabetes mellitus with other circulatory complications (6) Elevated troponin Priority: Secondary Status: Acute Assessment and Plan: Cardio consult saw pt, no further cardio workup. trended and adynamic (7) Tobacco abuse Priority: Secondary Status: Chronic Assessment and Plan: Patient continues to smoke one half pack per day He was counseled on cessation, unwilling to quit at this time (8) COPD (chronic obstructive pulmonary disease) Priority: Secondary Status: Chronic Assessment and Plan: Does not appear to be in acute exacerbation No home oxygen requirement, tolerating room air Continue home breathing treatments D/C prednisone as no wheezing at this point. Qualifiers: COPD type: COPD with acute exacerbation Qualified Code(s): J44.1 - Chronic obstructive pulmonary disease with (acute) exacerbation (9) Weakness Priority: Secondary Status: Acute Assessment and Plan: - Patient reports acute on chronic weakness present since discharge on last admission - Also admits to slurring of speech and right lower extremity focal weakness which is since resolved - He is out of the window for thrombolytics - CT head obtained emergency department was negative for acute infarct however did show small chronic microinfarcts - Suspect that this is possibly deconditioning versus less likely TIA versus dehydration in nature. Lower suspicion for cardiac etiology at this time however would appreciate further cardiology input given EKG changes and troponin elevation. - Patient was recommended to go to rehabilitation facility on discharge at last visit however he did refuse - Labs and imaging studies thus far unremarkable except for as below Plan - MRI shows small acute infarct. - Out off tPA window, minimal symptoms - On ASA/Plavix and statin for CAD now, also good for CVA secondary prevention. - Recent duplex carotid and echo in Feb, unremarkable. - PT/OT evaluation, plan to D/C soon per PT/OT recommendation. (10) Acute electrocardiogram changes Priority: Secondary Status: Acute Assessment and Plan: Cardio consult saw pt, no further workup needed. (11) Acute CVA (cerebrovascular accident) Priority: Primary Status: Acute Assessment and Plan: Management as above. Hospital course: Mr. Colby is a 62 year old male with past medical history of hypertension, hyperlipidemia, CAD who presented to emergency with complaint of slurring speech and right lower extremity weakness. Patellar admission, his symptoms had resolved. He was given a workup for acute stroke which involved a negative head CT however MRI the following day did show a small acute infarct. He notably also was noncompliant on his home aspirin, Plavix for recent stent to the obtuse marginal coronary artery in February of this year. He has since presented to emergency department on 03/29/18 and was found to have a 100% stenosed obtuse marginal artery. He was continued on his home aspirin, Plavix, high intensity statin. We did discuss with him the importance of medication compliance, smoking cessation as well as other risk modification. At this point , he states he would like to be discharged to rehabilitation facility. With the help of social work and case management, he will be discharged to [facility] to participate in physical and occupational therapy. He was instructed to follow up with his primary care physician within one week of discharge. He will be discharged in stable medical condition. Discharge discussed with: patient, social work, case management - Time Spent with Patient Total time spent providing and/or coordinating discharge services: - Discharge Medications Home Medications: Clopidogrel [Plavix] 75 mg PO DAILY #30 tablet 07/23/15 [Rx] Nitroglycerin 0.4 mg SL Q5M PRN 09/03/16 [History] Albuterol Sulfate [Proventil Hfa] 2 puff IH Q4H PRN 08/14/17 [History] Gabapentin [Neurontin] 600 mg PO TID 08/14/17 [History] Lisinopril/Hydrochlorothiazide [Zestoretic 20-12.5 mg Tablet] 1 tab PO DAILY 09/26 [History] Tamsulosin [Flomax] 0.4 mg PO DAILY 08/14/17 [History] Aspirin Enteric Coated [Aspirin EC] 81 mg PO DAILY #30 tablet. 02/12/18 [Rx] Amlodipine Besylate 10 mg PO DAILY 03/29/18 [History] Atorvastatin Calcium [Lipitor] 80 mg PO HS 03/29/18 [History] Cyclobenzaprine [Flexeril] 10 mg PO HS 03/29/18 [History] Isosorbide MONOnitrate (24 HR) [Imdur] 60 mg PO DAILY 03/29/18 [History] Metoprolol Succinate [Toprol Xl] 100 mg PO DAILY 03/29/18 [History] Oxybutynin [Ditropan] 5 mg PO BID 03/29/18 [History] predniSONE [PredniSONE] 10 mg PO DAILY 8 Days tablet 04/01/18 [Rx] Allergies/Adverse Reactions: 3 Allergy/AdvReac Type Severity Reaction Status Date / Time No Known Allergies Allergy Verified 04/05/18 14:34 Date of admission: 04/05/18 18:57 Primary care physician: John Pritchard MD Consults: 04/06/18 14:14 Consult to Examination Proctor [CONS] Routine Reason for SW Consult: Need placement. Discharging clinician: Dion Randhawa Anticipated date of discharge: 04/07/18 - Constitutional Vitals: Temp Pulse Resp BP Pulse Ox 98.3 F 71 18 133/78 95 04/07/18 16:16 04/07/18 16:16 04/07/18 16:16 04/07/18 16:16 04/07/18 16:16 Exam: Gen.: Vitals noted. No acute distress. AAOx3, resting comfortably in bed. Mildly diaphoretic HEENT: PERRL/EOMI, oropharynx clear, Normocephalic, atraumatic, MMM Cardiac: RRR, no murmur, +S1/S2, No BLE edema Pulmonary: CTA bilaterally, no wheezes, rales or rhonchi, equal chest expansion , unlabored breathing Abdomen: soft, nontender, BS noted, no guarding, no palpable HSM Skin: warm and dry, no visible lesions. MSK: ROM intact, no joint swelling noted, gait no assessed while in bed. Non tender calf or clubbing. Muscle strength 5/5 bilaterally in lower extremities as well as upper extremity. Neuro: A&Ox3, moves all extremities, no focal deficits, sensation intact grossly Psych: Appropriate mood and behavior, AOx3 - Patient Status Disposition: Transfer SNF Condition: Fair Functional capacity at discharge: independent ambulation Overall status at discharge: patient is back to baseline - Discharge Instructions Follow Up With: John Pritchard MD [Primary Care Provider] - Additional Instructions: Please follow up with her primary care physician within one week and take all medication as prescribed. It is extremely important that she take all medications to prevent further episodes of strokes. Please continue to work with physical and occupational therapy to help gain strength. Return to the emergency department if he did not experience any symptoms of weakness, numbness , tingling, slurred speech, confusion. - Diet and Activity Activity: as per physical therapy, resume usual activities as tolerated Diet: diabetic diet, low salt diet <Rowan Ulloa - Last Filed: 04/07/18 17:34> Date of Encounter: 04/07/18 - Discharge Diagnosis (1) CAD (coronary artery disease) Status: Chronic Qualifiers: Coronary Disease-Associated Artery/Lesion type: [place] artery [place] vs. transplanted heart: [place] heart Associated angina: without angina Qualified Code(s): I25.10 - Atherosclerotic heart disease of [place] coronary artery without angina pectoris (2) HTN (hypertension) Status: Chronic Qualifiers: Hypertension type: essential hypertension Qualified Code(s): I10 - Essential (primary) hypertension (3) HLD (hyperlipidemia) Status: Chronic Qualifiers: Hyperlipidemia type: unspecified Qualified Code(s): E78.5 - Hyperlipidemia , unspecified (4) DVT prophylaxis Status: Acute (5) Diabetes mellitus Status: Chronic Qualifiers: Diabetes mellitus type: type 2 Diabetes mellitus termite helper insulin use: without termite helper use Diabetes mellitus complication status: with circulatory complication Diabetes mellitus complication detail: with other circulatory complications Qualified Code(s): E11.59 - Type 2 diabetes mellitus with other circulatory complications (6) Elevated troponin Status: Acute (7) Tobacco abuse Status: Chronic (8) COPD (chronic obstructive pulmonary disease) Status: Chronic Qualifiers: COPD type: COPD with acute exacerbation Qualified Code(s): J44.1 - Chronic obstructive pulmonary disease with (acute) exacerbation (9) Weakness Status: Acute (10) Acute electrocardiogram changes Status: Acute (11) Acute CVA (cerebrovascular accident) Status: Acute Hospital course: Mr. Colby is a 62 year old male - Time Spent with Patient Total time spent providing and/or coordinating discharge services: Date of admission: 04/05/18 18:57 Primary care physician: John Pritchard MD Consults: 04/06/18 14:14 Consult to Examination Proctor [CONS] Routine Reason for SW Consult: Need placement. - Constitutional Vitals: Temp Pulse Resp BP Pulse Ox 98.3 F 71 18 133/78 95 04/07/18 16:16 04/07/18 16:16 04/07/18 16:16 04/07/18 16:16 04/07/18 16:16 - Attending Attestation I have seen and examined this pt independently. I have discussed with resident physician Dr Randhawa regarding the management plan. Agree with the documentation.
--- NOTE | 2018-04-07 17:26 | Physician Discharge Referral ---
ExtendedCare Referral Info Transfer To: [facility] Provider in Charge after Transfer: PCP - Diagnosis (1) CAD (coronary artery disease) Priority: Secondary Status: Chronic (2) HTN (hypertension) Priority: Secondary Status: Chronic (3) HLD (hyperlipidemia) Priority: Secondary Status: Chronic (4) DVT prophylaxis Priority: Secondary Status: Acute (5) Diabetes mellitus Priority: Secondary Status: Chronic (6) Elevated troponin Priority: Secondary Status: Acute (7) Tobacco abuse Priority: Secondary Status: Chronic (8) COPD (chronic obstructive pulmonary disease) Priority: Secondary Status: Chronic (9) Weakness Priority: Secondary Status: Acute (10) Acute electrocardiogram changes Priority: Secondary Status: Acute (11) Acute CVA (cerebrovascular accident) Priority: Primary Status: Acute Prognosis: Fair Aware of Diagnosis: Patient, Family Aware of Prognosis: Patient, Family - Transfer Medications Home Medications: Clopidogrel [Plavix] 75 mg PO DAILY #30 tablet 07/23/15 [Rx] Nitroglycerin 0.4 mg SL Q5M PRN 09/03/16 [History] Albuterol Sulfate [Proventil Hfa] 2 puff IH Q4H PRN 08/14/17 [History] Gabapentin [Neurontin] 600 mg PO TID 08/14/17 [History] Lisinopril/Hydrochlorothiazide [Zestoretic 20-12.5 mg Tablet] 1 tab PO DAILY 09/26 [History] Tamsulosin [Flomax] 0.4 mg PO DAILY 08/14/17 [History] Aspirin Enteric Coated [Aspirin EC] 81 mg PO DAILY #30 tablet. 02/12/18 [Rx] Amlodipine Besylate 10 mg PO DAILY 03/29/18 [History] Atorvastatin Calcium [Lipitor] 80 mg PO HS 03/29/18 [History] Cyclobenzaprine [Flexeril] 10 mg PO HS 03/29/18 [History] Isosorbide MONOnitrate (24 HR) [Imdur] 60 mg PO DAILY 03/29/18 [History] Metoprolol Succinate [Toprol Xl] 100 mg PO DAILY 03/29/18 [History] Oxybutynin [Ditropan] 5 mg PO BID 03/29/18 [History] predniSONE [PredniSONE] 10 mg PO DAILY 8 Days tablet 04/01/18 [Rx] Allergies/Adverse Reactions: 3 Allergy/AdvReac Type Severity Reaction Status Date / Time No Known Allergies Allergy Verified 04/05/18 14:34 - Respiratory Orders Smoking Cessation: Smoking cessation has been advised. For more information, call the [place] Tobacco Quit Line at 9-199-HUVG-NOW. - Advance Directives Code Status: DNR-Arrest - Mobility Orders Ambulate - Rehabiliation Orders Rehab Potential: Fair Rehab Orders: Evaluation for Physical Therapy, Evaluation for Occupational Therapy CERTIFICATION: I certify that the transfer of the above named patient to an Extended Care Facility is necessary for the continuing treatment of the diagnosis listed. The above information is true and accurate reflection of patient's current condition. Confidential - Redisclosure prohibited without a patient's written consent.
--- NOTE | 2018-04-08 00:34 | Electrocardiograph Report ---
[facility] [employer] Test Date: 2018-04-05 Pat Name: Melvin Colby Department: [id number] Room: 2NE19 Gender: M Flotation Tender: : 1955 Requested By: Angella Mckenzie Order Number: [id number] Reading MD: Nel Topete Measurements Intervals [place] Rate: 63 P: 64 OR: 171 QRS: 22 QRSD: 115 T: 182 QT: 424 QTc: 434 Interpretive Statements Age not entered, assumed to be 52 years old for purpose of ECG interpretation Sinus rhythm Incomplete left bundle branch block Probable inferior infarct, age indeterminate ST depr, consider ischemia, anterolateral lds Electronically Signed On 04-08-2018 0:32:52 EDT by Nel Topete
== END 2018-04-07 21:48 | DRG 65 ==
LOC: EMEROOARM 12:34 → 2NENU 18:57
PROVIDERS: ADMIT Internal Medicine; ATTEND Internal Medicine

== ENCOUNTER 2018-06-30 18:40 | Inpatient (IN) ==
[2018-06-30 21:52] LABS: Basophils # 0.1 K/mcL (0.0-0.2); Basophils % 0.6 %; Eosinophils # 0.7 K/mcL (0.0-0.6); Hematocrit 37.2 % (37.5-50.1); Hemoglobin 11.9 g/dL (12.9-16.9); Immature Granulocytes % 0.2 % (0-4); Lymphocytes % 30.8 %; Mean Corpuscular Hemoglobin 29.2 pg (28.0-33.3); Mean Corpuscular Volume 91.4 fL (83.0-100.0); Mean Platelet Volume 10.1 fL (9.4-12.4); Monocytes # 0.6 K/mcL (0.0-1.3); Monocytes % 6.1 %; Neutrophils # 5.5 K/mcL (1.6-8.9); Platelet Count 233 K/mcL (140-400); Red Blood Count 4.07 M/mcL (4.19-5.50); Red Cell Distribution Width 13.4 % (11.5-14.5); Segmented Neutrophils % 55.3 %
[2018-06-30 22:00] LABS: Heparin anti-factor XA UFH 0.71 IU/mL (0.30-0.70); Prothrombin Time 11.7 Seconds (9.4-12.1)
[2018-06-30 22:02] LABS: Activated Partial Thrombo Time 83.1 Seconds (26.0-36.0)
[2018-06-30 22:14] LABS: Albumin/Globulin Ratio 1.6 (1.1-2.2); Bilirubin,Direct 0.1 mg/dL (0.0-0.2); Bilirubin,Indirect 0.3 mg/dL (0.0-1.2); Bilirubin,Total 0.4 mg/dL (0.3-1.0); Calcium 8.9 mg/dL (8.6-10.3); Globulin 2.5 g/dL (2.4-3.5); Potassium 4.1 mEq/L (3.5-5.1); Total Protein 6.5 g/dL (6.4-8.9)
[2018-06-30 22:17] LABS: Troponin I 0.09 ng/mL (< 0.04)
[2018-06-30] MEDS ORDERED: Nitroglycerin 0.4 MG TAB.SUBL SL PRN (22:45)
[2018-06-30] MEDS ORDERED: 0.9 % Sodium Chloride 1,000 ML IVC ONE (22:50)
--- NOTE | 2018-06-30 23:16 | Internal Med History&Physical ---
Date of Encounter: 06/30/18 Time of Encounter: 23:13 Internal Medicine - H&P: HPI Chief complaint: fatigue Admitted From: Home Plans for Post Hospital Care: Home History of present illness: Melvin Calixto Case is a 63 year old man with a history of coronary artery disease who has been noncompliant with therapy and noted to have an occluded stent on left heart catheter done March 2018, hypertension, diabetes and TIA who is transferred here today from [facility] where he was taken to for weakness and poor oral intake. He states that his called the ambulance on him because instead of getting up to talk he started crawling on the floor. It is reported that he has been immobile and not eating or drinking much. At [facility] it is reported that his serum creatinine was >4, he was hypotensive and had an elev ated troponin so he was started on heparin drip. On arrival here he denies chest pain and shortness of breath. No headache, abdominal pain or difficulty urinating reported. Past Med Surg Social Fam HX - Past Medical History Medical history: non-contributory, arthritis, coronary artery disease, hyperlipidemia, hypertension, myocardial infarction, TIA Psychiatric history: no psych history - Past Surgical History Surgical History: no surgical history, orthopedic, other Additional surgical history: 3 cardiac stents, LEFT ANKLE SURGERY - Social History Smoking Status: Current every day smoker Packs per day: 1/2 Smokeless Tobacco Status: No Alcohol use: rarely Drug use: none - Family History Father Adopted: No Family Member Ethnicity: Non- Living Status: Hx Family Cardiac Disorders: Yes (Father) Hx Family Respiratory Disorders: No Hx Family Cancer: No Hx Family GI Disorders: Yes (Father) Hx Family Neuromuscular Disorders: No Mother Adopted: No Family Member Ethnicity: Non- Living Status: Still Living Hx Family Cardiac Disorders: No Hx Family Respiratory Disorders: No Hx Family Cancer: Yes Hx Family GI Disorders: No Hx Family Endocrine Disorder: No Hx Family Neuromuscular Disorders: No Hx Family Neurologic Disorders: No Hx Family HEENT Disorders: No Hx Family Autoimmune Disorders: No Internal Medicine - H&P: Meds Clopidogrel [Plavix] 75 mg PO DAILY #30 tablet 07/23/15 [Rx] Nitroglycerin 0.4 mg SL Q5M PRN 09/03/16 [History] Albuterol Sulfate [Proventil Hfa] 2 puff IH Q4H PRN 08/14/17 [History] Gabapentin [Neurontin] 600 mg PO TID 08/14/17 [History] Lisinopril/Hydrochlorothiazide [Zestoretic 20-12.5 mg Tablet] 1 tab PO DAILY 08/14/17 [History] Tamsulosin [Flomax] 0.4 mg PO DAILY 08/14/17 [History] Aspirin Enteric Coated [Aspirin EC] 81 mg PO DAILY #30 tablet. 02/12/18 [Rx] Amlodipine Besylate 10 mg PO DAILY 03/29/18 [History] Atorvastatin Calcium [Lipitor] 80 mg PO HS 03/29/18 [History] Cyclobenzaprine [Flexeril] 10 mg PO HS 03/29/18 [History] Isosorbide MONOnitrate (24 HR) [Imdur] 60 mg PO DAILY 03/29/18 [History] Metoprolol Succinate [Toprol Xl] 100 mg PO DAILY 03/29/18 [History] Oxybutynin [Ditropan] 5 mg PO BID 03/29/18 [History] predniSONE [PredniSONE] 10 mg PO DAILY 8 Days tablet 04/01/18 [Rx] Allergy/AdvReac Type Severity Reaction Status Date / Time No Known Allergies Allergy Verified 04/05/18 14:34 All Systems PM: A 10-system review of systems was performed and is negative for pertinent findings except as documented above in the HPI. - Constitutional Vitals: Temp Pulse Resp BP Pulse Ox 97.6 F 74 18 90/59 93 06/30/18 21:22 06/30/18 21:22 06/30/18 21:22 06/30/18 21:22 06/30/18 21:22 Exam: Vitals: Reviewed General: Well developed, NAD Skin: Warm, dry. HEENT: Dry mucous membranes. No conjunctivae pallor. Neck: No lymphadenopathy. No JVD. No carotid bruits. No palpable thyroid. Chest: Reduced thoracic expansion. Fine rales in the lung bases. Heart: Normal S1 & S2; rhythmic. No rubs or murmurs. Abdomen: Non-distended, soft and non-tender to palpation. Extremities: No clubbing, cyanosis or edema. No calf tenderness. Normal distal pulses. Neurological: Awake, alert and oriented to person, place and time. No focal deficits. Psych: Affect appropriate. Internal Med - H&P Results - Labs CBC & Chem 7: 06/30/18 21:34 06/30/18 21:34 Labs: Short CBC 06/30/18 Range/Units 21:34 WBC 9.9 (4.3-11.1) K/mcL Hgb 11.9 L (12.9-16.9) g/dL Hct 37.2 L (37.5-50.1) % Plt Count 233 (140-400) K/mcL Neutrophils # 5.5 (1.6-8.9) K/mcL BMP 06/30/18 21:34 Sodium 139 Potassium 4.1 Chloride 106 Carbon Dioxide 25 BUN 40 H Creatinine 3.62 H Glucose 119 H Calcium 8.9 Cardiac Enzymes 06/30/18 Range/Units 21:34 Troponin I 0.09 H* (< 0.04) ng/mL Liver Function 06/30/18 Range/Units 21:34 Total Bilirubin 0.4 (0.3-1.0) mg/dL Direct Bilirubin 0.1 (0.0-0.2) mg/dL AST 17 (13-39) Units/L ALT 12 (7-52) Units/L Alkaline Phosphatase 68 (34-104) Units/L Albumin 4.0 (3.5-5.7) g/dL - Assessment and plan (1) MARIO (acute kidney injury) Current Visit: Yes Status: Acute Assessment and plan: Unclear etiology. Reduced volemia from poor oral intake is a strong factor taking into account his clinically dehydrated state and low blood pressure likely compounded with his home medications. Seems to be responding well to fluids. Will monitor his output to ensure adequacy. Check UDS and CK level. Will benefit from nephrology consultation. (2) Weakness Current Visit: Yes Status: Acute Assessment and plan: Unclear etiology. He appears rather deconditioned. I was able to stand him up however after 2 steps his gait becomes unsteady. No focal deficits are apparent and he has no pain. Will consult physical therapy for evaluation. (3) Elevated troponin Current Visit: Yes Status: Chronic Assessment and plan: Was started on heparin drip at [facility]. Seen to be a chronic elevation and adynamic. No clinical concerns for ACS at this time. Will stop it. No indication to keep trending. (4) CAD (coronary artery disease) Current Visit: Yes Status: Chronic Assessment and plan: Continue dual antiplatelet therapy and nitrates. Qualifiers: Coronary Disease-Associated Artery/Lesion type: [place] artery [place] vs. transplanted heart: [place] heart Associated angina: without angina Qualified Code(s): I25.10 - Atherosclerotic heart disease of [place] coronary artery without angina pectoris (5) Diabetes mellitus Current Visit: Yes Status: Chronic Assessment and plan: Seen to have an A1C of 6.5% in February [address]. [address] on insulin sliding scale. Qualifiers: Diabetes mellitus type: type 2 Diabetes mellitus fdc insulin use: without fdc use Diabetes mellitus complication status: with circulatory complication Diabetes mellitus complication detail: with other circulatory complications Qualified Code(s): E11.59 - Type 2 diabetes mellitus with other circulatory complications (6) HLD (hyperlipidemia) Current Visit: Yes Status: Chronic Assessment and plan: Statin dose should be adjusted per CrCl. Qualifiers: Hyperlipidemia type: unspecified Qualified Code(s): E78.5 - Hyperlipidemia, unspecified (7) HTN (hypertension) Current Visit: Yes Status: Chronic Assessment and plan: Hold antihypertensives (ACEI/diuretic) in the interim due to low BP values and MARIO. Qualifiers: Hypertension type: essential hypertension Qualified Code(s): I10 - Essential (primary) hypertension (8) DVT prophylaxis Current Visit: Yes Status: Acute Assessment and plan: SubQ heparin ordered - Time Spent With Patient Total time spent is greater than 50% in coordination of care (as documented) at patient's floor/unit and/or counseling patient: Greater than 35 minutes
[2018-06-30] MEDS: 0.9 % Sodium Chloride 1,000 ML IVC SCH (23:20)
[2018-06-30] MEDS ORDERED: Dextrose Gel 15 GM/37.5 ML TUBE PO PRN ×2 (23:30)
[2018-07-01] MEDS: *HR* Heparin 5,000 UNIT/ML VIAL SQ SCH ×3 (05:31→21:25)
[2018-07-01] MEDS ORDERED: D5% in Water 1,000 ML IVC PRN (07:16)
[2018-07-01] MEDS ORDERED: *HR* Dextrose 50 % in Water (Syg) 50 ML SYRINGE IVP PRN (07:16)
--- NOTE | 2018-07-01 07:52 | Internal Med Progress Note ---
Hospitalist Progress Note - Encounter Date of Encounter: 07/01/18 Time of Encounter: 11:00 - Subjective Interval History: Patient is a 63-year-old male who presents from [facility] due to generalized weakness and decreased by mouth to have acute renal failure and hypotension. - Exam Vitals: Temp Pulse Resp BP Pulse Ox 98.2 F 75 20 105/63 92 07/01/18 07:06 07/01/18 07:06 07/01/18 07:06 07/01/18 07:06 07/01/18 07:06 Exam: Gen.: Nonacute distress, alert and oriented 3 ENT: Mucosal membranes moist Respiratory: Lungs are clear to auscultation bilaterally without any wheezing rhonchi or rales Cardiovascular: Normal S1 and S2 regular rate rhythm no murmurs rubs or gallops Abdomen: Soft, nontender and nondistended with positive bowel sounds Extremities: No lower extremity edema Skin: Normal color - Assessment and Plan (1) Acute renal failure Current Visit: No Status: Resolved Assessment and Plan: Patient found to have a creatinine of 3.62 on admission with a GFR of 17 Will continue IV fluids started on admission Nephrology consulted and appreciate recommendations (2) Hypotension Current Visit: Yes Status: Acute Assessment and Plan: Patient found to be hypotensive on admission Suspect secondary to poor by mouth intake Continue IV fluids started on admission (3) Weakness Current Visit: Yes Status: Acute Assessment and Plan: Patient does have recent history of CVA last admission on 04/05/18 Physical therapy has been consulted and appreciate recommendations (4) Elevated troponin I level Current Visit: No Status: Acute Assessment and Plan: Patient with chronically elevated troponins going back to 2016; no normal value noted in EMR. Patient does have severe coronary arterial disease with documented noncompliance to DAPT Troponin 0.09 on admission; no further workup or monitoring. (5) CAD (coronary artery disease) Current Visit: Yes Status: Chronic Assessment and Plan: Patient with known CAD with occluded OM on [facility] 03/31/18 with hx of noncompliance. Continue dual antiplatelet therapy and nitrates. (6) Acute CVA (cerebrovascular accident) Current Visit: No Status: Acute Assessment and Plan: Patient with recent CVA on last admission (04/05/18). Physical therapy consulted as above and appreciate any additional recommendations. (7) HTN (hypertension) Current Visit: Yes Status: Chronic Assessment and Plan: Hold antihypertensives (ACEI/diuretic) due to hypotension and acute renal failure (8) HLD (hyperlipidemia) Current Visit: Yes Status: Chronic Assessment and Plan: Continue statin (9) Diabetes mellitus Current Visit: Yes Status: Chronic Assessment and Plan: HA1C of 6.5% in February 2018 Continue signs scale insulin - Summary of Assessment and Plan Summary of Assessment and Plan: Subcutaneous heparin - Time Spent with Patient Total time spent is greater than 50% in coordination of care (as documented) at patient's floor/unit and/or counseling patient: Internal Medicine: Result - Labs CBC & Chem 7: 06/30/18 21:34 06/30/18 21:34 Labs: Short CBC 06/30/18 Range/Units 21:34 WBC 9.9 (4.3-11.1) K/mcL Hgb 11.9 L (12.9-16.9) g/dL Hct 37.2 L (37.5-50.1) % Plt Count 233 (140-400) K/mcL Neutrophils # 5.5 (1.6-8.9) K/mcL BMP 06/30/18 21:34 Sodium 139 Potassium 4.1 Chloride 106 Carbon Dioxide 25 BUN 40 H Creatinine 3.62 H Glucose 119 H Calcium 8.9 Cardiac Enzymes 06/30/18 Range/Units 21:34 Troponin I 0.09 H* (< 0.04) ng/mL Liver Function 06/30/18 Range/Units 21:34 Total Bilirubin 0.4 (0.3-1.0) mg/dL Direct Bilirubin 0.1 (0.0-0.2) mg/dL AST 17 (13-39) Units/L ALT 12 (7-52) Units/L Alkaline Phosphatase 68 (34-104) Units/L Albumin 4.0 (3.5-5.7) g/dL - ABG Interpretation ABG results: PT/INR, D-dimer PT 11.7 Seconds (9.4-12.1) 06/30/18 21:34 Consult Discharge Plan - Plan Referrals: John Pritchard MD [Primary Care Provider] - 07/06/18 2:15 pm (Please follow up as schedule..) (1) Acute renal failure Qualifiers: Acute renal failure type: unspecified Qualified Code(s): N17.9 - Acute kidney failure, unspecified (5) CAD (coronary artery disease) Qualifiers: Coronary Disease-Associated Artery/Lesion type: [place] artery [place] vs. transplanted heart: [place] heart Associated angina: without angina Qualified Code(s): I25.10 - Atherosclerotic heart disease of [place] coronary artery without angina pectoris (7) HTN (hypertension) Qualifiers: Hypertension type: essential hypertension Qualified Code(s): I10 - Essential (primary) hypertension (8) HLD (hyperlipidemia) Qualifiers: Hyperlipidemia type: unspecified Qualified Code(s): E78.5 - Hyperlipidemia, unspecified (9) Diabetes mellitus Qualifiers: Diabetes mellitus type: type 2 Diabetes mellitus long-term insulin use: without long term care social worker use Diabetes mellitus complication status: with circulatory complication Diabetes mellitus complication detail: with other circulatory complications Qualified Code(s): E11.59 - Type 2 diabetes mellitus with other circulatory complications
[2018-07-01] MEDS: Aspirin Enteric Coated 81 MG Tablet PO SCH (08:03)
[2018-07-01] MEDS: Gabapentin 300 MG CAPSULE PO SCH ×3 (08:03→21:24)
[2018-07-01] MEDS: Insulin LISPRO 300 UNITS/3 ML VIAL SQ SCH ×3 (08:04→18:20)
[2018-07-01] MEDS: Metoprolol XL (24 HR) Succ 50 MG TAB.ER.24H PO SCH (08:04)
[2018-07-01] MEDS: Isosorbide MONOnitrate (24 HR) 60 MG TAB.ER.24H PO SCH (08:04)
--- NOTE | 2018-07-01 08:52 | Nephrology Consult Note ---
Date of Encounter: 07/01/18 Time of Encounter: 08:51 Past Med Surg Social Fam HX - Past Medical History Medical history: non-contributory, arthritis, coronary artery disease, hyperlipidemia, hypertension, myocardial infarction, TIA Psychiatric history: no psych history - Past Surgical History Surgical History: no surgical history, orthopedic, other Additional surgical history: 3 cardiac stents, LEFT ANKLE SURGERY - Social History Smoking Status: Current every day smoker Packs per day: 1/2 Smokeless Tobacco Status: No Alcohol use: rarely Drug use: none - Family History Father Adopted: No Family Member Ethnicity: Non- Living Status: Hx Family Cardiac Disorders: Yes (Father) Hx Family Respiratory Disorders: No Hx Family Cancer: No Hx Family GI Disorders: Yes (Father) Hx Family Neuromuscular Disorders: No Mother Adopted: No Family Member Ethnicity: Non- Living Status: Still Living Hx Family Cardiac Disorders: No Hx Family Respiratory Disorders: No Hx Family Cancer: Yes Hx Family GI Disorders: No Hx Family Endocrine Disorder: No Hx Family Neuromuscular Disorders: No Hx Family Neurologic Disorders: No Hx Family HEENT Disorders: No Hx Family Autoimmune Disorders: No Medications and Allergies Clopidogrel [Plavix] 75 mg PO DAILY #30 tablet 07/23/15 [Rx] Nitroglycerin 0.4 mg SL Q5M PRN 09/03/16 [History] Albuterol Sulfate [Proventil Hfa] 2 puff IH Q4H PRN 08/14/17 [History] Gabapentin [Neurontin] 600 mg PO TID 08/14/17 [History] Lisinopril/Hydrochlorothiazide [Zestoretic 20-12.5 mg Tablet] 1 tab PO DAILY 08/14/17 [History] Tamsulosin [Flomax] 0.4 mg PO DAILY 08/14/17 [History] Aspirin Enteric Coated [Aspirin EC] 81 mg PO DAILY #30 tablet. 02/12/18 [Rx] Atorvastatin Calcium [Lipitor] 80 mg PO HS 03/29/18 [History] Cyclobenzaprine [Flexeril] 10 mg PO HS 03/29/18 [History] Isosorbide MONOnitrate (24 HR) [Imdur] 60 mg PO DAILY 03/29/18 [History] Metoprolol Succinate [Toprol Xl] 100 mg PO DAILY 03/29/18 [History] Oxybutynin [Ditropan] 5 mg PO BID 03/29/18 [History] Amlodipine Besylate 10 mg PO DAILY 07/01/18 [History] Allergy/AdvReac Type Severity Reaction Status Date / Time No Known Allergies Allergy Verified 07/01/18 08:33 Exam - Vital Signs Vital signs: Initial Vital Signs Temp Pulse Resp BP Pulse Ox 97.6 F 74 18 90/59 93 06/30/18 21:22 06/30/18 21:22 06/30/18 21:22 06/30/18 21:22 06/30/18 21:22 Vital Signs - Last 8 Hours Temp Pulse Resp BP Pulse Ox 07/01/18 07:06 98.2 F 75 20 105/63 92 07/01/18 03:37 98.4 F 69 18 102/54 94 07/01/18 01:05 98.2 F 86 16 94/58 87 Intake and Output 06/30/18 07/01/18 07/01/18 23:59 07:59 15:59 Intake Total 300 / 300 1000 / 1000 Balance 300 / 300 1000 / 1000 Intake: IV Fluids 1000 / 1000 0.9 % Sodium Chloride 1,000 ML 1000 / 1000 @ 999 mls/hr IVC .Q1H1M ONE Rx# :[id number] Oral 300 / 300 Other: Weight 92 kg Blood Glucose* 113 167 Results - Lab Results 06/30/18 21:34 06/30/18 21:34 Most recent lab results Calcium 8.9 mg/dL (8.6-10.3) 06/30/18 21:34 Consult Discharge Plan - Plan Referrals: John Pritchard MD [Primary Care Provider] -
[2018-07-01] MEDS ORDERED: Gabapentin 300 MG CAPSULE PO SCH (09:00)
[2018-07-01] MEDS: 0.9 % Sodium Chloride 1,000 ML IVC SCH ×2 (10:07→18:23)
[2018-07-01 11:05] LABS: Bilirubin,Urine Negative (Negative); Blood,Urine Negative (Negative); Clarity,Urine Clear (Clear); Color,Urine Yellow (Yellow); Glucose,Urine (UA) 500 mg/dL (Normal); Ketones,Urine Negative (Negative); Leukocyte Esterase,Urine Negative (Negative); Nitrite,Urine Negative (Negative); PH,Urine 5.5 pH Units (5.0-8.0); Protein,Urine Trace mg/dL (Neg-Trace); Specific Gravity,Urine 1.012 (1.010-1.025); Urobilinogen,Urine Normal (Normal)
[2018-07-01 11:08] LABS: Bacteria,Urine None Seen per hpf (None-Few); Hyaline Casts,Urine None Seen per lpf (None-Few); RBC,Urine 0-3 per hpf (0-3); Squamous Epithelial Cell,Urine Few per lpf (None-Few); WBC,Urine 0-3 per hpf (0-3)
[2018-07-01 12:21] LABS: Protein/Creatinine Ratio,Urine 0.28 mg/mg (0.00-0.20); Sodium, Urine 109.3 mEq/L
--- NOTE | 2018-07-01 17:24 | Nephrology Consult Note ---
Date of Encounter: 07/01/18 Time of Encounter: 17:22 Assessment and Plan (1) MARIO (acute kidney injury) Current Visit: Yes Status: Acute The patient presents with acute kidney injury. His most recent creatinine was within normal limits. Based on what history I can obtain this is likely prerenal azotemia, but could be acute tubular necrosis. Based on his low blood pressure I would recommend intravenous saline. His renal ultrasound is negative for obstruction. He does not have significant proteinuria. Other than glucosuria, and microalbuminuria urinalysis is relatively benign While patient has a history of hypertension with his current low blood pressure consider holding or cutting back on the metoprolol and nitrates. Avoid nephrotoxic agents and adjust medications for renal function. (2) Weakness Current Visit: Yes Status: Acute Per the primary team. (3) CAD (coronary artery disease) Current Visit: Yes Status: Chronic per the primary team. He is denying chest pain at the time my evaluation. Qualifiers: Coronary Disease-Associated Artery/Lesion type: [place] artery [place] vs. transplanted heart: [place] heart Associated angina: without angina Qualified Code(s): I25.10 - Atherosclerotic heart disease of [place] coronary artery without angina pectoris (4) Diabetes mellitus Current Visit: Yes Status: Chronic Per the primary team. Qualifiers: Diabetes mellitus type: type 2 Diabetes mellitus fci insulin use: without fci use Diabetes mellitus complication status: with circulatory complication Diabetes mellitus complication detail: with other circulatory complications Qualified Code(s): E11.59 - Type 2 diabetes mellitus with other circulatory complications (5) Elevated troponin Current Visit: Yes Status: Chronic Follow serial troponins. Patient has a history of coronary artery disease. (6) HTN (hypertension) Current Visit: Yes Status: Chronic Titrate antihypertensive medication as needed. Consider holding anti hypertensive medications secondary to his relatively low blood pressure. Qualifiers: Hypertension type: essential hypertension Qualified Code(s): I10 - Essential (primary) hypertension History of Present Illness - Reason for Consult Consult date: 07/01/18 Acute Kidney Injury - Chief Complaint MARIO - History of Present Illness Mr. sanchez is a 63-year-old gentleman with a history of coronary artery disease and nonadherence to medical advice who presents with weakness after his found him crawling on the floor. The patient is a poor historian so the history is obtained from the electronic records. The patient only wants to leave. He denies chest pain, shortness of breath, nausea, vomiting. He states "if I felt okay I would be here". [facility] was consult is secondary to acute kidney injury. Past Med Surg Social Fam HX - Past Medical History Medical history: non-contributory, arthritis, coronary artery disease, hyperlipidemia, hypertension, myocardial infarction, TIA Psychiatric history: no psych history - Past Surgical History Surgical History: no surgical history, orthopedic, other Additional surgical history: 3 cardiac stents, LEFT ANKLE SURGERY - Social History Smoking Status: Current every day smoker Packs per day: 1/2 Smokeless Tobacco Status: No Alcohol use: rarely Drug use: none - Family History Father Adopted: No Family Member Ethnicity: Non- Living Status: Hx Family Cardiac Disorders: Yes (Father) Hx Family Respiratory Disorders: No Hx Family Cancer: No Hx Family GI Disorders: Yes (Father) Hx Family Neuromuscular Disorders: No Mother Adopted: No Family Member Ethnicity: Non- Living Status: Still Living Hx Family Cardiac Disorders: No Hx Family Respiratory Disorders: No Hx Family Cancer: Yes Hx Family GI Disorders: No Hx Family Endocrine Disorder: No Hx Family Neuromuscular Disorders: No Hx Family Neurologic Disorders: No Hx Family HEENT Disorders: No Hx Family Autoimmune Disorders: No Medications and Allergies Clopidogrel [Plavix] 75 mg PO DAILY #30 tablet 07/23/15 [Rx] Nitroglycerin 0.4 mg SL Q5M PRN 09/03/16 [History] Albuterol Sulfate [Proventil Hfa] 2 puff IH Q4H PRN 08/14/17 [History] Gabapentin [Neurontin] 600 mg PO TID 08/14/17 [History] Lisinopril/Hydrochlorothiazide [Zestoretic 20-12.5 mg Tablet] 1 tab PO DAILY 08/14/17 [History] Tamsulosin [Flomax] 0.4 mg PO DAILY 08/14/17 [History] Aspirin Enteric Coated [Aspirin EC] 81 mg PO DAILY #30 tablet. 02/12/18 [Rx] Atorvastatin Calcium [Lipitor] 80 mg PO HS 03/29/18 [History] Cyclobenzaprine [Flexeril] 10 mg PO HS 03/29/18 [History] Isosorbide MONOnitrate (24 HR) [Imdur] 60 mg PO DAILY 03/29/18 [History] Metoprolol Succinate [Toprol Xl] 100 mg PO DAILY 03/29/18 [History] Oxybutynin [Ditropan] 5 mg PO BID 03/29/18 [History] Amlodipine Besylate 10 mg PO DAILY 07/01/18 [History] Allergy/AdvReac Type Severity Reaction Status Date / Time No Known Allergies Allergy Verified 07/01/18 08:33 Review of Systems All Systems: reviewed and no additional remarkable complaints except as stated (As per history of present illness) Exam - Vital Signs Vital signs: Initial Vital Signs Temp Pulse Resp BP Pulse Ox 97.6 F 74 18 90/59 93 06/30/18 21:22 06/30/18 21:22 06/30/18 21:22 06/30/18 21:22 06/30/18 21:22 Vital Signs - Last 8 Hours Temp Pulse Resp BP Pulse Ox 07/01/18 15:39 97.5 F L 74 98 107/64 07/01/18 10:31 98.5 F 71 20 99/64 92 Intake and Output 07/01/18 07/01/18 07/01/18 07:59 15:59 23:59 Intake Total 1999 480 / 480 Output Total 220 / 220 Balance 1999 260 / 260 Intake: IV Fluids 1999 0.9 % Sodium Chloride 1,000 ML 1999 @ 125 mls/hr IVC .Q8H [facility] Rx#: [id number] Oral 480 / 480 Output: Urine 220 / 220 Other: Meal Breakfast Percent of Meal Consumed 100% Blood Glucose* 167 118 - General Appearance General appearance: well-developed, well-nourished EENT: ATNC Neck: supple Respiratory: course breath sounds Cardiology: no edema, regular rate, regular rhythm Gastrointestinal: no tenderness Integumentary: warm and dry Neurologic: disoriented Musculoskeletal: no cyanosis Psychiatric: mood/affect appropriate Results - Lab Results 06/30/18 21:34 06/30/18 21:34 Most recent lab results Calcium 8.9 mg/dL (8.6-10.3) 06/30/18 21:34 Urine Creatinine 109 mg/dL 07/01/18 10:57 Urine Sodium 109.3 mEq/L 07/01/18 10:57 Urine Total Protein 30 mg/dL (1-14) H 07/01/18 10:57 Consult Discharge Plan - Plan Referrals: John Pritchard MD [Primary Care Provider] - 07/06/18 2:15 pm (Please follow up as schedule..)
[2018-07-01] MEDS ORDERED: Insulin LISPRO 300 UNITS/3 ML VIAL SQ SCH (21:00)
[2018-07-02] MEDS: 0.9 % Sodium Chloride 1,000 ML IVC SCH (05:22)
[2018-07-02] MEDS: *HR* Heparin 5,000 UNIT/ML VIAL SQ SCH ×2 (05:23→14:15)
[2018-07-02 05:31] LABS: Albumin 3.7 g/dL (3.5-5.7); BUN/Creatinine Ratio 17 (6-26); Blood Urea Nitrogen 25 mg/dL (8-23); Calcium 9.2 mg/dL (8.6-10.3); Carbon Dioxide 26 mEq/L (23-29); Chloride 108 mEq/L (98-107); Glucose 112 mg/dL (70-105); Osmolality,Calculated 293 (280-300); Phosphorous 3.3 mg/dL (2.7-4.5); Potassium 4.5 mEq/L (3.5-5.1); Sodium 139 mEq/L (136-145); eGFR For Non-African Americans 50 (> 60)
[2018-07-02 07:30] LABS: Amphetamine Screen,Urine Negative ng/mL (Cutoff=1000); Barbiturate Screen,Urine Negative ng/mL (Cutoff=200); Benzodiazepines Screen,Urine Negative ng/mL (Cutoff=300); Cannabinoid Screen,Urine Negative ng/mL (Cutoff = 50); Cocaine Screen,Urine Negative ng/mL (Cutoff= 300); Opiate Screen,Urine Negative ng/mL (Cutoff=300); Phencyclidine Screen,Urine Negative ng/mL (Cutoff=25)
[2018-07-02] MEDS: Aspirin Enteric Coated 81 MG Tablet PO SCH (08:54)
[2018-07-02] MEDS: Gabapentin 300 MG CAPSULE PO SCH ×2 (08:54→14:15)
[2018-07-02] MEDS: Metoprolol XL (24 HR) Succ 50 MG TAB.ER.24H PO SCH (08:55)
[2018-07-02] MEDS: Insulin LISPRO 300 UNITS/3 ML VIAL SQ SCH ×2 (08:55→11:20)
[2018-07-02] MEDS: Isosorbide MONOnitrate (24 HR) 60 MG TAB.ER.24H PO SCH (08:55)
--- NOTE | 2018-07-02 09:38 | Nephrology Progress Note ---
Date of Encounter: 07/02/18 Time of Encounter: 09:38 - Assessment and Plan (1) MARIO (acute kidney injury) Current Visit: Yes Status: Acute The patient presents with acute kidney injury. His most recent creatinine was within normal limits. Based on what history I can obtain this is likely prerenal azotemia, but could be acute tubular necrosis. Based on his low blood pressure I would recommend intravenous saline. His renal ultrasound is negative for obstruction. He does not have significant proteinuria. Other than glucosuria, and microalbuminuria urinalysis is relatively benign While patient has a history of hypertension with his current low blood pressure consider holding or cutting back on the metoprolol and nitrates. Avoid nephrotoxic agents and adjust medications for renal function. 07/02/18 - patient's renal function is rapidly recovering. I anticipate he will go back to baseline. The patient was to go home and from a renal standpoint I am okay with this. I recommend checking a renal function panel in 1-2 weeks post discharge. He can follow-up with his primary care team and if his renal function does not return to baseline or if they have any other concerns they can have him follow-up with [facility]. We will sign off please call with questions. Thank you for the consult. (2) Weakness Current Visit: Yes Status: Acute (3) CAD (coronary artery disease) Current Visit: Yes Status: Chronic Qualifiers: Coronary Disease-Associated Artery/Lesion type: [place] artery [place] vs. transplanted heart: [place] heart Associated angina: without angina Qualified Code(s): I25.10 - Atherosclerotic heart disease of [place] coronary artery without angina pectoris (4) Diabetes mellitus Current Visit: Yes Status: Chronic Qualifiers: Diabetes mellitus type: type 2 Diabetes mellitus correction insulin use: without correction use Diabetes mellitus complication status: with circulatory complication Diabetes mellitus complication detail: with other circulatory complications Qualified Code(s): E11.59 - Type 2 diabetes mellitus with other circulatory complications (5) Elevated troponin Current Visit: Yes Status: Chronic (6) HTN (hypertension) Current Visit: Yes Status: Chronic Qualifiers: Hypertension type: essential hypertension Qualified Code(s): I10 - Essential (primary) hypertension Subjective Principal diagnosis: mario Interval history: Mr. sanchez is a 63-year-old gentleman we are seeing in follow-up for his acute kidney injury. He has no new complaint. He is sitting up in a chair and really wants to go home. Objective - Vital Signs Vital signs: Vital Signs Temp Pulse Resp BP Pulse Ox 07/02/18 08:47 95 07/02/18 08:21 98.4 F 87 19 141/69 95 07/02/18 04:02 98.4 F 71 16 123/68 93 07/02/18 01:21 98 F 73 16 102/63 94 07/01/18 21:24 98.3 F 91 16 139/80 93 07/01/18 15:39 97.5 F L 74 98 107/64 07/01/18 10:31 98.5 F 71 20 99/64 92 Intake and Output 07/01/18 07/02/18 07/02/18 23:59 07:59 15:59 Intake Total 250 / 250 1000 / 1000 60 / 60 Output Total 300 / 300 500 / 500 Balance -50 / -50 500 / 500 60 / 60 Intake: IV Fluids 1000 / 1000 0.9 % Sodium Chloride 1,000 ML 1000 / 1000 @ 125 mls/hr IVC .Q8H [facility] Rx#: [id number] Oral 250 / 250 60 / 60 Output: Urine 300 / 300 500 / 500 Other: Blood Glucose* 122 100 - General Appearance General appearance: Present: well-developed, well-nourished EENT: Present: ATNC Neck: Present: supple Cardiology: Present: regular rate Gastrointestinal: Present: obese Integumentary: Present: warm and dry Neurologic: Present: alert and oriented x3 Musculoskeletal: Present: no cyanosis Psychiatric: Present: mood/affect appropriate - Lab 06/30/18 21:34 07/02/18 04:38 Most recent lab results Calcium 9.2 mg/dL (8.6-10.3) 07/02/18 04:38 Phosphorus 3.3 mg/dL (2.7-4.5) 07/02/18 04:38 Urine Creatinine 109 mg/dL 07/01/18 10:57 Urine Sodium 109.3 mEq/L 07/01/18 10:57 Urine Total Protein 30 mg/dL (1-14) H 07/01/18 10:57 Consult Discharge Plan - Plan Referrals: John Pritchard MD [Primary Care Provider] - 07/06/18 2:15 pm (Please follow up as schedule..)
--- NOTE | 2018-07-02 10:14 | Internal Med Progress Note ---
Hospitalist Progress Note - Encounter Date of Encounter: 07/02/18 - Subjective Interval History: Patient is a 63-year-old male who presents from [facility] due to generalized weakness and decreased by mouth found to have hypotension with acute renal failure. This morning hypotension has resolved and renal function improving Physical therapy recommendations pending for possible [facility] facility placement for strengthening conditioning - Exam Vitals: Temp Pulse Resp BP Pulse Ox 98.4 F 87 19 141/69 95 07/02/18 08:21 07/02/18 08:21 07/02/18 08:21 07/02/18 08:21 07/02/18 08:47 - Assessment and Plan (1) Acute renal failure Current Visit: No Status: Resolved Assessment and Plan: Function improving this morning; serum creatinine:3.62->1.43 Will continue IV fluids started on admission Nephrology consulted and appreciate recommendations (2) Hypotension Current Visit: Yes Status: Acute Assessment and Plan: Resolved; suspect secondary to poor by mouth intake Will continue to monitor (3) Weakness Current Visit: Yes Status: Acute Assessment and Plan: Patient does have recent history of CVA last admission on 04/05/18 Physical therapy has been consulted and appreciate recommendations (4) Elevated troponin I level Current Visit: No Status: Acute Assessment and Plan: Patient with chronically elevated troponins going back to 2016; no normal value noted in EMR. Patient does have severe coronary arterial disease with documented noncompliance to DAPT Troponin 0.09 on admission; no further workup or monitoring. (5) CAD (coronary artery disease) Current Visit: Yes Status: Chronic Assessment and Plan: Patient with known CAD with occluded OM on [facility] 03/31/18 with hx of noncompliance. Continue dual antiplatelet therapy and nitrates. (6) Acute CVA (cerebrovascular accident) Current Visit: No Status: Acute Assessment and Plan: Patient with recent CVA on last admission (04/05/18). Physical therapy consulted as above and appreciate any additional recommendations. (7) HTN (hypertension) Current Visit: Yes Status: Chronic Assessment and Plan: Will continue holding antihypertensives (ACEI/diuretic) due to resolved hypotension and acute renal failure (8) HLD (hyperlipidemia) Current Visit: Yes Status: Chronic Assessment and Plan: Continue statin (9) Diabetes mellitus Current Visit: Yes Status: Chronic Assessment and Plan: HA1C of 6.5% in February 2018 Continue signs scale insulin - Summary of Assessment and Plan Summary of Assessment and Plan: Subcutaneous heparin - Time Spent with Patient Total time spent is greater than 50% in coordination of care (as documented) at patient's floor/unit and/or counseling patient: Internal Medicine: Result - Labs CBC & Chem 7: 06/30/18 21:34 07/02/18 04:38 Labs: BMP 07/02/18 04:38 Sodium 139 Potassium 4.5 Chloride 108 H Carbon Dioxide 26 BUN 25 H Creatinine 1.43 H Glucose 112 H Calcium 9.2 Liver Function 07/02/18 Range/Units 04:38 Albumin 3.7 (3.5-5.7) g/dL Urine 07/01/18 Range/Units 10:57 Urine Color Yellow (Yellow) Urine Clarity Clear (Clear) Urine pH 5.5 (5.0-8.0) pH Units Ur Specific [place] 1.012 (1.010-1.025) Urine Protein Trace (Neg-Trace) mg/dL Urine Glucose (UA) 500 H (Normal) mg/dL - ABG Interpretation ABG results: PT/INR, D-dimer PT 11.7 Seconds (9.4-12.1) 06/30/18 21:34 - Impressions Impressions Retroperitoneum Ultrasound 07/01/18 16:00 IMPRESSION: *Negative renal ultrasound. *No focal bladder abnormality with moderate postvoid residual as measured above. D/ / Jorge Melendrez MD / Jorge Melendrez MD Interpreting Provider: Jogre Melendrez MD Consult Discharge Plan - Plan Referrals: John Pritchard MD [Primary Care Provider] - 07/06/18 2:15 pm (Please follow up as schedule..) (1) Acute renal failure Qualifiers: Acute renal failure type: unspecified Qualified Code(s): N17.9 - Acute kidney failure, unspecified (5) CAD (coronary artery disease) Qualifiers: Coronary Disease-Associated Artery/Lesion type: [place] artery [place] vs. transplanted heart: [place] heart Associated angina: without angina Qualified Code(s): I25.10 - Atherosclerotic heart disease of [place] coronary artery without angina pectoris (7) HTN (hypertension) Qualifiers: Hypertension type: essential hypertension Qualified Code(s): I10 - Essential (primary) hypertension (8) HLD (hyperlipidemia) Qualifiers: Hyperlipidemia type: unspecified Qualified Code(s): E78.5 - Hyperlipidemia, unspecified (9) Diabetes mellitus Qualifiers: Diabetes mellitus type: type 2 Diabetes mellitus termite treater helper insulin use: without alf use Diabetes mellitus complication status: with circulatory complication Diabetes mellitus complication detail: with other circulatory complications Qualified Code(s): E11.59 - Type 2 diabetes mellitus with other circulatory complications
[2018-07-02 11:01] VITALS: BP 158/77
--- NOTE | 2018-07-02 14:08 | Discharge Summary ---
- NOTES TO OUTPATIENT PROVIDER Notes to Outpatient Provider: Follow-up with nephrology for monitoring of acute renal failure and primary care provider for hypertension management Orders not resulted at time of discharge: Pending orders 07/02/18 04:44 Drug Screen, Urine [UCHEM] Stat Date of Encounter: 07/02/18 Time of Encounter: 11:00 - Discharge Diagnosis (1) Hypotension Priority: Primary Status: Acute Qualifiers: Hypotension type: idiopathic hypotension Qualified Code(s): I95.0 - Idiopathic hypotension (2) Weakness Priority: Primary Status: Acute (3) Elevated troponin I level Priority: Secondary Status: Acute (4) CAD (coronary artery disease) Priority: Secondary Status: Chronic Qualifiers: Coronary Disease-Associated Artery/Lesion type: [place] artery [place] vs. transplanted heart: [place] heart Associated angina: without angina Qualified Code(s): I25.10 - Atherosclerotic heart disease of [place] coronary artery without angina pectoris (5) Acute CVA (cerebrovascular accident) Priority: Secondary Status: Acute (6) HTN (hypertension) Priority: Secondary Status: Chronic Qualifiers: Hypertension type: essential hypertension Qualified Code(s): I10 - Essential (primary) hypertension (7) HLD (hyperlipidemia) Priority: Secondary Status: Chronic Qualifiers: Hyperlipidemia type: unspecified Qualified Code(s): E78.5 - Hyperlipidemia, unspecified (8) Diabetes mellitus Priority: Secondary Status: Chronic Qualifiers: Diabetes mellitus type: type 2 Diabetes mellitus manager terminal insulin use: without manager terminal use Diabetes mellitus complication status: with circulatory complication Diabetes mellitus complication detail: with other circulatory complications Qualified Code(s): E11.59 - Type 2 diabetes mellitus with other circulatory complications Hospital course: Patient is a 63-year-old male with past medical history significant for coronary artery disease who has been noncompliant with therapy and noted to have an occluded stent on left heart catheter done March 2018, hypertension, diabetes and TIA who is transferred from [facility] where he was taken to for weakness and poor oral intake. He states that his called the ambulance on him because instead of getting up to talk he started crawling on the floor. He reported that he has been immobile and not eating or drinking much. At [facility] it is reported that his serum creatinine was >4, he was hypotensive and had an elevated troponin so he was started on heparin drip. During patients hospital stay at [facility] acute renal failure improved with IV fluids and nephrology was consulted with recommendations to follow-up as an outpatient. Patients hypotension also resolved with IV fluids well. Patient follow-up with primary care provider for monitoring. - Time Spent with Patient Total time spent providing and/or coordinating discharge services: Less than 30 minutes - Discharge Medications Home Medications: Clopidogrel [Plavix] 75 mg PO DAILY #30 tablet 07/23/15 [Rx] Nitroglycerin 0.4 mg SL Q5M PRN 09/03/16 [History] Albuterol Sulfate [Proventil Hfa] 2 puff IH Q4H PRN 08/14/17 [History] Gabapentin [Neurontin] 600 mg PO TID 08/14/17 [History] Lisinopril/Hydrochlorothiazide [Zestoretic 20-12.5 mg Tablet] 1 tab PO DAILY 08/14/17 [History] Tamsulosin [Flomax] 0.4 mg PO DAILY 08/14/17 [History] Aspirin Enteric Coated [Aspirin EC] 81 mg PO DAILY #30 tablet. 02/12/18 [Rx] Atorvastatin Calcium [Lipitor] 80 mg PO HS 03/29/18 [History] Cyclobenzaprine [Flexeril] 10 mg PO HS 03/29/18 [History] Isosorbide MONOnitrate (24 HR) [Imdur] 60 mg PO DAILY 03/29/18 [History] Metoprolol Succinate [Toprol Xl] 100 mg PO DAILY 03/29/18 [History] Oxybutynin [Ditropan] 5 mg PO BID 03/29/18 [History] Amlodipine Besylate 10 mg PO DAILY 07/01/18 [History] Allergies/Adverse Reactions: Allergy/AdvReac Type Severity Reaction Status Date / Time No Known Allergies Allergy Verified 07/01/18 08:33 Date of admission: 07/02/18 07:35 Primary care physician: John Pritchard MD Consults: 06/30/18 22:34 Consult to Database Manager [CONS] Routine Reason for SW Consult: lives at home alone, will benefit from home health or rehab 06/30/18 23:11 PT [Consult to Physical Therapy] [CONS] Routine Comment: Evaluate, develop and implement POC Reason for Consult: 63 year old male transferred from [facility] after reports of profound weakness and poor intake. Seems physically deconditioned on physical exam with no focal deficits apparent. Does patient have active BEDREST order?: No Is patient medically & hemodynamically stable?: Yes Patient assessed for mobility or mobilized this visit?: Yes 06/30/18 23:21 Consult to Nephrology [CONS] Routine Consulting Provider: Kidney Marline/HANS/TAE/ONOFRE Reason for Consult: 63 y/o M with multiple cardiovasculr comorbidities transferred from [facility] for weakness and poor oral intake, seen to have a serum creatinine > 4 from a baseline of 0.9. Call Completed: No - Constitutional Vitals: Temp Pulse Resp BP Pulse Ox 97.8 F 63 19 158/77 96 07/02/18 10:59 07/02/18 10:59 07/02/18 10:59 07/02/18 10:59 07/02/18 10:59 Exam: Gen.: Nonacute distress, alert and oriented 3 Skin: Normal color - Patient Status Disposition: Home, Self-Care - Discharge Instructions Follow Up With: John Pritchard MD [Primary Care Provider] - 07/06/18 2:15 pm (Please follow up as schedule..)
--- NOTE | 2018-07-02 16:55 | Electrocardiograph Report ---
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
== END 2018-07-02 15:44 | disposition home or self-care (01) | DRG 684 ==
LOC: INTOOBSV 20:56 → SUATTDRO 20:56 → 2ANU 20:56
PROVIDERS: ADMIT Student in an Organized Health Care Education/Training Program; ATTEND Hospitalist